=== PATIENT | female | born 1960 | race Caucasian/White ===

== ENCOUNTER 2017-08-05 11:54 | Emergency (ER) | payer BC, MEDICARE ==
[~2017-08-05] VITALS: Ht 160 cm; Wt 59.0 kg
[~2017-08-05 11:54] MED LIST: AMOXICILLIN875 MG PO; ATIVAN1 MG PO; ATIVAN2 MG PO; B12 INJ; BENADRYL25 M1 PO; BENTYL10 MG PO; CLONIDINE HCL0.1 MG PO; COMPAZINE PO; DICYCLOMINE HCL20 MG PO; DIVALPROEX SOD500 M1 PO; GYNODIOL0.5 MG; LEVOCETIRI2.5 MG/5 M PO; LEVOTHYROXINE75 MCG PO; LEVOTHYROXINE88 MCG PO; LEVSIN PO; LEVSIN0.125 MG PO; MAXITROL EYE DRO5 ML OU; MEDROL8 MG PO; METHYLPREDNISOLO8 MG PO; MOBIC7.5 M1 PO; PHENERGAN25 M3 PO; PREVACID15 M1 PO; PRILOSEC; PROCHLORPERAZIN10 MG PO; ROBAXIN-750750 MG PO; SIMVASTATIN40 MG PO; SYNTHROID75 MCG PO; TRAMADOL-ACETAMI1 EA PO; TYLENOL WITH C1 EACH PO; ULTRACET TABLE1 EACH PO; VITAMIN D5000 UNIT PO; WARFARIN SODIUM1 MG PO; XARELTO15 MG PO; Z METHYLPREDNISOLO; Z METHYLPREDNISOLO PO; Z.0.BACLOFEN10 MG; Z.0.ESTRADIOL1 MG PO; Z.0.MOBIC15 MG; Z.0.SYNTHROID100 MCG; Z.0.SYNTHROID88 MCG PO; Z.0.ZYRTEC5 MG PO; Z.1.VITAMIN D2000 UN PO; ZOFRAN PO
--- OUTSIDE RECORDS SUMMARY | 2017-08-05 11:58 | XMS REPORT | Clinical Summary ---
Author Author [facility] Address Unknown Phone Unavailable Care Team Providers Care Rotary Swaging Machine Operator Name Role Phone Harshad Avery MD PCP Allergies Active Allergy Reactions Severity Noted Date Comments Amitriptyline 01/04/2016 Numb all over and diff breathing Amlodipine GI Intolerance 01/04/2016 Vomiting, h/a Aspirin (Tartrazine Only) 01/04/2016 Ulcers Azithromycin 01/04/2016 headache Baclofen 01/04/2016 Heart problems Cephalexin Nausea And Vomiting 01/04/2016 Heart races Meperidine GI Intolerance 01/04/2016 vomiting Dexlansoprazole 01/04/2016 Heart problems Gabapentin 01/04/2016 headache Gentamicin Nausea And Vomiting 01/04/2016 Guaifenesin 01/04/2016 Actually was listussin , cannot remember reaction Hydroxychloroquine Hives 01/04/2016 Lisinopril Nausea And Vomiting 01/04/2016 Metoprolol Tartrate Nausea And Vomiting 01/04/2016 Loose bowels, rapid heart rate Metronidazole 01/04/2016 Heart stops Morphine GI Intolerance 01/04/2016 "major vomiting" per pt Nitrous Oxide Nausea And Vomiting 01/04/2016 Chlorzoxazone 01/04/2016 Loss of bowel control Peanut 01/04/2016 Dizziness Pregabalin 01/04/2016 Severe headaches Metoclopramide Hcl GI Intolerance 01/04/2016 Uncontrolled bowels Sulfa (Sulfonamide Nausea And Vomiting 01/04/2016 Antibiotics) Triamterene-Hydrochloroth 01/04/2016 Drops to floor iazid Venlafaxine Nausea And Vomiting 01/04/2016 Rapid heart rate, bowels loose Amoxicillin Rash Low 01/04/2016 Lamotrigine Rash Low 01/04/2016 Penicillins Rash Low 01/04/2016 Delta Rash Low 01/04/2016 Александр Lettuce also gives headache and rapid heart rate, put in here as no match found when attempted to put in as a separate one Vancomycin Analogues Rash Low 01/04/2016 kim Current Medications Prescription Sig. Disp. Refills Start End Date Status Date clonIDINE (CATAPRES) 0.1 Take 0.1 mg by mouth 2 Active MG tablet (two) times a day. dicyclomine (BENTYL) 20 Take 20 mg by mouth 4 Active mg tablet (four) times a day. hyoscyamine (LEVSIN) Take 0.125 mg by mouth Active 0.125 mg SL tablet every 4 (four) hours as needed for cramping. LORAZepam (ATIVAN) 1 MG Take 1 mg by mouth every Active tablet 8 (eight) hours. methylPREDNISolone Take 8 mg by mouth Active (MEDROL) 4 MG tablet nightly. levothyroxine (SYNTHROID, Take 125 mcg by mouth Active LEVOTHROID) 125 MCG every morning. tablet tramadol-acetaminophen Take 1 tablet by mouth Active (ULTRACET) 37.5-325 mg every 6 (six) hours. per tablet rivaroxaban (XARELTO) Take 15 mg by mouth Active tablet daily. docusate sodium (COLACE) Take 100 mg by mouth 2 Active 100 MG capsule (two) times a day as needed. ondansetron (ZOFRAN) 4 MG Take 4 mg by mouth every Active tablet 8 (eight) hours as needed for nausea or vomiting. PUMPKIN SEED EXTRACT/SOY Take 2 tablets by mouth 3 Active GERM (AZO BLADDER CONTROL (three) times a day. ORAL) artificial Apply 1 drop to eye as Active tears,hypromellose, needed. (SYSTANE) 0.3 % gel Active Problems Problem Noted Date Myasthenia gravis in crisis 04/17/2016 High triglycerides 04/17/2016 History of deep vein thrombosis (DVT) of lower extremity 04/17/2016 Hx pulmonary embolism 04/17/2016 Myasthenia gravis 03/06/2016 Social History Tobacco Use Types Packs/Day Years Used Date Current Every Day Smoker Cigarettes 4 25 Alcohol Use Drinks/Week oz/Week Comments No Sex Assigned at Date Recorded Not on file Last Filed Vital Signs Not on file Plan of Treatment Health Maintenance Due Date Last Done Comments PAP SMEAR 10/07/1983 COLONOSCOPY 2012 MAMMOGRAM 2012 INFLUENZA VACCINE 01/27/2017 Results Not on fileafter 08/04/2016 Insurance Payer Benefit Subscriber ID Type Phone Address Plan / Group MEDICARE MEDICARE [id number] Medicare [place], [place] PART A BCBS BCBS OUT [id number] PPO OF STATE
[2017-08-05 13:35] LABS: BASOPHILS # (AUTO) 0.1 (0.0-0.1); BASOPHILS % 0.7 % (0.0-1.0); EOSINOPHILS % 0.2 % (0.0-6.0); HEMATOCRIT 49.6 % (34.2-44.1); HEMOGLOBIN 16.5 g/dL (12.0-16.0); LYMPHOCYTES # (AUTO) 2.3 (1.0-3.2); LYMPHOCYTES % 13.9 % (18.0-39.1); MEAN CORPUSCULAR HEMOGLOBIN 31.1 pg (28-32); MEAN CORPUSCULAR HGB CONC 33.3 g/dL (31-35); MEAN CORPUSCULAR VOLUME 93.4 fL (81-99); MONOCYTES # (AUTO) 0.8 (0.2-0.8); MONOCYTES % 4.6 % (4.4-11.3); NEUTROPHILS % 77.2 % (38.7-80.0); PLATELET COUNT 273 x10e3/uL (140-360); RED BLOOD COUNT 5.31 x10e6/uL (3.6-5.1); RED CELL DISTRIBUTION WIDTH 18.1 % (11.7-14.4)
[2017-08-05 13:40] LABS: INR 1.1; PROTHROMBIN TIME 14.8 seconds (11.9-14.5)
[2017-08-05 13:41] LABS: PARTIAL THROMBOPLASTIN TIME 33.4 seconds (23.8-35.5)
[2017-08-05 13:48] LABS: ALANINE AMINOTRANSFERASE 38 IU/L (0-55); ALBUMIN 3.2 g/dL (3.5-5.0); ALBUMIN/GLOBULIN RATIO 0.8 (0.8-2.0); ALKALINE PHOSPHATASE 103 IU/L (40-150); ANION GAP 20.3 mmol/L (8-16); BLOOD UREA NITROGEN 10 mg/dL (7-26); BUN/CREATININE RATIO 12 (6-25); CARBON DIOXIDE 17 mmol/L (22-29); CHLORIDE 107 mmol/L (98-107); CREATINE KINASE 21 IU/L (29-168); CREATININE, SERUM 0.86 mg/dL (0.57-1.11); EST GLOMERULAR FILTRATION RATE > 60 ML/MIN (60-); GLUCOSE 113 mg/dL (74-118); POTASSIUM 3.3 mmol/L (3.5-5.1); SODIUM 141 mmol/L (136-145)
--- NOTE | 2017-08-05 14:28 | Diagnostic Imaging Report ---
PROCEDURE: Frontal and lateral views of the chest. COMPARISON: 02/13/12 INDICATIONS: CHEST PAIN, HEADACHE FINDINGS: Lines/tubes: Single lead left chest wall cardiac device in place with distal tip overlying right atrium. Lungs: Low lung volumes. There is no evidence of pneumonia or pulmonary edema. Pleura: There is no pleural effusion or pneumothorax. Heart and mediastinum: The heart and the mediastinum are normal. Bones: Generalized demineralization. Evidence of upper lumbar spine vertebroplasty. IMPRESSION: 1. No acute cardiopulmonary disease. Dictated by: Salinas Hare M.D. on 08/05/2017 at 14:37 Electronically approved by: Salinas Hare M.D. on 08/05/2017 at 14:37
[2017-08-05] MEDS ORDERED: SYNTHROID75 MCG PO (17:57)
[2017-08-05 19:10] LABS: BAND NEUTROPHILS % (MANUAL) 1 %; LYMPHOCYTES % (MANUAL) 11 % (19-48); METAMYELOCYTES % (MANUAL) 1 % (0-0); MONOCYTES % (MANUAL) 4 % (3.4-9.0); NEUTROPHILS % (MANUAL) 83 % (40-74)
[2017-08-05 19:13] LABS: ANISOCYTOSIS SLIGHT; PLATELET ESTIMATE ADEQUATE; PLATELET MORPHOLOGY COMMENT NORMAL; POIKILOCYTOSIS SLIGHT; RBC MORPHOLOGY COMMENT NORMAL
--- NOTE | 2017-08-05 19:14 | Diagnostic Imaging Report ---
Ventilation/perfusion lung scan Clinical Information: 56 F with chest pain and 3 weeks of SOB. Comparison: Chest radiograph 08/05/2017 Discussion: Xenon-133 gas 20 mCi was administered via inhalation. Dynamic images of the lungs in the posterior projection were obtained through single breath, equilibrium, and washout phases. Distribution of tracer activity is mildly irregular throughout the lungs.. There are no segmental ventilatory defects. Washout of tracer is diffusely delayed with no evidence of air trapping. Perfusion images of the lungs were obtained in multiple projections following intravenous administration of approximately 5.4 mCi of Tc-99m MAA. Distribution of tracer appears physiologic throughout the lungs. The contours of the lungs are well demarcated. There are no segmental perfusion defects of any size. The cardiomediastinal silhouette is unremarkable. Impression: 1. Scan findings represent a VERY LOW probability for acute pulmonary embolic disease based on the PIOPED II criteria. 2. Scan findings are compatible with mild obstructive lung disease. Signed by: Dr. Nini Pearson M.D. on 08/05/2017 7:10 PM
[2017-08-05 19:48] VITALS: BP 138/83
== END 2017-08-05 20:43 | disposition home or self-care (01) ==
LOC: ER 11:54
DX: R07.89 Other chest pain (principal); J44.9 Chronic obstructive pulmonary disease, unspecified; G35 Multiple sclerosis; M32.9 Systemic lupus erythematosus, unspecified; I73.00 Raynaud's syndrome without gangrene; Z85.850 Personal history of malignant neoplasm of thyroid; F17.210 Nicotine dependence, cigarettes, uncomplicated
CPT/HCPCS: 36415; 71046; 78582; 80053; 82550; 82553; 84484; 85025; 85610; 85730; 93005; 99284; A9540; A9558

== ENCOUNTER 2017-09-20 10:49 | Emergency (ER) | payer BC, MEDICARE ==
[~2017-09-20] VITALS: Ht 160 cm; Wt 59.0 kg
--- OUTSIDE RECORDS SUMMARY | 2017-09-20 10:52 | XMS REPORT ---
[facility] Address Unknown Phone Unavailable Care Team Providers Care Small Engine Technician Name Role Phone MAGDI CAICEDO Unavailable Unavailable Problems This patient has no known problems. Allergies, Adverse Reactions, Alerts This patient has no known allergies or adverse reactions. Medications This patient has no known medications. Results Test Description Test Time Test Comments Text Results Atomic Results Result Comments CHEST 2 VIEWS [place] [address] Patient Name: REBEKAH BLACK MR #: [id number] : 1960 Age/Sex: 56/F Req #: [id number] Adm Physician: Ordered by: UVALDO KHAN DISPATCHER MAINTENANCE SERVICE Report #: [id number] Location: ER Room/Bed: Procedure: [id number] DX/CHEST 2 VIEWS Exam Date: 08/05/17 Exam Time : 1340 REPORT STATUS: Signed PROCEDURE: Frontal and lateral views of the chest. COMPARISON: 02/13/12 INDICATIONS: CHEST PAIN, HEADACHE FINDINGS: Lines/tubes: Single lead left chest wall cardiac device in place with distal tip overlying right atrium. Lungs: Low lung volumes. There is no evidence of pneumonia or pulmonary edema. Pleura: There is no pleural effusion or pneumothorax. Heart and mediastinum: The heart and the mediastinum are normal. Bones: Generalized demineralization. Evidence of upper lumbar spine vertebroplasty. IMPRESSION: 1. No acute cardiopulmonary disease. Dictated by: Salinas Jeffers M.D. on 08/05/2017 at 14:37 Electronically approved by: Salinas Jeffers M.D. on 08/05/2017 at 14:37 Dictated By: SALINAS JEFFERS MD 36 Transcribed By: YOSELYN on 08/05/171436 COPY TO: UVALDO KHAN DISPATCHER MAINTENANCE SERVICE VQ LUNG SCAN VENT PERFUSION [place] [address] Patient Name: REBEKAH BLACK MR #: [id number] : 1960 Age/Sex: 56/F Req #: [id number] [facility] Physician: Ordered by: UVALDO KHAN NP Report #: [id number] Location: ER Room/Bed: Procedure: [id number] NM/VQ LUNG SCAN VENT PERFUSION Exam Date: Exam Time: REPORT STATUS: Signed Ventilation/ perfusion lung scan Clinical Information: 56 F with chest pain and 3 weeks of SOB. Comparison: Chest radiograph 08/05/2017 Discussion: Xenon-133 gas 20 mCi was administered via inhalation. Dynamic images of the lungs in the posterior projection were obtained through single breath, equilibrium, and washout phases. Distribution of tracer activity is mildly irregular throughout the lungs.. There are no segmental ventilatory defects. Washout of tracer is diffusely delayed with no evidence of air trapping. Perfusion images of the lungs were obtained in multiple projections following intravenous administration of approximately 5.4 mCi of Tc-99m MAA. Distribution of tracer appears physiologic throughout the lungs. The contours of the lungs are well demarcated. There are no segmental perfusion defects of any size. The cardiomediastinal silhouette is unremarkable. Impression: 1. Scan findings represent a VERY LOW probability for acute pulmonary embolic disease based on the PIOPED II criteria. 2. Scan findings are compatible with mild obstructive lung disease. Signed by: Dr. Bradley Pearson M.D. on 08/05/2017 7:10 PM Dictated By: BRADLEY PEARSON MD 09 Transcribed By: MARGUERITE on 08/05/171909 COPY TO: UVALDO KHAN NP
--- OUTSIDE RECORDS SUMMARY | 2017-09-20 10:52 | XMS REPORT | Clinical Summary ---
Author Author [facility] Address Unknown Phone Unavailable Care Team Providers Care Gauge And Weigh Machine Adjuster Name Role Phone Harshad Avery MD PCP Allergies Active Allergy Reactions Severity Noted Date Comments Amitriptyline 01/04/2016 Numb all over and diff breathing Amlodipine GI Intolerance 01/04/2016 Vomiting, h/a Amoxicillin Rash Low 01/04/2016 Aspirin (Tartrazine Only) 01/04/2016 Ulcers Azithromycin 01/04/2016 headache Baclofen 01/04/2016 Heart problems Cephalexin Nausea And Vomiting 01/04/2016 Heart races Meperidine GI Intolerance 01/04/2016 vomiting Dexlansoprazole 01/04/2016 Heart problems Gabapentin 01/04/2016 headache Gentamicin Nausea And Vomiting 01/04/2016 Guaifenesin 01/04/2016 Actually was listussin , cannot remember reaction Hydroxychloroquine Hives 01/04/2016 Lamotrigine Rash Low 01/04/2016 Lisinopril Nausea And Vomiting 01/04/2016 Metoprolol Tartrate Nausea And Vomiting 01/04/2016 Loose bowels, rapid heart rate Metronidazole 01/04/2016 Heart stops Morphine GI Intolerance 01/04/2016 "major vomiting" per pt Nitrous Oxide Nausea And Vomiting 01/04/2016 Chlorzoxazone 01/04/2016 Loss of bowel control Peanut 01/04/2016 Dizziness Penicillins Rash Low 01/04/2016 Pregabalin 01/04/2016 Severe headaches Metoclopramide Hcl GI Intolerance 01/04/2016 Uncontrolled bowels Galva Rash Low 01/04/2016 Александр Lettuce also gives headache and rapid heart rate, put in here as no match found when attempted to put in as a separate one Sulfa (Sulfonamide Nausea And Vomiting 01/04/2016 Antibiotics) Triamterene-Hydrochloroth 01/04/2016 Drops to floor iazid Vancomycin Analogues Rash Low 01/04/2016 redmans Venlafaxine Nausea And Vomiting 01/04/2016 Rapid heart rate, bowels loose Current Medications Prescription Sig. Disp. Refills Start [...] INFLUENZA VACCINE 01/27/2017 Results Not on fileafter 09/19/2016 Insurance Payer Benefit Subscriber ID Type Phone Address Plan / Group MEDICARE MEDICARE xxxxxxxxxx Medicare [place], [place] PART A BCBS BCBS OUT xxxxxxxxxxxx PPO OF STATE
--- OUTSIDE RECORDS SUMMARY | 2017-09-20 10:53 | XMS REPORT | Continuity of Care Document ---
Author Author [facility] Organization [facility] Address [address] [place] [address] Phone Unavailable Care Team Providers Care Mash Grinder Name Role Phone SARABJIT LAMAS PCP Insurance Providers Guarantor Rebekah Louis Address [address] [place] [address] Email [email or web address] [facility] Policy Number [id number] Subscriber's Name Hiro Louis Relationship 01 Group Number [id number] Group Name [employer] [id number] Effective Date 17 Payer Medicare A Only Policy Number [id number] Subscriber's Name Rebekah Louis Relationship 18 Self / Same As Patient Effective Date 11 Advance Directives Directive Response Recorded Date/Time Does the patient have an advance directive? No 05/31/15 4:41pm If yes, is advance directive on file with [facility]? No 04/03/14 9:00pm If not on file with [facility] will patient provide a copy? No 05/19/17 10:06am Do you have a Directive to Physician? No 08/05/17 12:42pm Do you have a Medical Power of Professor In Family Studies? No 08/05/17 12:42pm Do you have an out of hospital Do Not Resuscitate Order? No 08/05/17 12:42pm Do you have any special needs we should be aware of? No 08/05/17 12:42pm Do you have a support person here with you today? Yes 08/05/17 12:42pm Did patient receive Notice of Privacy Practices? Yes 08/05/17 12:42pm Did patient receive patient rights and responsibilities? Yes 08/05/17 12:42pm Problems Medical Problem Onset Date Status Abdominal pain as manifestation of blood transfusion reaction 04/03/2014 Acute Colitis, acute 04/03/2014 Acute Pancreatitis 04/03/2014 Acute Medications Current Home Medications Medication Dose Units Route Directions Days Qty Instructions Start Date Clonidine Hcl 0.1 Mg Tablet 1 Tab Oral Three Times A Day 60 Tab Compazine 10 Mg Oral As Needed Hyoscyamine Sulfate (Levsin) 0.125 Mg Tablet 0.125 Mg Oral X5oblun Levothyroxine Sodium (Synthroid) 75 Mcg Tab 75 Mcg Oral Daily 30 Tab Lorazepam (Ativan) 1 Mg Tablet 1 Mg Oral Three Times A Day Methylprednisolone 8 Mg Tablet 8 Mg Oral Daily Prilosec 40 Mg Twice A Day Rivaroxaban (Xarelto) 15 Mg Tablet 15 Mg Oral Daily Tramadol Hcl/Acetaminophen (Ultracet Tablet) 1 Each Tablet 1 Tab Oral Four Times Daily Past Home Medications Medication Directions Ordered Status Acetaminophen With Codeine (Tylenol With Codeine #3 Tablet) 1 Each Tablet, 0.5 Tab Oral Daily Discontinued Amoxicillin 875 Mg Tablet, 875 Mg Oral Twice A Day Discontinued B12 , Injection Monthly Discontinued Baclofen 10 Mg Tablet, Discontinued Cetirizine Hcl (Zyrtec) 5 Mg Tablet, 5 Mg Oral Daily Discontinued Cholecalciferol (Vitamin D) 2,000 Unit Capsule, 2000 Unit Oral Daily Discontinued Cholecalciferol (Vitamin D3) (Vitamin D) 5,000 Unit Tablet, 5000 Unit Oral Daily Discontinued Dicyclomine Hcl 20 Mg Tablet, 20 Mg Oral Four Times Daily as needed for Pain Discontinued Dicyclomine Hcl (Bentyl) 10 Mg Capsule, 10 Mg Oral Q3hrs Discontinued Diphenhydramine Hcl (Benadryl) 25 Mg Capsule, 25 Mg Oral Discontinued Estradiol 1 Mg Tablet, 1 Mg Oral Daily Discontinued Estradiol (Gynodiol) 0.5 Mg Tablet, Discontinued Lansoprazole (Prevacid) 15 Mg Tab.rap.dr, 15 Mg Oral Twice A Day Discontinued Levothyroxine Sodium 75 Mcg Tablet, 125 Mcg Oral Daily Discontinued Levothyroxine Sodium (Synthroid) 75 Mcg Tab, 75 Mcg Oral Discontinued Levothyroxine Sodium 88 Mcg Tablet, 88 Mcg Oral Daily Discontinued Levothyroxine Sodium (Synthroid) 88 Mcg Tablet, 112 Mcg Oral Daily Discontinued Levothyroxine Sodium (Synthroid) 100 Mcg Tablet, Discontinued Levsin , Oral As Needed Discontinued Lorazepam (Ativan) 1 Mg Tablet, 1 Mg Oral Every 8 Hours Discontinued Lorazepam (Ativan) 2 Mg Tablet, 2 Mg Oral At Bedtime Discontinued Meloxicam (Mobic) 7.5 Mg Tablet, 7.5 Mg Oral Daily as needed Discontinued Meloxicam (Mobic) 15 Mg Tablet, Discontinued Methocarbamol (Robaxin-750) 750 Mg Tablet, 750 Mg Oral Three Times A Day Discontinued Methylprednisolone (Medrol) 8 Mg Tablet, 12 Mg Oral Rt Daily Discontinued Methylprednisolone 8 Mg Tablet, 8 Mg Oral Daily Discontinued Methylprednisolone 4 Mg Tablet, Discontinued Vasu/Polymyx B Sulf/Dexameth (Maxitrol Eye Drops) 5 Ml Drops.susp, 1 Drp Each Eye Three Times A Day Discontinued Prochlorperazine Maleate 10 Mg Tablet, Unknown Dose Oral Daily Discontinued Promethazine Hcl (Phenergan) 25 Mg Tablet, 25 Mg Oral Every 6 Hours as needed Discontinued Tramadol/Acetaminophen (Tramadol-Acetaminophn 37.5-325) 1 Ea Tab, 1 Tab Oral Twice A Day Discontinued Warfarin Sodium 1 Mg Tablet, 3.5 Mg Oral Rt Daily Discontinued Zofran , Oral As Needed Discontinued Social History Social History Problem Response Recorded Date/Time Onset Date Status Hx Psychiatric Problems No 05/31/2015 4:41pm Not Applicable Not Applicable Hx Eating Disorder No 05/31/2015 4:41pm Not Applicable Not Applicable Hx Substance Use Disorder No 05/31/2015 4:41pm Not Applicable Not Applicable Hx Depression No 05/31/2015 4:41pm Not Applicable Not Applicable Hx Alcohol Use No 05/31/2015 4:41pm Not Applicable Not Applicable Hx Substance Use Treatment No 05/31/2015 4:41pm Not Applicable Not Applicable Hx Physical Abuse No 05/31/2015 4:41pm Not Applicable Not Applicable Smoking Status Start Date Stop Date Never Smoker Hospital Discharge Instructions No hospital discharge instruction information available. Plan of Care Discharge Date 08/05/17 8:43pm Disposition HOME, SELF-CARE Condition at Discharge Stable Instructions/Education Provided Chest Pain - Chest Wall COPD Prescriptions See Medication Section Referrals SARABJIT LAMAS Address: [address] [place] [address] Additional Instructions/Education REST; DRINK PLENTY OF WATER; FOLLOW UP WITH YOUR PCP Functional Status No functional status information available. Allergies, Adverse Reactions, Alerts Allergen Type Severity Reaction Status Last Updated Diphenoxylate HCl Allergy Unknown Active 11/28/16 amitriptyline HCl Allergy Severe Active 02/13/12 atropine sulfate Allergy Unknown Active 11/28/16 phenylephrine HCl Allergy Unknown Active 11/28/16 metoprolol tartrate Adverse Reaction Unknown VOMITING FOR HOURS Active 08/15 hydroxychloroquine sulfate Allergy Unknown Active 11/28/16 Metronidazole HCl Allergy Unknown Active 11/28/16 dexbrompheniramine maleate Allergy Unknown Active 11/28/16 sertraline HCl Allergy Unknown Active 11/28/16 venlafaxine HCl Allergy Unknown Active 11/28/16 Iodinated Contrast- Oral and IV Dye Allergy Mild Active 06/12/09 Sulfa (Sulfonamide Antibiotics) Allergy Mild Active 01/05/11 Peanuts Allergy Mild Active 10/04/11 Lisinopril Allergy Unknown Active 11/28/16 Nitrous oxide Allergy Unknown Active 11/28/16 Morphine Allergy Unknown NAUSEA/VOMITING Active 12/01/16 Hydrocodone Allergy Mild Active 06/12/09 Aspirin Allergy Unknown Active 11/28/16 Chlorzoxazone Allergy Mild Active 01/05/11 Baclofen Allergy Unknown Active 11/28/16 Epinephrine Allergy Severe Active 02/13/12 Phenylephrine Allergy Mild Active 01/05/11 Hydrochlorothiazide Allergy Mild Active 01/05/11 Triamterene Allergy Mild Active 01/05/11 Cephalexin Allergy Mild Active 01/05/11 Metronidazole Allergy Unknown Active 08/05/17 Famotidine Allergy Mild Active 06/01/15 Azithromycin Allergy Mild Active 01/05/11 Amoxicillin Allergy Unknown Active 11/28/16 Lamotrigine Allergy Unknown Active 11/28/16 Tramadol Allergy Severe TACHYCARDIA Active 06/02/15 Enoxaparin Allergy Mild VASCULITIS Active 12/11/13 Gabapentin Allergy Unknown Active 05/20/17 Chlorpheniramine Allergy Mild Active 01/05/11 Dexbrompheniramine Allergy Mild Active 01/05/11 Procaine Allergy Unknown Active 11/28/16 Bupropion Allergy Mild SEVERE STOMACH PAIN, DIARRHEA Active 05/14/15 Meperidine Allergy Unknown NAUSEA/VOMITNG Active 12/01/16 Hydromorphone Allergy Mild N/V Active 05/14/15 Buprenorphine Allergy Severe TACHYCARDIA Active 05/14/15 Metoclopramide Allergy Mild N/V Active 05/14/15 Minocycline Allergy Unknown Active 11/28/16 Vancomycin Allergy Unknown Active 11/28/16 Gentamicins Allergy Unknown Active 11/28/16 Losartan Allergy Unknown Active 05/20/17 Pregabalin Allergy Unknown Active 11/28/16 Dexlansoprazole Allergy Unknown Active 11/28/16 Immunizations No immunization information available. Vital Signs Acute Vital Signs Vital Response Date/Time Blood Pressure 138/83 mm Hg 08/05/2017 7:48pm Height 5 ft 3 in 08/05/2017 12:05pm Weight 130 lb 08/05/2017 12:05pm Body Mass Index 23.0 kg/m^2 08/05/2017 12:05pm Results Laboratory Results Test Name Result Units Flags Reference Collection Date/Time Result Date/ Time Comments White Blood Count 16.79 x10e3/uL H 4.8-10.8 08/05/2017 1:20pm 2017 1:43pm Red Blood Count 5.31 x10e6/uL H 3.6-5.1 08/05/2017 1:20pm 08/05/2017 1: 43pm Hemoglobin 16.5 g/dL H 12.0-16.0 08/05/2017 1:20pm 08/05/2017 1:43pm Hematocrit 49.6 % H 34.2-44.1 08/05/2017 1:20pm 08/05/2017 1:43pm Mean Corpuscular Volume 93.4 fL 81-99 08/05/2017 1:20pm 08/05/2017 1: 43pm Mean Corpuscular Hemoglobin 31.1 pg 28-32 08/05/2017 1:20pm 08/05/2017 1:43pm Mean Corpuscular Hemoglobin Concent 33.3 g/dL 31-35 08/05/2017 1:20pm 08/05/2017 1:43pm Red Cell Distribution Width 18.1 % H 11.7-14.4 08/05/2017 1:20pm 2017 1:43pm Platelet Count 273 x10e3/uL 140-360 08/05/2017 1:20pm 08/05/2017 1: 43pm Neutrophils (%) (Auto) 77.2 % 38.7-80.0 08/05/2017 1:20pm 08/05/2017 1: 43pm Lymphocytes (%) (Auto) 13.9 % L 18.0-39.1 08/05/2017 1:20pm 08/05/2017 1 :43pm Monocytes (%) (Auto) 4.6 % 4.4-11.3 08/05/2017 1:20pm 08/05/2017 1: 43pm Eosinophils (%) (Auto) 0.2 % 0.0-6.0 08/05/2017 1:20pm 08/05/2017 1: 43pm Basophils (%) (Auto) 0.7 % 0.0-1.0 08/05/2017 1:20pm 08/05/2017 1:43pm IM GRANULOCYTES % 3.4 % H 0.0-1.0 08/05/2017 1:20pm 08/05/2017 1:43pm Neutrophils # (Auto) 13.0 H 2.1-6.9 08/05/2017 1:20pm 08/05/2017 1: 43pm Lymphocytes # (Auto) 2.3 1.0-3.2 08/05/2017 1:20pm 08/05/2017 1:43pm Monocytes # (Auto) 0.8 0.2-0.8 08/05/2017 1:20pm 08/05/2017 1:43pm Eosinophils # (Auto) 0.0 0.0-0.4 08/05/2017 1:20pm 08/05/2017 1:43pm Basophils # (Auto) 0.1 0.0-0.1 08/05/2017 1:20pm 08/05/2017 1:43pm Absolute Immature Granulocyte (auto 0.57 x10e3/uL H 0-0.1 08/05/2017 1: 20pm 08/05/2017 1:43pm Differential Total Cells Counted 100 08/05/2017 1:20pm 08/05/2017 7 :14pm Neutrophils % (Manual) 83 % H 40-74 08/05/2017 1:20pm 08/05/2017 7:14pm Band Neutrophils % 1 % 08/05/2017 1:20pm 08/05/2017 7:14pm Lymphocytes % (Manual) 11 % L 19-48 08/05/2017 1:20pm 08/05/2017 7:14pm Monocytes % (Manual) 4 % 3.4-9.0 08/05/2017 1:20pm 08/05/2017 7:14pm Metamyelocytes % 1 % H 0-0 08/05/2017 1:20pm 08/05/2017 7:14pm Platelet Estimate ADEQUATE 08/05/2017 1:20pm 08/05/2017 7:14pm Platelet Morphology Comment NORMAL 08/05/2017 1:20pm 08/05/2017 7: 14pm Poikilocytosis SLIGHT 08/05/2017 1:20pm 08/05/2017 7:14pm Anisocytosis SLIGHT 08/05/2017 1:20pm 08/05/2017 7:14pm Red Cell Morphology Comment NORMAL 08/05/2017 1:20pm 08/05/2017 7: 14pm Prothrombin Time 14.8 seconds H 11.9-14.5 08/05/2017 1:20pm 08/05/2017 1 :41pm Prothromb Time International Ratio 1.10 08/05/2017 1:20pm 2017 1:41pm Oral Anticoagulant Therapy INR Values: 1. Low Intensity Therapy 1.5 - 2.0 2. Moderate Intensity Therapy 2.0 - 3.0 3. High Intensity Therapy(1) 2.5 - 3.5 4. High Intensity Therapy(2) 3.0 - 4.0 5. Panic Value INR > 5.0 Activated Partial Thromboplast Time 33.4 seconds 23.8-35.5 08/05/2017 1: 20pm 08/05/2017 1:41pm Sodium Level 141 mmol/L 136-145 08/05/2017 1:20pm 08/05/2017 1:56pm Potassium Level 3.3 mmol/L L 3.5-5.1 08/05/2017 1:20pm 08/05/2017 1: 56pm Chloride Level 107 mmol/L 98-107 08/05/2017 1:20pm 08/05/2017 1:56pm Carbon Dioxide Level 17 mmol/L L 22-29 08/05/2017 1:20pm 08/05/2017 1: 56pm Anion Gap 20.3 mmol/L H 8-16 08/05/2017 1:20pm 08/05/2017 1:56pm Blood Urea Nitrogen 10 mg/dL 7-26 08/05/2017 1:20pm 08/05/2017 1:56pm Creatinine 0.86 mg/dL 0.57-1.11 08/05/2017 1:20pm 08/05/2017 1:56pm BUN/Creatinine Ratio 12 6-25 08/05/2017 1:20pm 08/05/2017 1:56pm Estimat Glomerular Filtration Rate > 60 ML/MIN 60- 08/05/2017 1:20pm 1:56pm Ranges were taken from the National Kidney Disease Education Program and the National Kidney Foundation literature. Reference ranges: 60 or greater: Normal 16-59 (for 3 consecutive months): Chronic kidney disease 15 or less: Kidney failure Glucose Level 113 mg/dL 74-118 08/05/2017 1:20pm 08/05/2017 1:56pm Calcium Level 9.0 mg/dL 8.4-10.2 08/05/2017 1:20pm 08/05/2017 1:56pm Total Bilirubin 0.5 mg/dL 0.2-1.2 08/05/2017 1:20pm 08/05/2017 1:56pm Aspartate Amino Transf (AST/SGOT) 16 IU/L 5-34 08/05/2017 1:20pm 2017 1:56pm Alanine Aminotransferase (ALT/SGPT) 38 IU/L 0-55 08/05/2017 1:20pm 12/2017 1:56pm Total Protein 7.1 g/dL 6.5-8.1 08/05/2017 1:20pm 08/05/2017 1:56pm Albumin 3.2 g/dL L 3.5-5.0 08/05/2017 1:20pm 08/05/2017 1:56pm Globulin 3.9 g/dL H 2.3-3.5 08/05/2017 1:20pm 08/05/2017 1:56pm Albumin/Globulin Ratio 0.8 0.8-2.0 08/05/2017 1:20pm 08/05/2017 1: 56pm Alkaline Phosphatase 103 IU/L 40-150 08/05/2017 1:20pm 08/05/2017 1: 56pm Creatine Kinase 21 IU/L L 29-168 08/05/2017 1:20pm 08/05/2017 1:56pm Creatine Kinase MB 1.20 ng/mL 0.00-5.00 08/05/2017 1:20pm 08/05/2017 1: 56pm Troponin I 0.009 ng/mL 0-0.300 08/05/2017 1:20pm 08/05/2017 1:56pm Procedures Procedure Status Date Provider(s) COLONOSCOPY W/LESION REMOVAL Completed 05/23/17 JELLY MATHIS MD COLONOSCOPY W/LESION REMOVAL Completed 05/23/17 JELLY MATHIS MD X-ray of chest, two views Active 08/05/17 UVALDO KHAN TIME CHECKER Encounters Encounter Location Arrival/Admit Date Discharge/Depart Date Attending Provider Departed Emergency Room [facility] 08/05/17 11:54am 08/05 8:43pm MAGDI CAICEDO MD Registered Surgical Day Care [facility] 05/23/17 8:39am JELLY MATHIS MD Registered Surgical Day Care [facility] 12/01/16 7:42am JELLY MATHIS MD
[2017-09-20 12:18] LABS: BASOPHILS # (AUTO) 0.1 (0.0-0.1); BASOPHILS % 0.4 % (0.0-1.0); HEMOGLOBIN 15.5 g/dL (12.0-16.0); LYMPHOCYTES # (AUTO) 0.9 (1.0-3.2); LYMPHOCYTES % 6.7 % (18.0-39.1); MEAN CORPUSCULAR HEMOGLOBIN 31.6 pg (28-32); MEAN CORPUSCULAR HGB CONC 34.4 g/dL (31-35); MEAN CORPUSCULAR VOLUME 91.8 fL (81-99); MONOCYTES # (AUTO) 0.4 (0.2-0.8); MONOCYTES % 3.1 % (4.4-11.3); NEUTROPHILS # (AUTO) 12.2 (2.1-6.9); NEUTROPHILS % 86.3 % (38.7-80.0); PLATELET COUNT 206 x10e3/uL (140-360); RED CELL DISTRIBUTION WIDTH 16.2 % (11.7-14.4)
[2017-09-20 12:26] LABS: INR 2.64; PROTHROMBIN TIME 26.5 seconds (11.9-14.5)
[2017-09-20 12:27] LABS: PARTIAL THROMBOPLASTIN TIME 41.1 seconds (23.8-35.5)
[2017-09-20 12:34] LABS: ALANINE AMINOTRANSFERASE 39 IU/L (0-55); ALBUMIN/GLOBULIN RATIO 0.9 (0.8-2.0); ALKALINE PHOSPHATASE 91 IU/L (40-150); AMYLASE 76 U/L (25-125); ANION GAP 15.7 mmol/L (8-16); BLOOD UREA NITROGEN 12 mg/dL (7-26); BUN/CREATININE RATIO 14 (6-25); CALCIUM 8.8 mg/dL (8.4-10.2); CARBON DIOXIDE 20 mmol/L (22-29); CHLORIDE 105 mmol/L (98-107); CREATINE KINASE 29 IU/L (29-168); CREATININE, SERUM 0.83 mg/dL (0.57-1.11); EST GLOMERULAR FILTRATION RATE > 60 ML/MIN (60-); GLUCOSE 156 mg/dL (74-118); LIPASE 58 U/L (8-78); POTASSIUM 3.7 mmol/L (3.5-5.1); SODIUM 137 mmol/L (136-145)
--- NOTE | 2017-09-20 12:41 | Diagnostic Imaging Report ---
EXAM: CT Abdomen and Pelvis WITHOUT contrast INDICATION: Left lower quadrant pain COMPARISON: None. TECHNIQUE: Abdomen and Pelvis was scanned utilizing a multidetector helical scanner without the use of IV contrast. Coronal and sagittal reformations were obtained. IV CONTRAST: None COMPLICATIONS: None RADIATION DOSE: Total DLP: 373 mGy*cm Estimated effective dose: (DLP x 0.015 x size factor) mSv CTDIvol has been reviewed. It is below the limits set by the Radiation Protocol Committee (RPC). FINDINGS: Abdomen: Lung Bases: Atelectasis. Solid Organs: Cholecystectomy clips. Nonenhanced images of solid organs unremarkable. Upper GI Tract: Gastric decompression limits adequate evaluation. No small bowel obstructive changes. Vascularity: Mild aortic vascular calcifications with no aneurysm. Lymph Nodes: No suspicious adenopathy. Other: None. Pelvis: Bladder: Decompressed, limiting evaluation. Other: Uterus absent. Colon: Postsurgical changes rectum. There is a 19 mm lesion with central fat density adjacent to the descending colon. Bones: Vertebroplasty changes L1 and L5. Superior endplate height loss L2, L3, L4, likely partially related to Schmorl's nodes. IMPRESSION: 1. 19 mm lesion with central fat density adjacent to descending colon statistically secondary to epiploic appendagitis or less likely omental infarction, both benign/self-limiting processes. 2. Other findings as above. Signed by: Dr. Felix Taylor MD on 09/20/2017 12:38 PM
--- NOTE | 2017-09-20 12:44 | Diagnostic Imaging Report ---
EXAM: XR CHEST 2 VIEWS DATE: 09/20/2017 11:07 AM INDICATION: Rib pain COMPARISON: None FINDINGS: Lines and Tubes: Single lead left chest wall pacemaker with lead overlying right atrium. Heart and Mediastinum: No acute findings. Lungs and Pleura: Biapical scarring. Atelectasis/scarring left lung base. Mild elevation right hemidiaphragm. Bones and Soft Tissues: Surgical clips overlie lower neck. IMPRESSION: 1. No acute cardiopulmonary findings. Signed by: Dr. Felix Taylor MD on 09/20/2017 12:41 PM
[2017-09-20 13:05] LABS: BILIRUBIN,URINE 1+ (NEGATIVE); COLOR,URINE YELLOW (YELLOW); KETONES,URINE 1+ (NEGATIVE); LEUKOCYTE ESTERASE ,URINE NEGATIVE (NEGATIVE); NITRITE,URINE NEGATIVE (NEGATIVE); URINE UROBILINOGEN 1 mg/dL (0.2 - 1)
[2017-09-20 13:06] LABS: CLARITY,URINE SL CLOUDY (CLEAR); PROTEIN,URINE DIPSTICK TRACE (NEGATIVE)
[2017-09-20 13:23] LABS: BACTERIA,URINE FEW /HPF; EPITHELIAL CELLS,URINE MANY /LPF; RBC,URINE 0-5 /HPF (0-5); WBC,URINE (MAN) 0-5 /HPF (0-5)
[2017-09-20] MEDS ORDERED: CIPROFLOXACIN 400 MG/D5W 200ML 200 ML IV STA (14:04)
[2017-09-20 14:22] LABS: BAND NEUTROPHILS % (MANUAL) 1 %; LYMPHOCYTES % (MANUAL) 8 % (19-48); MONOCYTES % (MANUAL) 1 % (3.4-9.0); NEUTROPHILS % (MANUAL) 90 % (40-74); RBC MORPHOLOGY COMMENT NORMAL
[2017-09-20 14:23] LABS: PLATELET ESTIMATE ADEQUATE; PLATELET MORPHOLOGY COMMENT NORMAL
[2017-09-20] MEDS ORDERED: CLINDAMYCIN PHOS 900MG/ D5W 50 50 ML IV ONE (15:30)
[2017-09-20] MEDS ORDERED: CIPROFLOXACIN 400 MG/D5W 200ML 200 ML IV ONE (16:00)
[2017-09-20] MEDS ORDERED: SODIUM CHLORIDE 0.9% 1000ML 1,000 ML IV SCH (16:44)
[2017-09-20] MEDS ORDERED: MORPHINE SULFATE 2 MG/ML SYR IV PRN (16:45)
[2017-09-20] MEDS ORDERED: ONDANSETRON HCL INJ 2 MG/ML VIAL IV PRN (16:45)
[2017-09-20] MEDS ORDERED: DEXTROSE 50% SYRINGE 50 ML IV PRN (16:45)
--- OUTSIDE RECORDS SUMMARY | 2017-09-20 16:59 | XMS REPORT | Clinical Summary ---
Author Author [facility] Address Unknown Phone Unavailable Care Team Providers Care Garment Folder Name Role Phone Harshad Avery MD PCP [...] Metoclopramide Hcl GI Intolerance 01/04/2016 Uncontrolled bowels [place] Rash Low 01/04/2016 Александр Lettuce also gives [...] Plan / Group MEDICARE MEDICARE xxxxxxxxxx Medicare [place], [place] PART A BCBS BCBS OUT xxxxxxxxxxxx PPO OF STATE
[2017-09-20] MEDS ORDERED: CIPROFLOXACIN 400 MG/D5W 200ML 200 ML IV SCH (17:00)
[2017-09-20] MEDS ORDERED: SODIUM CHLORIDE 0.9% 1000ML 1,000 ML ONE (17:07)
[2017-09-20 18:17] VITALS: BP 151/96
[2017-09-20] MEDS ORDERED: CLONIDINE HCL 0.1 MG TAB PO SCH (21:00)
[2017-09-20] MEDS ORDERED: INSULIN REGULAR, HUMAN 100 UNIT/1 ML 3ML VIAL SQ SCH (21:00)
[2017-09-21] MEDS ORDERED: CLINDAMYCIN PHOS 900MG/ D5W 50 50 ML IV SCH
--- NOTE | 2017-09-22 05:20 | History and Physical ---
ATTENDING PHYSICIAN: Dr. Rory Bennett CHIEF COMPLAINT: Ms. Louis is an unfortunate 56-year-old woman with multiple medical problems, who presents to the emergency room with a complaint of left lower quadrant discomfort. HISTORY OF PRESENT ILLNESS: Patient reports this has been an intermittent problem for the last 4 days. She reports that any time she eats or drinks anything that she has discomfort there in the left lower quadrant. She reports she has had chills, but does not know if she has had fever and has not checked her temperature. PAST MEDICAL HISTORY: Significant for multiple problems including systemic lupus erythematosus, rheumatoid arthritis. She had ablation of supraventricular tachycardia and required permanent pacemaker implant. It is felt she previously had seizure. She had previous colonoscopies by Dr. Oswald Coronado, 1 in May 2015 showed mild left side colitis, colon polyps, internal hemorrhoids. She has had DVT and pulmonary emboli in June of 2012 after she had surgeries by her report and is still taking Xarelto. She has had pancreatitis, endometriosis. She has had surgical procedures of hysterectomy. She had total thyroidectomy after thyroid cancer. She has had cholecystectomy and right inguinal hernia repair. CURRENT HOME MEDICATIONS: Include: 1. Clonidine 0.1 mg t.i.d. 2. Levsin. 3. Synthroid 75 mcg daily. 4. Ativan 1 mg t.i.d. 5. Methylprednisolone 8 mg daily. 6. Rivaroxaban (Xarelto) 15 mg daily. 7. Tramadol p.r.n. PERSONAL AND SOCIAL HISTORY: She does not smoke or drink. PHYSICAL EXAMINATION: At this time shows: GENERAL: Pleasant, alert white woman, who seems uncomfortable. HEENT: Examination of head, eyes, ears, nose, and throat relatively unremarkable. NECK: No jugular venous distention. THORAX: Heart sounds S1 and S2 are equal. No murmurs. There is a left subclavian pacemaker intact. LUNGS: Clear. ABDOMEN: Protuberant, small healed surgical scars. No distinct tenderness. EXTREMITIES: No cyanosis, clubbing, or edema. PERTINENT LABORATORY STUDIES: Showed hemoglobin 15.5, hematocrit 45.0, white count 14.0. Sodium 137, potassium 3.7, chloride 105, bicarb 20, glucose 156, BUN 12, and creatinine 0.8. Her troponin is normal. ASSESSMENT: 1. Possible diverticulosis. 2. Systemic lupus erythematosus. 3. Rheumatoid arthritis. PLAN: She has been given broad-spectrum antibiotics. Will ask for consultation with Dr. Oswald Coronado. Further management based on clinical course. Job#: [id number] cc:SARABJIT LAMAS MD
== END 2017-09-20 18:00 | disposition left against medical advice (07) ==
LOC: ER 10:49 → ERHOLD 16:57 → UNDOADMIN 16:57
DX: R10.32 Left lower quadrant pain (principal); R07.81 Pleurodynia; K63.89 Other specified diseases of intestine; E11.65 Type 2 diabetes mellitus with hyperglycemia; D72.829 Elevated white blood cell count, unspecified
CPT/HCPCS: 36415; 71046; 74176; 80053; 81001; 82150; 82550; 82553; 83690; 83880; 84484; 85025; 85610; 85730; 93005; 99284; J0744; J7030

== ENCOUNTER → 2018-03-15 | Outpatient (CLI) | payer BC ==
[~2018-03-15] MED LIST changes: +IOPAMIDOL 370 MG/ML 200 ML INFUS..BTL INJ ONE; +SODIUM CHLORIDE 0.9% 50ML 50 ML ONE
[2018-03-15 11:02] LABS: BLOOD UREA NITROGEN 13 mg/dL (7-26); BUN/CREATININE RATIO 17 (6-25); CREATININE, SERUM 0.75 mg/dL (0.57-1.11); EST GLOMERULAR FILTRATION RATE > 60 ML/MIN (60-)
--- NOTE | 2018-03-15 12:00 | Diagnostic Imaging Report ---
EXAMINATION: CT of the abdomen and pelvis with contrast. TECHNIQUE: Helical CT images of the abdomen and pelvis were performed from the lung bases to the lesser trochanters after the intravenous administration of 150 cc of Omnipaque 300 and the oral administration of none. Coronal and sagittal reformatted images were obtained. Dose modulation, iterative reconstruction, and/or weight based adjustment of the mA/kV was utilized to reduce the radiation dose to as low as reasonably achievable. COMPARISON: Multiple prior CT scan CLINICAL HISTORY:none DISCUSSION: ABDOMEN/PELVIS: LOWER THORAX:Unremarkable. HEPATOBILIARY: 0.8 cm hypodensity in the peripheral aspect of the right hepatic lobe, stable. No intra-or extrahepatic biliary ductal dilation. Cholecystectomy SPLEEN: No splenomegaly. PANCREAS: No focal masses or ductal dilatation. ADRENALS: No adrenal nodules. KIDNEYS/URETERS: 1 cm hypodensity in the posterior aspect of the right kidney, likely cysts. No solid mass lesions otherwise. No calculi. No obstruction. PELVIC ORGANS/BLADDER: The bladder is normal. Uterus absent. PERITONEUM/RETROPERITONEUM: No free air or fluid. Left upper quadrant multilobular density with the largest region measuring 3.2 cm, previously 3.7 cm. LYMPH NODES: No intra-abdominal, retroperitoneal, pelvic or inguinal lymphadenopathy. VESSELS: Mild atherosclerotic disease. GI TRACT: Postsurgical change to the rectosigmoid junction. Appendix absent. BONES AND SOFT TISSUE: No bony destructive lesions. No soft tissue abnormalities. IMPRESSION: No acute CT finding. Multilobular soft tissue density/mass in the left upper quadrant slightly decreased from September 20, 2017. The etiology is indeterminate. Consider follow-up CT of the abdomen and pelvis in 6 months to assess for stability. Signed by: Dr. Franklin Macdonald M.D. on 03/15/2018 11:56 AM
--- NOTE | 2018-03-15 14:37 | Diagnostic Imaging Report ---
EXAMINATION: CT of the thoracic and lumbar spine with contrast. HISTORY: Back pain. COMPARISON: Chest radiograph 09/20/[address] Chest 04/04/14. TECHNIQUE: Multidetector helical axial images were obtained without contrast through the thoracic and lumbar spine with contrast. The images were reconstructed using bone and soft tissue algorithms. FINDINGS: Thoracic spine: Curvature: Unremarkable alignment. Vertebrae and Discs: Diffuse osteopenia. Mild loss of vertebral body height (approximately 25 percent) at the T9 and T11 levels, similar to CT on 09/20/17. Partially seen findings of vertebral augmentation at the L1 level. Scattered mild degenerative disc changes. Spinal canal: Unremarkable. Paraspinal soft tissues: Unremarkable. Lumbar spine: Alignment is unremarkable. No evidence of acute fracture. Vertebral augmentation changes of L1 and L5. Again noted is mild superior endplate height loss at L2-L4. Other findings: Atherosclerotic calcifications of the thoracic aorta and great vessels. Partially seen pacemaker lead. Scattered atelectatic changes bilaterally. A ground glass opacity is present in the right upper lobe on series 5, image 30. Please refer to the report from the concurrently performed abdominal CT for additional findings. IMPRESSION: No evidence of acute fracture in the thoracic or lumbar spine. Diffuse osteopenia. Unchanged mild loss of vertebral body height at T9 and T11. Mild loss of vertebral body height at L2-L4, unchanged from CT on 09/20/17. A ground glass opacity in the right upper lobe, may represent atelectasis, although infectious or inflammatory etiologies are possible. A follow-up chest CT may be considered in 6-8 weeks to assess for resolution. Signed by: Dr. Roshan Locke MD on 03/15/2018 2:33 PM
== END ==
LOC: CT 09:21
PROVIDERS: ATTEND Internal Medicine Gastroenterology
DX: R10.10 Upper abdominal pain, unspecified (principal); M54.6 Pain in thoracic spine; M54.5 Low back pain; R91.8 Other nonspecific abnormal finding of lung field; K76.9 Liver disease, unspecified
CPT/HCPCS: 36415; 72129; 72132; 74177; 82565; 84520; Q9967

== ENCOUNTER → 2018-03-31 | Outpatient (CLI) | payer BC ==
[~2018-03-31] MED LIST changes: +FENTANYL CITRATE/PF 100MCG/2 ML INJ ONE; +GELATIN SPONGE 12-7MM ONE; -IOPAMIDOL 370 MG/ML 200 ML INFUS..BTL INJ ONE; +LIDOCAINE HCL 1% LOCAL INJ 20 ML VIAL ONE; +MIDAZOLAM HCL 2 MG/2 ML VIAL ONE; -SODIUM CHLORIDE 0.9% 50ML 50 ML ONE
--- NOTE | 2018-03-31 11:20 | Diagnostic Imaging Report ---
CT guided fine needle aspiration and core biopsy of left upper abdominal mass Comparison: CT Abdomen/Pelvis Consent: The nature of the procedure, including its risks, benefits and alternatives was explained to the patient who understood and gave consent. Operators: Roshan Locke MD Anesthesia: Intravenous conscious sedation was administered by radiology nursing. Continuous hemodynamic and respiratory monitoring was performed, including the use of pulse oximetry. Medications: 10 cc of 1% subcutaneous lidocaine (Per the patient, she has tolerated lidocaine previously. Although there is a reported history of Novocaine allergy, the patient states that this was not a true allergy.) Fentanyl and Versed per nursing administration records TECHNIQUE: The patient was placed in the prone position. Initial CT demonstrated the left upper abdominal mass. A satisfactory path to the mass was identified. The skin of the left upper quadrant abdomen was marked, prepped, draped and anesthetized with 1% lidocaine. With CT guidance, a 16 gauge introducer needle was inserted into the left upper quadrant mass. Fine needle aspirates with a 22 gauge Chiba needle were performed. Subsequently, with CT guidance, core biopsies were obtained with an 18 gauge core biopsy device. Pathology determined the samples were satisfactory for diagnosis. Gelfoam embolization of the tract was performed and the introducer needle was subsequently removed. Sterile bandage was placed. IMPRESSION: CT guided fine needle aspiration and core biopsy of left upper abdominal mass as above. Signed by: Dr. Roshan Locke MD on 03/31/2018 11:16 AM
== END ==
LOC: CT 07:24
PROVIDERS: ATTEND Internal Medicine Gastroenterology
DX: R19.02 Left upper quadrant abdominal swelling, mass and lump (principal)
CPT/HCPCS: 10022; 49180; 77012; 88172; 88173; 88305; 88312; J2001; J2250; 88304; 99152; 99153

== ENCOUNTER → 2018-05-25 | Day surgery (SDC) | payer BC ==
[~2018-05-25] MED LIST changes: +BENTYL10 MG/1 ML PO; -FENTANYL CITRATE/PF 100MCG/2 ML INJ ONE; -GELATIN SPONGE 12-7MM ONE; +LABETALOL HCL 5 MG/ML 20ML VIAL ONE; -LIDOCAINE HCL 1% LOCAL INJ 20 ML VIAL ONE; -MIDAZOLAM HCL 2 MG/2 ML VIAL ONE; +OR PHACO EYE KIT ONE
--- OUTSIDE RECORDS SUMMARY | 2018-05-25 11:56 | XMS REPORT | Clinical Summary ---
Author Author [employer] [facility] [employer] Address Unknown Phone Unavailable Care Team Providers Care Private Duty Nurse Name Role Phone Jorge Avery MD PCP Allergies Comments Active Allergy Reactions Severity Noted Date Numb all over and diff breathing Amitriptyline 01/04/2016 Vomiting, h/a Amlodipine GI 01/04/2016 Intolerance Amoxicillin Rash Low 01/04/2016 Ulcers Aspirin (Tartrazine Only) 01/04/2016 headache Azithromycin 01/04/2016 Heart problems Baclofen 01/04/2016 Heart races Cephalexin Nausea And 01/04/2016 Vomiting vomiting Meperidine GI 01/04/2016 Intolerance Heart problems Dexlansoprazole 01/04/2016 headache Gabapentin 01/04/2016 Gentamicin Nausea And 01/04/2016 Vomiting Actually was listussin , cannot remember reaction Guaifenesin 01/04/2016 Hydroxychloroquine Hives 01/04/2016 Lamotrigine Rash Low 01/04/2016 Lisinopril Nausea And 01/04/2016 Vomiting Loose bowels, rapid heart rate Metoprolol Tartrate Nausea And 01/04/2016 Vomiting Heart stops Metronidazole 01/04/2016 "major vomiting" per pt Morphine GI 01/04/2016 Intolerance Nitrous Oxide Nausea And 01/04/2016 Vomiting Loss of bowel control Chlorzoxazone 01/04/2016 Dizziness Peanut 01/04/2016 Penicillins Rash Low 01/04/2016 Severe headaches Pregabalin 01/04/2016 Uncontrolled bowels Metoclopramide Hcl GI 01/04/2016 Intolerance Александр Lettuce also gives headache and rapid heart rate, put in here as no match found when attempted to put in as a separate one [place] Rash Low 01/04/2016 Sulfa (Sulfonamide Nausea And 01/04/2016 Antibiotics) Vomiting Drops to floor Triamterene-Hydrochloroth 01/04/2016 iazid redmans Vancomycin Analogues Rash Low 01/04/2016 Rapid heart rate, bowels loose Venlafaxine Nausea And 01/04/2016 Vomiting Medications End Date Status Medication Sig Dispensed Refills Start Date Active clonIDINE (CATAPRES) 0.1 Take 0.1 mg 0 MG tablet by mouth 2 (two) times a day. Active dicyclomine (BENTYL) 20 Take 20 mg by 0 mg tablet mouth 4 (four) times a day. Active hyoscyamine (LEVSIN) Take 0.125 mg 0 0.125 mg SL tablet by mouth every 4 (four) hours as needed for cramping. Active LORAZepam (ATIVAN) 1 MG Take 1 mg by 0 tablet mouth every 8 (eight) hours. Active methylPREDNISolone Take 8 mg by 0 (MEDROL) 4 MG tablet mouth nightly. Active levothyroxine (SYNTHROID, Take 125 mcg 0 LEVOTHROID) 125 MCG by mouth tablet every morning. Active tramadol-acetaminophen Take 1 tablet 0 (ULTRACET) 37.5-325 mg by mouth per tablet every 6 (six) hours. Active rivaroxaban (XARELTO) Take 15 mg by 0 tablet mouth daily. Active docusate sodium (COLACE) Take 100 mg 0 100 MG capsule by mouth 2 (two) times a day as needed. Active ondansetron (ZOFRAN) 4 MG Take 4 mg by 0 tablet mouth every 8 (eight) hours as needed for nausea or vomiting. Active PUMPKIN SEED EXTRACT/SOY Take 2 0 GERM (AZO BLADDER CONTROL tablets by ORAL) mouth 3 (three) times a day. Active artificial Apply 1 drop 0 tears,hypromellose, to eye as (SYSTANE) 0.3 % gel needed. Active Problems Problem Noted Date Myasthenia gravis in crisis 04/17/2016 High triglycerides 04/17/2016 History of deep vein thrombosis (DVT) of lower extremity 04/17/2016 Hx pulmonary embolism 04/17/2016 Myasthenia gravis 03/06/2016 Social History Date Tobacco Use Types Packs/Day Years Used Current Every Day Smoker Cigarettes 4 25 Alcohol Use Drinks/Week oz/Week Comments No Sex Assigned at Date Recorded Not on file Industry Job Start Date Occupation Not on file Not on file Not on file Travel End Travel History Travel Start No recent travel history available. Last Filed Vital Signs Not on file Plan of Treatment Health Maintenance Due Date Last Done Comments MMR VACCINES (1 of 1 - 10/07/1963 Standard series) VARICELLA VACCINES (1 of 10/07/1975 2 - 2-dose adolescent series) CERVICAL CANCER SCREENING 10/07/1983 BREAST CANCER SCREENING 2012 COLON CANCER SCREENING 2012 SHINGRIX VACCINE (1 of 2) 2012 INFLUENZA VACCINE 01/27/2018 HEPATITIS B VACCINES Aged Out No longer eligible based on patient's age to complete this topic IPV VACCINES Aged Out No longer eligible based on patient's age to complete this topic MENINGOCOCCAL VACCINE Aged Out No longer eligible based on patient's age to complete this topic Results Not on fileafter 05/24/2017 Insurance Payer Benefit Subscriber ID Type Phone Address Plan / Group MEDICARE MEDICARE xxxxxxxxxx Medicare [place], [place] PART A BCBS BCBS OUT xxxxxxxxxxxx PPO OF STATE Advance Directives Patient has advance care planning documents, and code status on file. For more i nformation, please contact: Deonte Schultz [address] [address] Date Inactivated Comments Code Status Date Activated 03/07/2016 6:32 PM Full Code 03/06/2016 10:58 AM Code Status decision reached by: Patient
--- OUTSIDE RECORDS SUMMARY | 2018-05-25 11:57 | XMS REPORT | Continuity of Care Document ---
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 [facility] [place] Benign tumor of breast<sup>1</sup> Active 12/01/2012 Problem 06/14/2017 Data migrated from [employer] on 11/25/14. [facility] [place] Benign tumor of breast<sup>1</sup> Active 12/01/2012 Problem 06/21/2017 Data migrated from [employer] on 11/25/14. [facility] 6 MONTHS FOLLOW UP BILATERAL BREAST M Active 12/01/2012 [facility] UNK Active 09/28/2012 [facility] ICD 882.1 / CPT 08921 Active 09/28/2012 [facility] BREAST MASS LEFT SIDE 2 AREAS Active 06/02/2012 [facility] BREAST MASS Active 06/02/2012 [facility] ICD 550.90 / CPT 12934 Active 03/26/2012 [facility] BLOOD CLOT Active 02/26/2012 [facility] CHEST PAIN Active 02/17/2012 [facility] BILATERAL KNEE PAIN COUGH DYSPNEA Active 06/29/2000 [facility] Chest pain Active Problem 04/09/2013 JAMILAH Interiano,[facility], [facility] [place] IBS - Irritable bowel syndrome Active Problem 04/09/2013 JAMILAH Interiano,[facility], [facility] [place] Myasthenia gravis Active Problem 04/09/2013 JAMILAH Interiano,[facility], [facility] [place] Raynaud's disease Active Problem 04/09/2013 JAMILAH Interiano,[facility], [facility] [place] Tachycardia Active Problem 04/09/2013 JAMILAH Interiano,[facility], [facility] [place] Pain in left foot 12/28/2017 [facility] [place] Blood clotting disorder<sup>2</sup> Active Problem 12/28/2017 History of DVT both lower extremities JAMILAH Greene, [facility] [place] Chest pain Active Problem 12/28/2017 JAMILAH Greene, [facility] [place] Fibromyalgia Active Problem 12/28/2017 JAMILAH Greene, [facility] [place] Hypothyroid Active Problem 12/28/2017 JAMILAH Greene, [facility] [place] IBS - Irritable bowel syndrome Active Problem 12/28/2017 JAMILAH Greene, [facility] [place] Irregular heart beat Active Problem 12/28/2017 JAMILAH Greene, [facility] [place] Myasthenia gravis Active Problem 12/28/2017 JAMILAH Greene, [facility] [place] Numbness Active Problem 12/28/2017 JAMILAH Greene, [facility] [place] Raynaud's disease Active Problem 12/28/2017 JAMILAH Greene, [facility] [place] Rheumatic arteritis Active Problem 12/28/2017 JAMILAH Greene, [facility] [place] Tachycardia Active Problem 12/28/2017 JAMILAH Greene, [facility] [place] Thyroid cancer<sup>3</sup> Active Problem 12/28/2017 History of Thyroid ca JAMILAH Greene, [facility] [place] Weakness - general Active Problem 12/28/2017 JAMILAH Greene, [facility] [place] Blood clotting disorder<sup>2</sup> Active Problem 06/14/2017 History of DVT both lower extremities JAMILAH Greene, [facility] [place] Chest pain Active Problem 06/14/2017 JAMILAH Greene, [facility] [place] Fibromyalgia Active Problem 06/14/2017 JAMILAH Greene, [facility] [place] Hypothyroid Active Problem 06/14/2017 JAMILAH Greene, [facility] [place] IBS - Irritable bowel syndrome Active Problem 06/14/2017 JAMILAH Greene, [facility] [place] Irregular heart beat Active Problem 06/14/2017 JAMILAH Greene, [facility] [place] Myasthenia gravis Active Problem 06/14/2017 JAMILAH Greene, [facility] [place] Numbness Active Problem 06/14/2017 JAMILAH Greene, [facility] [place] Raynaud's disease Active Problem 06/14/2017 JAMILAH Greene, [facility] [place] Rheumatic arteritis Active Problem 06/14/2017 JAMILAH Greene, [facility] [place] Tachycardia Active Problem 06/14/2017 JAMILAH Greene, [facility] [place] Thyroid cancer<sup>3</sup> Active Problem 06/14/2017 History of Thyroid ca JAMILAH Greene, [facility] [place] Weakness - general Active Problem 06/14/2017 AJMILAH Greene, [facility] [place] Blood clotting disorder<sup>2</sup> Active Problem 06/21/2017 History of DVT both lower extremities JAMILAH Greene, [place] Chest pain Active Problem 06/21/2017 JAMILAH Greene [place] Fibromyalgia Active Problem 06/21/2017 JAMILAH Greene [place] Hypothyroid Active Problem 06/21/2017 JAMILAH Greene, [place] IBS - Irritable bowel syndrome Active Problem 06/21/2017 JAMILAH Greene, [place] Irregular heart beat Active Problem 06/21/2017 JAMILAH Greene, [place] Myasthenia gravis Active Problem 06/21/2017 JAMILAH Greene, [place] Numbness Active Problem 06/21/2017 JAMILAH Greene, [place] Raynaud's disease Active Problem 06/21/2017 JAMILAH Greene [place] Rheumatic arteritis Active Problem 06/21/2017 JAMILAH Greene [place] Tachycardia Active Problem 06/21/2017 JAMILAH Greene, [place] Thyroid cancer<sup>3</sup> Active Problem 06/21/2017 History of Thyroid ca JAMILAH Greene,[facility] Weakness - general Active Problem 06/21/2017 JAMILAH Greene,[facility] Blood clotting disorder<sup>1</sup> Active Problem 04/09/2013 1History of DVT both lower extremities JAMILAH Interiano,[facility] Fibromyalgia Active Problem 04/09/2013 [facility] [place],[facility] Hypothyroid Active Problem 04/09/2013 [facility] [place],[facility] Irregular heart beat Active Problem 04/09/2013 [facility] [place],[facility] Numbness Active Problem 04/09/2013 [facility] [place],[facility] Rheumatic arteritis Active Problem 04/09/2013 [facility] [place],[facility] Thyroid cancer<sup>2</sup> Active Problem 04/09/2013 2History of Thyroid ca JAMILAH Interiano,[facility] UTCD Active Problem 07/26/2014 [facility] [place],[facility], [facility] [place], [facility] [place] Weakness - general Active Problem 04/09/2013 [facility] [place],[facility] Blood clotting disorder<sup>1</sup> Active Problem 11/06/2014 1History of DVT both lower extremities HENOKD [place], [facility] [place], [facility] [place] Thyroid cancer<sup>2</sup> Active Problem 11/06/2014 2History of Thyroid ca [facility] [place], [facility] [place], [facility] [place] CHEST PAIN NOS Active [facility] Medications Medication Details Route Status Patient Instructions Ordering Provider Order Date Source Valium 5 mg, Route: PO, ONCE, Dosing Weight 60, kg, Priority: STAT, Start date: 10/18/16 12:09:00 CDT, Stop date: 10/18/16 12:09:00 CDT Inactive 10/18/2016 [facility] Versed 1 mg, Route: IV, PRN, Dosing Weight 59.091, kg, PRN Other -See Comment, Start date: 09/30/12 13:41:00, Duration: 30 day, Stop date: 10/30/12 13:40:00 IV No Longer Active [place] 09/30/2012 [facility] promethazine 12.5 mg, Route: IVPB, Q4H, Dosing Weight 59.091, kg, PRN Nausea & Vomiting, Start date: 09/30/12 13:40:00, Duration: 30 day, Stop date: 10/30/12 13:39:00 IVPB No Longer Active [place] 09/30/2012 [facility] ondansetron 4 mg, Route: IVP, ONCE, Dosing Weight 59.091, kg, PRN Nausea & Vomiting, Start date: 09/30/12 11:13:00 IVP No Longer Active [place] 09/30/2012 [facility] naloxone 0.04 mg, Route: IVP, Q2MIN, Dosing Weight 59.091, kg, PRN Narcotic Reversal, Start date: 09/30/12 11:13:00, Duration: 8 doses or times, Stop date: Limited # of times IVP No Longer Active Guevara 09/30/2012 [facility] Ofirmev 1,000 mg, Route: IV, Drug form: INJ, ONCE, Dosing Weight 60.909, kg, PRN Pain, for > or=50 kg, Start date: 09/30/12 11:13:00 IV No Longer Active Guevara 09/30/2012 [facility] [place] 10/325 oral tablet 1 tab, Route: PO, Drug Form: TAB, Dosing Weight 60.909, kg, Q6H, PRN Pain, Start date: 09/30/12 11:13:00, Duration: 30 day, Stop date: 10/30/12 11:12:00 PO No Longer Active G[place]var[place] 09/30/2012 [facility] flumazenil 0.2 mg, Route: IVP, PRN, Dosing Weight 59.091, kg, PRN Benzodiazepine Reversal, Initial dose, Start date: 09/30/12 11:13:00, Duration: 30 day, Stop date: 10/30/12 11:12:00 IVP No Longer Active [place] 09/30/2012 [facility] hydromorphone 0.5 mg, Route: IVP, Q5Min, Dosing Weight 59.091, kg, PRN Pain Score 4-6, Start date: 09/30/12 11:13:00, Duration: 5 doses or times, Stop date: Limited # of times IVP No Longer Active G[place]var[place] 09/30/2012 [facility] fentanyl 25 microgram, Route: IVP, Q5Min, Dosing Weight 59.091, kg, PRN Pain Score 4-6, Start date: 09/30/12 11:13:00, Duration: 4 doses or times, Stop date: Limited # of times IVP No Longer Active Guevara 09/30/2012 [facility] clindamycin 600 mg, Route: IVPB, ONCE, Dosing Weight 59.091, kg, Start date: 09/30/12 10:11:00, Stop date: 09/30/12 10:11:00 IVPB No Longer Active G[place]vara 09/30/2012 [facility] Sodium Chloride 0.9% IV 1000 mL 1,000 mL, Rate: 40 ml/hr, Infuse over: 25 hr, Route: IV, Dosing Weight 59.091 kg, Total Volume: 1,000, Start date: 09/30/12 10:11:00, Duration: 30 day, Stop date: 10/30/12 10:10:00 IV No Longer Active Guevara 09/30/2012 [facility] Coumadin 5 mg oral tablet 5 mg, 1 tab, PO, Daily, 30 tab, Substitution Allowed, TAB PO Active 09/29/2012 [facility] Probiotic Formula oral capsule 1 cap, PO, Daily, Substitution Allowed, Maintenance PO Active 09/29/2012 [facility] amoxicillin-clavulanate 875 mg-125 mg oral tablet Substitution Allowed, Maintenance Active 09/29/2012 [facility] Levaquin 500 mg oral tablet 500 mg, 1 tab, PO, Q24H, 10 tab, Substitution Allowed PO Active 09/29/2012 [facility] Ativan 1 mg oral tablet 1 mg, 1 tab, PO, Bedtime, PRN, 20 tab, Anxiety, Substitution Allowed PO Active 09/29/2012 [facility] Synthroid 88 mcg (0.088 mg) oral tablet 88 microgram, 1 tab, PO, Daily, 30 tab, Substitution Allowed, TAB PO Active 09/29/2012 [facility] Bentyl 10 mg oral capsule 10 mg, 1 cap, PO, Daily, 40 cap, Substitution Allowed, CAP PO Active 09/29/2012 [facility] Inapsine 0.625 mg, 0.25 mL, Route: IVP, Drug form: INJ, ONCE, Dosing Weight 60.909, kg, Start date: 04/30/12 10:21:00, Stop date: 04/30/12 10:21:00 IVP No Longer Active [place] 04/30/2012 [facility] midazolam 2 mg, Route: IVP, ONCE, Dosing Weight 60.909, kg, Priority: STAT, Start date: 04/30/12 9:17:00, Stop date: 04/30/12 9:17:00 IVP No Longer Active Barry 04/30/2012 [facility] naloxone 0.04 mg, 0.04 mL, Route: IVP, Drug form: INJ, Q2MIN, Dosing Weight 60.909, kg, PRN Narcotic Reversal, Start date: 04/30/12 8:55:00, Duration: 8 doses or times, Stop date: Limited # of times IVP No Longer Active [place] 04/30/2012 [facility] fentanyl 25 microgram, 0.5 mL, Route: IVP, Drug form: INJ, Q5Min, Dosing Weight 60.909, kg, PRN Pain Score 4-6, Start date: 04/30/12 8:55:00, Duration: 4 doses or times, Stop date: Limited # of times IVP No Longer Active [place] 04/30/2012 [facility] hydromorphone 0.5 mg, 0.25 mL, Route: IVP, Drug form: INJ, Q5Min, Dosing Weight 60.909, kg, PRN Pain Score 4-6, Start date: 04/30/12 8:55:00, Duration: 5 doses or times, Stop date: Limited # of times IVP No Longer Active [place] 04/30/2012 [facility] flumazenil 0.2 mg, 2 mL, Route: IVP, Drug form: INJ, PRN, Dosing Weight 60.909, kg, PRN Benzodiazepine Reversal, Initial dose, Start date: 04/30/12 8:55:00, Duration: 30 day, Stop date: 05/30/12 7:54:00 IVP No Longer Active [place] 04/30/2012 [facility] acetaminophen-hydrocodone 325 mg-5 mg oral tablet 2 tab, Route: PO, Drug Form: TAB, Dosing Weight 60.909, kg, Q4H, PRN Pain Score 4-6, Start date: 04/30/12 8:55:00, Duration: 30 day, Stop date: 05/30/12 8:54:00 PO No Longer Active [place] 04/30/2012 [facility] promethazine + Sodium Chloride 0.9% IV 50 mL 6.25 mg, 0.25 mL, Route: IVPB, Drug form: INJ, ONCE, Dosing Weight 60.909, kg, PRN Nausea & Vomiting, Start date: 04/30/12 8:55:00 IVPB No Longer Active [place] 04/30/2012 [facility] ondansetron 4 mg, 2 mL, Route: IVP, Drug form: INJ, ONCE, Dosing Weight 60.909, kg, PRN Nausea & Vomiting, Start date: 04/30/12 8:55:00 IVP No Longer Active [place] 04/30/2012 [facility] hydrALAZINE 5 mg, 0.25 mL, Route: IVP, Drug form: INJ, Q5Min, Dosing Weight 60.909, kg, PRN Elevated BP, Start date: 04/30/12 8:55:00, Duration: 4 doses or times, Stop date: Limited # of times IVP No Longer Active [place] 04/30/2012 [facility] labetalol 5 mg, 1 mL, Route: IVP, Drug form: INJ, Q5Min, Dosing Weight 60.909, kg, PRN Elevated BP, Start date: 04/30/12 8:55:00, Duration: 5 doses or times, Stop date: Limited # of times IVP No Longer Active [place] 04/30/2012 [facility] esmolol IV Push 10 mg, 1 mL, Route: IVP, Drug form: INJ, Q5Min, Dosing Weight 60.909, kg, PRN Elevated BP, Start date: 04/30/12 8:55:00, Duration: 5 doses or times, Stop date: Limited # of times IVP No Longer Active [place] 04/30/2012 [facility] Lactated Ringers Injection IV 1,000 mL 1,000 mL, Rate: 25 ml/hr, Infuse over: 40 hr, Route: IV, kg, Total Volume: 1,000, Start date: 04/30/12 6:40:00, Duration: 1 day, Stop date: 05/01/12 6:39:00 IV No Longer Active [place] 04/30/2012 [facility] Levaquin 500 mg, 100 mL, Route: IVPB, Drug form: INJ, ONCE, Dosing Weight 60.909, kg, Start date: 04/30/12 6:39:00, Stop date: 04/30/12 6:39:00 IVPB No Longer Active [place] 04/30/2012 [facility] Lactated Ringers Injection IV 1,000 mL 1,000 mL, Rate: 25 ml/hr, Infuse over: 40 hr, Route: IV, kg, Total Volume: 1,000, Start date: 04/30/12 6:38:00, Duration: 1 day, Stop date: 05/01/12 6:37:00 IV No Longer Active [place] 04/30/2012 [facility] MethylPREDNISolone Dose Pack 4 mg oral tablet As directed on label, PO, Daily, 1 Pack, Substitution Allowed PO Active 04/22/2012 [facility] Vitamin B12 1000 mcg/mL injectable solution 1,000 microgram, 1 ml, IM, qMonth, 10 ml, Substitution Allowed, SOLN IM Active 04/22/2012 [facility] Synthroid 100 mcg (0.1 mg) oral tablet 100 microgram, 1 tab, PO, Daily, 30 tab, Substitution Allowed, TAB PO Active 04/22/2012 [facility] Ultram 50 mg oral tablet 50 mg, 1 tab, PO, Q4H, PRN, 20 tab, pain, Substitution Allowed PO Active [place] 02/26/2012 [facility] Ultram 50 mg oral tablet 100 mg, Route: PO, Drug form: TAB, ONCE, Dosing Weight 59.091, kg, Priority: STAT, Start date: 02/26/12 11:55:00, Stop date: 02/26/12 11:55:00 PO No Longer Active [place] 02/26/2012 [facility] metoprolol extended release 25 mg, 1 tab, Route: PO, Drug form: ERTAB, Daily, Start date: 02/19/12 9:00:00, Duration: 30 day, Stop date: 03/19/12 9:00:00 PO No Longer Active Suzy 02/19/2012 [facility] Plavix 75 mg, 1 tab, Route: PO, Drug form: TAB, Daily, kg, Start date: 02/19/12 9:00:00, Duration: 30 day, Stop date: 03/19/12 9:00:00 PO No Longer Active Suzy 02/19/2012 [facility] lisinopril 5 mg, 1 tab, Route: PO, Drug form: TAB, Daily, kg, Start date: 02/19/12 9:00:00, Duration: 30 day, Stop date: 03/19/12 9:00:00 PO No Longer Active Suzy 02/19/2012 [facility] patient's own med:Estradiol 1mg tablet patient's own med:Estradiol 1mg tablet, 1 tab, Drug form: MISC, Route: PO, Bedtime, 02/18/12 21:00:00, Duration: 30 day, Stop date: 03/18/12 21:00:00 PO No Longer Active [facility] 02/19/2012 [facility] patient's own med:Vitamin D 2000 unit tablet patient's own med:Vitamin D 2000 unit tablet, 1 tab, Drug form: MISC, Route: PO, Bedtime, 02/18/12 21:00:00, Duration: 30 day, Stop date: 03/18/12 21:00:00 PO No Longer Active [facility] 02/19/2012 [facility] Estrace 1 mg, 1 tab, Route: PO, Drug form: TAB, Bedtime, kg, Start date: 02/18/12 21:00:00, Duration: 30 day, Stop date: 03/18/12 21:00:00, Patient's Own Meds PO No Longer Active [facility] 02/19/2012 [facility] Vitamin D3 2000 intl units oral tablet 2,000 IntlUnit, 2 tab, Route: PO, Drug form: TAB, Bedtime, kg, Start date: 02/18/12 21:00:00, Duration: 30 day, Stop date: 03/18/12 21:00:00, Patient's Own Meds PO No Longer Active [facility] 02/19/2012 [facility] acetaminophen 500 mg, 1 tab, Route: PO, Drug form: TAB, Q6H, PRN Pain, Start date: 02/18/12 20:18:00, Duration: 30 day, Stop date: 03/19/12 20:17:00 PO No Longer Active Suzy 02/19/2012 [facility] Pravachol 40 mg, 2 tab, Route: PO, Drug form: TAB, QPM, kg, Start date: 02/18/12 17:00:00, Duration: 30 day, Stop date: 03/18/12 17:00:00 PO No Longer Active Suzy 02/18/2012 [facility] Protonix 40 mg, 1 tab, Route: PO, Drug form: ECTAB, Before Dinner, kg, Start date: 02/18/12 16:30:00, Duration: 30 day, Stop date: 03/18/12 16:30:00 PO No Longer Active Suzy 02/18/2012 [facility] aspirin 81 mg, 1 tab, Route: PO, Drug form: CHEWTAB, Daily, kg, Start date: 02/18/12 13:39:00, Duration: 30 day, Stop date: 03/19/12 9:00:00 PO No Longer Active Suzy 02/18/2012 [facility] Prilosec 40 mg, Substitution Allowed Active 02/18/2012 [facility] D5W 1,000 mL 1,000 mL, Rate: 75 ml/hr, Infuse over: 13.3 hr, Route: IV, Dosing Weight 60 kg, Total Volume: 1,000, Start date: 02/18/12 12:30:00, Stop date: 03/19/12 12:29:00 IV No Longer Active Sharron 02/18/2012 [facility] Plavix 300 mg, 1 tab, Route: PO, Drug form: TAB, ONCE, kg, Start date: 02/18/12 12:29:00, Duration: 1 doses or times, Stop date: 02/18/12 12:29:00 PO No Longer Active Suzy 02/18/2012 [facility] Patient's own med:Methylprednisolone 4mg tablet Patient's own med:Methylprednisolone 4mg tablet, 2 tab, Drug form: MISC, Route: PO, QNoon, 02/18/12 12:00:00, Duration: 30 day, Stop date: 03/18/12 12:00:00 PO No Longer Active [place] 02/18/2012 [facility] Medrol 8 mg, 2 tab, Route: PO, Drug form: TAB, QNoon, kg, Start date: 02/18/12 12:00:00, Duration: 30 day, Stop date: 03/18/12 12:00:00, Patient's Own Meds PO No Longer Active [place] 02/18/2012 [facility] patient's own med: Synthroid 75 microgram tablet patient's own med: Synthroid 75 microgram tablet, 1 tab, Drug form: MISC, Route: PO, Q630AM, 02/18/12 6:30:00, Duration: 30 day, Stop date: 03/18/12 6:30:00 PO No Longer Active [facility] 02/18/2012 [facility] Synthroid 75 microgram, 1 tab, Route: PO, Drug form: TAB, Q630AM, kg, Start date: 02/18/12 6:30:00, Duration: 30 day, Stop date: 03/18/12 6:30:00, Patient's Own Meds PO No Longer Active [facility] 02/18/2012 [facility] Protonix 40 mg, Route: IV, Drug form: INJ, ONCE, kg, Priority: NOW, Start date: 02/18/12 0:55:00, Stop date: 02/18/12 0:55:00 IV No Longer Active Suzy 02/18/2012 [facility] Toradol 15 mg/mL injectable solution 15 mg, 1 mL, Route: INJ, Drug form: INJ, Q6H, kg, PRN Pain, Start date: 02/18/12 0:54:00, Duration: 4 day, Stop date: 02/22/12 0:53:00 INJ No Longer Active Suzy 02/18/2012 [facility] Zofran 4 mg, 2 mL, Route: IV, Drug form: INJ, Q4H, kg, PRN as needed for nausea/vomiting, Start date: 02/18/12 0:52:00, Duration: 30 day, Stop date: 03/19/12 0:51:00 IV No Longer Active Suzy 02/18/2012 [facility] Lovenox 40 mg, 0.4 mL, Route: SUB-Q, Drug form: INJ, ONCE, kg, Priority: STAT, Start date: 02/18/12 0:52:00, Stop date: 02/18/12 0:52:00 SUB-Q No Longer Active Suzy 02/18/2012 [facility] Phenergan 12.5 mg, 0.5 tab, Route: PO, Drug form: TAB, Q4H, PRN Nausea, Start date: 02/17/12 23:21:00, Duration: 30 day, Stop date: 03/18/12 23:20:00 PO No Longer Active [facility] 02/18/2012 [facility] Phenergan 25 mg, 1 tab, Route: PO, Drug form: TAB, Q4H, kg, PRN as needed for nausea/vomiting, Start date: 02/17/12 23:07:00, Duration: 30 day, Stop date: 03/18/12 23:06:00 PO No Longer Active [facility] 02/18/2012 [facility] Bentyl 20 mg, 1 tab, Route: PO, Drug form: TAB, QID, kg, PRN Other -See Comment, Start date: 02/17/12 23:07:00, Duration: 30 day, Stop date: 03/18/12 23:06:00, stomach muscle spasms with IBS PO No Longer Active [facility] 02/18/2012 [facility] Mobic 7.5 mg, 1 tab, Route: PO, Drug form: TAB, Daily, kg, PRN Pain, Start date: 02/17/12 23:07:00, Duration: 30 day, Stop date: 03/18/12 23:06:00 PO No Longer Active [facility] 02/18/2012 [facility] Ativan 0.5 mg, 1 tab, Route: PO, Drug form: TAB, Bedtime, kg, PRN Sleep, Start date: 02/17/12 22:31:00, Duration: 30 day, Stop date: 03/18/12 22:30:00 PO No Longer Active [facility] 02/18/2012 [facility] Saline Flush 0.9% 5 ml, Route: IVP, Drug Form: INJ, kg, Q12H, Start date: 02/17/12 21:00:00, Duration: 30 day, Stop date: 03/18/12 9:00:00 IVP No Longer Active [facility] 02/18/2012 [facility] aspirin 81 mg tablet, enteric coated 81 mg, 1 tab, Route: PO, Drug form: ECTAB, Q24H, kg, Start date: 02/17/12 21:00:00, Duration: 30 day, Stop date: 03/17/12 21:00:00 PO No Longer Active [facility] 02/18/2012 [facility] atropine 0.5 mg, 5 mL, Route: IVP, Drug form: INJ, PRN, PRN Bradycardia, Start date: 02/17/12 20:29:00, Duration: 30 day, Stop date: 03/18/12 20:28:00 IVP No Longer Active [facility] 02/18/2012 [facility] nitroglycerin 0.4 mg sublingual tablet 0.4 mg, 1 tab, Route: SL, Drug form: TAB, Q5Min, PRN Chest Pain, Start date: 02/17/12 20:29:00, Duration: 30 day, Stop date: 03/18/12 20:28:00 SL No Longer Active Suzy 02/18/2012 [facility] Saline Flush 0.9% 5 ml, Route: IVP, Drug Form: INJ, kg, PRN, PRN Line Flush, Start date: 02/17/12 20:24:00, Duration: 30 day, Stop date: 03/18/12 20:23:00 IVP No Longer Active [facility] 02/18/2012 [facility] ondansetron 4 mg, 1 tab, Route: PO, Drug form: TAB, Q8H, kg, PRN Nausea & Vomiting, Start date: 02/17/12 20:24:00, Duration: 30 day, Stop date: 03/18/12 20:23:00 PO No Longer Active [facility] 02/18/2012 [facility] nitroglycerin SL Tab 0.4 mg, 1 tab, Route: SL, Drug form: TAB, Q5Min, kg, PRN Chest Pain, Start date: 02/17/12 20:24:00, Duration: 3 doses or times, Stop date: Limited # of times SL No Longer Active [facility] 02/18/2012 [facility] morphine Sulfate 2 mg, 0.2 mL, Route: IVP, Drug form: INJ, Q4H, kg, PRN Pain Score 4-6, Start date: 02/17/12 20:24:00, Duration: 30 day, Stop date: 03/18/12 20:23:00 IVP No Longer Active Suzy 02/18/2012 [facility] Phenergan 25 mg oral tablet 0.5-1 tab, PO, Q4H, PRN, 15 tab, Nausea, Substitution Allowed PO Active 02/18/2012 [facility] Bentyl 20 mg oral tablet 20 mg, 1 tab, PO, QID, PRN, 40 tab, stomach pain, Substitution Allowed, TAB PO Active 02/18/2012 [facility] Mobic 7.5 mg oral tablet 7.5 mg, 1 tab, PO, Daily, PRN, 30 tab, pain, Substitution Allowed, TAB PO Active 02/18/2012 [facility] cyanocobalamin 1,000 microgram, IM, Q30D, Substitution Allowed IM Active 02/18/2012 [facility] Vitamin D3 2000 intl units oral capsule 2,000 IntlUnit, 1 cap, PO, Bedtime, Substitution Allowed PO Active 02/18/2012 [facility] Estrace 1 mg oral tablet 1 mg, 1 tab, PO, Bedtime, 30 tab, Substitution Allowed, TAB PO Active 02/18/2012 [facility] Medrol 8 mg oral tablet 8 mg, 1 tab, PO, QNoon, 10 tab, Substitution Allowed, TAB PO Active 02/18/2012 [facility] Synthroid 75 mcg (0.075 mg) oral tablet 75 microgram, 1 tab, PO, Daily, 30 tab, Substitution Allowed, TAB PO Active 02/18/2012 [facility] metoprolol tartrate 25 mg, 1 tab, Route: PO, Drug form: TAB, ONCE, kg, Priority: STAT, Start date: 02/17/12 18:53:00, Stop date: 02/17/12 18:53:00 PO No Longer Active Souman 02/17/2012 [facility] Saline Flush 0.9% 5 ml, Route: IVP, Drug Form: INJ, kg, PRN, PRN Line Flush, Start date: 02/17/12 16:23:00, Duration: 24 hr, Stop date: 02/18/12 16:22:00 IVP No Longer Active Sharron 02/17/2012 [facility] Allergies, Adverse Reactions, Alerts Substance Category Reaction Severity Reaction type Status Date Reported Comments Source amoxicillin<sup>1</sup> Assertion Drug allergy Active 12/01/2012 Data migrated from [employer] on 10/26/14. Originally documented as AMOXICILLIN. JAMILAH Greene azithromycin<sup>2</sup> Assertion Drug allergy Active 12/01/2012 Data migrated from [employer] on 10/26/14. Originally documented as ZITHROMAX. JAMILAH Greene baclofen<sup>3</sup> Assertion Drug allergy Active 12/01/2012 Data migrated from [employer] on 10/26/14. Originally documented as BACLOFEN. OP[facility] cephalexin<sup>4</sup> Assertion Drug allergy Active 12/01/2012 [facility]. Originally documented as KEFLEX. OPILamont Greene chlorzoxazone<sup>5</sup> Assertion Drug allergy Active 12/01/2012 Data migrated from [employer] on 10/26/14. Originally documented as PARAFON FORTE. [facility] Saline hydrochlorothiazide-triamterene<sup>6</sup> Assertion Drug allergy Active 12/01/2012 Data migrated from [employer] on 10/26/14. Originally documented as DYAZIDE. [facility] hydroxychloroquine<sup>7</sup> Assertion Drug allergy Active 12/01/2012 Data migrated from [employer] on 10/26/14. Originally documented as PLAQUENIL. [facility] lamoTRIgine<sup>8</sup> Assertion Drug allergy Active 12/01/2012 Data migrated from [employer] on 10/26/14. Originally documented as LAMICTAL. [facility]az[facility] metroNIDAZOLE<sup>9</sup> Assertion Drug allergy Active 12/01/2012 [facility]/14. Originally documented as FLAGYL. [facility] pregabalin<sup>10</sup> Assertion Drug allergy Active 12/01/2012 Data migrated from [employer] on 10/26/14. Originally documented as LYRICA. [facility] sulfa drugs<sup>11</sup> Assertion Drug allergy Active 12/01/2012 Data migrated from [employer] on 01/25/15. Originally [facility]. [facility]sup[facility]</sup> Assertion Drug allergy Active 12/01/2012 Data migrated from [employer] on 01/25/15. Originally documented as SULFA. [facility] amoxicillin<sup>2</sup> Assertion Drug allergy Active 12/01/2012 Data migrated from [employer] on 10/26/14. Originally documented as AMOXICILLIN. [facility] azithromycin<sup>3</sup> Assertion Drug allergy Active 12/01/2012 Data migrated from [employer] on 10/26/14. Originally documented as ZITHROMAX. [facility] baclofen<sup>5</sup> Assertion Drug allergy Active 12/01/2012 Data migrated from [employer] on 10/26/14. Originally documented as BACLOFEN. [facility] [place] chlorzoxazone<sup>8</sup> Assertion Drug allergy Active 12/01/2012 Data migrated from [employer] on 10/26/14. Originally documented as PARAFON FORTE. [facility] [place] pregabalin<sup>9</sup> Assertion Drug allergy Active 12/01/2012 Data migrated from [employer] on 10/26/14. Originally documented as LYRICA. [facility] [place] metroNIDAZOLE<sup>10</sup> Assertion Drug allergy Active 12/01/2012 Data migrated from [employer] on 10/26/14. Originally documented as FLAGYL. [facility] [place] lamoTRIgine<sup>11</sup> Assertion Drug allergy Active 12/01/2012 Data migrated from [employer] on 10/26/14. Originally documented as LAMICTAL. [facility] [place] vancomycin Assertion Drug allergy Active [facility] amoxicillin drug allergy Allergy Active [facility] aspirin Assertion Stomach ulcer, NOS Propensity to adverse reactions to drug Active [facility] baclofen Assertion Drug allergy Active [facility] [place] ciprofloxacin Assertion Drug allergy Active [facility] colistin/HC/neomycin/thonzonium otic Assertion Drug allergy Active [facility] Dexilant Assertion Headache, NOS, Palpitations Propensity to adverse reactions to drug Active [facility] Dyazide Assertion Drug allergy Active [facility] Elavil Assertion Drug allergy Active [facility] etherified starches Assertion Drug allergy Active [facility] Flagyl Assertion Drug allergy Active [facility] gentamicin Assertion Drug allergy Active [facility] halothane Assertion Drug allergy Active [facility] Histussin D Assertion Histussin- HC Drug allergy Active [facility] Keflex Assertion Drug allergy Active [facility] LaMICtal Assertion Drug allergy Active [facility] Lasix Assertion Drug allergy Active [facility] Lopressor Assertion Nausea and vomiting Propensity to adverse reactions to drug Active [facility] Lyrica Assertion Drug allergy Active [facility] methoxyflurane Assertion Drug allergy Active [facility] morphine Assertion Nausea and vomiting Propensity to adverse reactions to drug Active [facility] neomycin Assertion Drug allergy Active [facility] Parafon Fort[place] DSC Assertion Drug allergy Active [facility] Plaquenil Sulfate Assertion Drug allergy Active [facility] procainamide Assertion Drug allergy Active [facility] Pronestyl Assertion Drug allergy Active [facility] quiNIDine Assertion Propensity to adverse reactions to substance Active [facility] quiNINE Assertion Tonic water (substance), Tonic water (substance), Tonic water (substance) Propensity to adverse reactions to substance Active [facility] streptomycin Assertion Drug allergy Active [facility] sulfonamides Assertion Severe Drug allergy Active [facility] Zithromax Assertion Drug allergy Active [facility] Immunizations Immunization Date Given Site Status Last Updated Comments Source Results Order Name Results Value Reference Range Date Interpretation Comments Source Foot 3 views bilateral DX Foot 3 views bilateral DX EXAM: XR BILATERAL FOOT 3 VIEWS DATE: 09/21/2017 1:44 PM CDT INDICATION: - M79.671 Pain in right foot ADDITIONAL INFORMATION: Per tech note, 53-year-old female with right and left anterior foot pain without history of trauma. Of note, patient has history of thyroid cancer. COMPARISON: None. TECHNIQUE: AP, lateral and oblique radiographs of the bilateral feet FINDINGS: No acute fracture or malalignment is identified. There is mild degenerative joint space narrowing at the bilateral interphalangeal joints, along with small subchondral cysts. No erosions or lytic lesions are identified. There is Achilles tendon insertion enthesopathy on the left. No soft tissue abnormality is identified. IMPRESSION: 1. No acute fractures or dislocations. 2. Mild degenerative changes at the interphalangeal joints, including joint space narrowing and a few small subchondral cysts. 3. Achilles tendon insertion enthesopathy of the left calcaneus. 09/21/2017 - - This report was dictated by a Stitcher Tape Controlled Machine/Fellow. I have personally reviewed the images as well as the Resident's interpretation and agree with the findings. Read by: David Castillo MD Resident: David Castillo MD Dictated Date/time: 09/21/17 16:00 Electronically Signed by: Walter Bañuelos MD 09/21/17 16:34 FINAL REPORT [facility] Stereo Breast BX Uni /Clip Primary SD MA Stereo Breast BX Uni /Clip Primary SD JEWEL STEREOTACTIC GUIDED BIOPSY LEFT BREAST WITH MARKING DEVICE INSERTED AND POST DIGITAL MAMMOGRAPHIC IMAGING AND RADIOGRAPHIC SPECIMEN IMAGIN06/18/2017 CLINICAL: Indeterminate left breast calcifications. PATIENT CONSENT: Oral and written informed consent was obtained. Risks, benefits, and alternatives were discussed with the patient. Risks include but are not limited to pain, infection, bleeding, incomplete procedure, repeat procedure, pneumothorax, damage to surrounding tissues, and allergic reaction. The patient understands the plan and wishes to proceed. A time out was performed immediately prior to the procedure to confirm the patient's identity (name/date of ) and correct procedure site. Correlation is made to exams dated: 06/11/2017 mammogram, 05/25/2017 mammogram, 09/26/2015 mammogram, 08/14/2014 mammogram, 01/23/2014 mammogram - [facility], and 06/15/2013 mammogram - [facility]. A stereotactic guided biopsy was performed for the concerning area of clustered calcifications located in the left breast at 1 o'clock middle depth. This was described on the previous mammography report. The skin was prepped in the usual manner. 10 ccs of 1% lidocaine was administered during the procedure. A skin alcides was made in the breast. The abnormality was approached from the craniocaud al aspect using an upright digital mammography unit. A 9 gauge biopsy needle was placed adjacent to the abnormality under computer guidance and confirmatory stereotactic mammography images were obtained to document needle placement. Once the needle was documented to be in the correct location, multiple cores were obtained using the vacuum assisted Suros Eviva device. A [employer] jonny shaped biopsy clip was inserted into the biopsy cavity. A skin adhesive and a sterile dressing were applied to the access site. Post procedure digital mammographic imaging interpreted on a dedicated mammography workstation demonstrates the clip at the targeted area and partial removal of the calcifications. The specimens were sent to the laboratory for pathological analysis. IMPRESSION: STEREOTACTIC GUIDED BIOPSY BENIGN Stereotactic guided biopsy of the area of clustered calcifications in the left breast at 1 o'clock middle depth was successful with no apparent post procedure complications. The imaged cores includes the calcifications. Pathology indicates benign results - "Adipose tissue showing fat necrosis and associated microcalcifications". Pathology results are concordant with imaging findings. Return to annual mammogram screening schedule is recommended.(05/25/2018) This exam was interpreted at [id number] for [facility] [place]. Jany yost/:06/23/2017 10:38:15 Dewaterer Operator(s): Monica Flaherty, [facility] letter sent: Post Bx Results 06/18/2017 - - Read by: Jany Patel MD Dictated Date/time: 06/23/17 10:38 Electronically Signed by: Jany Patel MD 06/23/17 10:38 FINAL REPORT [facility] Breast Mammo Diag UNI incl CAD NC Breast Mammo Diag UNI incl CAD MA CLINICAL: R92.8/Other Abnormal And Inconclusive Findings On Diagnostic Imaging Of Breast. Current study was evaluated with a Computer Aided Detection (CAD) system. COMPARISON:Comparison is made to exams dated: 05/25/2017 mammogram, 09/26/2015 mammogram, 08/14/2014 mammogram, 01/23/2014 mammogram - [facility], 06/15/2013 mammogram - [facility], and 12/08/2012 mammogram - [facility]. TECHNIQUE: Mammographic views were obtained using digital acquisition. Current study was also evaluated with a Computer Aided Detection (CAD) system. FINDINGS: The tissue of left breast is heterogeneously dense, which could obscure detection of small masses. There are new grouped pleomorphic calcifications in the left breast at 1 o'clock middle depth 13 cm from the nipple. No other significant masses or calcifications are seen in the breast. IMPRESSION: SUSPICIOUS OF MALIGNANCY RECOMMENDATION:The new grouped pleomorphic calcifications in the left breast are at an intermediate suspicion for malignancy. A stereotactic biopsy is recommended. This exam was interpreted at [id number] for MATTHEW Inter[facility]. Jonathon Barlow M.D. cm/penrad:06/11/2017 13:22:59 Dewaterer Operator(s): RT Vega(R)(M), [facility] letter sent: BI-RADS 4/5 Mammogram BI-RADS: 4b Suspicious abnormality - intermediate suspicion of malignancy 06/11/2017 - - Read by: Gustavo Puga MD Dictated Date/time: 06/11/17 13:22 Electronically Signed by: Gustavo Puga MD 06/11/17 13:22 FINAL REPORT [facility] [place] Breast Mammo Scrn BARRETT incl CAD NC Breast Mammo Scrn BARRETT incl CAD MA BILATERAL DIGITAL SCREENING MAMMOGRAM WITH CAD: 05/25/2017 CLINICAL: Encounter For Screening Mammogram For Malignant Neoplasm Of Breast/Z12.31. Current study was evaluated with a Computer Aided Detection (CAD) system. COMPARISON:Comparison is made to exams dated: 09/26/2015 mammogram, 08/14/2014 mammogram, 01/23/2014 mammogram - [facility], 06/15/2013 mammogram - [facility], 12/08/2012 mammogram, and 06/03/2012 mammogram - [facility]. TECHNIQUE: Mammographic views were obtained using digital acquisition. Current study was also evaluated with a Computer Aided Detection (CAD) system. The tissue of both breasts is heterogeneously dense, which could obscure detection of small masses. FINDINGS: There are new grouped calcifications in the left breast at 1 o'clock middle depth 13 cm from the nipple. No other significant masses, calcifications, or other findings are seen in either breast. IMPRESSION: INCOMPLETE: NEEDS ADDITIONAL IMAGING EVALUATION RECOMMENDATION:The new grouped calcifications in the left breast are indeterminate. Magnification views are recommended. This exam was interpreted at [id number] for DADA Johnson 15. Jonathon Barlow M.D. cm/penrad:05/26/2017 10:51:56 Dewaterer Operator(s): RT Shanika(R)(M), [facility] letter sent: BI-RADS 0 Mammogram BI-RADS: 0 Indeterminate 05/25/2017 - - Read by: Gustavo Puga MD Dictated Date/time: 05/26/17 10:51 Electronically Signed by: Gustavo Puga MD 05/26/17 10:51 [facility]AL [facility]PORT [facility] Bone Density DXA [employer] MA Bone Density DXA [employer] MA BONE DENSITY EVALUATION: 05/25/2017 CLINICAL DATA: Post menopausal. Age-Related Osteoporosis Without Current Pathological Fracture/M81.0 RISK FACTORS: race, early or surgical menopause, and previous spine, rib, or hip fractures. FINDINGS: Bone density evaluation was performed 05/25/2017 on the right femur neck using a Hologic unit. The BMD average for the exam is 0.382 g/cm2. The T-score is -4.20 and the Z-score is -3.20. This matches the World Health Organization's criteria for osteoporosis and places the patient at a high risk for fracture. An additional bone density evaluation was performed 05/25/2017 on the left femur neck using a Hologic unit. The BMD average for the exam is 0.378 g/cm2. The T- score is -4.20 and the Z-score is -3.20. This matches the World Health Organization's criteria for osteoporosis and places the patient at a high risk for fracture. An additional bone density evaluation was performed 05/25/2017 on the right hip using a Hologic unit. The BMD average for the exam is 0.425 g/cm2. The T-score is -4.20 and the Z-score is -3.60. This matches the World Health Organization's criteria for osteoporosis and places the patient at a high risk for fracture. An additional bone density evaluation was performed 05/25/2017 on the left hip using a Hologic unit. The BMD average for the exam is 0.425 g/cm2. The T-score is -4.20 and the Z-score is -3.60. This matches the World Health Organization's criteria for osteoporosis and places the patient at a high risk for fracture. An additional bone density evaluation was performed 05/25/2017 on the AP L2-L4 region of spine using a Hologic unit. The BMD average for the exam is 0.647 g/cm2. The T-score is -3.90 and the Z-score is -2.90. This matches the World Health Organization's criteria for osteoporosis and places the patient at a high risk for fracture. IMPRESSION: OSTEOPOROSIS Patient is at high risk for fracture. This exam was interpreted at [id number] for DADA Johnson 15. Jonathon Barlow M.D., cm/kaylin:05/26/2017 09:09:15 Dewaterer Operator(s): Ronna ABDULLAHI(Daylin)(Aren), [facility] 05/25/2017 - - Read by: Gustavo Puga MD Dictated Date/time: 05/26/17 09:09 Electronically Signed by: Gustavo Puga MD 05/26/17 09:09 FINAL REPORT [facility] Bone / joint SPECT NM Bone / joint SPECT NM EXAM: NM Bone Joint Imaging Whole Body DATE: 03/23/2017 10:20 AM CDT INDICATION: Thyroid cancer, restaging. - S12-[id number] cancer COMPARISON: PET/CT performed on 08/21/2016 TECHNIQUE: Approximately 2 hours delayed whole body images were obtained after intravenous administration of 25.5 mCi of Tc-99m MDP. Additional static images of the chest were obtained. Bone/joint SPECT CT was also performed. FINDINGS: Moderate tracer uptake in multiple levels along the thoracic spine indicating multilevel disc disease. Additionally there is mild to moderate tracer uptake in the costochondral junction on the left and right 11th rib, likely from prior intervention or trauma. Mild tracer uptake and bilateral hip joint indicative of degenerative joint disease. The rest of tracer distribution throughout the body is physiologic. IMPRESSION: 1. No evidence of bony metastases. 2. Mild to moderate tracer uptake in numerous joints described above indicative of degenerative changes. 03/23/2017 - - This report was dictated by a Stitcher Tape Controlled Machine/Fellow. I have personally reviewed the images as well as the Resident's interpretation and agree with the findings. Read by: Paty Read MD Resident: Paty Read MD Dictated Date/time: 03/24/17 10:36 Electronically Signed by: Brandy Ngo MD 03/24/17 11:31 FINAL REPORT JAMILAH Greene Bone scan NM Bone scan NM EXAM: NM Bone Joint Imaging Whole Body DATE: 03/23/2017 10:20 AM CDT INDICATION: Thyroid cancer, restaging. - J57-[id number] cancer COMPARISON: PET/CT performed on 08/21/2016 TECHNIQUE: Approximately 2 hours delayed whole body images were obtained after intravenous administration of 25.5 mCi of Tc-99m MDP. Additional static images of the chest were obtained. Bone/joint SPECT CT was also performed. FINDINGS: Moderate tracer uptake in multiple levels along the thoracic spine indicating multilevel disc disease. Additionally there is mild to moderate tracer uptake in the costochondral junction on the left and right 11th rib, likely from prior intervention or trauma. Mild tracer uptake and bilateral hip joint indicative of degenerative joint disease. The rest of tracer distribution throughout the body is physiologic. IMPRESSION: 1. No evidence of bony metastases. 2. Mild to moderate tracer uptake in numerous joints described above indicative of degenerative changes. 03/23/2017 - - This report was dictated by a Stitcher Tape Controlled Machine/Fellow. I have personally reviewed the images as well as the Resident's interpretation and agree with the findings. Read by: Paty Read MD Resident: Paty Read MD Dictated Date/time: 03/24/17 10:36 Electronically Signed by: Brandy Ngo MD 03/24/17 11:31 FINAL REPORT JAMILAH Greene URINE AND STOOL UA Blood Negative (10/18/16 1:29 PM) Negative 10/18/2016 [facility] URINE AND STOOL UA Urobilinogen 2.0 mg/dL 0.1 - 1.0 10/18/2016 [facility] URINE AND STOOL UA Nitrite Negative (10/18/16 1:29 PM) Negative 10/18/2016 [facility] URINE AND STOOL UA Sq Epi Many /LPF Few /LPF 10/18/2016 [facility] URINE AND STOOL UA Leuk Est Negative (10/18/16 1:29 PM) Negative 10/18/2016 [facility] URINE AND STOOL UA pH 5.0 5.0 - 8.0 10/18/2016 [facility] URINE AND STOOL UA Protein 30 mg/dL Negative mg/dL 10/18/2016 [facility] URINE AND STOOL UA Glucose Negative mg/dL Negative mg/dL 10/18/2016 [facility] URINE AND STOOL UA Ketones Trace mg/dL Negative mg/dL 10/18/2016 [facility] URINE AND STOOL UA Bili Moderate *ABN* (10/18/16 1:29 PM) Negative 10/18/2016 [facility] URINE AND STOOL UA Color Lachelle 10/18/2016 [facility] URINE AND STOOL UA WBC 2 /HPF 0 - 5 10/18/2016 [facility] URINE AND STOOL UA Mucus Many /LPF None Seen /LPF 10/18/2016 [facility] URINE AND STOOL UA CaOx Darby Occasional /HPF None Seen /HPF 10/18/2016 [facility] URINE AND STOOL UA Hyal Cast 3 /LPF 0 - 2 10/18/2016 [facility] URINE AND STOOL UA Spec Grav 1.036 <=1.030 10/18/2016 [facility] URINE AND STOOL UA Turbidity Marked *ABN* (10/18/16 1:29 PM) Clear 10/18/2016 [facility] Spine lumbar wo contrast CT Spine lumbar wo contrast CT EXAM: Spine lumbar wo contrast CT DATE: 10/18/2016 4:03 PM CDT INDICATION: Here with c/o back pain. Reprots she has multiple compression fx and now she is having tingling in her legs. Also reprots abdominal distention. - CT DLP: 884.26 mgy/cm COMPARISON: Lumbar spine radiograph of 05/27/2016. Multiple contiguous axial images of the lumbar spine were performed without IV contrast. FINDINGS: Limited evaluation of the spinal canal. Diffuse osteopenia. Interval postoperative vertebroplasty changes are present within the L1 and L5 vertebral bodies. Multilevel age-indeterminate compression fractures are present involving the L2, L3 and L4 vertebral bodies and along the superior endplate of S1. Minimal retropulsion is present at the posterior superior cortex of the L3 vertebral body. IMPRESSION: 1. Limited study as above. Multilevel age-indeterminate compression fractures are present involving the L2, L3 and L4 vertebral bodies and along the superior endplate of S1. Minimal retropulsion is present at the posterior superior cortex of the L3 vertebral body. Differential includes multilevel osteoporotic compression fractures versus pathologic compression fractures which is not entirely excluded especially with known malignancy. If there is further concern, CT myelogram or MRI of the lumbar spine may be performed for complete assessment. 2. Interval postoperative vertebroplasty changes are present within the L1 and L5 vertebral bodies. SL: BRUNA 10/18/2016 - - Read by: Evelio Berumen MD Dictated Date/time: 10/18/16 17:41 Electronically Signed by: Evelio Berumen MD 10/18/16 17:46 FINAL REPORT [facility] Spine cervical wo contrast CT Spine cervical wo contrast CT EXAM: CT CERVICAL SPINE WITHOUT CONTRAST DATE: 10/18/2016 12:12 PM CDT INDICATION: pain hx of multiple fx 2/2 osteo. back pain - CT DLP: 288.86 mgy/cm, pf, mc ADDITIONAL INFORMATION and CT DLP: mGy-cm. COMPARISON: TECHNIQUE: Volumetric CT acquisition of the cervical spine without contrast. Axial, sagittal and coronal reconstructions. IV contrast: None. FINDINGS: Diffuse osteopenia. No definite acute fracture or malalignment is identified. Prevertebral soft tissues are within normal limits. Multiple surgical clips are present within the thyroid bed likely post thyroidectomy. Mild partial opacification of the mastoid air cells. IMPRESSION: 1. Diffuse osteopenia. No acute fracture or pathologic subluxation detected. 2. Postoperative thyroidectomy. SL: BRUNA 10/18/2016 - - Read by: Evelio Berumen MD Dictated Date/time: 10/18/16 15:39 Electronically Signed by: Evelio Berumen MD 10/18/16 15:43 FINAL REPORT [facility] Spine thoracic wo contrast CT Spine thoracic wo contrast CT EXAM: Spine thoracic wo contrast CT DATE: 10/18/2016 12:09 PM CDT INDICATION: Here with c/o back pain. Reprots she has multiple compression fx and now she is having tingling in her legs. Also reprots abdominal distention - CT DLP 642.53: mgy/cm pf, mc COMPARISON: CT thoracic spine of 08/21/2016. PET/CT of 08/21/2016. Multiple contiguous axial images of the thoracic spine were performed without IV contrast. Limited evaluation of the spinal canal due to lack of intrathecal contrast. FINDINGS: Diffuse osteopenia. Recent multilevel mild superior endplate compression fractures of the T7, T8, T9 T10 and T11 vertebral bodies are present without significant retropulsion detected. The mild T7 and T8 vertebral body compression fractures are new since prior examination. Postoperative vertebroplasty change is present of the L1 vertebral body is incompletely visualized. Mild bibasilar atelectasis or parenchymal scarring and bronchiectasis. IMPRESSION: 1. Limited study as above. Recent multilevel mild superior endplate compression fractures of the T7, T8, T9 T10 and T11 vertebral bodies are present without significant retropulsion detected. The mild T7 and T8 vertebral body compression fractures are new since prior CT thoracic spine examination of 08/21/2016. Pathologic compression fractures cannot be excluded given reported history of malignancy. If there is further concern, CT myelogram or MRI of the thoracic spine may be performed for complete assessment. SL: [id number] 10/18/2016 - - Read by: Evelio Berumen MD Dictated Date/time: 10/18/16 15:44 Electronically Signed by: Evelio Berumen MD 10/18/16 15:53 FINAL REPORT [facility] Hip 2/3 views uni DX Hip 2/3 views uni DX EXAM: Left hip HISTORY: Left hip pain COMPARISON: None TECHNIQUE: 2 views left hip FINDINGS/IMPRESSION: Normal alignment of the left hip without fracture seen. Minimal osteoarthritis of the hip. Generalized osteopenia. SL: [id number] 10/18/2016 - - Read by: Chau Mahmood MD Dictated Date/time: 10/18/16 13:06 Electronically Signed by: Chau Mahmood MD 10/18/16 13:07 FINAL REPORT [facility] Pelvis AP DX Pelvis AP DX EXAM: Pelvis HISTORY: Back and hip pain COMPARISON: 08/21/2016 TECHNIQUE: Frontal view pelvis FINDINGS: No fracture or other acute traumatic injury is seen. Minimal osteoarthritis of the hips. Generalized osteopenia. Stable sclerotic focus L5. SL: [id number] 10/18/2016 - - Read by: Chau Mahmood MD Dictated Date/time: 10/18/16 13:04 Electronically Signed by: Chau Mahmood MD 10/18/16 13:05 FINAL REPORT [facility] PET CT Tumor imaging-whole body PET CT Tumor imaging-whole body PET CT Tumor imaging-whole body TECHNIQUE: 14.3 mCis of FDG were administered intravenously and a series of overlapping images were obtained from the skull base to the proximal thighs utilizing a PET/CT hybrid device. The CT was utilized for attenuation correction and anatomic correlation and not as an independent diagnostic study. 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 No abnormal activity is visualized. CHEST: Left subclavian ICD terminates in the region of right atrium. No abnormal activity is visualized. ABDOMEN AND PELVIS: Status post cholecystectomy. Physiologic activity is visualized in the solid organs, genitourinary tract and gastrointestinal tract. SKELETON: Post vertebroplasty changes are noted at L1 and L5 levels. There is minimal to mild decrease in vertebral body height at multiple levels in the lower thoracic spine. Minimal loss of vertebral body height is present at L3, L4 and L5 levels. There is minimal increase in metabolic activity at T10 level slightly more so than other thoracic vertebral bodies. Maximum SUV is 3.6 on image 134. Other thoracic vertebral bodies demonstrate SUV in the range of 2.6-3.2. There is mild increase in metabolic activity at L3 level. Maximum SUV is 4.8 on image 179. LOWER EXTREMITIES: No abnormal activity is visualized. IMPRESSION: Mild nonspecific increase in metabolic activity at L3 level and to a lesser extent T10 level. No other focus of any significant increase in metabolic activity is noted on the current scan. Correlation with biopsy results is recommended. SL:[id number] 08/21/2016 - - Read by: Sarmad Goddard MD Dictated Date/time: 08/22/16 11:17 Electronically Signed by: Sarmad Goddard MD 08/22/16 11:39 FINAL REPORT [facility] Spine thoracic wo contrast CT Spine thoracic wo contrast CT Patient Name: REBEKAH BLACK : 1960; Age: 55 years y/o Female MR: [id number] Study: Spine thoracic wo contrast CT 08/21/2016 1:21 PM BIOINFORMATICS DEVELOPER Ordering Physician: Jason Roach MD Clinical Indication: Compression fracture; cancer of spine; CT DLP - 456 mGycm Comparison: None Technique: Multi-detector CT imaging of the thoracic spine is performed. Coronal and sagittal reconstructions were obtained. CT Radiation Dose DLP 456 mGy-cm FINDINGS: ALIGNMENT AND GENERAL ASSESSMENT: There is normal alignment of the thoracic spine. The bones are demineralized. Multilevel subacute to chronic appearing mild anterior wedge compression fractures of T9-T11 are seen with mild depression of the superior endplate and 10% loss of anterior height at T9. There is 2 mm osseous retropulsion at the level of T11. Additional subacute to chronic mild anterior wedge compression fracture of T12 is also seen with mild concavity and sclerosis along the inferior endplate and 1 mg osseous retropulsion. Changes of prior vertebral body augmentation at L1 are seen. Multilevel subacute to chronic mild anterior wedge compression deformities in the visualized upper lumbar spine from L1 through L3 are also seen. DISK SPACES AND SOFT TISSUES: MRI has higher sensitivity and specificity for disc and soft tissue disease. There are no disk protrusions or extrusions noted. The spinal canal is normal. The thoracic spine foramina appear unremarkable. There is no central or foraminal stenosis noted. VISUALIZED THORAX: The lungs are clear and the visualized heart and mediastinum are unremarkable. If there is further concern, CT myelogram or MRI of the thoracic spine may be performed for complete assessment. IMPRESSION: 1. Diffuse bony demineralization. 2. Multilevel subacute to chronic-appearing, mild anterior wedge compression fractures of the lower thoracic spine spanning the levels of T9-T12. Mild osseous retropulsion is seen without spinal canal stenosis. SL: [id number] 08/21/2016 - - Read by: Severo Aguilera MD Dictated Date/time: 08/21/16 19:13 Electronically Signed by: Severo Aguilera MD 08/21/16 19:17 FINAL REPORT [facility] Chest 2 views DX Chest 2 views DX EXAM: XR CHEST 2 VIEWS DATE: 05/27/2016 2:16 PM BIOINFORMATICS DEVELOPER INDICATION: R06.00 Dyspnea, unspecified COMPARISON: CT chest 01/07/2016 TECHNIQUE: PA and lateral chest radiographs FINDINGS: Lines and tubes: Left chest wall pacemaker with cardiac lead that projects over the right atrium. Lungs and pleura: The lungs are inflated without large consolidations. Prominent left epicardial fat pad. Eventration of left hemidiaphragm. No pleural effusions or pneumothorax. Heart and mediastinum: The cardiac silhouette is prominent in size. Bones: No acute bony abnormality is identified. Please see concurrent rib radiograph report for more details. Soft tissues: Redemonstrated clip projecting over the proximal gastric body better seen on prior CT. Right upper quadrant cholecystectomy clips. IMPRESSION: No focal consolidations. 05/27/2016 - - Read by: Gwyn Stearns MD Dictated Date/time: 05/27/16 15:24 Electronically Signed by: Gwyn Stearns MD 05/27/16 15:31 FINAL REPORT [facility] Spine lumbar series DX Spine lumbar series DX EXAM: XR LUMBAR SPINE 5 VIEWS DATE: 05/27/2016 at 1417 hours INDICATION: M54.5 Low back pain COMPARISON: None available. TECHNIQUE: AP, lateral, coned lateral, LPO and RPO radiographs of the lumbar spine FINDINGS: 5 nonrib bearing, lumbar-type vertebral bodies are present. Vertebral body heights and disk heights are preserved. There is no spondylolysis or spondylolisthesis. Minimal facet sclerosis is present at the L5-S1 level. Scattered vascular calcifications are present at the aorta. Surgical clips are seen overlying the gallbladder fossa. IMPRESSION: Minimal L5-S1 facet sclerosis. Vertebral body heights and disc heights preserved. 05/27/2016 - - This report was dictated by a Stitcher Tape Controlled Machine/Fellow. I have personally reviewed the images as well as the Resident's interpretation and agree with the findings. Read by: Feliz Ponce MD Resident: Feliz Ponce MD Dictated Date/time: 05/27/16 15:18 Electronically Signed by: Lisbeth Reyna MD 05/27/16 17:54 FINAL REPORT [facility] Ribs unilateral DX Ribs unilateral DX EXAM: XR RIGHT RIB 4 VIEWS DATE: 05/27/2016 2:16 PM BIOINFORMATICS DEVELOPER INDICATION: R07.89 Other chest pain COMPARISON: None available TECHNIQUE: Frontal and oblique right ribs -4 views FINDINGS: Cardiac pacer device noted with single lead in the right atrium. Minimal scarring in the lung bases noted. No right rib fractures identified. No bone lesions identified. Calcific tendinosis of the right rotator cuff noted. IMPRESSION: No right rib lesions or fractures identified. Calcific tendinosis of the right rotator cuff 05/27/2016 - - Read by: Doug Cason MD Dictated Date/time: 05/27/16 16:01 Electronically Signed by: Doug Cason MD 05/27/16 16:05 FINAL REPORT [facility] Bone Density [employer] MA Bone Density [employer] MA - Bone Density [employer] MA BONE DENSITY EVALUATION: 01/07/2016 CLINICAL DATA: Post menopausal and clinical risk for osteoporosis. RISK FACTORS: race, history of previous fracture and cigarette smoking. FINDINGS: Bone density evaluation was performed 01/07/2016 on the AP L3-L4 region of spine using a Hologic unit. The BMD average for the exam is 0.719 g/cm2. The T-score is -3.50 and the Z-score is -2.50. This matches the World Health Organization's criteria for osteoporosis and places the patient at a high risk for fracture. An additional bone density evaluation was performed 01/07/2016 on the right femur neck using a Hologic unit. The BMD average for the exam is 0.492 g/cm2. The T-score is -3.20 and the Z-score is -2.30. This matches the World Health Organization's criteria for osteoporosis and places the patient at a high risk for fracture. An additional bone density evaluation was performed 01/07/2016 on the right hip using a Hologic unit. The BMD average for the exam is 0.548 g/cm2. The T-score is -3.20 and the Z-score is -2.60. This matches the World Health Organization's criteria for osteoporosis and places the patient at a high risk for fracture. An additional bone density evaluation was performed 01/07/2016 on the left femur neck using a Hologic unit. The BMD average for the exam is 0.472 g/cm2. The T- score is -3.40 and the Z-score is -2.50. This matches the World Health Organization's criteria for osteoporosis and places the patient at a high risk for fracture. An additional bone density evaluation was performed 01/07/2016 on the left hip using a Hologic unit. The BMD average for the exam is 0.530 g/cm2. The T-score is -3.40 and the Z-score is -2.80. This matches the World Health Organization's criteria for osteoporosis and places the patient at a high risk for fracture. IMPRESSION: OSTEOPOROSIS Patient is at high risk for fracture. This exam was dictated and interpreted by [id number] for [facility]. Sara Viera M.D. ms/penrad:01/09/2016 12:55:52 Dewaterer Operator: Mireya JOHNSON)(Aren), [facility] 01/07/2016 - - Read by: Sara Viera MD Dictated Date/time: 01/09/16 12:55 Electronically Signed by: Sara Viera MD 01/09/16 12:55 FINAL REPORT [facility] Chest wo contrast CT Chest wo contrast CT EXAM: Chest wo contrast CT HISTORY: R06.02 Shortness of breath COMPARISON: None Technique: CT scan of the chest was performed from the thoracic inlet to the lung bases without intravenous contrast administration. Images are presented in the axial, sagittal, and coronal planes. The total DLP for this examination is 208 mGycm. FINDINGS: There is mild calcific atherosclerotic disease. There is no mediastinal, hilar or axillary adenopathy within the confines of noncontrast technique. Right IJ central line terminates in the SVC. There is a left transvenous pacemaker. There appear to be biopsy clips in the left breast. There is no pericardial or pleural effusion. No endotracheal or endobronchial lesions are present. Evaluation of the lung parenchyma demonstrates no discrete pulmonary nodule or pulmonary mass. The lungs are grossly clear bilaterally with minimal atelectatic changes. Bone windows demonstrate no worrisome lytic or blastic osseous lesions. The visualized upper abdomen appears unremarkable for noncontrast technique. IMPRESSION: No evidence of pericardial effusion or other acute abnormality. 01/07/2016 - - Read by: Kalyan Mejia MD Dictated Date/time: 01/07/16 11:08 Electronically Signed by: Kalyan Mejia MD 01/07/16 11:14 FINAL REPORT [facility] Chest 2 views DX Chest 2 views DX Exam: Chest X-ray, 2 views CLINICAL HISTORY: Left-sided chest pain, cough and dyspnea . Comparison: April 04, 2013 Findings: PA and lateral views of the chest are obtained. . The heart size is normal. The hilar and mediastinal structures are normal. The lungs are clear without consolidation or effusion. No acute bony abnormality. Pulmonary vascularity is normal. Impression: No active disease. . 04/23/2015 - - Read by: Zuri Collins MD Dictated Date/time: 04/23/15 12:57 Electronically Signed by: Zuri Collins MD 04/23/15 13:33 FINAL REPORT [facility] Knee 1-2 Views Bilateral DX Knee 1-2 Views Bilateral DX BILATERAL KNEE X-RAY DATE: Apr 23, 2015 11:01:04 AM INDICATION: pain in knees COMPARISON: None TECHNIQUE: AP, and lateral radiographs of the bilateral knees were obtained. FINDINGS: The bones are well mineralized. There is moderate medial and lateral compartment joint space narrowing with subchondral sclerosis. No significant osteophyte formation. No acute fracture or dislocation is identified. The soft tissues are unremarkable IMPRESSION: Moderate bilateral degenerative changes of the bilateral knees, worse in the medial compartments. 04/23/2015 - - Read by: Wero Gregory MD Dictated Date/time: 04/23/15 14:11 Electronically Signed by: Wero Gregory MD 04/23/15 14:14 FINAL REPORT [facility] Tibia fibula series Tibia fibula series LEFT LOWER LEG SERIES CLINICAL HISTORY: Left lower leg pain with an uncomplicated open wound. COMPARISON IMAGING: None. FINDINGS: Two views were submitted for evaluation. No fracture, dislocation, or suspicious radiopaque foreign body is seen. Soft tissues are unremarkable. Specifically, radiographic evidence of an open wound, osteomyelitis, or abscess formation is not identified. MRI would be indicated if there is clinical concern for bone marrow infection. IMPRESSION: No significant abnormality. 02/24/2014 - - Read by: Asim Ruelas MD Dictated Date/time: 02/24/14 15:36 Electronically Signed by: Asim Ruelas MD 02/24/14 15:38 FINAL REPORT [facility] Abdomen/Pelvis w IV contrast CT Abdomen/Pelvis w IV contrast CT Exam: CT Scan of the abdomen and pelvis with contrast Reason for Exam: Colon polyps. Family history of colon cancer. Abdominal bloating Comparison Exam: Liver Ultrasound 02/20/[address] scan abdomen and pelvis 12/11/2010 Technique: Multiple axial images were obtained of the abdomen and pelvis. 3.75 mm slices were acquired after injection of 100 cc Omnipaque 300 IV. Reformatted sagittal and coronal images were obtained for additional diagnostic information. Total exam VHL=461 mGy-cm. Note that patient refused oral contrast. Discussion: Mild amount of atelectasis seen within the left lung base. Stable appearing cyst seen within the right lobe of the liver. Mild fatty infiltration seen within the liver. No focal enhancing masses seen within the liver. Portal venous system is patent. The patient is status post cholecystectomy. No biliary duct dilation. Pancreas, spleen, and adrenal glands are within normal limits. Subcentimeter cyst seen within the right kidney. Left kidney is unremarkable. No hydronephrosis or hydroureter. The patient is status post appendectomy and hysterectomy. No dilated loops of bowel. Bladder is unremarkable. No appreciable lymphadenopathy. No acute bony abnormalities appreciated. No suspicious osteoblastic or osteolytic lesions. No evidence seen for abdominal aortic aneurysm or dissection. Impression: 1. No dilated loops of bowel to suggest obstruction. No evidence seen to suggest metastatic disease to the abdomen or pelvis. 02/20/2014 - - Read by: Luis Enrique Luong MD Dictated Date/time: 02/20/14 15:37 Electronically Signed by: Luis Enrique Luong MD 02/20/14 15:47 FINAL REPORT [facility] [place] Liver w Liver vessels Doppler US Liver w Liver vessels Doppler US ADDENDUM: Note that the exam type should be the following: Liver ultrasound with Doppler evaluation. Exam: Liver ultrasound Reason for Exam: Fatty liver Comparison Exam: Abdominal Ultrasound 01/05/2014 and abdominal x-ray 02/13/2014 Discussion: Multiple axial and sagittal images were obtained of the liver. The liver is unremarkable in size, measuring 13.0 cm. in length. It is of slightly increased echogenicity suggestive of mild diffuse fatty infiltration. The liver contour is smooth. Cyst is again seen within the liver measuring up to 9 mm. The main portal vein is hepatopetal in flow measuring approximately 1.3 cm in diameter. The visualized portions of the hepatic veins and hepatic arteries are unremarkable. No intrahepatic or extrahepatic biliary duct dilation, with the common bile duct measuring 0.4 cm. The patient is status post cholecystectomy. Visualized portions of the pancreatic head and proximal body are within normal limits. Impression: 1. Findings suggestive of mild diffuse fatty infiltration seen throughout the liver 02/20/2014 - - Read by: Luis Enrique Luong MD Dictated Date/time: 02/20/14 15:48 Electronically Signed by: Luis Enrique Luong MD 02/20/14 15:49 FINAL REPORT - - Read by: Luis Enrique Luong MD Dictated Date/time: 02/20/14 11:44 Electronically Signed by: Luis Enrique Luong MD 02/20/14 11:48 FINAL REPORT [facility] [place] Abdomen AP view Abdomen AP view HISTORY: Abdominal distention TECHNIQUE: KUB COMPARISON: None FINDINGS: No obvious free intraperitoneal air. Nonobstructive bowel gas pattern. Moderate stool burden in the large bowel. Surgical clips seen in the right upper quadrant. No abnormal calcifications. No acute osseous abnormalities. IMPRESSION: No acute abnormality. 02/13/2014 - - Read by: Felisa Nichols MD Dictated Date/time: 02/13/14 15:57 Electronically Signed by: Felisa Nichols MD 02/13/14 15:59 FINAL REPORT [facility] [place] Breast US Breast US - DIGITAL MAMMO DX [facility] [place] - BREAST US BILATERAL DIGITAL DIAGNOSTIC MAMMOGRAM WITH CAD AND TARGETED BILATERAL ULTRASOUND: 01/23/2014 CLINICAL: Mammographic Abnormality. Current study was evaluated with a Computer Aided Detection (CAD) system. Comparison is made to exams dated: 06/15/2013 ultrasound, 06/15/2013 mammogram - [facility], 12/08/2012 ultrasound, 12/08/2012 mammogram - [facility], 06/09/2012 ultrasound biopsy and 06/09/2012 ultrasound biopsy - [facility]. The tissue of both breasts is heterogeneously dense, which could obscure detection of small masses. One biopsy clip is seen within the right breast and two biopsy clips are seen within the left breast. RIGHT BREAST: Stable 1 o'clock nodule which was previously biopsied Stable 4 o'clock nodule measuring 5mm Previously described 8 o'clock nodule is not seen on today's exam LEFT BREAST: Previously described 12 o'clock nodule 8 cm. from nipple is not seen on today's exam Stable 12 o'clock nodule 6 cm. from nipple measuring 7 mm. Stable 4 o'clock nodule measuring 7 mm. 3 o'clock nodule has increased to 1.2 cm. This was previously biopsied as a fibroadenoma. This also corresponds with clip on mammo. At time of biospy (06/09/2012), this was measured at 1.2 cm. Previously described 10 o'clock lesion is not seen on today's exam IMPRESSION: PROBABLY BENIGN, TARGETED ULTRASOUND PROBABLY BENIGN Overall stable appearing nodules in bothe breasts. 3 o'clock nodule within the left breast has increased to 1.2 cm. This was previously biopsied as a fibroadenoma. This also corresponds with clip on mammo. At time of biospy (06/09/2012), this was measured at 1.2 cm. A follow-upbilateral mammogram and and bilateral ultrasound in 6 months are recommended to demonstrate stability. Dr. Luis Enrique Luong M.D. sl/:01/23/2014 13:50:03 Dewaterer Operator: Jaqueline ABDULLAHI([place])(Aren), [facility] This exam was dictated and interpreted by [id number] for Nisa. letter sent: Followup Mammogram BI-RADS: 3 Probably benign Ultrasound BI-RADS: 3 Probably benign 01/23/2014 - - Read by: Luis Enrique Luong MD Dictated Date/time: 01/23/14 13:50 Electronically Signed by: Luis Enrique Luong MD 01/23/14 13:50 FINAL REPORT [facility] Digital Mammo DX [place] Digital Mammo DX [place] - DIGITAL MAMMO DX [place] - BREAST US BILATERAL DIGITAL DIAGNOSTIC MAMMOGRAM WITH CAD AND TARGETED BILATERAL ULTRASOUND: 01/23/2014 CLINICAL: Mammographic Abnormality. Current study was evaluated with a Computer Aided Detection (CAD) system. Comparison is made to exams dated: 06/15/2013 ultrasound, 06/15/2013 mammogram - [facility], 12/08/2012 ultrasound, 12/08/2012 mammogram - [facility], 06/09/2012 ultrasound biopsy and 06/09/2012 ultrasound biopsy - [facility]. The tissue of both breasts is heterogeneously dense, which could obscure detection of small masses. One biopsy clip is seen within the right breast and two biopsy clips are seen within the left breast. RIGHT BREAST: Stable 1 o'clock nodule which was previously biopsied Stable 4 o'clock nodule measuring 5mm Previously described 8 o'clock nodule is not seen on today's exam LEFT BREAST: Previously described 12 o'clock nodule 8 cm. from nipple is not seen on today's exam Stable 12 o'clock nodule 6 cm. from nipple measuring 7 mm. Stable 4 o'clock nodule measuring 7 mm. 3 o'clock nodule has increased to 1.2 cm. This was previously biopsied as a fibroadenoma. This also corresponds with clip on mammo. At time of biospy (06/09/2012), this was measured at 1.2 cm. Previously described 10 o'clock lesion is not seen on today's exam IMPRESSION: PROBABLY BENIGN, TARGETED ULTRASOUND PROBABLY BENIGN Overall stable appearing nodules in bothe breasts. 3 o'clock nodule within the left breast has increased to 1.2 cm. This was previously biopsied as a fibroadenoma. This also corresponds with clip on mammo. At time of biospy (06/09/2012), this was measured at 1.2 cm. A follow-upbilateral mammogram and and bilateral ultrasound in 6 months are recommended to demonstrate stability. Dr. Luis Enrique Luong M.D. sl/:01/23/2014 13:50:03 Dewaterer Operator: Jaqueline ABDULLAHI(R)(M), [facility] This exam was dictated and interpreted by [id number] for MATTHEW [facility]. letter sent: Followup Mammogram BI-RADS: 3 Probably benign Ultrasound BI-RADS: 3 Probably benign 01/23/2014 - - Read by: Luis Enrique Luong MD Dictated Date/time: 01/23/14 13:50 Electronically Signed by: Luis Enrique Luong MD 01/23/14 13:50 FINAL REPORT [facility] Abdomen complete w Pelvis US Abdomen complete w Pelvis US No comparison exam is available. The visualized portions of the pancreas appear unremarkable. The abdominal aorta and IVC are patent. Borderline echogenic hepatic echotexture is seen. The portal vein is patent. The common bile duct measures 0.4 cm in caliber, within normal limits. Left hepatic lobe anterior subcapsular 0.9 cm simple cyst is identified. The patient is post cholecystectomy. The right kidney appears unremarkable measuring 9.8 cm in length. The left kidney also appears unremarkable measuring 10.2 cm in length. The spleen appears unremarkable measuring 8.5 cm in length. Transabdominal images were obtained of the pelvis showing no mass or free fluid. IMPRESSION: 1. Mild fatty hepatic infiltration suspected. Left hepatic lobe simple cyst as above. 2. Normal common bile duct caliber. 3. Otherwise unremarkable exam as above. 01/05/2014 - - Read by: Bharat Wharton MD Dictated Date/time: 01/05/14 15:55 Electronically Signed by: Bharat Wharton MD 01/05/14 15:58 FINAL REPORT MATTHEW [place] Hand AP lateral oblique Hand AP lateral oblique Exam: Right hand x-ray, 3 views Reason for Exam: Pain status post trauma Comparison Exam: None Discussion: No fractures or dislocations are seen of the right hand. The joint spaces are preserved. No intraosseous lesions. No radiopaque foreign bodies. Impression: 1. No acute bony abnormalities seen within the right hand . 10/12/2013 - - Read by: Luis Enrique Luong Dictated Date/time: 10/12/13 11:22 Electronically Signed by: Luis Enrique Luong MD 10/12/13 11:23 FINAL REPORT MATTHEW [place] Brain w/wo contrast CT Brain w/wo contrast CT CT BRAIN WITHOUT AND WITH CONTRAST Comparison: 04/06/2012 CT, 12/03/2012 MRI exam. Findings: Sagittal and coronal reformatted images are submitted for interpretation. The DLP is 1652 mGy - cm. No hemorrhage, ventriculomegaly, or midline shift is seen. No abnormal enhancement is identified. The visualized paranasal sinuses are well aerated. IMPRESSION: 1. No acute intracranial hemorrhage, mass, or acute ischemia identified. 08/25/2013 - - Read by: Bharat Wharton Dictated Date/time: 08/25/13 14:00 Electronically Signed by: Bharat Wharton MD 08/25/13 14:15 FINAL REPORT JAMILAH [place] Breast US Breast US - BREAST US ULTRASOUND OF BOTH BREASTS: 06/15/2013 CLINICAL: Abnormal Mammo. Color flow and real-time ultrasound of both breasts were performed. Static images are submitted. Comparison is made to mammograms dating to 04/24/2011 and breast sonograms dating to 05/27/2012. This report should not preclude further evaluation of any clinically significant palpable abnormality. RIGHT BREAST: 5.8 mm taller than wide mass at 1 o'clock located 9 cm from the nipple, biopsy proven fibroadenoma, previously 9.2 mm. New wider than tall complex cysts versus solid nodules: 3.9 mm at 4 o'clock and 3.9 mm at 8 o'clock. A follow-up mammogram and ultrasound is recommended in 6 months. No additional sonographic abnormality. LEFT BREAST: New 8.9 mm wider than tall heterogeneous primarily echogenic lesion at 12 o'clock located 8 cm from the nipple may correspond to the mammographic abnormality. Primary differential considerations include a hematoma, lipoma or fat necrosis. If desired ultrasound guided biopsy may be performed. Otherwise a follow-up mammogram and ultrasound is recommended in 6 months. Wider than tall masses resembling benign fibroadenomas: 6.6 mm at 12 o'clock, previously 6 mm; new 4.9 mm at 1 o'clock; 8.1 mm at 3 o'clock, previously 10 mm; 7.4 mm at 4 o'clock, previously 8 mm; and new 6.1 mm at 10 o'clock. A follow-up ultrasound is recommended in 6 months. No additional sonographic abnormality. IMPRESSION: PROBABLY BENIGN - FOLLOW-UP RECOMMENDED A follow-up bilateral mammogram and bilateral breast ultrasound in 6 months is recommended to demonstrate stability. SL: 15 Karen posada/:06/15/2013 19:30:39 Dewaterer Operator: Jeimy Beaulieu, [facility] This exam was dictated and interpreted by [id number] for DADA Johnson 15. letter sent: Followup Ultrasound BI-RADS: 3 Probably benign 06/15/2013 - - Read by: Karen Leahy Dictated Date/time: 06/15/13 19:30 Electronically Signed by: Karen Leahy MD 06/15/13 19:30 FINAL REPORT MATTHEW [place] Digital Mammo DX [place] Digital Mammo DX [place] - DIGITAL MAMMO DX [place]TT MA BILATERAL DIGITAL DIAGNOSTIC MAMMOGRAM WITH CAD: 06/15/2013 CLINICAL: 793.89 Other (Abnormal) Findings On Radiological Examination Of Breast. Current study was evaluated with a Computer Aided Detection (CAD) system. Comparison is made to exams dated: 12/08/2012 mammogram, 06/03/2012 mammogram - [facility], 05/27/2012 mammogram, 05/12/2012 mammogram - [facility] and 04/24/2011 mammogram - [facility]. The tissue of both breasts is heterogeneously dense, which could obscure detection of small masses. Ultrasound is recommended. Benign appearing calcifications and a benign appearing mass are present in the right breast and benign appearing calcifications are present in the left breast. Examination indicates a biopsy marker in the right breast and two markers in the left breast. There is a new 6 mm nodular density at 12-1 o'clock in the left breast middle to posterior depth at the location of a palpable abnormality identified by the patient. No significant calcifications or other findings are seen in either breast. IMPRESSION: INCOMPLETE: NEEDS ADDITIONAL IMAGING EVALUATION Ultrasound is recommended for both breasts. This was performed at this visit. GENERAL OBSERVATIONS ABOUT MAMMOGRAPHY: 1. Not all breast cancers are detected by mammography and a negative report should not delay biopsy if a dominant or clinically suspicious mass is present. 2. Clinical examination and ultrasound is often more effective for small or dense breasts and retroareolar lesions. Dictation code: 15. Karen stephens/:06/15/2013 19:06:52 Dewaterer Operator: Talia Whelan [facility] This exam was dictated and interpreted by [id number] for DADA Johnson 15. Mammogram BI-RADS: 0 Indeterminate 06/15/2013 - - Read by: Karen Leahy Dictated Date/time: 06/15/13 19:06 Electronically Signed by: Karen Leahy MD 06/15/13 19:06 FINAL REPORT MATTHEW [place] Chest 2 views Chest 2 views CHEST RADIOGRAPHY CLINICAL HISTORY: 466.0, acute bronchitis, hemoptysis COMPARISON IMAGIN02/17/2012 FINDINGS: Two views of the chest were acquired and submitted for evaluation. There is a left sided single lead pacer with tip in the caval atrial junction. No pneumothorax. There is a 7mm nodular density in the left midlung with adjacent atelectasis. The contour of the cardiac silhouette is within normal limits. Bones are unremarkable. IMPRESSION: 1. 7 mm nodular density in the left midlung. Consider CT of the chest for further evaluation. 2. Single lead left-sided pacemaker with tip at the cavoatrial junction. 3. Findings discussed with Dr. Lucas at 1321 hrs. 04/04/2013 - - Read by: Tere Mccollum Dictated Date/time: 04/04/13 12:01 Electronically Signed by: Tere Mccollum , DO 04/04/13 13:23 FINAL REPORT JAMILAH [place] Breast US Breast US - BREAST US/L ULTRASOUND OF THE LEFT BREAST : 12/08/2012 CLINICAL: Abnormal Mammo breast mass follow up. Comparison is made to exams dated: 12/08/2012 mammogram - [facility], 06/09/2012 ultrasound biopsy, 06/09/2012 ultrasound biopsy - [facility], 06/03/2012 ultrasound biopsy, 06/03/2012 mammogram - [facility] and 05/27/2012 ultrasound - [facility]. Color flow and real-time ultrasound were performed on the left breast. Prakash scale images of the real-time examination were reviewed. 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 There also is a stable 6 mm benign appearing biopsied cystic area likely fibrocystic change left breast at 12 o'clock. There is an stable 8 mm wider than tall oval mass with a circumscribed margin in the left breast at 4 o'clock posterior depth 2 cm from the nipple. This oval mass is hypoechoic. This correlates with ultrasound findings. No abnormalities were seen sonographically in the left axilla. There has been no significant interval change. IMPRESSION: PROBABLY BENIGN - FOLLOW-UP RECOMMENDED The stable 8 mm wider than tall oval mass in the left breast most likely is a fibroadenoma and is probably benign. A follow-up in 6 months is recommended. A follow-up left ultrasound in 6 months is recommended to demonstrate stability. The results were reviewed with the patient. SL: 13. Jayn yost/:12/08/2012 14:18:49 Dewaterer Operator: Lexi Banda [facility] letter sent: Followup Ultrasound BI-RADS: 3 Probably benign 12/08/2012 - - Read by: Jany Patel Dictated Date/time: 12/08/12 14:18 Electronically Signed by: Jany Patel MD 12/08/12 14:18 FINAL REPORT [facility] Digital Mammo DX [place] Digital Mammo DX [place] - DIGITAL MAMMO DX [place] MA BILATERAL DIGITAL DIAGNOSTIC MAMMOGRAM WITH CAD: 12/08/2012 CLINICAL: Mammographic Abnormality benign biopsy follow up. Current study was evaluated with a Computer Aided Detection (CAD) system. Comparison is made to exams dated: 06/03/2012 mammogram - [facility], 05/27/2012 mammogram, 05/12/2012 mammogram - [facility], 04/24/2011 mammogram - [facility], 06/09/2012 ultrasound biopsy and 06/09/2012 ultrasound biopsy - [facility]. The tissue of both breasts is heterogeneously dense. This may lower the sensitivity of mammography. There are benign calcifications and a mass in both breasts. There also are benign densities in the left breast. Additionally there is a biopsy clip in the right breast, corresponding with benign biopsy proven fibroadenoma. This is smaller than on prior exams. Ultrasound is not necessary. There also are biopsy clips in the left breast. No significant masses, calcifications, or other findings are seen in either breast. There has been no significant interval change. IMPRESSION: INCOMPLETE: NEEDS ADDITIONAL IMAGING EVALUATION No definite mammographic evidence of malignancy or significant interval change. Patient states her left breast chronic lump is present. This will be evaluated with sonography today. Ultrasound evaluation is pending. SUMMARY: Ultrasound will be performed at this time; please see dedicated separate report. Prior left breast biopsy sites will be reevaluated. SL: 13. Jany yost/:12/08/2012 14:13:20 Dewaterer Operator: Danielle Jeffrey [facility] Mammogram BI-RADS: 0 Indeterminate 12/08/2012 - - Read by: Jany Patel Dictated Date/time: 12/08/12 14:13 Electronically Signed by: Jany Patel MD 12/08/12 14:13 FINAL REPORT [facility] Brain w/wo contrast MRI Brain w/wo contrast MRI MRI of the brain with and without contrast COMPARISON: Brain MRI May 09, 2011 Technique: Multiplanar, multisequence pre- and postcontrast images of the brain were obtained. 13 cc of Omniscan was administered. Findings: There is no evidence of acute infarct, intracranial hemorrhage, mass- effect, midline shift, hydrocephalus or extra-axial collection. There is no diffusion restriction. There is no abnormal parenchymal or meningeal enhancement. The orbits are normal. The paranasal sinuses and mastoid air cells are well-aerated. Impression: NO EVIDENCE OF HEMORRHAGE, MASS LESION OR ACUTE INFARCTION. 12/03/2012 - - Read by: Ramin Portillo Dictated Date/time: 12/03/12 11:40 Electronically Signed by: Ramin Portillo MD 12/03/12 12:53 FINAL REPORT JAMILAH [place] Microbiology Culture: Anaerobic 09/30/2012 [facility] Microbiology Culture: Wound/Abscess w/Gram Stain 09/30/2012 [facility] HEMATOLOGY PTT 36.2 s 22.9 - 35.8 09/29/2012 [place] 2Interpretive Data: Heparin Therapeutic Range: 57 - 92 Seconds [facility] PT 19.0 s 12.0 - 14.7 09/29/2012 [facility] HEMATOLOGY INR 1.58 0.85 - 1.17 09/29/2012 [place] 1Interpretive Data: RECOMMENDED RANGES FOR PROTIME INR: 2.0-3.0 for most medical and surgical thromboembolic states. 2.5-3.5 for artificial heart valves and recurrent embolism. INR SHOULD BE USED ONLY FOR PATIENTS ON STABLE ANTICOAGULANT THERAPY. [facility] CHEMISTRY eGFR 75 mL/min/1.73m2 04/22/2012 NA 1Result Comment: The eGFR is calculated using the CKD-EPI formula. In most young, healthy individuals the eGFR will be >90 mL/min/1.73m2. The eGFR declines with age. An eGFR of 60-89 may be normal in some populations, particularly the elderly, for whom the CKD-EPI formula has not been extensively validated. Use of the eGFR is not recommended in the following populations: Individuals with unstable creatinine concentrations, including patients and those with serious co-morbid conditions. Patients with extremes in muscle mass or diet. The data above are obtained from the National Kidney Disease Education Program (NKDEP) which additionally recommends that when the eGFR is used in patients with extremes of body mass index for purposes of drug dosing, the eGFR should be multiplied by the estimated BMI. [facility] CHEMISTRY BUN 9 mg/dL 7 - 22 04/22/2012 Normal [facility] CHEMISTRY Glucose Lvl 89 mg/dL 70 - 99 04/22/2012 Normal 2Interpretive Data: Adult reference range values reflect the clinical guidelines of the [place] [employer]. [facility] CHEMISTRY Sodium Lvl 143 meq/L 135 - 145 04/22/2012 Normal [facility] CHEMISTRY Creatinine Lvl 0.9 mg/dL 0.5 - 1.4 04/22/2012 Normal [facility] CHEMISTRY Potassium Lvl 3.6 meq/L 3.5 - 5.1 04/22/2012 Normal [facility] CHEMISTRY Calcium Lvl 8.9 mg/dL 8.5 - 10.5 04/22/2012 Normal [facility] CHEMISTRY CO2 27 meq/L 24 - 32 04/22/2012 Normal [facility] CHEMISTRY Chloride Lvl 107 meq/L 95 - 109 04/22/2012 Normal [facility] CHEMISTRY AGAP 12.6 meq/L 10.0 - 20.0 04/22/2012 Normal [facility] HEMATOLOGY Eosinophils 0.6 % 0.0 - 4.0 04/22/2012 Normal [facility] HEMATOLOGY Segs-Bands # 7.9 K/CMM 1.5 - 8.1 04/22/2012 Normal [facility] HEMATOLOGY Basophils 0.5 % 0.0 - 1.0 04/22/2012 Normal [facility] HEMATOLOGY Monocytes # 0.7 K/CMM 0.0 - 0.8 04/22/2012 Normal [facility] HEMATOLOGY Monocytes 6.2 % 2.0 - 12.0 04/22/2012 Normal [facility] HEMATOLOGY Eosinophils # 0.1 K/CMM 0.0 - 0.5 04/22/2012 Normal [facility] HEMATOLOGY Lymphocytes # 2.6 K/CMM 1.0 - 5.5 04/22/2012 Normal [facility] HEMATOLOGY Basophils # 0.1 K/CMM 0.0 - 0.2 04/22/2012 Normal [facility] HEMATOLOGY Lymphocytes 23.0 % 20.0 - 40.0 04/22/2012 Normal [facility] HEMATOLOGY Segs 69.7 % 45.0 - 75.0 04/22/2012 Normal [facility] HEMATOLOGY MCH 32.7 pg 27.0 - 31.0 04/22/2012 [facility] HEMATOLOGY WBC 11.3 K/CMM 3.7 - 10.4 04/22/2012 [facility] HEMATOLOGY Hgb 14.0 g/dL 12.0 - 16.0 04/22/2012 Normal [facility] HEMATOLOGY RBC 4.28 M/CMM 4.20 - 5.40 04/22/2012 Normal [facility] HEMATOLOGY RDW 14.6 % 11.5 - 14.5 04/22/2012 HI [facility] HEMATOLOGY MCHC 34.1 g/dL 32.0 - 36.0 04/22/2012 Normal [facility] HEMATOLOGY MCV 95.9 fL 81.0 - 99.0 04/22/2012 Normal [facility] HEMATOLOGY Hct 41.1 % 36.0 - 48.0 04/22/2012 Normal [facility] HEMATOLOGY MPV 8.4 fL 7.4 - 10.4 04/22/2012 Normal [facility] HEMATOLOGY Platelet 236 K/CMM 133 - 450 04/22/2012 Normal [facility] CHEMISTRY Chloride Lvl 105 meq/L 95 - 109 02/26/2012 Normal [facility] CHEMISTRY CO2 30 meq/L 24 - 32 02/26/2012 Normal [facility] CHEMISTRY Potassium Lvl 3.3 meq/L 3.5 - 5.1 02/26/2012 LOW [facility] CHEMISTRY Sodium Lvl 140 meq/L 135 - 145 02/26/2012 Normal [facility] CHEMISTRY Creatinine Lvl 0.8 mg/dL 0.5 - 1.4 02/26/2012 Normal [facility] CHEMISTRY Calcium Lvl 8.7 mg/dL 8.5 - 10.5 02/26/2012 Normal [facility] CHEMISTRY Glucose Lvl 87 mg/dL 70 - 99 02/26/2012 Normal 1Interpretive Data: Adult reference range values reflect the clinical guidelines of the [place] [employer]. [facility] CHEMISTRY BUN 16 mg/dL 7 - 22 02/26/2012 Normal [facility] CHEMISTRY AGAP 8.3 meq/L 10.0 - 20.0 02/26/2012 LOW [facility] HEMATOLOGY INR 0.86 0.85 - 1.17 02/26/2012 Normal 2Interpretive Data: RECOMMENDED RANGES FOR PROTIME INR: 2.0-3.0 for most medical and surgical thromboembolic states. 2.5-3.5 for artificial heart valves and recurrent embolism. INR SHOULD BE USED ONLY FOR PATIENTS ON STABLE ANTICOAGULANT THERAPY. [facility] HEMATOLOGY PT 11.9 s 12.0 - 14.7 02/26/2012 LOW [facility] HEMATOLOGY PTT 25.4 s 22.9 - 35.8 02/26/2012 Normal 3Interpretive Data: Heparin Therapeutic Range: 57 - 92 Seconds [facility] HEMATOLOGY MPV 7.9 fL 7.4 - 10.4 02/26/2012 Normal [facility] HEMATOLOGY RDW 14.6 % 11.5 - 14.5 02/26/2012 [facility] HEMATOLOGY Platelet 219 K/CMM 133 - 450 02/26/2012 Normal [facility] HEMATOLOGY MCHC 33.8 g/dL 32.0 - 36.0 02/26/2012 Normal [facility] HEMATOLOGY RBC 4.36 M/CMM 4.20 - 5.40 02/26/2012 Normal [facility] HEMATOLOGY WBC 12.0 K/CMM 3.7 - 10.4 02/26/2012 [facility] MCH 32.0 pg 27.0 - 31.0 02/26/2012 [facility] HEMATOLOGY MCV 94.8 fL 81.0 - 99.0 02/26/2012 Normal [facility] HEMATOLOGY Hct 41.3 % 36.0 - 48.0 02/26/2012 Normal [facility] Hgb 14.0 g/dL 12.0 - 16.0 02/26/2012 Normal [facility] HEMATOLOGY Basophils # 0.0 K/CMM 0.0 - 0.2 02/26/2012 Normal [facility] HEMATOLOGY Eosinophils # 0.1 K/CMM 0.0 - 0.5 02/26/2012 Normal [facility] HEMATOLOGY Monocytes 6.2 % 2.0 - 12.0 02/26/2012 Normal [facility] HEMATOLOGY Monocytes # 0.7 K/CMM 0.0 - 0.8 02/26/2012 Normal [facility] HEMATOLOGY Segs-Bands # 8.8 K/CMM 1.5 - 8.1 02/26/2012 [facility] HEMATOLOGY Eosinophils 0.5 % 0.0 - 4.0 02/26/2012 Normal [facility] HEMATOLOGY Basophils 0.2 % 0.0 - 1.0 02/26/2012 Normal [facility] HEMATOLOGY Lymphocytes # 2.4 K/CMM 1.0 - 5.5 02/26/2012 Normal [facility] HEMATOLOGY Segs 73.3 % 45.0 - 75.0 02/26/2012 Normal [facility] HEMATOLOGY Lymphocytes 19.8 % 20.0 - 40.0 02/26/2012 LOW [facility] URINALYSIS UA Urobilinogen <=1.0 mg/dL
*NA*
(02/19/2012 18:00:00) <sup> </sup> 0.1 - 1.0 02/19/2012 NA [facility] URINALYSIS UA Protein Negative mg/dL (02/19/2012 18:00:00) Negative 02/19/2012 Normal [facility] URINALYSIS UA Bili Negative *NA* (02/19/2012 18:00:00) Negative 02/19/2012 [facility] URINALYSIS UA Ketones Negative mg/dL *NA* (02/19/2012 18:00:00) Negative 02/19/2012 [facility] URINALYSIS UA pH 5.0 5.0 - 8.0 02/19/2012 Normal [facility] URINALYSIS UA Glucose Negative mg/dL *NA* (02/19/2012 18:00:00) Negative 02/19/2012 [facility] URINALYSIS UA Spec Grav 1.019 <=1.030 02/19/2012 Normal [facility] URINALYSIS UA Turbidity Clear (02/19/2012 18:00:00) Clear 02/19/2012 Normal [facility] URINALYSIS UA Color Yellow *NA* (02/19/2012 18:00:00) Yellow 02/19/2012 [facility] URINALYSIS UA RBC 1 /HPF 0 - 2 02/19/2012 Normal [facility] URINALYSIS UA Hyal Cast 3 /LPF 0 - 2 02/19/2012 [facility] URINALYSIS UA Mucus Few /LPF *NA* (02/19/2012 18:00:00) None Seen 02/19/2012 [facility] URINALYSIS UA Bacteria Occasional /HPF *NA* (02/19/2012 18:00:00) None Seen 02/19/2012 [facility] URINALYSIS UA Sq Epi Few /LPF *NA* (02/19/2012 18:00:00) Few 02/19/2012 [facility] URINALYSIS UA Leuk Est Negative (02/19/2012 18:00:00) Negative 02/19/2012 [facility] URINALYSIS UA WBC 1 /HPF 0 - 5 02/19/2012 Normal [facility] URINALYSIS UA Nitrite Negative (02/19/2012 18:00:00) Negative 02/19/2012 Normal [facility] URINALYSIS UA Blood Negative (02/19/2012 18:00:00) Negative 02/19/2012 Normal [facility] HEMATOLOGY Sed Rate 4 mm/h 0 - 20 02/19/2012 Normal [facility] IMMUNOLOGY FAUSTINO Negative (02/19/2012 14:41:00) Negative 02/19/2012 Normal [facility] IMMUNOLOGY CRP, High Sensitivity 1.0 mg/L 02/19/2012 NA 5Interpretive Data: Low Risk: <1.0 mg/L Average Risk: 1.0 - 3.0 mg/L High Risk: >3.0 mg/L Inflammation: >10.0 mg/L [facility] CHEMISTRY CO2 28 meq/L 24 - 32 02/19/2012 Normal [facility] CHEMISTRY Calcium Lvl 8.4 mg/dL 8.5 - 10.5 02/19/2012 LOW [facility] CHEMISTRY Potassium Lvl 4.1 meq/L 3.5 - 5.1 02/19/2012 Normal [facility] CHEMISTRY Chloride Lvl 103 meq/L 95 - 109 02/19/2012 Normal [facility] CHEMISTRY Sodium Lvl 139 meq/L 135 - 145 02/19/2012 Normal [facility] CHEMISTRY BUN 15 mg/dL 7 - 22 02/19/2012 Normal [facility] CHEMISTRY Glucose Lvl 97 mg/dL 70 - 99 02/19/2012 Normal 1Interpretive Data: Adult reference range values reflect the clinical guidelines of the [place] [employer]. [facility] CHEMISTRY Creatinine Lvl 0.9 mg/dL 0.5 - 1.4 02/19/2012 Normal [facility] CHEMISTRY AGAP 12.1 meq/L 10.0 - 20.0 02/19/2012 Normal [facility] HEMATOLOGY Basophils # 0.0 K/CMM 0.0 - 0.2 02/19/2012 Normal [facility] HEMATOLOGY Eosinophils # 0.0 K/CMM 0.0 - 0.5 02/19/2012 Normal [facility] HEMATOLOGY Monocytes # 0.8 K/CMM 0.0 - 0.8 02/19/2012 Normal [facility] HEMATOLOGY Segs-Bands # 13.0 K/CMM 1.5 - 8.1 02/19/2012 HI [facility] HEMATOLOGY Lymphocytes # 1.8 K/CMM 1.0 - 5.5 02/19/2012 Normal [facility] HEMATOLOGY Basophils 0.2 % 0.0 - 1.0 02/19/2012 Normal [facility] HEMATOLOGY Eosinophils 0.1 % 0.0 - 4.0 02/19/2012 Normal [facility] HEMATOLOGY Lymphocytes 11.8 % 20.0 - 40.0 02/19/2012 LOW [facility] HEMATOLOGY Monocytes 5.1 % 2.0 - 12.0 02/19/2012 Normal [facility] HEMATOLOGY Segs 82.8 % 45.0 - 75.0 02/19/2012 [facility] HEMATOLOGY Hgb 15.2 g/dL 12.0 - 16.0 02/19/2012 Normal [facility] HEMATOLOGY MPV 7.5 fL 7.4 - 10.4 02/19/2012 Normal [facility] HEMATOLOGY Platelet 210 K/CMM 133 - 450 02/19/2012 Normal [facility] HEMATOLOGY MCHC 33.6 g/dL 32.0 - 36.0 02/19/2012 Normal [facility] HEMATOLOGY RDW 14.0 % 11.5 - 14.5 02/19/2012 Normal [facility] HEMATOLOGY Hct 45.3 % 36.0 - 48.0 02/19/2012 Normal [facility] HEMATOLOGY MCV 94.1 fL 81.0 - 99.0 02/19/2012 Normal [facility] HEMATOLOGY MCH 31.6 pg 27.0 - 31.0 02/19/2012 [facility] HEMATOLOGY WBC 15.7 K/CMM 3.7 - 10.4 02/19/2012 [facility] HEMATOLOGY RBC 4.81 M/CMM 4.20 - 5.40 02/19/2012 Normal [facility] CHEMISTRY TSH 4.050 uIU/mL 0.360 - 3.740 02/18/2012 [facility] HEMATOLOGY Target Cell Slight *ABN* (02/18/2012 14:21:00) None Seen 02/18/2012 [facility] HEMATOLOGY Anisocyte 1+ *ABN* (02/18/2012 14:21:00) None Seen 02/18/2012 ABN [facility] HEMATOLOGY Basophils # 0.1 K/CMM 0.0 - 0.2 02/18/2012 Normal [facility] HEMATOLOGY Eosinophils # 0.1 K/CMM 0.0 - 0.5 02/18/2012 Normal [facility] HEMATOLOGY Monocytes # 0.7 K/CMM 0.0 - 0.8 02/18/2012 Normal [facility] HEMATOLOGY Lymphocytes 13.4 % 20.0 - 40.0 02/18/2012 LOW [facility] HEMATOLOGY Monocytes 4.1 % 2.0 - 12.0 02/18/2012 Normal [facility] HEMATOLOGY Segs-Bands # 13.4 K/CMM 1.5 - 8.1 02/18/2012 [facility] HEMATOLOGY Lymphocytes # 2.2 K/CMM 1.0 - 5.5 02/18/2012 Normal [facility] HEMATOLOGY Eosinophils 0.4 % 0.0 - 4.0 02/18/2012 Normal [facility] HEMATOLOGY Basophils 0.3 % 0.0 - 1.0 02/18/2012 Normal [facility] HEMATOLOGY Plt Morph Normal (02/18/2012 14:21:00) 02/18/2012 Normal [facility] HEMATOLOGY Segs 81.8 % 45.0 - 75.0 02/18/2012 [facility] HEMATOLOGY MPV 7.5 fL 7.4 - 10.4 02/18/2012 Normal [facility] HEMATOLOGY Hct 45.4 % 36.0 - 48.0 02/18/2012 Normal [facility] HEMATOLOGY WBC 16.4 K/CMM 3.7 - 10.4 02/18/2012 [facility] HEMATOLOGY RBC 4.81 M/CMM 4.20 - 5.40 02/18/2012 Normal [facility] HEMATOLOGY Hgb 15.4 g/dL 12.0 - 16.0 02/18/2012 Normal [facility] HEMATOLOGY MCV 94.4 fL 81.0 - 99.0 02/18/2012 Normal [facility] HEMATOLOGY MCHC 33.9 g/dL 32.0 - 36.0 02/18/2012 Normal [facility] HEMATOLOGY MCH 32.0 pg 27.0 - 31.0 02/18/2012 [facility] HEMATOLOGY RDW 14.3 % 11.5 - 14.5 02/18/2012 Normal [facility] HEMATOLOGY Platelet 234 K/CMM 133 - 450 02/18/2012 Normal [facility] CHEMISTRY Troponin-I 0.65 ng/mL 0.00 - 0.40 02/18/2012 CRIT 3Result Comment: Critical Result(s) called to Michelle at 02/18/2012 06:37:06 CDT by billy. Read back OK. [facility] CHEMISTRY Total CK 57 unit/L 12 - 191 02/18/2012 Normal [facility] CHEMISTRY Troponin-I 0.88 ng/mL 0.00 - 0.40 02/18/2012 CRIT 4Result Comment: Critical Result(s) called to Kristel at 02/18/2012 00:06:11 CDT by billy. Read back OK. [facility] CHEMISTRY Total CK 60 unit/L 12 - 191 02/18/2012 Normal [facility] CHEMISTRY CK MB Index null 0.0 - 2.5 02/17/2012 Normal [facility] CHEMISTRY Potassium Lvl 4.2 meq/L 3.5 - 5.1 02/17/2012 Normal [facility] CHEMISTRY Sodium Lvl 140 meq/L 135 - 145 02/17/2012 Normal [facility] CHEMISTRY Chloride Lvl 104 meq/L 95 - 109 02/17/2012 Normal [facility] CHEMISTRY A/G Ratio 0.8 0.7 - 1.6 02/17/2012 Normal [facility] CHEMISTRY B/C Ratio 16 6 - 25 02/17/2012 Normal [facility] CHEMISTRY Globulin 3.9 g/dL 2.0 - 4.0 02/17/2012 Normal [facility] CHEMISTRY Albumin Lvl 3.3 g/dL 3.5 - 5.0 02/17/2012 LOW [facility] CHEMISTRY AST 19 unit/L 0 - 37 02/17/2012 Normal [facility] CHEMISTRY AGAP 9.2 meq/L 10.0 - 20.0 02/17/2012 LOW [facility] CHEMISTRY Bili Total 0.3 mg/dL 0.2 - 1.3 02/17/2012 Normal [facility] CHEMISTRY Creatinine Lvl 0.9 mg/dL 0.5 - 1.4 02/17/2012 Normal [facility] CHEMISTRY Glucose Lvl 98 mg/dL 70 - 99 02/17/2012 Normal 2Interpretive Data: Adult reference range values reflect the clinical guidelines of the [place] [employer]. [facility] CHEMISTRY BUN 14 mg/dL 7 - 22 02/17/2012 Normal [facility] CHEMISTRY CO2 31 meq/L 24 - 32 02/17/2012 Normal [facility] CHEMISTRY Calcium Lvl 8.5 mg/dL 8.5 - 10.5 02/17/2012 Normal [facility] CHEMISTRY Total Protein 7.2 g/dL 6.4 - 8.4 02/17/2012 Normal [facility] CHEMISTRY ALT 46 unit/L 0 - 65 02/17/2012 Normal [facility] CHEMISTRY Alk Phos 58 unit/L 39 - 136 02/17/2012 Normal [facility] CHEMISTRY CK MB null 0.5 - 3.6 02/17/2012 Normal [facility] CHEMISTRY Total CK 59 unit/L 12 - 191 02/17/2012 Normal [facility] CHEMISTRY Troponin-I 0.06 ng/mL 0.00 - 0.40 02/17/2012 Normal [facility] HEMATOLOGY Plt Morph Normal (02/17/2012 16:19:00) 02/17/2012 Normal [facility] HEMATOLOGY Anisocyte 1+ *ABN* (02/17/2012 16:19:00) None Seen 02/17/2012 ABN [facility] HEMATOLOGY Hyperseg Slight *ABN* (02/17/2012 16:19:00) None Seen 02/17/2012 ABN [facility] HEMATOLOGY Segs 88.6 % 45.0 - 75.0 02/17/2012 HI [facility] HEMATOLOGY Lymphocytes 7.6 % 20.0 - 40.0 02/17/2012 LOW [facility] HEMATOLOGY Basophils 0.2 % 0.0 - 1.0 02/17/2012 Normal [facility] HEMATOLOGY Segs-Bands # 14.2 K/CMM 1.5 - 8.1 02/17/2012 [facility] HEMATOLOGY Eosinophils 0.1 % 0.0 - 4.0 02/17/2012 Normal [facility] HEMATOLOGY Monocytes 3.5 % 2.0 - 12.0 02/17/2012 Normal [facility] HEMATOLOGY Basophils # 0.0 K/CMM 0.0 - 0.2 02/17/2012 Normal [facility] HEMATOLOGY Monocytes # 0.6 K/CMM 0.0 - 0.8 02/17/2012 Normal [facility] HEMATOLOGY Eosinophils # 0.0 K/CMM 0.0 - 0.5 02/17/2012 Normal [facility] HEMATOLOGY Lymphocytes # 1.2 K/CMM 1.0 - 5.5 02/17/2012 Normal [facility] HEMATOLOGY RBC 4.75 M/CMM 4.20 - 5.40 02/17/2012 Normal [facility] HEMATOLOGY MPV 7.9 fL 7.4 - 10.4 02/17/2012 Normal [facility] HEMATOLOGY MCH 31.6 pg 27.0 - 31.0 02/17/2012 [facility] HEMATOLOGY Platelet 229 K/CMM 133 - 450 02/17/2012 Normal [facility] HEMATOLOGY MCHC 33.4 g/dL 32.0 - 36.0 02/17/2012 Normal [facility] HEMATOLOGY RDW 14.1 % 11.5 - 14.5 02/17/2012 Normal [facility] HEMATOLOGY Hct 44.9 % 36.0 - 48.0 02/17/2012 Normal [facility] HEMATOLOGY MCV 94.6 fL 81.0 - 99.0 02/17/2012 Normal [facility] HEMATOLOGY Hgb 15.0 g/dL 12.0 - 16.0 02/17/2012 Normal [facility] HEMATOLOGY WBC 16.3 K/CMM 3.7 - 10.4 02/17/2012 HI [facility] Vital Signs Vital Sign Value Date Comments Source Respitory Rate 19 10/18/2016 [facility] Heart Rate 81 10/18/2016 [facility] Systolic (mm Hg) 145 10/18/2016 [facility] Diastolic (mm Hg) 79 10/18/2016 [facility] Temperature Oral (F) 98.2 F 10/18/2016 [facility] Height 167.64 cm 10/18/2016 [facility] Weight 60 10/18/2016 [facility] BMI Calculated 21.35 10/18/2016 [facility] Respitory Rate 18 10/18/2016 [facility] Temperature Oral (F) 98.4 F 10/18/2016 [facility] Heart Rate 82 10/18/2016 [facility] Systolic (mm Hg) 151 10/18/2016 [facility] Diastolic (mm Hg) 92 10/18/2016 [facility] Diastolic (mm Hg) 71 09/30/2012 [facility] Systolic (mm Hg) 118 09/30/2012 [facility] Diastolic (mm Hg) 68 09/30/2012 [facility] Systolic (mm Hg) 115 09/30/2012 [facility] Diastolic (mm Hg) 72 09/30/2012 [facility] Systolic (mm Hg) 128 09/30/2012 [facility] Respitory Rate 20 09/30/2012 [facility] Respitory Rate 14 09/30/2012 [facility] Respitory Rate 14 09/30/2012 [facility] Temperature Oral (F) 98.1 F 09/30/2012 [facility] Heart Rate 92 09/29/2012 [facility] Temperature Oral (F) 97.7 F 09/29/2012 [facility] Height 172.72 cm 09/29/2012 [facility] Weight 59.091 09/29/2012 [facility] Respitory Rate 18 04/30/2012 [facility] Diastolic (mm Hg) 77 04/30/2012 [facility] Systolic (mm Hg) 148 04/30/2012 [facility] Systolic (mm Hg) 160 04/30/2012 [facility] Diastolic (mm Hg) 85 04/30/2012 [facility] Respitory Rate 16 04/30/2012 [facility] Systolic (mm Hg) 133 04/30/2012 [facility] Respitory Rate 16 04/30/2012 [facility] Diastolic (mm Hg) 80 04/30/2012 [facility] Heart Rate 92 04/30/2012 [facility] Weight 60.909 04/22/2012 [facility] Height 167.64 cm 04/22/2012 [facility] Heart Rate 88 04/22/2012 [facility] Temperature Oral (F) 97.9 F 04/22/2012 [facility] Weight 59.091 02/26/2012 [facility] Height 167.64 cm 02/26/2012 [facility] Heart Rate 76 02/20/2012 [facility] Temperature Oral (F) 98.0 F 02/20/2012 [facility] Diastolic (mm Hg) 60 02/20/2012 [facility] Systolic (mm Hg) 93 02/20/2012 [facility] Respitory Rate 18 02/20/2012 [facility] Diastolic (mm Hg) 71 02/20/2012 [facility] Systolic (mm Hg) 101 02/20/2012 [facility] Respitory Rate 18 02/20/2012 [facility] Heart Rate 80 02/20/2012 [facility] Temperature Oral (F) 97.8 F 02/20/2012 [facility] Temperature Oral (F) 98.2 F 02/20/2012 [facility] Heart Rate 83 02/20/2012 [facility] Respitory Rate 18 02/20/2012 [facility] Systolic (mm Hg) 93 02/20/2012 [facility] Diastolic (mm Hg) 61 02/20/2012 [facility] Height 167.64 cm 02/17/2012 [facility] Weight 60.000 02/17/2012 [facility] Encounters Location Location Details Encounter Type Encounter Number Reason For Visit Attending Provider ADM Date DC Date Status Source [facility] Inpatient [id number] CHEST PAIN NICHOLAS SHARRON 02/18/2012 02/20/2012 Active [facility] Emergency [id number] ESTELLE PAINTING 02/26/2012 02/26/2012 Active [facility] DS [id number] KRISH YBARRA 04/30/2012 04/30/2012 Active [facility] Outpatient [id number] BREAST MASS KRISH YBARRA 06/03/2012 Active [facility] DS [id number] KAREN GUEVARA 09/30/2012 09/30/2012 Active [facility] Outpatient [id number] 6 MONTHS FOLLOW UP BILATERAL BREAST MASS SARABJIT AVERY 12/08/2012 Active [facility] - [place] Out[facility] Di[facility] Services [id number] Sarabjit Avery 08/25/2013 08/26/2013 OPID [place] [facility] Outpatient Imaging - [place] Outpt Di[facility] Services [id number] Sarabjit Avery 10/12/2013 10/13/2013 OPID [place] [facility] Outpatient Imaging - [place] Outpt Diag Services [id number] Nini Gillis 01/05/2014 01/06/2014 OPID [place] [facility] Outpatient Imaging - [place] Outpt Diag Services [id number] Sarabjit Avery 01/23/2014 01/24/2014 OPID [place] [facility] Outpatient Imaging - [place] Outpt Diag Services [id number] Sarabjit Avery 02/13/2014 02/14/2014 OPID [place] [facility] Outpatient Imaging - [place] Outpt Diag Services [id number] Duane Warner 02/20/2014 02/21/2014 OPID [place] [facility] Outpatient Imaging - [place] Outpt Diag Services [id number] Chikis Dominguez 02/24/2014 02/25/2014 OPID [place] [facility] Outpatient Imaging - [place] Outpt Diag Services [id number] Gwyn Morris 07/24/2014 07/25/2014 OPID [place] [facility] Outpatient Imaging - [place] Outpt Diag Services [id number] Carolina Mart 11/03/2014 11/04/2014 OP[facility] [place] [facility] Outpatient [id number] Lakeisha Sharma 04/23/2015 04/24/2015 [facility] Outpatient Imaging - [place] Outpt Diag Services [id number] Sarabjit Avery 09/26/2015 09/27/2015 OPID [place] [facility] Outpatient [facility] - [place] Outpt Diag Services [id number] Brandon Delgado 01/07/2016 01/08/2016 OPID [place] [facility] Outpatient Imaging - [place] Outpt Diag Services [id number] Sarabjit Avery 05/27/2016 05/28/2016 OPID [facility] Outpatient [id number] Jason Roach 08/21/2016 08/22/2016 [facility] Emergency [id number] Karen Ghotra 10/18/2016 10/19/2016 [facility] Out[facility] [id number] Can Serranoada 03/23/2017 03/24/2017 [facility] [place] [facility] Outpatient Imaging - [place] Outpt Diag Services [id number] Sarabjit Avery 05/25/2017 05/26/2017 OP[facility] [place] [facility] Outpatient [facility] - [place] Outpt Diag Services [id number] Sarabjit Avery 06/11/2017 06/12/2017 OPID [facility] Outpatient [id number] AVINASH BARAKAT 06/18/2017 06/19/2017 [facility] - [place] Outpt Diag Services [id number] Sarabjit Avery 09/21/2017 09/22/2017 OPID [facility] Outpatient [id number] BREAST MASS LEFT SIDE 2 AREAS KRISH [place] [facility] Procedures Procedure Code Date Perfomer Comments Source Ablation of atrioventricular node [id number] [facility] Appendectomy [id number] [facility] Catheterization of both left and right heart [id number] [facility] Hysterectomy [id number] [facility] Inguinal herniorrhaphy [id number] [facility] Laparoscopy [id number] [facility] Salpingo-oophorectomy [id number] [facility] Total thyroidectomy [id number] [facility] [place] Ablation of atrioventricular node [id number] [facility] [place] Appendectomy [id number] [facility] [place] Catheterization of both left and right heart [id number] [facility] [place] Hysterectomy [id number] [facility] [place] Inguinal herniorrhaphy [id number] [facility] [place] Laparoscopy [id number] [facility] [place] Salpingo-oophorectomy [id number] [facility] [place] Total thyroidectomy [id number] [facility] [place] Ablation of atrioventricular node [id number] [facility] [place] Appendectomy [id number] [facility] [place] Catheterization of both left and right heart [id number] [facility] [place] Hysterectomy [id number] [facility] [place] Inguinal herniorrhaphy [id number] [facility] [place] Laparoscopy [id number] [facility] [place] Salpingo-oophorectomy [id number] [facility] [place] Total thyroidectomy [id number] [facility] [place] Ablation of atrioventricular node [id number] [facility] Appendectomy [id number] [facility] Catheterization of both left and right heart 52011975 [facility] Hysterectomy 689559871 [facility] Inguinal herniorrhaphy [id number] [facility] Laparoscopy 82650592 [facility] Salpingo-oophorectomy 347514605 [facility] Total thyroidectomy [id number] [facility] Ablation of atrioventricular node [id number] [facility] Appendectomy 074860315 [facility] Catheterization of both left and right heart 94295756 [facility] Hysterectomy 230377338 [facility] Inguinal herniorrhaphy 11435831 [facility] Laparoscopy 343447943 [facility] Salpingo-oophorectomy 811751325 [facility] Total thyroidectomy 33604343 [facility] Ablation of atrioventricular node [id number] [facility] Appendectomy [id number] [facility] Catheterization of both left and right heart 21493277 [facility] Hysterectomy [id number] [facility] Inguinal herniorrhaphy [id number] [facility] Laparoscopy [id number] [facility] Salpingo-oophorectomy [id number] [facility] Total thyroidectomy [id number] [facility]
--- OUTSIDE RECORDS SUMMARY | 2018-05-25 11:57 | XMS REPORT | CCD ---
Author Author Auto Generated Organization [facility] Address Unknown Phone Unavailable Care Team Providers Care Sewer Pipe Press Operator Name Role Phone Peg Doherty CP Allergies, Adverse Reactions, Alerts Substance Reaction Status amoxicillin Active aspirin Stomach ulcer, NOS Active baclofen Active ciprofloxacin Active colistin/HC/neomycin/thonzonium Active otic Dexilant Headache, NOS Active Palpitations Dyazide Active Elavil Active etherified starches Active Flagyl Active gentamicin Active halothane Active Histussin D Histussin-HC Active Keflex Active LaMICtal Active Lasix Active Lopressor Nausea and vomiting Active Lyrica Active methoxyflurane Active morphine Nausea and vomiting Active neomycin Active Parafon Forte DSC Active Plaquenil Sulfate Active procainamide Active Pronestyl Active quiNIDine Active quiNINE Tonic water Active Tonic water Tonic water streptomycin Active sulfonamides Active vancomycin Active Zithromax Active Problem List Condition Effective Dates Status Chest pain Active IBS - Irritable bowel syndrome Active Myasthenia gravis Active Raynaud's disease Active Tachycardia Active Medications Medication Instructions Start Date End Date Status Ultram 50 mg oral 100 mg, Route: PO, Drug form: TAB, 02/26/2012 02/26/2012 Completed tablet ONCE, Dosing Weight 59.091, kg, Priority: STAT, Start date: 02/26/12 11:55:00, Stop date: 02/26/12 11:55:00 Ultram 50 mg oral 50 mg, 1 tab, PO, Q4H, PRN, 20 tab, 02/26/2012 Ordered tablet pain, Substitution Allowed Vital Signs Most recent to oldest [Reference Range]: 1 Height 167.64 cm (02/26/2012 11:24:00) Weight 59.091 kg (02/26/2012 11:24:00) Results CHEMISTRY Most recent to oldest [Reference Range]: 1 Sodium Lvl [135-145 mEq/L] 140 mEq/L (02/26/2012 12:20:00) Potassium Lvl [3.5-5.1 mEq/L] 3.3 mEq/L *LOW* (02/26/2012 12:20:00) Chloride Lvl [95-109 mEq/L] 105 mEq/L (02/26/2012 12:20:00) CO2 [24-32 mEq/L] 30 mEq/L (02/26/2012 12:20:00) AGAP [10.0-20.0 mEq/L] 8.3 mEq/L *LOW* (02/26/2012 12:20:00) Creatinine Lvl [0.5-1.4 mg/dL] 0.8 mg/dL (02/26/2012 12:20:00) BUN [7-22 mg/dL] 16 mg/dL (02/26/2012 12:20:00) Glucose Lvl [70-99 mg/dL] 87 mg/dL 1 (02/26/2012 12:20:00) Calcium Lvl [8.5-10.5 mg/dL] 8.7 mg/dL (02/26/2012 12:20:00) 1Interpretive Data: Adult reference range values reflect the clinical guidelines of the [place] [employer]. HEMATOLOGY Most recent to oldest [Reference Range]: 1 WBC [3.7-10.4 K/CMM] 12.0 K/CMM *HI* (02/26/2012 12:20:00) RBC [4.20-5.40 M/CMM] 4.36 M/CMM (02/26/2012 12:20:00) Hgb [12.0-16.0 g/dL] 14.0 g/dL (02/26/2012 12:20:00) Hct [36.0-48.0 %] 41.3 % (02/26/2012 12:20:00) MCV [81.0-99.0 fL] 94.8 fL (02/26/2012 12:20:00) MCH [27.0-31.0 pg] 32.0 pg *HI* (02/26/2012 12:20:00) MCHC [32.0-36.0 g/dL] 33.8 g/dL (02/26/2012 12:20:00) RDW [11.5-14.5 %] 14.6 % *HI* (02/26/2012 12:20:00) Platelet [133-450 K/CMM] 219 K/CMM (02/26/2012 12:20:00) MPV [7.4-10.4 fL] 7.9 fL (02/26/2012 12:20:00) Segs [45.0-75.0 %] 73.3 % (02/26/2012 12:20:00) Lymphocytes [20.0-40.0 %] 19.8 % *LOW* (02/26/2012 12:20:00) Monocytes [2.0-12.0 %] 6.2 % (02/26/2012 12:20:00) Eosinophils [0.0-4.0 %] 0.5 % (02/26/2012 12:20:00) Basophils [0.0-1.0 %] 0.2 % (02/26/2012 12:20:00) Segs-Bands # [1.5-8.1 K/CMM] 8.8 K/CMM *HI* (02/26/2012 12:20:00) Lymphocytes # [1.0-5.5 K/CMM] 2.4 K/CMM (02/26/2012 12:20:00) Monocytes # [0.0-0.8 K/CMM] 0.7 K/CMM (02/26/2012 12:20:00) Eosinophils # [0.0-0.5 K/CMM] 0.1 K/CMM (02/26/2012 12:20:00) Basophils # [0.0-0.2 K/CMM] 0.0 K/CMM (02/26/2012 12:20:00) PT [12.0-14.7 seconds] 11.9 seconds *LOW* (02/26/2012 12:20:00) INR [0.85-1.17] 0.86 2 (02/26/2012 12:20:00) PTT [22.9-35.8 seconds] 25.4 seconds 3 (02/26/2012 12:20:00) 2Interpretive Data: RECOMMENDED RANGES FOR PROTIME INR: 2.0-3.0 for most medical and surgical thromboembolic states. 2.5-3.5 for artificial heart valves and recurrent embolism. INR SHOULD BE USED ONLY FOR PATIENTS ON STABLE ANTICOAGULANT THERAPY. 3Interpretive Data: Heparin Therapeutic Range: 57 - 92 Seconds
--- OUTSIDE RECORDS SUMMARY | 2018-05-25 11:57 | XMS REPORT | CCD ---
Author Author Auto Generated Organization [facility] Outpatient Imaging - [place] Address Unknown Phone Unavailable Care Team Providers Care Hematology Nurse Educator Name Role Phone Nadia Milligan CP Allergies, Adverse Reactions, Alerts Substance Reaction [...]
--- OUTSIDE RECORDS SUMMARY | 2018-05-25 11:57 | XMS REPORT | CCD ---
Author Author Auto Generated Organization [facility] Outpatient Imaging - [place] Address Unknown Phone Unavailable Care Team Providers Care Financial Manager Name Role Phone Jorge Avery CP Allergies, Adverse Reactions, Alerts Substance Reaction Status vancomycin Active
--- OUTSIDE RECORDS SUMMARY | 2018-05-25 11:58 | XMS REPORT | CCD ---
Author Author Auto Generated Organization [facility] Outpatient Imaging - [place] Address Unknown Phone Unavailable Care Team Providers Care Athletic Training Internship Name Role Phone Jorge Avery CP Allergies, [...]
--- OUTSIDE RECORDS SUMMARY | 2018-05-25 11:58 | XMS REPORT | CCD ---
Author Author Auto Generated Organization [facility] Address Unknown Phone Unavailable Care Team Providers Care Power Generation Plant Operator Name Role Phone Anoop Rey Wyatt RP Allergies, Adverse Reactions, Alerts Substance Reaction Status [...]
--- OUTSIDE RECORDS SUMMARY | 2018-05-25 11:58 | XMS REPORT | CCD ---
Author Author Auto Generated Organization [facility] Outpatient Imaging - [place] Address Unknown Phone Unavailable Care Team Providers Care Flour Blender Helper Name Role Phone VenuRonansierra Ghosh CP Allergies, Adverse Reactions, Alerts Substance Reaction [...]
--- OUTSIDE RECORDS SUMMARY | 2018-05-25 11:58 | XMS REPORT | CCD ---
Author Author Auto Generated Organization [facility] Outpatient Imaging - [place] Address Unknown Phone Unavailable Care Team Providers Care Boat Painter Name Role Phone Jorge Avery CP Allergies, [...]
--- OUTSIDE RECORDS SUMMARY | 2018-05-25 11:58 | XMS REPORT | CCD ---
Author Author Auto Generated Organization [facility] Outpatient Imaging - [place] Address Unknown Phone Unavailable Care Team Providers Care Magazine Filler Name Role Phone Jorge Avery CP Allergies, [...]
--- OUTSIDE RECORDS SUMMARY | 2018-05-25 11:58 | XMS REPORT | CCD ---
Author Author Auto Generated Organization [facility] Outpatient Imaging - [place] Address Unknown Phone Unavailable Care Team Providers Care Pot Room Tapper Name Role Phone Jorge Avery CP Allergies, [...]
--- OUTSIDE RECORDS SUMMARY | 2018-05-25 11:58 | XMS REPORT | CCD ---
Author Author Auto Generated Organization [facility] Address Unknown Phone Unavailable Care Team Providers Care Director Export Name Role Phone Anoop Rey RP Allergies, Adverse Reactions, Alerts Substance Reaction [...] Medication Instructions Start Date End Date Status Inapsine 0.625 mg, 0.25 mL, Route: IVP, Drug 04/30/2012 04/30/2012 Completed form: INJ, ONCE, Dosing Weight 60.909, kg, Start date: 04/30/12 10:21:00, Stop date: 04/30/12 10:21:00 midazolam 2 mg, Route: IVP, ONCE, Dosing 04/30/2012 04/30/2012 Completed Weight 60.909, kg, Priority: STAT, Start date: 04/30/12 9:17:00, Stop date: 04/30/12 9:17:00 naloxone 0.04 mg, 0.04 mL, Route: IVP, Drug 04/30/2012 04/30/2012 Discontinued form: INJ, Q2MIN, Dosing Weight 60.909, kg, PRN Narcotic Reversal, Start date: 04/30/12 8:55:00, Duration: 8 doses or times, Stop date: Limited # of times fentanyl 25 microgram, 0.5 mL, Route: IVP, 04/30/2012 04/30/2012 Discontinued Drug form: INJ, Q5Min, Dosing Weight 60.909, kg, PRN Pain Score 4-6, Start date: 04/30/12 8:55:00, Duration: 4 doses or times, Stop date: Limited # of times hydromorphone 0.5 mg, 0.25 mL, Route: IVP, Drug 04/30/2012 04/30/2012 Discontinued form: INJ, Q5Min, Dosing Weight 60.909, kg, PRN Pain Score 4-6, Start date: 04/30/12 8:55:00, Duration: 5 doses or times, Stop date: Limited # of times flumazenil 0.2 mg, 2 mL, Route: IVP, Drug 04/30/2012 04/30/2012 Discontinued form: INJ, PRN, Dosing Weight 60.909, kg, PRN Benzodiazepine Reversal, Initial dose, Start date: 04/30/12 8:55:00, Duration: 30 day, Stop date: 05/30/12 7:54:00 acetaminophen-hydroc 2 tab, Route: PO, Drug Form: TAB, 04/30/2012 04/30/2012 Discontinued odone 325 mg-5 mg Dosing Weight 60.909, kg, Q4H, PRN oral tablet Pain Score 4-6, Start date: 04/30/12 8:55:00, Duration: 30 day, Stop date: 05/30/12 8:54:00 promethazine + 6.25 mg, 0.25 mL, Route: IVPB, Drug 04/30/2012 04/30/2012 Discontinued Sodium Chloride 0.9% form: INJ, ONCE, Dosing Weight IV 50 mL 60.909, kg, PRN Nausea & Vomiting, Start date: 04/30/12 8:55:00 ondansetron 4 mg, 2 mL, Route: IVP, Drug form: 04/30/2012 04/30/2012 Discontinued INJ, ONCE, Dosing Weight 60.909, kg, PRN Nausea & Vomiting, Start date: 04/30/12 8:55:00 hydrALAZINE 5 mg, 0.25 mL, Route: IVP, Drug 04/30/2012 04/30/2012 Discontinued form: INJ, Q5Min, Dosing Weight 60.909, kg, PRN Elevated BP, Start date: 04/30/12 8:55:00, Duration: 4 doses or times, Stop date: Limited # of times labetalol 5 mg, 1 mL, Route: IVP, Drug form: 04/30/2012 04/30/2012 Discontinued INJ, Q5Min, Dosing Weight 60.909, kg, PRN Elevated BP, Start date: 04/30/12 8:55:00, Duration: 5 doses or times, Stop date: Limited # of times esmolol IV Push 10 mg, 1 mL, Route: IVP, Drug form: 04/30/2012 04/30/2012 Discontinued INJ, Q5Min, Dosing Weight 60.909, kg, PRN Elevated BP, Start date: 04/30/12 8:55:00, Duration: 5 doses or times, Stop date: Limited # of times Lactated Ringers 1,000 mL, Rate: 25 ml/hr, Infuse 04/30/2012 04/30/2012 Discontinued Injection IV 1,000 over: 40 hr, Route: IV, kg, Total mL Volume: 1,000, Start date: 04/30/12 6:40:00, Duration: 1 day, Stop date: 05/01/12 6:39:00 MethylPREDNISolone As directed on label, PO, Daily, 1 04/22/2012 04/28/2012 Ordered Dose Pack 4 mg oral Pack, Substitution Allowed tablet Lactated Ringers 1,000 mL, Rate: 25 ml/hr, Infuse 04/30/2012 04/30/2012 Discontinued Injection IV 1,000 over: 40 hr, Route: IV, kg, Total mL Volume: 1,000, Start date: 04/30/12 6:38:00, Duration: 1 day, Stop date: 05/01/12 6:37:00 Vitamin B12 1000 1,000 microgram, 1 ml, IM, qMonth, 04/22/2012 Ordered mcg/mL injectable 10 ml, Substitution Allowed, SOLN solution Synthroid 100 mcg 100 microgram, 1 tab, PO, Daily, 30 04/22/2012 Ordered (0.1 mg) oral tablet tab, Substitution Allowed, TAB Levaquin 500 mg, 100 mL, Route: IVPB, Drug 04/30/2012 04/30/2012 Completed form: INJ, ONCE, Dosing Weight 60.909, kg, Start date: 04/30/12 6:39:00, Stop date: 04/30/12 6:39:00 Vital Signs Most recent to oldest [Reference Range]: 1 2 3 Height 167.64 cm (04/22/2012 09:29:00) Temperature Oral [96.4-99.1 DegF] 97.9 DegF (04/22/2012 09:18:00) Systolic Blood Pressure [90-140 mmHg] 148 mmHg *HI* (04/30/2012 11:15:00) 160 mmHg *HI* (04/30/2012 10:30:00) 133 mmHg (04/30/2012 10:00:00) Diastolic Blood Pressure [60-90 mmHg] 77 mmHg (04/30/2012 11:15:00) 85 mmHg (04/30/2012 10:30:00) 80 mmHg (04/30/2012 10:00:00) Respiratory Rate [14-20 BRMIN] 18 BRMIN (04/30/2012 11:15:00) 16 BRMIN (04/30/2012 10:30:00) 16 BRMIN (04/30/2012 10:00:00) Peripheral Pulse Rate [60-100 bpm] 92 bpm (04/30/2012 06:00:00) 88 bpm (04/22/2012 09:18:00) Weight 60.909 kg (04/22/2012 09:29:00) Results CHEMISTRY Most recent to oldest [Reference Range]: 1 Sodium Lvl [135-145 mEq/L] 143 mEq/L (04/22/2012 10:20:00) Potassium Lvl [3.5-5.1 mEq/L] 3.6 mEq/L (04/22/2012 10:20:00) Chloride Lvl [95-109 mEq/L] 107 mEq/L (04/22/2012 10:20:00) CO2 [24-32 mEq/L] 27 mEq/L (04/22/2012 10:20:00) AGAP [10.0-20.0 mEq/L] 12.6 mEq/L (04/22/2012 10:20:00) Creatinine Lvl [0.5-1.4 mg/dL] 0.9 mg/dL (04/22/2012 10:20:00) eGFR 75 mL/min/1.73m2 1 *NA* (04/22/2012:20:00) BUN [7-22 mg/dL] 9 mg/dL (04/22/2012:20:00) Glucose Lvl [70-99 mg/dL] 89 mg/dL 2 (04/22/2012:20:00) Calcium Lvl [8.5-10.5 mg/dL] 8.9 mg/dL (04/22/2012 10:20:00) 1Result Comment: The eGFR is calculated using [...] from the National Kidney Disease Education Program ( NKDEP) which additionally recommends that when the eGFR is used in patients with extremes of body mass index for purposes of drug dosing, the eGFR should be mul tiplied by the estimated BMI. 2Interpretive Data: Adult reference range values reflect the clinical guidelines of the [place] [employer]. HEMATOLOGY Most recent to oldest [Reference Range]: 1 WBC [3.7-10.4 K/CMM] 11.3 K/CMM *HI* (04/22/2012:20:00) RBC [4.20-5.40 M/CMM] 4.28 M/CMM (04/22/2012 10:20:00) Hgb [12.0-16.0 g/dL] 14.0 g/dL (04/22/2012:20:00) Hct [36.0-48.0 %] 41.1 % (04/22/2012 10:20:00) MCV [81.0-99.0 fL] 95.9 fL (04/22/2012 10:20:00) MCH [27.0-31.0 pg] 32.7 pg *HI* (04/22/2012 10:20:00) MCHC [32.0-36.0 g/dL] 34.1 g/dL (04/22/2012 10:20:00) RDW [11.5-14.5 %] 14.6 % *HI* (04/22/2012 10:20:00) Platelet [133-450 K/CMM] 236 K/CMM (04/22/2012 10:20:00) MPV [7.4-10.4 fL] 8.4 fL (04/22/2012 10:20:00) Segs [45.0-75.0 %] 69.7 % (04/22/2012 10:20:00) Lymphocytes [20.0-40.0 %] 23.0 % (04/22/2012 10:20:00) Monocytes [2.0-12.0 %] 6.2 % (04/22/2012 10:20:00) Eosinophils [0.0-4.0 %] 0.6 % (04/22/2012 10:20:00) Basophils [0.0-1.0 %] 0.5 % (04/22/2012 10:20:00) Segs-Bands # [1.5-8.1 K/CMM] 7.9 K/CMM (04/22/2012 10:20:00) Lymphocytes # [1.0-5.5 K/CMM] 2.6 K/CMM (04/22/2012 10:20:00) Monocytes # [0.0-0.8 K/CMM] 0.7 K/CMM (04/22/2012 10:20:00) Eosinophils # [0.0-0.5 K/CMM] 0.1 K/CMM (04/22/2012 10:20:00) Basophils # [0.0-0.2 K/CMM] 0.1 K/CMM (04/22/2012 10:20:00)
--- OUTSIDE RECORDS SUMMARY | 2018-05-25 11:58 | XMS REPORT | CCD ---
Author Author Auto Generated Organization [facility] [place] Address Unknown Phone Unavailable Care Team Providers Care Checker In Name Role Phone Jorge Avery CP Allergies, [...]
--- OUTSIDE RECORDS SUMMARY | 2018-05-25 11:58 | XMS REPORT | CCD ---
Author Author Auto Generated Organization [facility] Address Unknown Phone Unavailable Care Team Providers Care Mixing Place Supervisor Name Role Phone Riley Hawkins CP Allergies, Adverse Reactions, Alerts Substance Reaction [...] Medication Instructions Start Date End Date Status patient's own patient's own med:Estradiol 1mg 02/18/2012 02/20/2012 Discontinued med:Estradiol 1mg tablet, 1 tab, Drug form: MISC, tablet Route: PO, Bedtime, 02/18/12 21:00:00, Duration: 30 day, Stop date: 03/18/12 21:00:00 Phenergan 12.5 mg, 0.5 tab, Route: PO, Drug 02/17/2012 02/20/2012 Discontinued form: TAB, Q4H, PRN Nausea, Start date: 02/17/12 23:21:00, Duration: 30 day, Stop date: 03/18/12 23:20:00 Phenergan 25 mg oral 0.5-1 tab, PO, Q4H, PRN, 15 tab, 02/17/2012 Ordered tablet Nausea, Substitution Allowed metoprolol extended 25 mg, 1 tab, Route: PO, Drug form: 02/19/2012 02/20/2012 Discontinued release ERTAB, Daily, Start date: 02/19/12 9:00:00, Duration: 30 day, Stop date: 03/19/12 9:00:00 Bentyl 20 mg oral 20 mg, 1 tab, PO, QID, PRN, 40 tab, 02/17/2012 Ordered tablet stomach pain, Substitution Allowed, TAB patient's own med: patient's own med: Synthroid 75 02/18/2012 02/20/2012 Discontinued Synthroid 75 microgram tablet, 1 tab, Drug form: microgram tablet MISC, Route: PO, Q630AM, 02/18/12 6:30:00, Duration: 30 day, Stop date: 03/18/12 6:30:00 Protonix 40 mg, Route: IV, Drug form: INJ, 02/18/2012 02/18/2012 Completed ONCE, kg, Priority: NOW, Start date: 02/18/12 0:55:00, Stop date: 02/18/12 0:55:00 Toradol 15 mg/mL 15 mg, 1 mL, Route: INJ, Drug form: 02/18/2012 02/20/2012 Discontinued injectable solution INJ, Q6H, kg, PRN Pain, Start date: 02/18/12 0:54:00, Duration: 4 day, Stop date: 02/22/12 0:53:00 Prilosec 40 mg, Substitution Allowed 02/18/2012 Ordered Zofran 4 mg, 2 mL, Route: IV, Drug form: 02/18/2012 02/20/2012 Discontinued INJ, Q4H, kg, PRN as needed for nausea/vomiting, Start date: 02/18/12 0:52:00, Duration: 30 day, Stop date: 03/19/12 0:51:00 Mobic 7.5 mg oral 7.5 mg, 1 tab, PO, Daily, PRN, 30 02/17/2012 Ordered tablet tab, pain, Substitution Allowed, TAB Ativan 0.5 mg, 1 tab, Route: PO, Drug 02/17/2012 02/20/2012 Discontinued form: TAB, Bedtime, kg, PRN Sleep, Start date: 02/17/12 22:31:00, Duration: 30 day, Stop date: 03/18/12 22:30:00 Lovenox 40 mg, 0.4 mL, Route: SUB-Q, Drug 02/18/2012 02/18/2012 Completed form: INJ, ONCE, kg, Priority: STAT, Start date: 02/18/12 0:52:00, Stop date: 02/18/12 0:52:00 cyanocobalamin 1,000 microgram, IM, Q30D, 02/17/2012 Ordered Substitution Allowed Plavix 75 mg, 1 tab, Route: PO, Drug form: 02/19/2012 02/20/2012 Discontinued TAB, Daily, kg, Start date: 02/19/12 9:00:00, Duration: 30 day, Stop date: 03/19/12 9:00:00 Patient's own Patient's own 02/18/2012 02/20/2012 Discontinued med:Methylprednisolo med:Methylprednisolone 4mg tablet, ne 4mg tablet 2 tab, Drug form: MISC, Route: PO, QNoon, 02/18/12 12:00:00, Duration: 30 day, Stop date: 03/18/12 12:00:00 Vitamin D3 2000 intl 2,000 IntlUnit, 1 cap, PO, Bedtime, 02/17/2012 Ordered units oral capsule Substitution Allowed Estrace 1 mg oral 1 mg, 1 tab, PO, Bedtime, 30 tab, 02/17/2012 Ordered tablet Substitution Allowed, TAB patient's own patient's own med:Vitamin D 2000 02/18/2012 02/20/2012 Discontinued med:Vitamin D 2000 unit tablet, 1 tab, Drug form: unit tablet MISC, Route: PO, Bedtime, 02/18/12 21:00:00, Duration: 30 day, Stop date: 03/18/12 21:00:00 metoprolol tartrate 25 mg, 1 tab, Route: PO, Drug form: 02/17/2012 02/17/2012 Completed TAB, ONCE, kg, Priority: STAT, Start date: 02/17/12 18:53:00, Stop date: 02/17/12 18:53:00 acetaminophen 500 mg, 1 tab, Route: PO, Drug 02/18/2012 02/20/2012 Discontinued form: TAB, Q6H, PRN Pain, Start date: 02/18/12 20:18:00, Duration: 30 day, Stop date: 03/19/12 20:17:00 Medrol 8 mg oral 8 mg, 1 tab, PO, QNoon, 10 tab, 02/17/2012 Ordered tablet Substitution Allowed, TAB D5W 1,000 mL 1,000 mL, Rate: 75 ml/hr, Infuse 02/18/2012 02/20/2012 Discontinued over: 13.3 hr, Route: IV, Dosing Weight 60 kg, Total Volume: 1,000, Start date: 02/18/12 12:30:00, Stop date: 03/19/12 12:29:00 Phenergan 25 mg, 1 tab, Route: PO, Drug form: 02/17/2012 02/20/2012 Discontinued TAB, Q4H, kg, PRN as needed for nausea/vomiting, Start date: 02/17/12 23:07:00, Duration: 30 day, Stop date: 03/18/12 23:06:00 Bentyl 20 mg, 1 tab, Route: PO, Drug form: 02/17/2012 02/20/2012 Discontinued TAB, QID, kg, PRN Other -See Comment, Start date: 02/17/12 23:07:00, Duration: 30 day, Stop date: 03/18/12 23:06:00, stomach muscle spasms with IBS Mobic 7.5 mg, 1 tab, Route: PO, Drug 02/17/2012 02/20/2012 Discontinued form: TAB, Daily, kg, PRN Pain, Start date: 02/17/12 23:07:00, Duration: 30 day, Stop date: 03/18/12 23:06:00 Protonix 40 mg, 1 tab, Route: PO, Drug form: 02/18/2012 02/20/2012 Discontinued ECTAB, Before Dinner, kg, Start date: 02/18/12 16:30:00, Duration: 30 day, Stop date: 03/18/12 16:30:00 Plavix 300 mg, 1 tab, Route: PO, Drug 02/18/2012 02/18/2012 Completed form: TAB, ONCE, kg, Start date: 02/18/12 12:29:00, Duration: 1 doses or times, Stop date: 02/18/12 12:29:00 aspirin 81 mg, 1 tab, Route: PO, Drug form: 02/18/2012 02/20/2012 Discontinued CHEWTAB, Daily, kg, Start date: 02/18/12 13:39:00, Duration: 30 day, Stop date: 03/19/12 9:00:00 lisinopril 5 mg, 1 tab, Route: PO, Drug form: 02/19/2012 02/20/2012 Discontinued TAB, Daily, kg, Start date: 02/19/12 9:00:00, Duration: 30 day, Stop date: 03/19/12 9:00:00 Synthroid 75 mcg 75 microgram, 1 tab, PO, Daily, 30 02/17/2012 Ordered (0.075 mg) oral tab, Substitution Allowed, TAB tablet Medrol 8 mg, 2 tab, Route: PO, Drug form: 02/18/2012 02/18/2012 Discontinued TAB, QNoon, kg, Start date: 02/18/12 12:00:00, Duration: 30 day, Stop date: 03/18/12 12:00:00, Patient's Own Meds Synthroid 75 microgram, 1 tab, Route: PO, 02/18/2012 02/18/2012 Discontinued Drug form: TAB, Q630AM, kg, Start date: 02/18/12 6:30:00, Duration: 30 day, Stop date: 03/18/12 6:30:00, Patient's Own Meds Estrace 1 mg, 1 tab, Route: PO, Drug form: 02/18/2012 02/18/2012 Discontinued TAB, Bedtime, kg, Start date: 02/18/12 21:00:00, Duration: 30 day, Stop date: 03/18/12 21:00:00, Patient's Own Meds Saline Flush 0.9% 5 ml, Route: IVP, Drug Form: INJ, 02/17/2012 02/20/2012 Discontinued kg, Q12H, Start date: 02/17/12 21:00:00, Duration: 30 day, Stop date: 03/18/12 9:00:00 Saline Flush 0.9% 5 ml, Route: IVP, Drug Form: INJ, 02/17/2012 02/20/2012 Discontinued kg, PRN, PRN Line Flush, Start date: 02/17/12 20:24:00, Duration: 30 day, Stop date: 03/18/12 20:23:00 ondansetron 4 mg, 1 tab, Route: PO, Drug form: 02/17/2012 02/20/2012 Discontinued TAB, Q8H, kg, PRN Nausea & Vomiting, Start date: 02/17/12 20:24:00, Duration: 30 day, Stop date: 03/18/12 20:23:00 aspirin 81 mg 81 mg, 1 tab, Route: PO, Drug form: 02/17/2012 02/17/2012 Discontinued tablet, enteric ECTAB, Q24H, kg, Start date: coated 02/17/12 21:00:00, Duration: 30 day, Stop date: 03/17/12 21:00:00 nitroglycerin SL Tab 0.4 mg, 1 tab, Route: SL, Drug 02/17/2012 02/20/2012 Discontinued form: TAB, Q5Min, kg, PRN Chest Pain, Start date: 02/17/12 20:24:00, Duration: 3 doses or times, Stop date: Limited # of times morphine Sulfate 2 mg, 0.2 mL, Route: IVP, Drug 02/17/2012 02/18/2012 Discontinued form: INJ, Q4H, kg, PRN Pain Score 4-6, Start date: 02/17/12 20:24:00, Duration: 30 day, Stop date: 03/18/12 20:23:00 Pravachol 40 mg, 2 tab, Route: PO, Drug form: 02/18/2012 02/20/2012 Discontinued TAB, QPM, kg, Start date: 02/18/12 17:00:00, Duration: 30 day, Stop date: 03/18/12 17:00:00 atropine 0.5 mg, 5 mL, Route: IVP, Drug 02/17/2012 02/20/2012 Discontinued form: INJ, PRN, PRN Bradycardia, Start date: 02/17/12 20:29:00, Duration: 30 day, Stop date: 03/18/12 20:28:00 nitroglycerin 0.4 mg 0.4 mg, 1 tab, Route: SL, Drug 02/17/2012 02/18/2012 Discontinued sublingual tablet form: TAB, Q5Min, PRN Chest Pain, Start date: 02/17/12 20:29:00, Duration: 30 day, Stop date: 03/18/12 20:28:00 Vitamin D3 2000 intl 2,000 IntlUnit, 2 tab, Route: PO, 02/18/2012 02/18/2012 Discontinued units oral tablet Drug form: TAB, Bedtime, kg, Start date: 02/18/12 21:00:00, Duration: 30 day, Stop date: 03/18/12 21:00:00, Patient's Own Meds Saline Flush 0.9% 5 ml, Route: IVP, Drug Form: INJ, 02/17/2012 02/18/2012 Discontinued kg, PRN, PRN Line Flush, Start date: 02/17/12 16:23:00, Duration: 24 hr, Stop date: 02/18/12 16:22:00 Vital Signs Most recent to oldest [Reference Range]: 1 2 3 Height 167.64 cm (02/17/2012 15:30:00) Current Weight 59.636 kg (02/19/2012 05:59:00) 61.909 kg (02/18/2012 05:55:00) Temperature Oral [96.4-99.1 DegF] 98.0 DegF (02/20/2012 08:00:00) 97.8 DegF (02/20/2012 04:00:00) 98.2 DegF (02/20/2012 00:00:00) Systolic Blood Pressure [90-140 mmHg] 93 mmHg (02/20/2012 08:00:00) 101 mmHg (02/20/2012 04:00:00) 93 mmHg (02/20/2012 00:00:00) Diastolic Blood Pressure [60-90 mmHg] 60 mmHg (02/20/2012 08:00:00) 71 mmHg (02/20/2012 04:00:00) 61 mmHg (02/20/2012 00:00:00) Respiratory Rate [14-20 BRMIN] 18 BRMIN (02/20/2012 08:00:00) 18 BRMIN (02/20/2012 04:00:00) 18 BRMIN (02/20/2012 00:00:00) Peripheral Pulse Rate [60-100 bpm] 76 bpm (02/20/2012 08:00:00) 80 bpm (02/20/2012 04:00:00) 83 bpm (02/20/2012 00:00:00) Weight 60.000 kg (02/17/2012 15:30:00) Results URINALYSIS Most recent to oldest [Reference Range]: 1 2 3 UA Turbidity [Clear] Clear (02/19/2012 18:00:00) UA Color [Yellow] Yellow *NA* (02/19/2012 18:00:00) UA pH [5.0-8.0] 5.0 (02/19/2012 18:00:00) UA Spec Grav [<=1.030] 1.019 (02/19/2012 18:00:00) UA Glucose [Negative mg/dL] Negative mg/dL *NA* (02/19/2012 18:00:00) UA Blood [Negative] Negative (02/19/2012 18:00:00) UA Ketones [Negative mg/dL] Negative mg/dL *NA* (02/19/2012 18:00:00) UA Protein [Negative mg/dL] Negative mg/dL (02/19/2012 18:00:00) UA Urobilinogen [0.1-1.0 mg/dL] <=1.0 mg/dL *NA* (02/19/2012 18:00:00) UA Bili [Negative] Negative *NA* (02/19/2012 18:00:00) UA Leuk Est [Negative] Negative (02/19/2012 18:00:00) UA Nitrite [Negative] Negative (02/19/2012 18:00:00) UA WBC [0-5 /HPF] 1 /HPF (02/19/2012 18:00:00) UA RBC [0-2 /HPF] 1 /HPF (02/19/2012 18:00:00) UA Bacteria [None Seen /HPF] Occasional /HPF *NA* (02/19/2012 18:00:00) UA Sq Epi [Few /LPF] Few /LPF *NA* (02/19/2012 18:00:00) UA Hyal Cast [0-2 /LPF] 3 /LPF *HI* (02/19/2012 18:00:00) UA Mucus [None Seen /LPF] Few /LPF *NA* (02/19/2012 18:00:00) CHEMISTRY Most recent to oldest [Reference Range]: 1 2 3 Sodium Lvl [135-145 mEq/L] 139 mEq/L (02/19/2012 04:04:00) 140 mEq/L (02/17/2012 16:19:00) Potassium Lvl [3.5-5.1 mEq/L] 4.1 mEq/L (02/19/2012 04:04:00) 4.2 mEq/L (02/17/2012 16:19:00) Chloride Lvl [95-109 mEq/L] 103 mEq/L (02/19/2012 04:04:00) 104 mEq/L (02/17/2012 16:19:00) CO2 [24-32 mEq/L] 28 mEq/L (02/19/2012 04:04:00) 31 mEq/L (02/17/2012 16:19:00) AGAP [10.0-20.0 mEq/L] 12.1 mEq/L (02/19/2012 04:04:00) 9.2 mEq/L *LOW* (02/17/2012 16:19:00) Creatinine Lvl [0.5-1.4 mg/dL] 0.9 mg/dL (02/19/2012 04:04:00) 0.9 mg/dL (02/17/2012 16:19:00) BUN [7-22 mg/dL] 15 mg/dL (02/19/2012 04:04:00) 14 mg/dL (02/17/2012 16:19:00) B/C Ratio [6-25] 16 (02/17/2012 16:19:00) Glucose Lvl [70-99 mg/dL] 97 mg/dL 1 (02/19/2012 04:04:00) 98 mg/dL 2 (02/17/2012 16:19:00) Total Protein [6.4-8.4 g/dL] 7.2 g/dL (02/17/2012 16:19:00) Albumin Lvl [3.5-5.0 g/dL] 3.3 g/dL *LOW* (02/17/2012 16:19:00) Globulin [2.0-4.0 g/dL] 3.9 g/dL (02/17/2012 16:19:00) A/G Ratio [0.7-1.6] 0.8 (02/17/2012 16:19:00) Calcium Lvl [8.5-10.5 mg/dL] 8.4 mg/dL *LOW* (02/19/2012 04:04:00) 8.5 mg/dL (02/17/2012 16:19:00) ALT [0-65 unit/L] 46 unit/L (02/17/2012 16:19:00) AST [0-37 unit/L] 19 unit/L (02/17/2012 16:19:00) Alk Phos [39-136 unit/L] 58 unit/L (02/17/2012 16:19:00) Bili Total [0.2-1.3 mg/dL] 0.3 mg/dL (02/17/2012 16:19:00) Total CK [12-191 unit/L] 57 unit/L (02/18/2012 04:53:00) 60 unit/L (02/17/2012 22:42:00) 59 unit/L (02/17/2012 16:19:00) CK MB [0.5-3.6 ng/mL] <0.5 ng/mL (02/17/2012 16:19:00) CK MB Index [0.0-2.5] <0.8 (02/17/2012 16:19:00) Troponin-I [0.00-0.40 ng/mL] 0.65 ng/mL 3 *CRIT* (02/18/2012 04:53:00) 0.88 ng/mL 4 *CRIT* (02/17/2012 22:42:00) 0.06 ng/mL (02/17/2012 16:19:00) TSH [0.360-3.740 uIU/mL] 4.050 uIU/mL *HI* (02/18/2012 14:21:00) 1Interpretive Data: Adult reference range values reflect the clinical guidelines of the [place] [employer]. 2Interpretive Data: Adult reference range values reflect the clinical guidelines of the [place] [employer]. 3Result Comment: Critical Result(s) called to Michelle at 02/18/2012 06:37:06 CDT by sdd. Read back OK. 4Result Comment: Critical Result(s) called to Kristel at 02/18/2012 00:06:11 CDT by sdd. Read back OK. HEMATOLOGY Most recent to oldest [Reference Range]: 1 2 3 WBC [3.7-10.4 K/CMM] 15.7 K/CMM *HI* (02/19/2012 04:04:00) 16.4 K/CMM *HI* (02/18/2012 14:21:00) 16.3 K/CMM *HI* (02/17/2012 16:19:00) RBC [4.20-5.40 M/CMM] 4.81 M/CMM (02/19/2012 04:04:00) 4.81 M/CMM (02/18/2012 14:21:00) 4.75 M/CMM (02/17/2012 16:19:00) Hgb [12.0-16.0 g/dL] 15.2 g/dL (02/19/2012 04:04:00) 15.4 g/dL (02/18/2012 14:21:00) 15.0 g/dL (02/17/2012 16:19:00) Hct [36.0-48.0 %] 45.3 % (02/19/2012 04:04:00) 45.4 % (02/18/2012 14:21:00) 44.9 % (02/17/2012 16:19:00) MCV [81.0-99.0 fL] 94.1 fL (02/19/2012 04:04:00) 94.4 fL (02/18/2012 14:21:00) 94.6 fL (02/17/2012 16:19:00) MCH [27.0-31.0 pg] 31.6 pg *HI* (02/19/2012 04:04:00) 32.0 pg *HI* (02/18/2012 14:21:00) 31.6 pg *HI* (02/17/2012 16:19:00) MCHC [32.0-36.0 g/dL] 33.6 g/dL (02/19/2012 04:04:00) 33.9 g/dL (02/18/2012 14:21:00) 33.4 g/dL (02/17/2012 16:19:00) RDW [11.5-14.5 %] 14.0 % (02/19/2012 04:04:00) 14.3 % (02/18/2012 14:21:00) 14.1 % (02/17/2012 16:19:00) Platelet [133-450 K/CMM] 210 K/CMM (02/19/2012 04:04:00) 234 K/CMM (02/18/2012 14:21:00) 229 K/CMM (02/17/2012 16:19:00) MPV [7.4-10.4 fL] 7.5 fL (02/19/2012 04:04:00) 7.5 fL (02/18/2012 14:21:00) 7.9 fL (02/17/2012 16:19:00) Segs [45.0-75.0 %] 82.8 % *HI* (02/19/2012 04:04:00) 81.8 % *HI* (02/18/2012 14:21:00) 88.6 % *HI* (02/17/2012 16:19:00) Lymphocytes [20.0-40.0 %] 11.8 % *LOW* (02/19/2012 04:04:00) 13.4 % *LOW* (02/18/2012 14:21:00) 7.6 % *LOW* (02/17/2012 16:19:00) Monocytes [2.0-12.0 %] 5.1 % (02/19/2012 04:04:00) 4.1 % (02/18/2012 14:21:00) 3.5 % (02/17/2012 16:19:00) Eosinophils [0.0-4.0 %] 0.1 % (02/19/2012 04:04:00) 0.4 % (02/18/2012 14:21:00) 0.1 % (02/17/2012 16:19:00) Basophils [0.0-1.0 %] 0.2 % (02/19/2012 04:04:00) 0.3 % (02/18/2012 14:21:00) 0.2 % (02/17/2012 16:19:00) Segs-Bands # [1.5-8.1 K/CMM] 13.0 K/CMM *HI* (02/19/2012 04:04:00) 13.4 K/CMM *HI* (02/18/2012 14:21:00) 14.2 K/CMM *HI* (02/17/2012 16:19:00) Lymphocytes # [1.0-5.5 K/CMM] 1.8 K/CMM (02/19/2012 04:04:00) 2.2 K/CMM (02/18/2012 14:21:00) 1.2 K/CMM (02/17/2012 16:19:00) Monocytes # [0.0-0.8 K/CMM] 0.8 K/CMM (02/19/2012 04:04:00) 0.7 K/CMM (02/18/2012 14:21:00) 0.6 K/CMM (02/17/2012 16:19:00) Eosinophils # [0.0-0.5 K/CMM] 0.0 K/CMM (02/19/2012 04:04:00) 0.1 K/CMM (02/18/2012 14:21:00) 0.0 K/CMM (02/17/2012 16:19:00) Basophils # [0.0-0.2 K/CMM] 0.0 K/CMM (02/19/2012 04:04:00) 0.1 K/CMM (02/18/2012 14:21:00) 0.0 K/CMM (02/17/2012 16:19:00) Anisocyte [None Seen] 1+ *ABN* (02/18/2012 14:21:00) 1+ *ABN* (02/17/2012 16:19:00) Target Cell [None Seen] Slight *ABN* (02/18/2012 14:21:00) Hyperseg [None Seen] Slight *ABN* (02/17/2012 16:19:00) Plt Morph Normal (02/18/2012 14:21:00) Normal (02/17/2012 16:19:00) Sed Rate [0-20 mm/hr] 4 mm/hr (02/19/2012 14:41:00) IMMUNOLOGY Most recent to oldest [Reference Range]: 1 2 3 FAUSTINO [Negative] Negative (02/19/2012 14:41:00) CRP, High Sensitivity 1.0 mg/L 5 *NA* (02/19/2012 14:41:00) 5Interpretive Data: Low Risk: <1.0 mg/L Average Risk: 1.0 - 3.0 mg/L High Risk: >3.0 mg/L Inflammation: >10.0 mg/L
--- OUTSIDE RECORDS SUMMARY | 2018-05-25 11:58 | XMS REPORT | CCD ---
Author Author Auto Generated Organization [facility] Address Unknown Phone Unavailable Care Team Providers [facility] [employer] Welder Name Role Phone Candido Anoop Schneider CP Allergies, Adverse Reactions, Alerts Substance Reaction [...]
--- OUTSIDE RECORDS SUMMARY | 2018-05-25 11:59 | XMS REPORT | Summary of Care ---
Author Organization Unknown Address Unknown Phone Unavailable Encounter DON Mancilla(JUAN ANTONIO) [id number] Date(s): 10/12/13 - 10/12/13 [facility] Outpatient Imaging - [place] [address] [place], [place] [address]- [place] Discharge Disposition: Home Physician Attending: Jorge Avery Reason for Visit 719.44 - JOINT PAIN-HAND Problem List Condition Effective Dates Status Health Status Informant Blood clotting Active disorder(Confirmed)1 Chest Active pain(Confirmed) Fibromyalgia(Confirm Active ed) Hypothyroid(Confirme Active d) IBS - Irritable Active bowel syndrome(Confirmed) Irregular heart Active beat(Confirmed) Myasthenia Active gravis(Confirmed) Numbness(Confirmed) Active Raynaud's Active disease(Confirmed) Rheumatic Active arteritis(Confirmed) Tachycardia(Confirme Active d) Thyroid Active cancer(Confirmed)2 UTCD(Confirmed) Active Weakness - Active general(Confirmed) 1History of DVT both lower extremities 2History of Thyroid ca Allergies, Adverse Reactions, Alerts Substance Reaction Severity Status aspirin Stomach ulcer, NOS Active baclofen Active ciprofloxacin Active colistin/HC/neomycin/thon Active zonium otic Dexilant Headache, NOS Active Palpitations Dyazide [...] Tonic water Tonic water streptomycin Active sulfonamides Severe Active vancomycin Active Zithromax Active Medications No data available for this section Medications Administered During Your Visit No data available for this section Immunizations No data available for this section Social History Social History Type Response
--- OUTSIDE RECORDS SUMMARY | 2018-05-25 11:59 | XMS REPORT | Summary of Care ---
Author Organization Unknown Address Unknown Phone Unavailable Encounter DON Mancilla(JUAN ANTONIO) [id number] Date(s): 01/23/14 - 01/23/14 [facility] Outpatient Imaging - [place] [address] [place], [place] [address]- [place] Discharge Disposition: Home Physician Attending: Jorge Avery MD Reason for Visit 793.80 - ABL MAMMOGRAM N Problem List Condition Effective Dates Status Health [...]
--- OUTSIDE RECORDS SUMMARY | 2018-05-25 11:59 | XMS REPORT | CCD ---
Author Author Auto Generated Organization [facility] Outpatient Imaging - [place] Address Unknown Phone Unavailable Care Team Providers Care Operations Supervisor Chemical Cleaning Name Role Phone SHIRA YO CP Unavailable Allergies, Adverse Reactions, Alerts Substance Reaction Status aspirin Stomach ulcer, NOS Active baclofen [...] Active Problem List Condition Effective Dates Status Blood clotting disorder1 Active Chest pain Active Fibromyalgia Active Hypothyroid Active IBS - Irritable bowel syndrome Active Irregular heart beat Active Myasthenia gravis Active Numbness Active Raynaud's disease Active Rheumatic arteritis Active Tachycardia Active Thyroid cancer2 Active UTCD Active Weakness - general Active 1History of DVT both lower extremities 2History of Thyroid ca
--- OUTSIDE RECORDS SUMMARY | 2018-05-25 11:59 | XMS REPORT | Summary of Care ---
Author Organization Unknown Address Unknown Phone Unavailable Encounter DON Mancilla(JUAN ANTONIO) [id number] Date(s): 01/05/14 - 01/05/14 [facility] Outpatient Imaging - [place] [id number] [place] [address] Discharge Disposition: Home Physician Attending: Nini Gillis MD Reason for Visit 787.3 - FLATUL/ERUCTAT/ 782.3 - EDEMA 789.02 - ABDMNAL PAIN LF Problem List Condition Effective Dates Status Health [...]
--- OUTSIDE RECORDS SUMMARY | 2018-05-25 11:59 | XMS REPORT | CCD ---
Author Author Auto Generated Organization [facility] Outpatient Imaging - [place] Address Unknown Phone Unavailable Care Team Providers Care Teacher Theater Arts Name Role Phone SHIRA YO CP Unavailable [...]
--- OUTSIDE RECORDS SUMMARY | 2018-05-25 11:59 | XMS REPORT | Summary of Care ---
Author Organization Unknown Address Unknown Phone Unavailable Encounter Dates Location Diagnoses Discharge Providers Disposition 08/25/2013 [facility] Outpatient Imaging - Home Jorge Avery Nisa 08/25/2013 [address] [place], [place] [address] Reason for Visit 784.0 - HEADACHE Problem List Condition Effective Dates Status Health [...] of Thyroid ca Allergies, Adverse Reactions, Alerts Status Substance Reaction Severity Active aspirin Stomach ulcer, NOS Active baclofen Active ciprofloxacin Active colistin/HC/neomycin/thonzonium otic Active Dexilant Headache, NOS Palpitations Active Dyazide Active Elavil Active etherified starches Active Flagyl Active gentamicin Active halothane Active Histussin D Histussin-HC Active Keflex Active LaMICtal Active Lasix Active Lopressor Nausea and vomiting Active Lyrica Active methoxyflurane Active morphine Nausea and vomiting Active neomycin Active Parafon Forte DSC Active Plaquenil Sulfate Active procainamide Active Pronestyl Active quiNIDine Active quiNINE Tonic water Tonic water Tonic water Active streptomycin Active sulfonamides Severe Active vancomycin Active Zithromax Medications No data available for this section Medications Administered During Your Visit No data available for this section Immunizations No data available for this section Social History Social History Type Response
--- OUTSIDE RECORDS SUMMARY | 2018-05-25 11:59 | XMS REPORT | Summary of Care ---
Author Organization Unknown Address Unknown Phone Unavailable Encounter DON Mancilla(JUAN ANTONIO) [id number] Date(s): 02/20/14 - 02/20/14 [facility] Outpatient Imaging - [place] [address] [place] [address]- [facility] Discharge Disposition: Home Physician Attending: Duane Warner MD Reason for Visit 571.8 - CHRONIC LIVER D 564.00 - CONSTIPATION NO V12.72 - PRSNL HST COLON V16.0 Problem List Condition Effective Dates Status Health [...]
--- OUTSIDE RECORDS SUMMARY | 2018-05-25 11:59 | XMS REPORT | CCD ---
Author Author Auto Generated Organization [facility] Outpatient Imaging - [place] Address Unknown Phone Unavailable Care Team Providers Care Waste Disposal Leakage Tester Name Role Phone Jorge Avery CP Allergies, [...]
--- OUTSIDE RECORDS SUMMARY | 2018-05-25 11:59 | XMS REPORT | CCD ---
Author Author Auto Generated Organization [facility] Outpatient Imaging [place] Address Unknown Phone Unavailable Care Team Providers Care Referral Management Liaison Name Role Phone Bennie Jorge Cosme CP Allergies, Adverse Reactions, Alerts Substance Reaction [...]
--- OUTSIDE RECORDS SUMMARY | 2018-05-25 11:59 | XMS REPORT | CCD ---
Author Author Auto Generated Organization [facility] Outpatient Imaging - [place] Address Unknown Phone Unavailable Care Team Providers Care Travelers' Aid Worker Name Role Phone SHIRA YO CP Unavailable [...]
--- OUTSIDE RECORDS SUMMARY | 2018-05-25 11:59 | XMS REPORT | CCD ---
Author Author Auto Generated Organization [facility] Address Unknown Phone Unavailable Care Team Providers Care Tissue Packer Name Role Phone Bennie Jorge Cosme RP Allergies, Adverse Reactions, Alerts Substance Reaction [...]
--- OUTSIDE RECORDS SUMMARY | 2018-05-25 11:59 | XMS REPORT | Summary of Care ---
Author Organization Unknown Address Unknown Phone Unavailable Encounter DON Mancilla(JUAN ANTONIO) [id number] Date(s): 02/24/14 - 02/24/14 [facility] Outpatient Imaging - [address] [address]- [place] Discharge Disposition: Home Physician Attending: Lamont Dominguez MD Reason for Visit 891.0 - OPEN WND KNEE/L Problem List Condition Effective Dates Status Health [...]
--- OUTSIDE RECORDS SUMMARY | 2018-05-25 11:59 | XMS REPORT | CCD ---
Author Author Auto Generated Organization [facility] Outpatient Imaging - [place] Address Unknown Phone Unavailable Care Team Providers Care Bioprocess Engineer Name Role Phone SHIRA YO CP Unavailable [...]
--- OUTSIDE RECORDS SUMMARY | 2018-05-25 11:59 | XMS REPORT | Summary of Care ---
Author Organization Unknown Address Unknown Phone Unavailable Encounter DON Mancilla(JUAN ANTONIO) [id number] Date(s): 02/13/14 - 02/13/14 [facility] Outpatient Imaging - [place] [address] [place], [place] [address]- [place] Discharge Disposition: Home Physician Attending: Jorge Avery MD Reason for Visit 789.0 - ABDOMINAL PAIN Problem List Condition Effective Dates Status Health [...]
--- OUTSIDE RECORDS SUMMARY | 2018-05-25 12:00 | XMS REPORT | Summary of Care ---
Author Organization Unknown Address Unknown Phone Unavailable Encounter DON Mancilla(JUAN ANTONIO) [id number] Date(s): 07/24/14 - 07/24/14 [facility] Outpatient Imaging - [address] [address]- [place] Discharge Disposition: Home Physician Attending: Gwyn Morris MD Reason for Visit 435.3 - VERTBROBASLR AR Problem List Condition Effective Dates Status Health [...]
--- OUTSIDE RECORDS SUMMARY | 2018-05-25 12:00 | XMS REPORT | Summary of Care ---
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 on 11/25/14. 2History of DVT both lower extremities 3History of Thyroid ca Allergies, Adverse Reactions, Alerts Substance Reaction Severity Status amoxicillin1 Active aspirin Stomach ulcer, NOS Active azithromycin2 Active baclofen3 Active cephalexin4 Active chlorzoxazone5 Active ciprofloxacin Active colistin/HC/neomycin/thon Active zonium otic Dexilant Headache, NOS Active Palpitations Dyazide Active Elavil Active etherified starches Active Flagyl Active gentamicin Active halothane Active Histussin D Histussin-HC Active hydrochlorothiazide-triam Active terene6 hydroxychloroquine7 Active Keflex Active LaMICtal Active lamoTRIgine8 Active Lasix Active Lopressor Nausea and vomiting Active Lyrica Active methoxyflurane Active metroNIDAZOLE9 Active morphine Nausea and vomiting Active neomycin Active Parafon Forte DSC Active Plaquenil Sulfate Active Active procainamide Active Pronestyl Active quiNIDine Active quiNINE Tonic water Active Tonic water Tonic water streptomycin Active sulfa drugs11 Active sulfonamides Severe Active vancomycin Active Zithromax Active 1Data migrated from [facility] on 10/26/14. Originally documented as AMOXICILLIN. 2Data migrated from [facility] on 10/26/14. Originally documented as ZITHROMAX. 3Data migrated from [facility] on 10/26/14. Originally documented as BACLOFEN. 4Data migrated from [facility] on 10/26/14. Originally documented as KEFLEX. 5Data migrated from [facility] on 10/26/14. Originally documented as PARAFON FORTE. 6Data migrated from [employer] [facility] on 10/26/14. Originally documented as DYAZIDE. 7Data migrated from [facility] on 10/26/14. Originally documented as PLAQUENIL. 8Data migrated from [facility] on 10/26/14. Originally documented as LAMICTAL. 9Data migrated from [facility] on 10/26/14. Originally documented as FLAGYL. 10Data migrated from [facility] on 10/26/14. Originally documented as LYRICA. 11Data migrated from [facility] on 01/25/15. Originally documented as SULFA. Medications No data available for this section Results No data available for this section Immunizations No data available for this section Procedures Procedure Date Related Diagnosis Body Site Ablation of atrioventricular node Appendectomy Catheterization of both left and right heart Hysterectomy Inguinal herniorrhaphy Laparoscopy Salpingo-oophorectomy Total thyroidectomy Social History Social History Type Response Assessment and Plan No data available for this section
--- OUTSIDE RECORDS SUMMARY | 2018-05-25 12:00 | XMS REPORT | Summary of Care ---
Author Author [facility] Outpatient Imaging [facility] Outpatient Imaging [facility] Address Unknown Phone Unavailable Encounter DON Mancilla(JUAN ANTONIO) [id number] Date(s): 05/27/16 - 05/27/16 [facility] Imaging [facility] [address], [address] [place] [phone] Discharge Disposition: Home or Self Care Attending Physician: Jorge Avery MD Vital Signs [...] Weakness - Active general(Confirmed) 1Data migrated from [facility] on 11/25/14. 2History of DVT both [...] Parafon Forte DSC Active Plaquenil Sulfate Active [id number] Active procainamide Active Pronestyl Active quiNIDine Active [...]
--- OUTSIDE RECORDS SUMMARY | 2018-05-25 12:00 | XMS REPORT | Summary of Care ---
Author Author [facility] Outpatient Imaging - [place] Organization [facility] Out[facility] [place] Address Unknown Phone Unavailable Encounter DON Mancilla(JUAN ANTONIO) [id number] Date(s): 01/07/16 - 01/07/16 [facility] Outpatient Imaging - [place] [address] [place] [phone] Discharge Disposition: Home Attending Physician: Brandon Delgado MD Vital Signs No data available for [...] Weakness - Active general(Confirmed) 1Data migrated from [facility] on 11/25/14. 2History of DVT both [...] Parafon Forte DSC Active Plaquenil Sulfate Active [id number] Active procainamide Active Pronestyl Active quiNIDine Active [...]
--- OUTSIDE RECORDS SUMMARY | 2018-05-25 12:00 | XMS REPORT | Summary of Care ---
Author Organization Unknown Address Unknown Phone Unavailable Encounter DON Mancilla(JUAN ANTONIO) [id number] Date(s): 11/03/14 - 11/03/14 [facility] Outpatient Imaging - [place] [address] [place] [address]- [facility] [phone] Discharge Disposition: Home Physician Attending: Carolina Mart MD Vital Signs No data available for this section Problem List Condition Effective Dates Status Health Status Informant Blood clotting Active disorder(Confirmed)1 Chest Active pain(Confirmed) Fibromyalgia(Confirm Active ed) Hypothyroid(Confirme Active d) IBS - Irritable Active bowel syndrome(Confirmed) Irregular heart Active beat(Confirmed) Myasthenia Active gravis(Confirmed) Numbness(Confirmed) Active Raynaud's Active disease(Confirmed) Rheumatic Active arteritis(Confirmed) Tachycardia(Confirme Active d) Thyroid Active cancer(Confirmed)2 Weakness - Active general(Confirmed) 1History of DVT [...] Parafon Forte DSC Active Plaquenil Sulfate Active [id number] Active procainamide Active Pronestyl Active quiNIDine Active [...] [facility] on 10/26/14. Originally documented as LYRICA. Medications No data available for this section [...]
--- OUTSIDE RECORDS SUMMARY | 2018-05-25 12:00 | XMS REPORT | Summary of Care ---
Author Author [facility] Outpatient Imaging [place] Organization [facility] [place] Address Unknown Phone Unavailable Encounter DON Mancilla(JUAN ANTONIO) [id number] Date(s): 03/23/17 - 03/23/17 [facility] Outpatient Imaging [place] [address] [place] [phone] Discharge Disposition: Home or Self Care Attending Physician: Can Urias MD Vital Signs No data available for [...] Weakness - Active general(Confirmed) 1Data migrated from [facility] on 11/25/14. 2History of DVT both [...] Parafon Forte DSC Active Plaquenil Sulfate Active [id number] Active procainamide Active Pronestyl Active quiNIDine Active [...] thyroidectomy Social History Social History Type Response Smoking Status Current some day smoker; Exposure to Tobacco Smoke None; Cigarette Smoking Last 365 Days No; Reg Smoking Cessation Counseling No Assessment and Plan No data available for this section
--- OUTSIDE RECORDS SUMMARY | 2018-05-25 12:00 | XMS REPORT | Summary of Care ---
Author Author [facility] Organization [facility] Address Unknown Phone Unavailable Encounter DON Mancilla(JUAN ANTONIO) [id number] Date(s): 04/23/15 - 04/23/15 [facility] [address] [place] [address]- Discharge Disposition: Home Attending Physician: Lakeisha Sharma MD Admitting Physician: Lakeisha Sharma MD Vital Signs No data available for [...] - Active general(Confirmed) 1Data migrated from [facility] on 11/25/14. 2History of DVT both [...] Parafon Forte DSC Active Plaquenil Sulfate Active [id number] Active procainamide Active Pronestyl Active quiNIDine Active [...]
--- OUTSIDE RECORDS SUMMARY | 2018-05-25 12:00 | XMS REPORT | Summary of Care ---
Author Author [facility] Organization [facility] Address Unknown Phone Unavailable Encounter DON Mancilla(JUAN ANTONIO) [id number] Date(s): 10/18/16 - 10/18/16 [facility] [address] [place] [address]- [phone] Discharge Diagnosis: Thoracic compression fracture Discharge Disposition: Left Against Medical Advise Attending Physician: Peter Ghotra MD Vital Signs Most recent to 1 2 oldest [Reference Range]: Height 167.64 cm (10/18/16 11:41 AM) Temperature Oral 98.2 DegF 98.4 DegF [96.4-99.1 DegF] (10/18/16 4:00 PM) (10/18/16 11:41 AM) Blood Pressure 145/79 mmHg 151/92 mmHg [90-140/60-90 mmHg] *HI* *HI* (10/18/16 4:00 PM) (10/18/16 11:41 AM) Respiratory Rate 19 BRMIN 18 BRMIN [14-20 BRMIN] (10/18/16 4:00 PM) (10/18/16 11:41 AM) Peripheral Pulse 81 bpm 82 bpm Rate [60-100 bpm] (10/18/16 4:00 PM) (10/18/16 11:41 AM) Weight 60 kg (10/18/16 11:41 AM) Body Mass Index 21.35 m2 (10/18/16 11:41 AM) Problem List Condition Effective Dates Status Health Status Informant 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 2History of DVT both lower [...] Parafon Forte DSC Active Plaquenil Sulfate Active [id number] Active procainamide Active Pronestyl Active quiNIDine Active [...] on 01/25/15. Originally documented as SULFA. Medications Valium 5 mg, Route: PO, ONCE, Dosing Weight 60, kg, Priority: STAT, Start date: 7 12:09:00 CDT, Stop date: 10/18/16 12:09:00 CDT Start Date: 10/18/16 Stop Date: 10/18/16 Status: Completed Results URINE AND STOOL Most recent to 1 oldest [Reference Range]: UA Turbidity [Clear] Marked *ABN* (10/18/16 1:29 PM) UA Color Lachelle *NA* (10/18/16 1:29 PM) UA pH [5.0-8.0] 5.0 (10/18/16 1:29 PM) UA Spec Grav 1.036 [<=1.030] *HI* (10/18/16 1:29 PM) UA Glucose [Negative Negative mg/dL mg/dL] *NA* (10/18/16 1:29 PM) UA Blood [Negative] Negative (10/18/16 1:29 PM) UA Ketones [Negative Trace mg/dL mg/dL] *ABN* (10/18/16 1:29 PM) UA Protein [Negative 30 mg/dL mg/dL] *ABN* (10/18/16 1:29 PM) UA Urobilinogen 2.0 mg/dL [0.1-1.0 mg/dL] *HI* (10/18/16 1:29 PM) UA Bili [Negative] Moderate *ABN* (10/18/16 1:29 PM) UA Leuk Est Negative [Negative] (10/18/16 1:29 PM) UA Nitrite Negative [Negative] (10/18/16 1:29 PM) UA WBC [0-5 /HPF] 2 /HPF (10/18/16 1:29 PM) UA Sq Epi [Few /LPF] Many /LPF *ABN* (10/18/16 1:29 PM) UA Hyal Cast [0-2 3 /LPF /LPF] *HI* (10/18/16 1:29 PM) UA CaOx [place] [None Occasional /HPF Seen /HPF] *NA* (10/18/16 1:29 PM) UA Mucus [None Seen Many /LPF /LPF] *ABN* (10/18/16 1:29 PM) Immunizations No data available for this section [...]
--- OUTSIDE RECORDS SUMMARY | 2018-05-25 12:00 | XMS REPORT | Summary of Care ---
Author Author [facility] Organization [facility] Address Unknown Phone Unavailable Encounter DON Mancilla(JUAN ANTONIO) [id number] Date(s): 08/21/16 - 08/21/16 [facility] [address] [place] [address]- Discharge Disposition: Home or Self Care Attending Physician: Jason Roach MD Referring Physician: Jason Roach MD Vital Signs No data available for [...] Weakness - Active general(Confirmed) 1Data migrated from [facility] on 11/25/14. 2History of DVT both lower [...] Parafon Forte DSC Active Plaquenil Sulfate Active [id number] Active procainamide Active Pronestyl Active quiNIDine Active [...]
--- OUTSIDE RECORDS SUMMARY | 2018-05-25 12:01 | XMS REPORT | Summary of Care ---
Author Author [facility] Organization [facility] Address Unknown Phone Unavailable Encounter DON Mancilla(JUAN ANTONIO) [id number] Date(s): 06/18/17 - 06/18/17 [facility] [address] [place] [address]- Discharge Disposition: Home or Self Care Attending Physician: AVINASH BARAKAT Referring Physician: AVINASH BARAKAT Vital Signs No data available for this [...] Weakness - Active general(Confirmed) 1Data migrated from [facility] on 11/25/14. 2History of DVT both lower extremities 3History of Thyroid ca Allergies, Adverse Reactions, Alerts Substance Reaction Severity Status sulfonamides Severe Active sulfa drugs1 Active ciprofloxacin Active gentamicin Active procainamide Active amoxicillin2 Active azithromycin3 Active cephalexin4 Active vancomycin Active streptomycin Active morphine Nausea and vomiting Active baclofen5 Active hydrochlorothiazide-triam Active terene6 aspirin Stomach ulcer, NOS Active halothane Active methoxyflurane Active neomycin Active hydroxychloroquine7 Active chlorzoxazone8 Active colistin/HC/neomycin/thon Active zonium otic Keflex Active Zithromax Active Plaquenil Sulfate Active Lasix Active Flagyl Active Lopressor Nausea and vomiting Active Pronestyl Active Parafon Forte DSC Active Dyazide Active Histussin D Histussin-HC Active Elavil Active Lyrica Active pregabalin9 Active etherified starches Active Dexilant Palpitations Active Headache, NOS quiNIDine Active [id number] Active [id number] Active quiNINE Tonic water Active Tonic water Tonic water LaMICtal Active 1Data migrated from [facility] on 01/25/15. Originally documented as SULFA. 2Data migrated from [facility] on 10/26/14. Originally documented as AMOXICILLIN. 3Data migrated from [facility] on 10/26/14. Originally documented as ZITHROMAX. 4Data migrated from [facility] on 10/26/14. Originally documented as KEFLEX. 5Data migrated from [employer] [facility] on 10/26/14. Originally documented as BACLOFEN. 6Data migrated from [facility] on 10/26/14. Originally documented as DYAZIDE. 7Data migrated from [facility] on 10/26/14. Originally documented as PLAQUENIL. 8Data migrated from [facility] on 10/26/14. Originally documented as PARAFON FORTE. 9Data migrated from [facility] on 10/26/14. Originally documented as LYRICA. 10Data migrated from [facility] on 10/26/14. Originally documented as FLAGYL. 11Data migrated from [facility] on 10/26/14. Originally documented as LAMICTAL. Medications No data available for this section [...]
--- OUTSIDE RECORDS SUMMARY | 2018-05-25 12:01 | XMS REPORT | Summary of Care ---
Author Author [facility] Outpatient Imaging - [place] Organization [facility] Outpatient Imaging [facility] Address Unknown Phone Unavailable Encounter DON Mancilla(JUAN ANTONIO) [id number] Date(s): 06/11/17 - 06/11/17 [facility] Outpatient Imaging [facility] [address] [place] [phone] Discharge Disposition: Home or Self Care Attending [...] Dexilant Palpitations Active Headache, NOS quiNIDine Active [id number] Active [id number] Active quiNINE Tonic water Active Tonic water [...]
--- OUTSIDE RECORDS SUMMARY | 2018-05-25 12:01 | XMS REPORT | Summary of Care ---
Author Author [facility] Outpatient Imaging [facility] Outpatient Imaging [facility] Address Unknown Phone Unavailable Encounter DON Mancilla(FIN) [id number] Date(s): 09/21/17 - 09/21/17 [facility] Outpatient Imaging [facility] [address], [address] [place], [place] [address] [phone] Encounter Diagnosis Pain in right foot (Final) - 09/26/17 Pain in left foot (Final) - Discharge Disposition: Home or Self Care Attending [...] Weakness - Active general(Confirmed) 1Data migrated from [facility] on 11/25/14. 2History of DVT both lower [...] Dexilant Palpitations Active Headache, NOS quiNIDine Active [id number] Active [id number] Active quiNINE Tonic water Active Tonic water [...] Procedures Procedure Date Related Diagnosis Body Site Status Ablation of atrioventricular node Completed Appendectomy Completed Catheterization of both left and right heart Completed Hysterectomy Completed Inguinal herniorrhaphy Completed Laparoscopy Completed Salpingo-oophorectomy Completed Total thyroidectomy Completed Social History Social History Type Response Smoking Status Current some day smoker; Exposure to Tobacco Smoke None; Cigarette Smoking Last 365 Days No; Reg Smoking Cessation Counseling No entered on: 10/18/16 Assessment and Plan No data available for this section
--- OUTSIDE RECORDS SUMMARY | 2018-05-25 12:01 | XMS REPORT | Summary of Care ---
Author Author [facility] Outpatient Imaging - [place] Organization [facility] Outpatient Imaging [facility] Address Unknown Phone Unavailable Encounter DON Mancilla(JUAN ANTONIO) [id number] Date(s): 05/25/17 - 05/25/17 [facility] Outpatient Imaging [facility] [address] [place] [phone] Discharge Disposition: Home or Self Care Attending [...] Weakness - Active general(Confirmed) 1Data migrated from [facility] on 11/25/14. 2History of DVT both [...] Dexilant Palpitations Active Headache, NOS quiNIDine Active [id number] Active [id number] Active quiNINE Tonic water Active Tonic water [...]
[2018-05-25 15:04] VITALS: BP 139/80
== END | disposition home or self-care (01) ==
LOC: OR 11:53
PROVIDERS: ATTEND Ophthalmology
DX: H25.12 Age-related nuclear cataract, left eye (principal); G70.00 Myasthenia gravis without (acute) exacerbation; I25.10 Atherosclerotic heart disease of native coronary artery without angina pectoris; I10 Essential (primary) hypertension; E78.5 Hyperlipidemia, unspecified; K21.9 Gastro-esophageal reflux disease without esophagitis; K58.9 Irritable bowel syndrome, unspecified; K44.9 Diaphragmatic hernia without obstruction or gangrene; M32.9 Systemic lupus erythematosus, unspecified; M06.9 Rheumatoid arthritis, unspecified; I49.9 Cardiac arrhythmia, unspecified; Z88.6 Allergy status to analgesic agent; Z88.1 Allergy status to other antibiotic agents; Z88.2 Allergy status to sulfonamides; Z88.8 Allergy status to other drugs, medicaments and biological substances; Z85.850 Personal history of malignant neoplasm of thyroid; Z86.718 Personal history of other venous thrombosis and embolism
CPT/HCPCS: 66984; J3490; V2632

== ENCOUNTER → 2018-06-15 | Day surgery (SDC) | payer BC ==
[2018-06-10 10:50] LABS: BASOPHILS # (AUTO) 0.1 (0.0-0.1); BASOPHILS % 0.4 % (0.0-1.0); EOSINOPHILS % 0.1 % (0.0-6.0); HEMATOCRIT 42.8 % (34.2-44.1); LYMPHOCYTES # (AUTO) 1.8 (1.0-3.2); MEAN CORPUSCULAR HGB CONC 32.7 g/dL (31-35); MEAN CORPUSCULAR VOLUME 94.9 fL (81-99); MONOCYTES # (AUTO) 0.7 (0.2-0.8); MONOCYTES % 4.6 % (4.4-11.3); NEUTROPHILS # (AUTO) 12.3 (2.1-6.9); NEUTROPHILS % 81.6 % (38.7-80.0); PLATELET COUNT 415 x10e3/uL (140-360); RED BLOOD COUNT 4.51 x10e6/uL (3.6-5.1); RED CELL DISTRIBUTION WIDTH 15.4 % (11.7-14.4)
[~2018-06-15] MED LIST changes: +MIDAZOLAM HCL 2 MG/2 ML VIAL ONE; +MIDAZOLAM HCL 5 MG/ML VIAL ONE; +PREOP PHACO EYE KIT ONE
--- OUTSIDE RECORDS SUMMARY | 2018-06-15 10:11 | XMS REPORT | Clinical Summary ---
Author Author [facility] Address Unknown Phone Unavailable Care Team Providers Care Door To Door Salesman Name Role Phone Jorge Avery MD PCP [...] to put in as a separate one [place] Rash Low 01/04/2016 Sulfa (Sulfonamide Nausea And [...] Health Maintenance Due Date Last Done Comments CERVICAL CANCER SCREENING 10/07/1983 BREAST CANCER SCREENING 2012 COLON CANCER SCREENING 2012 SHINGLES VACCINES (1 of 2012 2) INFLUENZA VACCINE 01/27/2018 Results Not on fileafter 06/14/2017 Insurance Payer Benefit Subscriber ID Type Phone Address Plan / Group MEDICARE MEDICARE xxxxxxxxxx Medicare [place] A BCBS BCBS OUT xxxxxxxxxxxx PPO OF STATE Advance Directives Patient has advance care planning documents, and code status on file. For more i nformation, please contact: Deonte Schultz [address] [place] [address] Date Inactivated Comments Code Status Date Activated 03/07/2016 6:32 PM Full Code 03/06/2016 10:58 AM Code Status decision reached by: Patient
--- OUTSIDE RECORDS SUMMARY | 2018-06-15 10:12 | XMS REPORT | Continuity of Care Document ---
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 on 11/25/14. [facility], JAMILAH Interiano, JAMILAH [place] 6 MONTHS FOLLOW UP BILATERAL BREAST M Active 12/01/2012 [facility] UNK Active 09/28/2012 [facility] ICD 882.1 / CPT 87511 Active 09/28/2012 [facility] BREAST MASS LEFT SIDE 2 AREAS Active 06/02/2012 [facility] BREAST MASS Active 06/02/2012 [facility] ICD 550.90 / CPT 50238 Active 03/26/2012 [facility] BLOOD CLOT Active 02/26/2012 [facility] CHEST PAIN Active 02/17/2012 [facility] BILATERAL KNEE PAIN COUGH DYSPNEA Active 06/29/2000 [facility] Chest pain Active Problem 04/09/2013 JAMILAH Interiano, JAMILAH [place],[facility] IBS - Irritable bowel syndrome Active Problem 04/09/2013 JAMILAH Interiano, JAMILAH Greene,[facility] Myasthenia gravis Active Problem 04/09/2013 JAMILAH Interiano, JAMILAH Greene,[facility] Raynaud's disease Active Problem 04/09/2013 [facility] [place], [facility] [place] Tachycardia Active Problem 04/09/2013 [facility] [place], [facility] [place],[facility] Blood clotting disorder<sup>1</sup> Active Problem 04/09/2013 1History of DVT both lower extremities [facility], [facility] [place] Fibromyalgia Active Problem 04/09/2013 [facility], [facility] [place] Hypothyroid Active Problem 04/09/2013 [facility], [facility] [place] Irregular heart beat Active Problem 04/09/2013 [facility], [facility] [place] Numbness Active Problem 04/09/2013 [facility], [facility] [place] Rheumatic arteritis Active Problem 04/09/2013 [facility], [facility] [place] Thyroid cancer<sup>2</sup> Active Problem 04/09/2013 2History of Thyroid ca [facility], [facility] [place] UTCD Active Problem 07/26/2014 [facility], [facility] [place] Weakness - general Active Problem 04/09/2013 [facility], [facility] [place] Blood clotting disorder<sup>1</sup> Active Problem 11/06/2014 1History of DVT both lower extremities [facility] [place], [facility] [place], [facility] [place] Thyroid cancer<sup>2</sup> Active Problem 11/06/2014 2History of Thyroid ca [facility] [place], [facility] [place], [facility] [place] UTCD Active Problem 06/17/2013 [facility], [facility] [place] UTCD Active Problem 02/22/2014 [facility], [facility] [place] Chest pain Active Problem 06/21/2017 [facility] [place], [facility] [place], [facility] [place],[facility] Fibromyalgia Active Problem 06/21/2017 [facility] [place], [facility] [place], [facility] [place],[facility] Hypothyroid Active Problem 06/21/2017 [facility] [place], [facility] [place], [facility] [place],[facility] IBS - Irritable bowel syndrome Active Problem 06/21/2017 [facility] [place], [facility] [place], [facility] [place],[facility] Irregular heart beat Active Problem 06/21/2017 [facility] [place], [facility] [place], [facility] [place],[facility] Myasthenia gravis Active Problem 06/21/2017 [facility] [place], [facility] [place], [facility] [place],[facility] Numbness Active Problem 06/21/2017 [facility] [place], [facility] [place], [facility] [place],[facility] Raynaud's disease Active Problem 06/21/2017 [facility] [place], [facility] [place], [facility] [place],[facility] Rheumatic arteritis Active Problem 06/21/2017 [facility] [place], [facility] [place], [facility] [place],[facility] Tachycardia Active Problem 06/21/2017 [facility] [place], [facility] [place], [facility] [place],[facility] Weakness - general Active Problem 06/21/2017 [facility] [place], [facility] [place], [facility] [place],[facility] Blood clotting disorder<sup>2</sup> Active Problem 12/28/2017 History of DVT both lower extremities [facility], [facility] [place], [facility] [place] Chest pain Active Problem 12/28/2017 [facility] [place], [facility] [place], [facility] [place], [facility] [place] Fibromyalgia Active Problem 12/28/2017 [facility] [place], [facility] [place], [facility] [place], [facility] [place] Hypothyroid Active Problem 12/28/2017 [facility] [place], [facility] [place], [facility] [place], [facility] [place] IBS - Irritable bowel syndrome Active Problem 12/28/2017 [facility] [place], [facility] [place], [facility] [place], [facility] [place] Irregular heart beat Active Problem 12/28/2017 [facility] [place], [facility] [place], [facility] [place], [facility] [place] Myasthenia gravis Active Problem 12/28/2017 [facility] [place], [facility] [place], [facility] [place], [facility] [place] Numbness Active Problem 12/28/2017 [facility] [place], [facility] [place], [facility] [place], [facility] [place] Raynaud's disease Active Problem 12/28/2017 [facility] [place], [facility] [place], [facility] [place], [facility] [place] Rheumatic arteritis Active Problem 12/28/2017 [facility] [place], [facility] [place], [facility] [place], [facility] [place] Tachycardia Active Problem 12/28/2017 [facility] [place], [facility] [place], [facility] [place], [facility] [place] Thyroid cancer<sup>3</sup> Active Problem 12/28/2017 History of Thyroid ca [facility], [facility] [place], [facility] [place] Weakness - general Active Problem 12/28/2017 [facility] [place], [facility] [place], [facility] [place], [facility] [place] Pain in left foot 12/28/2017 [facility] [place] CHEST PAIN NOS Active [facility] Medications Medication Details Route Status Patient Instructions Ordering Provider Order Date Source Valium 5 mg, Route: PO, ONCE, Dosing Weight 60, kg, Priority: STAT, Start date: 10/18/16 12:09:00 CDT, Stop date: 10/18/16 12:09:00 CDT Inactive 10/18/2016 [facility] Versed 1 mg, Route: IV, PRN, Dosing Weight 59.091, kg, PRN Other -See Comment, Start date: 09/30/12 13:41:00, Duration: 30 day, Stop date: 10/30/12 13:40:00 IV No Longer Active Guveara 09/30/2012 [facility] promethazine 12.5 mg, Route: IVPB, Q4H, Dosing Weight 59.091, kg, PRN Nausea & Vomiting, Start date: 09/30/12 13:40:00, Duration: 30 day, Stop date: 10/30/12 13:39:00 IVPB No Longer Active Guevara 09/30/2012 [facility] ondansetron 4 mg, Route: IVP, ONCE, Dosing Weight 59.091, kg, PRN Nausea & Vomiting, Start date: 09/30/12 11:13:00 IVP No Longer Active Barry 09/30/2012 [facility] naloxone 0.04 mg, Route: IVP, Q2MIN, Dosing Weight 59.091, kg, PRN Narcotic Reversal, Start date: 09/30/12 11:13:00, Duration: 8 doses or times, Stop date: Limited # of times IVP No Longer Active Guevara 09/30/2012 [facility] Ofirmev 1,000 mg, Route: IV, Drug form: INJ, ONCE, Dosing Weight 60.909, kg, PRN Pain, for > or=50 kg, Start date: 09/30/12 11:13:00 IV No Longer Active Guevara 09/30/2012 [facility] [place] 10/325 oral tablet 1 tab, Route: PO, Drug Form: TAB, Dosing Weight 60.909, kg, Q6H, PRN Pain, Start date: 09/30/12 11:13:00, Duration: 30 day, Stop date: 10/30/12 11:12:00 PO No Longer Active Guevara 09/30/2012 [facility] flumazenil 0.2 mg, Route: IVP, PRN, Dosing Weight 59.091, kg, PRN Benzodiazepine Reversal, Initial dose, Start date: 09/30/12 11:13:00, Duration: 30 day, Stop date: 10/30/12 11:12:00 IVP No Longer Active Guevara 09/30/2012 [facility] hydromorphone 0.5 mg, Route: IVP, Q5Min, Dosing Weight 59.091, kg, PRN Pain Score 4-6, Start date: 09/30/12 11:13:00, Duration: 5 doses or times, Stop date: Limited # of times IVP No Longer Active Guevara 09/30/2012 [facility] fentanyl 25 microgram, Route: IVP, Q5Min, Dosing Weight 59.091, kg, PRN Pain Score 4-6, Start date: 09/30/12 11:13:00, Duration: 4 doses or times, Stop date: Limited # of times IVP No Longer Active Guevara 09/30/2012 [facility] clindamycin 600 mg, Route: IVPB, ONCE, Dosing Weight 59.091, kg, Start date: 09/30/12 10:11:00, Stop date: 09/30/12 10:11:00 IVPB No Longer Active Guevara 09/30/2012 [facility] Sodium Chloride 0.9% IV 1000 mL 1,000 mL, Rate: 40 ml/hr, Infuse over: 25 hr, Route: IV, Dosing Weight 59.091 kg, Total Volume: 1,000, Start date: 09/30/12 10:11:00, Duration: 30 day, Stop date: 10/30/12 10:10:00 IV No Longer Active Guevara 09/30/2012 [facility] Coumadin 5 mg oral tablet 5 mg, 1 tab, PO, Daily, 30 tab, Substitution Allowed, TAB PO Active 09/29/2012 [facility] Probiotic Formula oral capsule 1 cap, PO, Daily, Substitution Allowed, Maintenance PO Active 09/29/2012 [facility] amoxicillin-clavulanate 875 mg-125 mg oral tablet Substitution Allowed, Maintenance Active 09/29/2012 [facility] Levaquin 500 mg oral tablet 500 mg, 1 tab, PO, Q24H, 10 tab, Substitution Allowed PO Active 09/29/2012 [facility] Ativan 1 mg oral tablet 1 mg, 1 tab, PO, Bedtime, PRN, 20 tab, Anxiety, Substitution Allowed PO Active 09/29/2012 [facility] Synthroid 88 mcg (0.088 mg) oral tablet 88 microgram, 1 tab, PO, Daily, 30 tab, Substitution Allowed, TAB PO Active 09/29/2012 [facility] Bentyl 10 mg oral capsule 10 mg, 1 cap, PO, Daily, 40 cap, Substitution Allowed, CAP PO Active 09/29/2012 [facility] Inapsine 0.625 mg, 0.25 mL, Route: IVP, Drug form: INJ, ONCE, Dosing Weight 60.909, kg, Start date: 04/30/12 10:21:00, Stop date: 04/30/12 10:21:00 IVP No Longer Active [place] 04/30/2012 [facility] midazolam 2 mg, Route: IVP, ONCE, Dosing Weight 60.909, kg, Priority: STAT, Start date: 04/30/12 9:17:00, Stop date: 04/30/12 9:17:00 IVP No Longer Active Barry 04/30/2012 [facility] naloxone 0.04 mg, 0.04 mL, Route: IVP, Drug form: INJ, Q2MIN, Dosing Weight 60.909, kg, PRN Narcotic Reversal, Start date: 04/30/12 8:55:00, Duration: 8 doses or times, Stop date: Limited # of times IVP No Longer Active Margaret 04/30/2012 [facility] fentanyl 25 microgram, 0.5 mL, Route: IVP, Drug form: INJ, Q5Min, Dosing Weight 60.909, kg, PRN Pain Score 4-6, Start date: 04/30/12 8:55:00, Duration: 4 doses or times, Stop date: Limited # of times IVP No Longer Active [place] 04/30/2012 [facility] hydromorphone 0.5 mg, 0.25 mL, Route: IVP, Drug form: INJ, Q5Min, Dosing Weight 60.909, kg, PRN Pain Score 4-6, Start date: 04/30/12 8:55:00, Duration: 5 doses or times, Stop date: Limited # of times IVP No Longer Active [place] 04/30/2012 [facility] flumazenil 0.2 mg, 2 mL, Route: IVP, Drug form: INJ, PRN, Dosing Weight 60.909, kg, PRN Benzodiazepine Reversal, Initial dose, Start date: 04/30/12 8:55:00, Duration: 30 day, Stop date: 05/30/12 7:54:00 IVP No Longer Active [place] 04/30/2012 [facility] acetaminophen-hydrocodone 325 mg-5 mg oral tablet 2 tab, Route: PO, Drug Form: TAB, Dosing Weight 60.909, kg, Q4H, PRN Pain Score 4-6, Start date: 04/30/12 8:55:00, Duration: 30 day, Stop date: 05/30/12 8:54:00 PO No Longer Active [place] 04/30/2012 [facility] promethazine + Sodium Chloride 0.9% IV 50 mL 6.25 mg, 0.25 mL, Route: IVPB, Drug form: INJ, ONCE, Dosing Weight 60.909, kg, PRN Nausea & Vomiting, Start date: 04/30/12 8:55:00 IVPB No Longer Active [place] 04/30/2012 [facility] ondansetron 4 mg, 2 mL, Route: IVP, Drug form: INJ, ONCE, Dosing Weight 60.909, kg, PRN Nausea & Vomiting, Start date: 04/30/12 8:55:00 IVP No Longer Active [place] 04/30/2012 [facility] hydrALAZINE 5 mg, 0.25 mL, Route: IVP, Drug form: INJ, Q5Min, Dosing Weight 60.909, kg, PRN Elevated BP, Start date: 04/30/12 8:55:00, Duration: 4 doses or times, Stop date: Limited # of times IVP No Longer Active [place] 04/30/2012 [facility] labetalol 5 mg, 1 mL, Route: IVP, Drug form: INJ, Q5Min, Dosing Weight 60.909, kg, PRN Elevated BP, Start date: 04/30/12 8:55:00, Duration: 5 doses or times, Stop date: Limited # of times IVP No Longer Active [place] 04/30/2012 [facility] esmolol IV Push 10 mg, 1 mL, Route: IVP, Drug form: INJ, Q5Min, Dosing Weight 60.909, kg, PRN Elevated BP, Start date: 04/30/12 8:55:00, Duration: 5 doses or times, Stop date: Limited # of times IVP No Longer Active [place] 04/30/2012 [facility] Lactated Ringers Injection IV 1,000 mL 1,000 mL, Rate: 25 ml/hr, Infuse over: 40 hr, Route: IV, kg, Total Volume: 1,000, Start date: 04/30/12 6:40:00, Duration: 1 day, Stop date: 05/01/12 6:39:00 IV No Longer Active [place] 04/30/2012 [facility] Levaquin 500 mg, 100 mL, Route: IVPB, Drug form: INJ, ONCE, Dosing Weight 60.909, kg, Start date: 04/30/12 6:39:00, Stop date: 04/30/12 6:39:00 IVPB No Longer Active [place] 04/30/2012 [facility] Lactated Ringers Injection IV 1,000 mL 1,000 mL, Rate: 25 ml/hr, Infuse over: 40 hr, Route: IV, kg, Total Volume: 1,000, Start date: 04/30/12 6:38:00, Duration: 1 day, Stop date: 05/01/12 6:37:00 IV No Longer Active Barry 04/30/2012 [facility] MethylPREDNISolone Dose Pack 4 mg oral tablet As directed on label, PO, Daily, 1 Pack, Substitution Allowed PO Active 04/22/2012 [facility] Vitamin B12 1000 mcg/mL injectable solution 1,000 microgram, 1 ml, IM, qMonth, 10 ml, Substitution Allowed, SOLN IM Active 04/22/2012 [facility] Synthroid 100 mcg (0.1 mg) oral tablet 100 microgram, 1 tab, PO, Daily, 30 tab, Substitution Allowed, TAB PO Active 04/22/2012 [facility] Ultram 50 mg oral tablet 50 mg, 1 tab, PO, Q4H, PRN, 20 tab, pain, Substitution Allowed PO Active [facility] 02/26/2012 [facility] Ultram 50 mg oral tablet 100 mg, Route: PO, Drug form: TAB, ONCE, Dosing Weight 59.091, kg, Priority: STAT, Start date: 02/26/12 11:55:00, Stop date: 02/26/12 11:55:00 PO No Longer Active Antonio 02/26/2012 [facility] metoprolol extended release 25 mg, 1 tab, Route: PO, Drug form: ERTAB, Daily, Start date: 02/19/12 9:00:00, Duration: 30 day, Stop date: 03/19/12 9:00:00 PO No Longer Active Suzy 02/19/2012 [facility] Plavix 75 mg, 1 tab, Route: PO, Drug form: TAB, Daily, kg, Start date: 02/19/12 9:00:00, Duration: 30 day, Stop date: 03/19/12 9:00:00 PO No Longer Active Suzy 02/19/2012 [facility] lisinopril 5 mg, 1 tab, Route: PO, Drug form: TAB, Daily, kg, Start date: 02/19/12 9:00:00, Duration: 30 day, Stop date: 03/19/12 9:00:00 PO No Longer Active Suzy 02/19/2012 [facility] patient's own med:Estradiol 1mg tablet patient's own med:Estradiol 1mg tablet, 1 tab, Drug form: MISC, Route: PO, Bedtime, 02/18/12 21:00:00, Duration: 30 day, Stop date: 03/18/12 21:00:00 PO No Longer Active [place] 02/19/2012 [facility] patient's own med:Vitamin D 2000 unit tablet patient's own med:Vitamin D 2000 unit tablet, 1 tab, Drug form: MISC, Route: PO, Bedtime, 02/18/12 21:00:00, Duration: 30 day, Stop date: 03/18/12 21:00:00 PO No Longer Active [facility] 02/19/2012 [facility] Estrace 1 mg, 1 tab, Route: PO, Drug form: TAB, Bedtime, kg, Start date: 02/18/12 21:00:00, Duration: 30 day, Stop date: 03/18/12 21:00:00, Patient's Own Meds PO No Longer Active [facility] 02/19/2012 [facility] Vitamin D3 2000 intl units oral tablet 2,000 IntlUnit, 2 tab, Route: PO, Drug form: TAB, Bedtime, kg, Start date: 02/18/12 21:00:00, Duration: 30 day, Stop date: 03/18/12 21:00:00, Patient's Own Meds PO No Longer Active [facility] 02/19/2012 [facility] acetaminophen 500 mg, 1 tab, Route: PO, Drug form: TAB, Q6H, PRN Pain, Start date: 02/18/12 20:18:00, Duration: 30 day, Stop date: 03/19/12 20:17:00 PO No Longer Active Suzy 02/19/2012 [facility] Pravachol 40 mg, 2 tab, Route: PO, Drug form: TAB, QPM, kg, Start date: 02/18/12 17:00:00, Duration: 30 day, Stop date: 03/18/12 17:00:00 PO No Longer Active Suzy 02/18/2012 [facility] Protonix 40 mg, 1 tab, Route: PO, Drug form: ECTAB, Before Dinner, kg, Start date: 02/18/12 16:30:00, Duration: 30 day, Stop date: 03/18/12 16:30:00 PO No Longer Active Suzy 02/18/2012 [facility] aspirin 81 mg, 1 tab, Route: PO, Drug form: [place], Daily, kg, Start date: 02/18/12 13:39:00, Duration: 30 day, Stop date: 03/19/12 9:00:00 PO No Longer Active Suzy 02/18/2012 [facility] Prilosec 40 mg, Substitution Allowed Active 02/18/2012 [facility] D5W 1,000 mL 1,000 mL, Rate: 75 ml/hr, Infuse over: 13.3 hr, Route: IV, Dosing Weight 60 kg, Total Volume: 1,000, Start date: 02/18/12 12:30:00, Stop date: 03/19/12 12:29:00 IV No Longer Active Sharron 02/18/2012 [facility] Plavix 300 mg, 1 tab, Route: PO, Drug form: TAB, ONCE, kg, Start date: 02/18/12 12:29:00, Duration: 1 doses or times, Stop date: 02/18/12 12:29:00 PO No Longer Active Suzy 02/18/2012 [facility] Patient's own med:Methylprednisolone 4mg tablet Patient's own med:Methylprednisolone 4mg tablet, 2 tab, Drug form: MISC, Route: PO, QNoon, 02/18/12 12:00:00, Duration: 30 day, Stop date: 03/18/12 12:00:00 PO No Longer Active [facility] 02/18/2012 [facility] Medrol 8 mg, 2 tab, Route: PO, Drug form: TAB, QNoon, kg, Start date: 02/18/12 12:00:00, Duration: 30 day, Stop date: 03/18/12 12:00:00, Patient's Own Meds PO No Longer Active [facility] 02/18/2012 [facility] patient's own med: Synthroid 75 microgram tablet patient's own med: Synthroid 75 microgram tablet, 1 tab, Drug form: MISC, Route: PO, Q630AM, 02/18/12 6:30:00, Duration: 30 day, Stop date: 03/18/12 6:30:00 PO No Longer Active [facility] 02/18/2012 [facility] Synthroid 75 microgram, 1 tab, Route: PO, Drug form: TAB, Q630AM, kg, Start date: 02/18/12 6:30:00, Duration: 30 day, Stop date: 03/18/12 6:30:00, Patient's Own Meds PO No Longer Active [facility] 02/18/2012 [facility] Protonix 40 mg, Route: IV, Drug form: INJ, ONCE, kg, Priority: NOW, Start date: 02/18/12 0:55:00, Stop date: 02/18/12 0:55:00 IV No Longer Active [facility] 02/18/2012 [facility] Toradol 15 mg/mL injectable solution 15 mg, 1 mL, Route: INJ, Drug form: INJ, Q6H, kg, PRN Pain, Start date: 02/18/12 0:54:00, Duration: 4 day, Stop date: 02/22/12 0:53:00 INJ No Longer Active [facility] 02/18/2012 [facility] Zofran 4 mg, 2 mL, Route: IV, Drug form: INJ, Q4H, kg, PRN as needed for nausea/vomiting, Start date: 02/18/12 0:52:00, Duration: 30 day, Stop date: 03/19/12 0:51:00 IV No Longer Active [facility] 02/18/2012 [facility] Lovenox 40 mg, 0.4 mL, Route: SUB-Q, Drug form: INJ, ONCE, kg, Priority: STAT, Start date: 02/18/12 0:52:00, Stop date: 02/18/12 0:52:00 SUB-Q No Longer Active [facility] 02/18/2012 [facility] Phenergan 12.5 mg, 0.5 tab, Route: PO, Drug form: TAB, Q4H, PRN Nausea, Start date: 02/17/12 23:21:00, Duration: 30 day, Stop date: 03/18/12 23:20:00 PO No Longer Active [facility] 02/18/2012 [facility] Phenergan 25 mg, 1 tab, Route: PO, Drug form: TAB, Q4H, kg, PRN as needed for nausea/vomiting, Start date: 02/17/12 23:07:00, Duration: 30 day, Stop date: 03/18/12 23:06:00 PO No Longer Active [facility] 02/18/2012 [facility] Bentyl 20 mg, 1 tab, Route: PO, Drug form: TAB, QID, kg, PRN Other -See Comment, Start date: 02/17/12 23:07:00, Duration: 30 day, Stop date: 03/18/12 23:06:00, stomach muscle spasms with IBS PO No Longer Active [facility] 02/18/2012 [facility] Mobic 7.5 mg, 1 tab, Route: PO, Drug form: TAB, Daily, kg, PRN Pain, Start date: 02/17/12 23:07:00, Duration: 30 day, Stop date: 03/18/12 23:06:00 PO No Longer Active [facility] 02/18/2012 [facility] Ativan 0.5 mg, 1 tab, Route: PO, Drug form: TAB, Bedtime, kg, PRN Sleep, Start date: 02/17/12 22:31:00, Duration: 30 day, Stop date: 03/18/12 22:30:00 PO No Longer Active [facility] 02/18/2012 [facility] Saline Flush 0.9% 5 ml, Route: IVP, Drug Form: INJ, kg, Q12H, Start date: 02/17/12 21:00:00, Duration: 30 day, Stop date: 03/18/12 9:00:00 IVP No Longer Active [facility] 02/18/2012 [facility] aspirin 81 mg tablet, enteric coated 81 mg, 1 tab, Route: PO, Drug form: ECTAB, Q24H, kg, Start date: 02/17/12 21:00:00, Duration: 30 day, Stop date: 03/17/12 21:00:00 PO No Longer Active [facility] 02/18/2012 [facility] atropine 0.5 mg, 5 mL, Route: IVP, Drug form: INJ, PRN, PRN Bradycardia, Start date: 02/17/12 20:29:00, Duration: 30 day, Stop date: 03/18/12 20:28:00 IVP No Longer Active [facility] 02/18/2012 [facility] nitroglycerin 0.4 mg sublingual tablet 0.4 mg, 1 tab, Route: SL, Drug form: TAB, Q5Min, PRN Chest Pain, Start date: 02/17/12 20:29:00, Duration: 30 day, Stop date: 03/18/12 20:28:00 SL No Longer Active Suzy 02/18/2012 [facility] Saline Flush 0.9% 5 ml, Route: IVP, Drug Form: INJ, kg, PRN, PRN Line Flush, Start date: 02/17/12 20:24:00, Duration: 30 day, Stop date: 03/18/12 20:23:00 IVP No Longer Active Sharron 02/18/2012 [facility] ondansetron 4 mg, 1 tab, Route: PO, Drug form: TAB, Q8H, kg, PRN Nausea & Vomiting, Start date: 02/17/12 20:24:00, Duration: 30 day, Stop date: 03/18/12 20:23:00 PO No Longer Active Sharron 02/18/2012 [facility] nitroglycerin SL Tab 0.4 mg, 1 tab, Route: SL, Drug form: TAB, Q5Min, kg, PRN Chest Pain, Start date: 02/17/12 20:24:00, Duration: 3 doses or times, Stop date: Limited # of times SL No Longer Active [facility] 02/18/2012 [facility] morphine Sulfate 2 mg, 0.2 mL, Route: IVP, Drug form: INJ, Q4H, kg, PRN Pain Score 4-6, Start date: 02/17/12 20:24:00, Duration: 30 day, Stop date: 03/18/12 20:23:00 IVP No Longer Active Suzy 02/18/2012 [facility] Phenergan 25 mg oral tablet 0.5-1 tab, PO, Q4H, PRN, 15 tab, Nausea, Substitution Allowed PO Active 02/18/2012 [facility] Bentyl 20 mg oral tablet 20 mg, 1 tab, PO, QID, PRN, 40 tab, stomach pain, Substitution Allowed, TAB PO Active 02/18/2012 [facility] Mobic 7.5 mg oral tablet 7.5 mg, 1 tab, PO, Daily, PRN, 30 tab, pain, Substitution Allowed, TAB PO Active 02/18/2012 [facility] cyanocobalamin 1,000 microgram, IM, Q30D, Substitution Allowed IM Active 02/18/2012 [facility] Vitamin D3 2000 intl units oral capsule 2,000 IntlUnit, 1 cap, PO, Bedtime, Substitution Allowed PO Active 02/18/2012 [facility] Estrace 1 mg oral tablet 1 mg, 1 tab, PO, Bedtime, 30 tab, Substitution Allowed, TAB PO Active 02/18/2012 [facility] Medrol 8 mg oral tablet 8 mg, 1 tab, PO, QNoon, 10 tab, Substitution Allowed, TAB PO Active 02/18/2012 [facility] Synthroid 75 mcg (0.075 mg) oral tablet 75 microgram, 1 tab, PO, Daily, 30 tab, Substitution Allowed, TAB PO Active 02/18/2012 [facility] metoprolol tartrate 25 mg, 1 tab, Route: PO, Drug form: TAB, ONCE, kg, Priority: STAT, Start date: 02/17/12 18:53:00, Stop date: 02/17/12 18:53:00 PO No Longer Active [place] 02/17/2012 [facility] Saline Flush 0.9% 5 ml, Route: IVP, Drug Form: INJ, kg, PRN, PRN Line Flush, Start date: 02/17/12 16:23:00, Duration: 24 hr, Stop date: 02/18/12 16:22:00 IVP No Longer Active Sharron 02/17/2012 [facility] Allergies, Adverse Reactions, Alerts Substance Category Reaction Severity Reaction type Status Date Reported Comments Source amoxicillin<sup>1</sup> Assertion Drug allergy Active 12/01/2012 1Data migrated from [employer] on 10/26/14. Originally documented as AMOXICILLIN. [facility] [place] azithromycin<sup>2</sup> Assertion Drug allergy Active 12/01/2012 2Data migrated from [employer] on 10/26/14. Originally documented as ZITHROMAX. [facility] [place] baclofen<sup>3</sup> Assertion Drug allergy Active 12/01/2012 3Data migrated from [employer] on 10/26/14. Originally documented as BACLOFEN. [facility] [place] cephalexin<sup>4</sup> Assertion Drug allergy Active 12/01/2012 4Data migrated from [employer] on 10/26/14. Originally documented as KEFLEX. [facility] [place] chlorzoxazone<sup>5</sup> Assertion Drug allergy Active 12/01/2012 5Data migrated from [employer] on 10/26/14. Originally documented as PARAFON FORTE. [facility] [place] hydrochlorothiazide-triamterene<sup>6</sup> Assertion Drug allergy Active 12/01/2012 6Data migrated from [employer] on 10/26/14. Originally documented as DYAZIDE. [facility] [place] hydroxychloroquine<sup>7</sup> Assertion Drug allergy Active 12/01/2012 7Data migrated from [employer] on 10/26/14. Originally documented as PLAQUENIL. [facility] [place] lamoTRIgine<sup>8</sup> Assertion Drug allergy Active 12/01/2012 8Data migrated from [employer] on 10/26/14. Originally documented as LAMICTAL. [facility] [place] metroNIDAZOLE<sup>9</sup> Assertion Drug allergy Active 12/01/2012 9Data migrated from [employer] on 10/26/14. Originally documented as FLAGYL. [facility] [place] pregabalin<sup>10</sup> Assertion Drug allergy Active 12/01/2012 10Data migrated from [employer] on 10/26/14. Originally documented as LYRICA. [facility] [place] sulfa drugs<sup>1</sup> Assertion Drug allergy Active 12/01/2012 Data migrated from [employer] on 01/25/15. Originally documented as SULFA. [place] amoxicillin<sup>2</sup> Assertion Drug allergy Active 12/01/2012 Data migrated from [employer] on 10/26/14. Originally documented as AMOXICILLIN. [place] azithromycin<sup>3</sup> Assertion Drug allergy Active 12/01/2012 Data migrated from [employer] on 10/26/14. Originally documented as ZITHROMAX. [place] baclofen<sup>5</sup> Assertion Drug allergy Active 12/01/2012 Data migrated from [employer] on 10/26/14. Originally documented as BACLOFEN. [place] chlorzoxazone<sup>8</sup> Assertion Drug allergy Active 12/01/2012 Data migrated from [employer] on 10/26/14. Originally documented as PARAFON FORTE. [place] pregabalin<sup>9</sup> Assertion Drug allergy Active 12/01/2012 Data migrated from [employer] on 10/26/14. Originally documented as LYRICA. [place] metroNIDAZOLE<sup>10</sup> Assertion Drug allergy Active 12/01/2012 Data migrated from [employer] on 10/26/14. Originally documented as FLAGYL. [facility] lamoTRIgine<sup>11</sup> Assertion Drug allergy Active 12/01/2012 Data migrated from [employer] on 10/26/14. Originally documented as LAMICTAL. [facility] sulfa drugs<sup>11</sup> Assertion Drug allergy Active 12/01/2012 Data migrated from [employer] on 01/25/15. Originally documented as SULFA. [facility] [place] amoxicillin drug allergy Allergy Active [facility] [place] aspirin Assertion Stomach ulcer, NOS Propensity to adverse reactions to drug Active [facility] [place] baclofen Assertion Drug allergy Active [facility] [place] ciprofloxacin Assertion Drug allergy Active [facility] [place] colistin/HC/neomycin/thonzonium otic Assertion Drug allergy Active [facility] [place] Dexilant Assertion Palpitations, Headache, NOS Propensity to adverse reactions to drug Active [facility] [place] Dyazide Assertion Drug allergy Active [facility] [place] Elavil Assertion Drug allergy Active [facility] [place] etherified starches Assertion Drug allergy Active [facility] [place] Flagyl Assertion Drug allergy Active [facility] [place] gentamicin Assertion Drug allergy Active [facility] [place] halothane Assertion Drug allergy Active [facility] [place] Histussin D Assertion Histussin- HC Drug allergy Active [facility] [place] Keflex Assertion Drug allergy Active [facility] [place] LaMICtal Assertion Drug allergy Active [facility] [place] Lasix Assertion Drug allergy Active [facility] [place] Lopressor Assertion Nausea and vomiting Propensity to adverse reactions to drug Active [facility] [place] Lyrica Assertion Drug allergy Active [facility] [place] methoxyflurane Assertion Drug allergy Active [facility] [place] morphine Assertion Nausea and vomiting Propensity to adverse reactions to drug Active [facility] [place] neomycin Assertion Drug allergy Active [facility] [place] Parafon Forte DSC Assertion Drug allergy Active [facility] [place] Plaquenil Sulfate Assertion Drug allergy Active [facility] [place] procainamide Assertion Drug allergy Active [facility] [place] Pronestyl Assertion Drug allergy Active [facility] [place] quiNIDine Assertion Propensity to adverse reactions to substance Active [facility] [place] quiNINE Assertion Tonic water (substance), Tonic water (substance), Tonic water (substance) Propensity to adverse reactions to substance Active [facility] [place] streptomycin Assertion Drug allergy Active [facility] [place] sulfonamides Assertion Severe Drug allergy Active [facility] [place] vancomycin Assertion Drug allergy Active [facility] [place] Zithromax Assertion Drug allergy Active [facility] [place] Immunizations Immunization Date Given Site Status Last [...] - This report was dictated by a Industrial Gas Fitter Helper/Fellow. I have personally reviewed the images as well as the Resident's interpretation and agree with the findings. Read by: David Castillo MD Resident: David Castillo MD Dictated Date/time: 09/21/17 16:00 Electronically Signed by: Walter Bañuelos MD 09/21/17 16:34 FINAL REPORT [facility] Stereo Breast BX Uni /Clip Primary SD MA Stereo Breast BX Uni /Clip Primary SD MA STEREOTACTIC GUIDED BIOPSY LEFT BREAST WITH MARKING [...] 09/26/2015 mammogram, 08/14/2014 mammogram, 01/23/2014 mammogram - [facility], and 06/15/2013 mammogram - [facility]. A stereotactic guided biopsy was performed [...] is recommended.(05/25/2018) This exam was interpreted at [id number] for [facility]. Jany sint/:06/23/2017 10:38:15 Fourdrinier Machine Operator(s): Monica Flaherty, [facility] letter sent: Post Bx Results 06/18/2017 - - Read by: Jany Patel MD Dictated Date/time: 06/23/17 10:38 Electronically Signed by: Jany Patel MD 06/23/17 10:38 FINAL REPORT [facility] Breast Mammo Diag UNI incl CAD MO Breast Mammo Diag UNI incl CAD MA CLINICAL: R92.8/Other Abnormal And Inconclusive Findings On Diagnostic Imaging Of Breast. Current study was evaluated with a Computer Aided Detection (CAD) system. COMPARISON:Comparison is made to exams dated: 05/25/2017 mammogram, 09/26/2015 mammogram, 08/14/2014 mammogram, 01/23/2014 mammogram - [facility], 06/15/2013 mammogram - [facility], and 12/08/2012 mammogram - [facility]. TECHNIQUE: Mammographic views were obtained using digital [...] is recommended. This exam was interpreted at [id number] for [facility]. Jonathon Barlow M.D. cm/penrad:06/11/2017 13:22:59 Fourdrinier Machine Operator(s): Ronna Rowan, RT(R)(M), [facility] letter sent: BI-RADS 4/5 Mammogram BI-RADS: 4b Suspicious abnormality - intermediate suspicion of malignancy 06/11/2017 - - Read by: Gustavo Puga MD Dictated Date/time: 06/11/17 13:22 Electronically Signed by: Gustavo Puga MD 06/11/17 13:22 FINAL REPORT [facility] Breast Mammo Scrn BARRETT incl CAD MO Breast Mammo Scrn BARRETT incl CAD MA BILATERAL DIGITAL SCREENING MAMMOGRAM WITH CAD: 05/25/2017 CLINICAL: Encounter For Screening Mammogram For Malignant Neoplasm Of Breast/Z12.31. Current study was evaluated with a Computer Aided Detection (CAD) system. COMPARISON:Comparison is made to exams dated: 09/26/2015 mammogram, 08/14/2014 mammogram, 01/23/2014 mammogram - [facility], 06/15/2013 mammogram - [facility], 12/08/2012 mammogram, and 06/03/2012 mammogram - [facility]. TECHNIQUE: Mammographic views were obtained using digital [...] are recommended. This exam was interpreted at [id number] for MATTHEW Mobley SL 15. Jonathon Barlow M.D. cm/penrad:05/26/2017 10:51:56 Fourdrinier Machine Operator(s): RT Shanika(R)(M), [facility] letter sent: BI-RADS 0 Mammogram BI-RADS: 0 Indeterminate 05/25/2017 - - Read by: Gustavo Puga MD Dictated Date/time: 05/26/17 10:51 Electronically Signed by: Gustavo Puga MD 05/26/17 10:51 [facility] [place] Bone Density DXA [employer] MA Bone [...] for fracture. This exam was interpreted at [id number] for DADA Johnson 15. Jonathon Barlow M.D. cm/penrad:05/26/2017 09:09:15 Fourdrinier Machine Operator(s): Ronna ABDULLAHI([place])(M), [facility] 05/25/2017 - - Read by: Gustavo Puga MD Dictated Date/time: 05/26/17 09:09 Electronically Signed by: Gustavo Puga MD 05/26/17 09:09 FINAL REPORT [facility] Bone / joint SPECT NM Bone / joint SPECT NM EXAM: NM Bone Joint Imaging Whole Body DATE: 03/23/2017 10:20 AM CDT INDICATION: Thyroid cancer, restaging. - X69-Ntofmku cancer COMPARISON: PET/CT performed on 08/21/2016 TECHNIQUE: [...] - This report was dictated by a Industrial Gas Fitter Helper/Fellow. I have personally reviewed the images as well as the Resident's interpretation and agree with the findings. Read by: Paty Read MD Resident: Paty Read MD Dictated Date/time: 03/24/17 10:36 Electronically Signed by: Brandy Ngo MD 03/24/17 11:31 FINAL REPORT [facility] [place] Bone scan NM Bone scan NM EXAM: NM Bone Joint Imaging Whole Body DATE: 03/23/2017 10:20 AM CDT INDICATION: Thyroid cancer, restaging. - B94-Xljbhuu cancer COMPARISON: PET/CT performed on 08/21/2016 TECHNIQUE: [...] - This report was dictated by a Industrial Gas Fitter Helper/Fellow. I have personally reviewed the images as well as the Resident's interpretation and agree with the findings. Read by: Paty Read MD Resident: Paty Read MD Dictated Date/time: 03/24/17 10:36 Electronically Signed by: Brandy Ngo MD 03/24/17 11:31 FINAL REPORT [facility] URINE AND STOOL UA Blood Negative (10/18/16 1:29 PM) Negative 10/18/2016 [facility] URINE AND STOOL UA Urobilinogen 2.0 mg/dL 0.1 - 1.0 10/18/2016 [facility] URINE AND STOOL UA Nitrite Negative (10/18/16 1:29 PM) Negative 10/18/2016 [facility] URINE AND STOOL UA Sq Epi Many /LPF Few /LPF 10/18/2016 [facility] URINE AND STOOL UA Leuk Est Negative (10/18/16 1:29 PM) Negative 10/18/2016 [facility] URINE AND STOOL UA pH 5.0 5.0 - 8.0 10/18/2016 [facility] URINE AND STOOL UA Protein 30 mg/dL Negative mg/dL 10/18/2016 [facility] URINE AND STOOL UA Glucose Negative mg/dL Negative mg/dL 10/18/2016 [facility] URINE AND STOOL UA Ketones Trace mg/dL Negative mg/dL 10/18/2016 [facility] URINE AND STOOL UA Bili Moderate *ABN* (10/18/16 1:29 PM) Negative 10/18/2016 [facility] URINE AND STOOL UA Color Lachelle 10/18/2016 [facility] URINE AND STOOL UA WBC 2 /HPF 0 - 5 10/18/2016 [facility] URINE AND STOOL UA Mucus Many /LPF None Seen /LPF 10/18/2016 [facility] URINE AND STOOL UA CaOx Darby Occasional /HPF None Seen /HPF 10/18/2016 [facility] URINE AND STOOL UA Hyal Cast 3 /LPF 0 - 2 10/18/2016 [facility] URINE AND STOOL UA Spec Grav 1.036 <=1.030 10/18/2016 [facility] URINE AND STOOL UA Turbidity Marked *ABN* (10/18/16 1:29 PM) Clear 10/18/2016 [facility] Spine lumbar wo contrast CT Spine lumbar [...] Evelio Berumen MD 10/18/16 17:46 FINAL REPORT [facility] Spine cervical wo contrast CT Spine cervical [...] Evelio Berumen MD 10/18/16 15:43 FINAL REPORT [facility] thoracic wo contrast CT Spine thoracic wo contrast CT EXAM: Spine thoracic wo contrast CT DATE: 10/18/2016 12:09 PM CDT INDICATION: Here with c/o back pain. Reprots she has multiple compression fx and now she is having tingling in her legs. Also reprots abdominal distention - CT DLP 642.53: mgy/cm pfalejandra COMPARISON: CT thoracic spine of 08/21/2016. PET/CT [...] may be performed for complete assessment. SL: [id number] 10/18/2016 - - Read by: Evelio Berumen MD Dictated Date/time: 10/18/16 15:44 Electronically Signed by: Evelio Berumen MD 10/18/16 15:53 FINAL REPORT [facility] Hip 2/3 views uni DX Hip 2/3 views uni DX EXAM: Left hip HISTORY: Left hip pain COMPARISON: None TECHNIQUE: 2 views left hip FINDINGS/IMPRESSION: Normal alignment of the left hip without fracture seen. Minimal osteoarthritis of the hip. Generalized osteopenia. SL: [id number] 10/18/2016 - - Read by: Chau Mahmood MD Dictated Date/time: 10/18/16 13:06 Electronically Signed by: Chau Mahmood MD 10/18/16 13:07 FINAL REPORT [facility] Pelvis AP DX Pelvis AP DX EXAM: Pelvis HISTORY: Back and hip pain COMPARISON: 08/21/2016 TECHNIQUE: Frontal view pelvis FINDINGS: No fracture or other acute traumatic injury is seen. Minimal osteoarthritis of the hips. Generalized osteopenia. Stable sclerotic focus L5. SL: [id number] 10/18/2016 - - Read by: Chau Mahmood MD Dictated Date/time: 10/18/16 13:04 Electronically Signed by: Chau Mahmood MD 10/18/16 13:05 FINAL REPORT [facility] PET CT Tumor imaging-whole body PET CT Tumor imaging-whole body PET CT Tumor imaging-whole body TECHNIQUE: 14.3 mCis of FDG were administered intravenously and a series of overlapping images were obtained from the skull base to the proximal thighs utilizing a PET/CT hybrid device. The CT was utilized for attenuation correction and anatomic correlation and not as an independent diagnostic study. WEB=954.65 mGy*cm , CTDIvol=6.10 mGy (WB) 1.95 mGy [...] scan. Correlation with biopsy results is recommended. SL:[id number] 08/21/2016 - - Read by: Sarmad Goddard MD Dictated Date/time: 08/22/16 11:17 Electronically Signed by: Sarmad Goddard MD 08/22/16 11:39 FINAL REPORT [facility] Spine thoracic wo contrast CT Spine thoracic wo contrast CT Patient Name: REBEKAH BLACK : 1960; Age: 55 years y/o Female MR: [id number] Study: Spine thoracic wo contrast CT 08/21/2016 1:21 PM BATTERY INSTALLER Ordering Physician: Jason Roach MD Clinical Indication: [...] Severo Aguilera MD 08/21/16 19:17 FINAL REPORT [facility] Chest 2 views DX Chest 2 views DX EXAM: XR CHEST 2 VIEWS DATE: 05/27/2016 2:16 PM BATTERY INSTALLER INDICATION: R06.00 Dyspnea, unspecified COMPARISON: CT chest [...] Gwyn Stearns MD 05/27/16 15:31 FINAL REPORT [facility] Spine lumbar series DX Spine lumbar series [...] - This report was dictated by a Industrial Gas Fitter Helper/Fellow. I have personally reviewed the images as well as the Resident's interpretation and agree with the findings. Read by: Feliz Ponce MD Resident: Feliz Ponce MD Dictated Date/time: 05/27/16 15:18 Electronically Signed by: Lisbeth Reyna MD 05/27/16 17:54 FINAL REPORT [facility] Ribs unilateral DX Ribs unilateral DX EXAM: XR RIGHT RIB 4 VIEWS DATE: 05/27/2016 2:16 PM BATTERY INSTALLER INDICATION: R07.89 Other chest pain COMPARISON: None [...] Doug Cason MD 05/27/16 16:05 FINAL REPORT [facility] Bone Density DXA [employer] MA Bone [...] This exam was dictated and interpreted by [id number] for [facility]. Sara Viera M.D. ms/penrad:01/09/2016 12:55:52 Fourdrinier Machine Operator: Mireya ABDULLAHI(Daylin)(Aren), [facility] 01/07/2016 - - Read by: Sara Viera [...] Zuri Collins MD 04/23/15 13:33 FINAL REPORT [facility] Knee 1-2 Views Bilateral DX Knee 1-2 [...] Wero Gregory MD 04/23/15 14:14 FINAL REPORT [facility] Tibia fibula series Tibia fibula series LEFT [...] Ruelas MD 02/24/14 15:38 FINAL REPORT [facility] Abdomen/Pelvis w IV contrast CT Abdomen/Pelvis w [...] obtained for additional diagnostic information. Total exam TKR=514 mGy-cm. Note that patient refused oral contrast. [...] Luong MD 02/20/14 15:47 FINAL REPORT JAM[facility] [place] Liver w Liver vessels Doppler US Liver [...] Enrique Luong MD 02/20/14 11:48 FINAL REPORT [facility]THEW ASKEW [place] Abdomen AP view Abdomen AP view HISTORY: Abdominal distention TECHNIQUE: KUB COMPARISON: None FINDINGS: No obvious free intraperitoneal air. Nonobstructive bowel gas pattern. Moderate stool burden in the large bowel. Surgical clips seen in the right upper quadrant. No abnormal calcifications. No acute osseous abnormalities. IMPRESSION: No acute abnormality. 02/13/2014 - - Read by: Felisa Ncihols MD Dictated Date/time: 02/13/14 15:57 Electronically Signed by: Felisa Nichols MD 02/13/14 15:59 FINAL REPORT [facility] [place] Breast US Breast US - DIGITAL MAMMO DX BARRETT MA - BREAST US BILATERAL DIGITAL DIAGNOSTIC MAMMOGRAM WITH CAD AND TARGETED BILATERAL ULTRASOUND: 01/23/2014 CLINICAL: Mammographic Abnormality. Current study was evaluated with a Computer Aided Detection (CAD) system. Comparison is made to exams dated: 06/15/2013 ultrasound, 06/15/2013 mammogram - [facility], 12/08/2012 ultrasound, 12/08/2012 mammogram - [facility], 06/09/2012 ultrasound biopsy and 06/09/2012 ultrasound biopsy - [facility]. The tissue of both [...] Dr. Luis Enrique Luong M.D. sl/:01/23/2014 13:50:03 Fourdrinier Machine Operator: Jaqueline ABDULLAHI(R)(Aren), [facility] [place] This exam was dictated and interpreted by [id number] for MATTHEW [facility]. letter sent: Followup Mammogram BI-RADS: 3 Probably benign Ultrasound BI-RADS: 3 Probably benign 01/23/2014 - - Read by: Luis Enrique Luong MD Dictated Date/time: 01/23/14 13:50 Electronically Signed by: Luis Enrique Luong MD 01/23/14 13:50 FINAL REPORT MATTHEW JAMIL[facility] Digital Mammo DX [place] Digital Mammo DX [place] - DIGITAL MAMMO DX [place] MA - BREAST US BILATERAL DIGITAL DIAGNOSTIC MAMMOGRAM WITH CAD AND TARGETED BILATERAL ULTRASOUND: 01/23/2014 CLINICAL: Mammographic Abnormality. Current study was evaluated with a Computer Aided Detection (CAD) system. Comparison is made to exams dated: 06/15/2013 ultrasound, 06/15/2013 mammogram - [facility], 12/08/2012 ultrasound, 12/08/2012 mammogram - [facility], 06/09/2012 ultrasound biopsy and 06/09/2012 ultrasound biopsy - [facility]. The tissue of both [...] Dr. Luis Enrique Luong M.D. sl/:01/23/2014 13:50:03 Fourdrinier Machine Operator: Jaqueline ABDULLAHI(R)(Aren), [facility] This exam was dictated and interpreted by [id number] for MATTHEW [facility]. letter sent: Followup Mammogram BI-RADS: 3 Probably benign Ultrasound BI-RADS: 3 Probably benign 01/23/2014 - - Read by: Luis Enrique Luong MD Dictated Date/time: 01/23/14 13:50 Electronically Signed by: Luis Enrique Luong MD 01/23/14 13:50 FINAL REPORT [facility] Abdomen complete w Pelvis US Abdomen [...] Wharton MD 01/05/14 15:58 FINAL REPORT [facility] [place] Hand AP lateral oblique Hand AP lateral [...] Luong MD 10/12/13 11:23 FINAL REPORT [facility] Brain w/wo contrast CT Brain w/wo contrast [...] Bharat Wharton MD 08/25/13 14:15 FINAL REPORT [facility] Breast US Breast US - BREAST [...] demonstrate stability. SL: 15 Karen posada/:06/15/2013 19:30:39 Fourdrinier Machine Operator: Jeimy Beaulieu [facility] This exam was dictated and interpreted by [id number] for DADA Johnson 15. letter sent: Followup [...] exams dated: 12/08/2012 mammogram, 06/03/2012 mammogram - [facility], 05/27/2012 mammogram, 05/12/2012 mammogram - [facility] and 04/24/2011 mammogram - [facility]. The tissue of both breasts is heterogeneously [...] and retroareolar lesions. Dictation code: 15. Karen Leahy M.D. [facility]/:06/15/2013 19:06:52 Fourdrinier Machine Operator: Brittany Jaffe [facility] [place] This exam was dictated and interpreted by [id number] for DADA Johnson. Mammogram BI-RADS: 0 Indeterminate 06/15/2013 - - [...] 1321 hrs. 04/04/2013 - - Read by: Teer Mccollum Dictated Date/time: 04/04/13 12:01 Electronically Signed by: Tere Mccollum , DO 04/04/13 13:23 FINAL REPORT [facility] Breast US Breast US - BREAST US/L ULTRASOUND OF THE LEFT BREAST : 12/08/2012 CLINICAL: Abnormal Mammo breast mass follow up. Comparison is made to exams dated: 12/08/2012 mammogram - [facility], 06/09/2012 ultrasound biopsy, 06/09/2012 ultrasound biopsy - [facility], 06/03/2012 ultrasound biopsy, 06/03/2012 mammogram - [facility] and 05/27/2012 ultrasound - [facility]. Color flow and real-time ultrasound were performed [...] were reviewed with the patient. SL: 13. Jany yost/:12/08/2012 14:18:49 Fourdrinier Machine Operator[facility]: Followup Ultrasound BI-RADS: 3 Probably benign 12/08/2012 - - Read by: Jany Patel Dictated Date/time: 12/08/12 14:18 Electronically Signed by: Jany Patel MD 12/08/12 14:18 FINAL REPORT [facility] Digital Mammo DX [place] Digital Mammo DX [place] - DIGITAL MAMMO DX [place] MA BILATERAL DIGITAL DIAGNOSTIC MAMMOGRAM WITH CAD: 12/08/2012 CLINICAL: Mammographic Abnormality benign biopsy follow up. Current study was evaluated with a Computer Aided Detection (CAD) system. Comparison is made to exams dated: 06/03/2012 mammogram - [facility], 05/27/2012 mammogram, 05/12/2012 mammogram - [facility], 04/24/2011 mammogram - [facility], 06/09/2012 ultrasound biopsy and 06/09/2012 ultrasound biopsy - [facility]. The tissue of both [...] breast biopsy sites will be reevaluated. SL: Ed[place]. Jany yost/:12/08/2012 14:13:20 Fourdrinier Machine Operator: Danielle Jeffrey [facility] Mammogram BI-RADS: 0 Indeterminate 12/08/2012 - - Read by: Jany Patel Dictated Date/time: 12/08/12 14:13 Electronically Signed by: Jany Patel MD 12/08/12 14:13 FINAL REPORT [facility] Brain w/wo contrast MRI Brain w/wo contrast [...] REPORT JAMIL[facility] Microbiology Culture: Anaerobic 09/30/2012 [facility] Microbiology Culture: Wound/Abscess w/Gram Stain 09/30/2012 [facility] HEMATOLOGY PTT 36.2 s 22.9 - 35.8 09/29/2012 [place] 2Interpretive Data: Heparin Therapeutic Range: 57 - 92 Seconds [facility] HEMATOLOGY PT 19.0 s 12.0 - 14.7 09/29/2012 [facility] HEMATOLOGY INR 1.58 0.85 - 1.17 09/29/2012 [place] 1Interpretive Data: RECOMMENDED RANGES FOR PROTIME INR: 2.0-3.0 for most medical and surgical thromboembolic states. 2.5-3.5 for artificial heart valves and recurrent embolism. INR SHOULD BE USED ONLY FOR PATIENTS ON STABLE ANTICOAGULANT THERAPY. [facility] CHEMISTRY eGFR 75 mL/min/1.73m2 04/22/2012 NA 1Result [...] should be multiplied by the estimated BMI. [facility] CHEMISTRY BUN 9 mg/dL 7 - 22 04/22/2012 Normal [facility] CHEMISTRY Glucose Lvl 89 mg/dL 70 - 99 04/22/2012 Normal 2Interpretive Data: Adult reference range values reflect the clinical guidelines of the [place] [employer]. [facility] CHEMISTRY Sodium Lvl 143 meq/L 135 - 145 04/22/2012 Normal [facility] CHEMISTRY Creatinine Lvl 0.9 mg/dL 0.5 - 1.4 04/22/2012 Normal [facility] CHEMISTRY Potassium Lvl 3.6 meq/L 3.5 - 5.1 04/22/2012 Normal [facility] CHEMISTRY Calcium Lvl 8.9 mg/dL 8.5 - 10.5 04/22/2012 Normal [facility] CHEMISTRY CO2 27 meq/L 24 - 32 04/22/2012 Normal [facility] CHEMISTRY Chloride Lvl 107 meq/L 95 - 109 04/22/2012 Normal [facility] CHEMISTRY AGAP 12.6 meq/L 10.0 - 20.0 04/22/2012 Normal [facility] HEMATOLOGY Eosinophils 0.6 % 0.0 - 4.0 04/22/2012 Normal [facility] HEMATOLOGY Segs-Bands # 7.9 K/CMM 1.5 - 8.1 04/22/2012 Normal [facility] HEMATOLOGY Basophils 0.5 % 0.0 - 1.0 04/22/2012 Normal [facility] HEMATOLOGY Monocytes # 0.7 K/CMM 0.0 - 0.8 04/22/2012 Normal [facility] HEMATOLOGY Monocytes 6.2 % 2.0 - 12.0 04/22/2012 Normal [facility] HEMATOLOGY Eosinophils # 0.1 K/CMM 0.0 - 0.5 04/22/2012 Normal [facility] HEMATOLOGY Lymphocytes # 2.6 K/CMM 1.0 - 5.5 04/22/2012 Normal [facility] HEMATOLOGY Basophils # 0.1 K/CMM 0.0 - 0.2 04/22/2012 Normal [facility] HEMATOLOGY Lymphocytes 23.0 % 20.0 - 40.0 04/22/2012 Normal [facility] HEMATOLOGY Segs 69.7 % 45.0 - 75.0 04/22/2012 Normal [facility] HEMATOLOGY MCH 32.7 pg 27.0 - 31.0 04/22/2012 [facility] HEMATOLOGY WBC 11.3 K/CMM 3.7 - 10.4 04/22/2012 HI [facility] HEMATOLOGY Hgb 14.0 g/dL 12.0 - 16.0 04/22/2012 Normal [facility] HEMATOLOGY RBC 4.28 M/CMM 4.20 - 5.40 04/22/2012 Normal [facility] HEMATOLOGY RDW 14.6 % 11.5 - 14.5 04/22/2012 HI [facility] HEMATOLOGY MCHC 34.1 g/dL 32.0 - 36.0 04/22/2012 Normal [facility] HEMATOLOGY MCV 95.9 fL 81.0 - 99.0 04/22/2012 Normal [facility] HEMATOLOGY Hct 41.1 % 36.0 - 48.0 04/22/2012 Normal [facility] HEMATOLOGY MPV 8.4 fL 7.4 - 10.4 04/22/2012 Normal [facility] HEMATOLOGY Platelet 236 K/CMM 133 - 450 04/22/2012 Normal [facility] CHEMISTRY Chloride Lvl 105 meq/L 95 - 109 02/26/2012 Normal [facility] CHEMISTRY CO2 30 meq/L 24 - 32 02/26/2012 Normal [facility] CHEMISTRY Potassium Lvl 3.3 meq/L 3.5 - 5.1 02/26/2012 LOW [facility] CHEMISTRY Sodium Lvl 140 meq/L 135 - 145 02/26/2012 Normal [facility] CHEMISTRY Creatinine Lvl 0.8 mg/dL 0.5 - 1.4 02/26/2012 Normal [facility] CHEMISTRY Calcium Lvl 8.7 mg/dL 8.5 - 10.5 02/26/2012 Normal [facility] CHEMISTRY Glucose Lvl 87 mg/dL 70 - 99 02/26/2012 Normal 1Interpretive Data: Adult reference range values reflect the clinical guidelines of the [place] [employer]. [facility] CHEMISTRY BUN 16 mg/dL 7 - 22 02/26/2012 Normal [facility] CHEMISTRY AGAP 8.3 meq/L 10.0 - 20.0 02/26/2012 LOW [facility] HEMATOLOGY INR 0.86 0.85 - 1.17 02/26/2012 Normal 2Interpretive Data: RECOMMENDED RANGES FOR PROTIME INR: 2.0-3.0 for most medical and surgical thromboembolic states. 2.5-3.5 for artificial heart valves and recurrent embolism. INR SHOULD BE USED ONLY FOR PATIENTS ON STABLE ANTICOAGULANT THERAPY. [facility] HEMATOLOGY PT 11.9 s 12.0 - 14.7 02/26/2012 LOW [facility] HEMATOLOGY PTT 25.4 s 22.9 - 35.8 02/26/2012 Normal 3Interpretive Data: Heparin Therapeutic Range: 57 - 92 Seconds [facility] HEMATOLOGY MPV 7.9 fL 7.4 - 10.4 02/26/2012 Normal [facility] HEMATOLOGY RDW 14.6 % 11.5 - 14.5 02/26/2012 [facility] HEMATOLOGY Platelet 219 K/CMM 133 - 450 02/26/2012 Normal [facility] HEMATOLOGY MCHC 33.8 g/dL 32.0 - 36.0 02/26/2012 Normal [facility] HEMATOLOGY RBC 4.36 M/CMM 4.20 - 5.40 02/26/2012 Normal [facility] HEMATOLOGY WBC 12.0 K/CMM 3.7 - 10.4 02/26/2012 [facility] HEMATOLOGY MCH 32.0 pg 27.0 - 31.0 02/26/2012 [facility] HEMATOLOGY MCV 94.8 fL 81.0 - 99.0 02/26/2012 Normal [facility] HEMATOLOGY Hct 41.3 % 36.0 - 48.0 02/26/2012 Normal [facility] HEMATOLOGY Hgb 14.0 g/dL 12.0 - 16.0 02/26/2012 Normal [facility] HEMATOLOGY Basophils # 0.0 K/CMM 0.0 - 0.2 02/26/2012 Normal [facility] HEMATOLOGY Eosinophils # 0.1 K/CMM 0.0 - 0.5 02/26/2012 Normal [facility] HEMATOLOGY Monocytes 6.2 % 2.0 - 12.0 02/26/2012 Normal [facility] HEMATOLOGY Monocytes # 0.7 K/CMM 0.0 - 0.8 02/26/2012 Normal [facility] HEMATOLOGY Segs-Bands # 8.8 K/CMM 1.5 - 8.1 02/26/2012 [facility] HEMATOLOGY Eosinophils 0.5 % 0.0 - 4.0 02/26/2012 Normal [facility] HEMATOLOGY Basophils 0.2 % 0.0 - 1.0 02/26/2012 Normal [facility] HEMATOLOGY Lymphocytes # 2.4 K/CMM 1.0 - 5.5 02/26/2012 Normal [facility] HEMATOLOGY Segs 73.3 % 45.0 - 75.0 02/26/2012 Normal [facility] HEMATOLOGY Lymphocytes 19.8 % 20.0 - 40.0 02/26/2012 LOW [facility] URINALYSIS UA Urobilinogen <=1.0 mg/dL
*NA*
(02/19/2012 18:00:00) <sup> </sup> 0.1 - 1.0 02/19/[address] [facility] URINALYSIS UA Protein Negative mg/dL (02/19/2012 18:00:00) Negative 02/19/2012 Normal [facility] URINALYSIS UA Bili Negative *NA* (02/19/2012 18:00:00) Negative 02/19/[address] [facility] URINALYSIS UA Ketones Negative mg/dL *NA* (02/19/2012 18:00:00) Negative 02/19/[address] [facility] URINALYSIS UA pH 5.0 5.0 - 8.0 02/19/2012 Normal [facility] URINALYSIS UA Glucose Negative mg/dL *NA* (02/19/2012 18:00:00) Negative 02/19/[address] [facility] URINALYSIS UA Spec Grav 1.019 <=1.030 02/19/2012 Normal [facility] URINALYSIS UA Turbidity Clear (02/19/2012 18:00:00) Clear 02/19/2012 Normal [facility] URINALYSIS UA Color Yellow *NA* (02/19/2012 18:00:00) Yellow 02/19/2012 [facility] URINALYSIS UA RBC 1 /HPF 0 - 2 02/19/2012 Normal [facility] URINALYSIS UA Hyal Cast 3 /LPF 0 - 2 02/19/2012 [facility] URINALYSIS UA Mucus Few /LPF *NA* (02/19/2012 18:00:00) None Seen 02/19/[address] [facility] URINALYSIS UA Bacteria Occasional /HPF *NA* (02/19/2012 18:00:00) None Seen 02/19/[address] [facility] URINALYSIS UA Sq Epi Few /LPF *NA* (02/19/2012 18:00:00) Few 02/19/[address] [facility] URINALYSIS UA Leuk Est Negative (02/19/2012 18:00:00) Negative 02/19/2012 [facility] URINALYSIS UA WBC 1 /HPF 0 - 5 02/19/2012 Normal [facility] URINALYSIS UA Nitrite Negative (02/19/2012 18:00:00) Negative 02/19/2012 Normal [facility] URINALYSIS UA Blood Negative (02/19/2012 18:00:00) Negative 02/19/2012 Normal [facility] HEMATOLOGY Sed Rate 4 mm/h 0 - 20 02/19/2012 Normal [facility] IMMUNOLOGY FAUSTINO Negative (02/19/2012 14:41:00) Negative 02/19/2012 Normal [facility] IMMUNOLOGY CRP, High Sensitivity 1.0 mg/L 02/19/2012 NA 5Interpretive Data: Low Risk: <1.0 mg/L Average Risk: 1.0 - 3.0 mg/L High Risk: >3.0 mg/L Inflammation: >10.0 mg/L [facility] CHEMISTRY CO2 28 meq/L 24 - 32 02/19/2012 Normal [facility] CHEMISTRY Calcium Lvl 8.4 mg/dL 8.5 - 10.5 02/19/2012 LOW [facility] CHEMISTRY Potassium Lvl 4.1 meq/L 3.5 - 5.1 02/19/2012 Normal [facility] CHEMISTRY Chloride Lvl 103 meq/L 95 - 109 02/19/2012 Normal [facility] CHEMISTRY Sodium Lvl 139 meq/L 135 - 145 02/19/2012 Normal [facility] CHEMISTRY BUN 15 mg/dL 7 - 22 02/19/2012 Normal [facility] CHEMISTRY Glucose Lvl 97 mg/dL 70 - 99 02/19/2012 Normal 1Interpretive Data: Adult reference range values reflect the clinical guidelines of the [place] [employer]. [facility] CHEMISTRY Creatinine Lvl 0.9 mg/dL 0.5 - 1.4 02/19/2012 Normal [facility] CHEMISTRY AGAP 12.1 meq/L 10.0 - 20.0 02/19/2012 Normal [facility] HEMATOLOGY Basophils # 0.0 K/CMM 0.0 - 0.2 02/19/2012 Normal [facility] HEMATOLOGY Eosinophils # 0.0 K/CMM 0.0 - 0.5 02/19/2012 Normal [facility] HEMATOLOGY Monocytes # 0.8 K/CMM 0.0 - 0.8 02/19/2012 Normal [facility] HEMATOLOGY Segs-Bands # 13.0 K/CMM 1.5 - 8.1 02/19/2012 HI [facility] HEMATOLOGY Lymphocytes # 1.8 K/CMM 1.0 - 5.5 02/19/2012 Normal [facility] HEMATOLOGY Basophils 0.2 % 0.0 - 1.0 02/19/2012 Normal [facility] HEMATOLOGY Eosinophils 0.1 % 0.0 - 4.0 02/19/2012 Normal [facility] HEMATOLOGY Lymphocytes 11.8 % 20.0 - 40.0 02/19/2012 LOW [facility] HEMATOLOGY Monocytes 5.1 % 2.0 - 12.0 02/19/2012 Normal [facility] HEMATOLOGY Segs 82.8 % 45.0 - 75.0 02/19/2012 [facility] HEMATOLOGY Hgb 15.2 g/dL 12.0 - 16.0 02/19/2012 Normal [facility] HEMATOLOGY MPV 7.5 fL 7.4 - 10.4 02/19/2012 Normal [facility] HEMATOLOGY Platelet 210 K/CMM 133 - 450 02/19/2012 Normal [facility] HEMATOLOGY MCHC 33.6 g/dL 32.0 - 36.0 02/19/2012 Normal [facility] HEMATOLOGY RDW 14.0 % 11.5 - 14.5 02/19/2012 Normal [facility] HEMATOLOGY Hct 45.3 % 36.0 - 48.0 02/19/2012 Normal [facility] HEMATOLOGY MCV 94.1 fL 81.0 - 99.0 02/19/2012 Normal [facility] HEMATOLOGY MCH 31.6 pg 27.0 - 31.0 02/19/2012 [facility] HEMATOLOGY WBC 15.7 K/CMM 3.7 - 10.4 02/19/2012 [facility] HEMATOLOGY RBC 4.81 M/CMM 4.20 - 5.40 02/19/2012 Normal [facility] CHEMISTRY TSH 4.050 uIU/mL 0.360 - 3.740 02/18/2012 [facility] HEMATOLOGY Target Cell Slight *ABN* (02/18/2012 14:21:00) None Seen 02/18/2012 [facility] HEMATOLOGY Anisocyte 1+ *ABN* (02/18/2012 14:21:00) None Seen 02/18/2012 [facility] HEMATOLOGY Basophils # 0.1 K/CMM 0.0 - 0.2 02/18/2012 Normal [facility] HEMATOLOGY Eosinophils # 0.1 K/CMM 0.0 - 0.5 02/18/2012 Normal [facility] HEMATOLOGY Monocytes # 0.7 K/CMM 0.0 - 0.8 02/18/2012 Normal [facility] HEMATOLOGY Lymphocytes 13.4 % 20.0 - 40.0 02/18/2012 LOW [facility] HEMATOLOGY Monocytes 4.1 % 2.0 - 12.0 02/18/2012 Normal [facility] HEMATOLOGY Segs-Bands # 13.4 K/CMM 1.5 - 8.1 02/18/2012 [facility] HEMATOLOGY Lymphocytes # 2.2 K/CMM 1.0 - 5.5 02/18/2012 Normal [facility] HEMATOLOGY Eosinophils 0.4 % 0.0 - 4.0 02/18/2012 Normal [facility] HEMATOLOGY Basophils 0.3 % 0.0 - 1.0 02/18/2012 Normal [facility] HEMATOLOGY Plt Morph Normal (02/18/2012 14:21:00) 02/18/2012 Normal [facility] HEMATOLOGY Segs 81.8 % 45.0 - 75.0 02/18/2012 [facility] HEMATOLOGY MPV 7.5 fL 7.4 - 10.4 02/18/2012 Normal [facility] HEMATOLOGY Hct 45.4 % 36.0 - 48.0 02/18/2012 Normal [facility] HEMATOLOGY WBC 16.4 K/CMM 3.7 - 10.4 02/18/2012 [facility] HEMATOLOGY RBC 4.81 M/CMM 4.20 - 5.40 02/18/2012 Normal [facility] HEMATOLOGY Hgb 15.4 g/dL 12.0 - 16.0 02/18/2012 Normal [facility] HEMATOLOGY MCV 94.4 fL 81.0 - 99.0 02/18/2012 Normal [facility] HEMATOLOGY MCHC 33.9 g/dL 32.0 - 36.0 02/18/2012 Normal [facility] HEMATOLOGY MCH 32.0 pg 27.0 - 31.0 02/18/2012 [facility] HEMATOLOGY RDW 14.3 % 11.5 - 14.5 02/18/2012 Normal [facility] HEMATOLOGY Platelet 234 K/CMM 133 - 450 02/18/2012 Normal [facility] CHEMISTRY Troponin-I 0.65 ng/mL 0.00 - 0.40 02/18/2012 CRIT 3Result Comment: Critical Result(s) called to Michelle at 02/18/2012 06:37:06 CDT by sdd. Read back OK. [facility] CHEMISTRY Total CK 57 unit/L 12 - 191 02/18/2012 Normal [facility] CHEMISTRY Troponin-I 0.88 ng/mL 0.00 - 0.40 02/18/2012 CRIT 4Result Comment: Critical Result(s) called to Kristel at 02/18/2012 00:06:11 CDT by sdd. Read back OK. [facility] CHEMISTRY Total CK 60 unit/L 12 - 191 02/18/2012 Normal [facility] CHEMISTRY CK MB Index null 0.0 - 2.5 02/17/2012 Normal [facility] CHEMISTRY Potassium Lvl 4.2 meq/L 3.5 - 5.1 02/17/2012 Normal [facility] CHEMISTRY Sodium Lvl 140 meq/L 135 - 145 02/17/2012 Normal [facility] CHEMISTRY Chloride Lvl 104 meq/L 95 - 109 02/17/2012 Normal [facility] CHEMISTRY A/G Ratio 0.8 0.7 - 1.6 02/17/2012 Normal [facility] CHEMISTRY B/C Ratio 16 6 - 25 02/17/2012 Normal [facility] CHEMISTRY Globulin 3.9 g/dL 2.0 - 4.0 02/17/2012 Normal [facility] CHEMISTRY Albumin Lvl 3.3 g/dL 3.5 - 5.0 02/17/2012 LOW [facility] CHEMISTRY AST 19 unit/L 0 - 37 02/17/2012 Normal [facility] CHEMISTRY AGAP 9.2 meq/L 10.0 - 20.0 02/17/2012 LOW [facility] CHEMISTRY Bili Total 0.3 mg/dL 0.2 - 1.3 02/17/2012 Normal [facility] CHEMISTRY Creatinine Lvl 0.9 mg/dL 0.5 - 1.4 02/17/2012 Normal [facility] CHEMISTRY Glucose Lvl 98 mg/dL 70 - 99 02/17/2012 Normal 2Interpretive Data: Adult reference range values reflect the clinical guidelines of the [place] [employer]. [facility] CHEMISTRY BUN 14 mg/dL 7 - 22 02/17/2012 Normal [facility] CHEMISTRY CO2 31 meq/L 24 - 32 02/17/2012 Normal [facility] CHEMISTRY Calcium Lvl 8.5 mg/dL 8.5 - 10.5 02/17/2012 Normal [facility] CHEMISTRY Total Protein 7.2 g/dL 6.4 - 8.4 02/17/2012 Normal [facility] CHEMISTRY ALT 46 unit/L 0 - 65 02/17/2012 Normal [facility] CHEMISTRY Alk Phos 58 unit/L 39 - 136 02/17/2012 Normal [facility] CHEMISTRY CK MB null 0.5 - 3.6 02/17/2012 Normal [facility] CHEMISTRY Total CK 59 unit/L 12 - 191 02/17/2012 Normal [facility] CHEMISTRY Troponin-I 0.06 ng/mL 0.00 - 0.40 02/17/2012 Normal [facility] HEMATOLOGY Plt Morph Normal (02/17/2012 16:19:00) 02/17/2012 Normal [facility] HEMATOLOGY Anisocyte 1+ *ABN* (02/17/2012 16:19:00) None Seen 02/17/2012 ABN [facility] HEMATOLOGY Hyperseg Slight *ABN* (02/17/2012 16:19:00) None Seen 02/17/2012 ABN [facility] HEMATOLOGY Segs 88.6 % 45.0 - 75.0 02/17/2012 HI [facility] HEMATOLOGY Lymphocytes 7.6 % 20.0 - 40.0 02/17/2012 LOW [facility] HEMATOLOGY Basophils 0.2 % 0.0 - 1.0 02/17/2012 Normal [facility] HEMATOLOGY Segs-Bands # 14.2 K/CMM 1.5 - 8.1 02/17/2012 [facility] HEMATOLOGY Eosinophils 0.1 % 0.0 - 4.0 02/17/2012 Normal [facility] HEMATOLOGY Monocytes 3.5 % 2.0 - 12.0 02/17/2012 Normal [facility] HEMATOLOGY Basophils # 0.0 K/CMM 0.0 - 0.2 02/17/2012 Normal [facility] HEMATOLOGY Monocytes # 0.6 K/CMM 0.0 - 0.8 02/17/2012 Normal [facility] HEMATOLOGY Eosinophils # 0.0 K/CMM 0.0 - 0.5 02/17/2012 Normal [facility] HEMATOLOGY Lymphocytes # 1.2 K/CMM 1.0 - 5.5 02/17/2012 Normal [facility] HEMATOLOGY RBC 4.75 M/CMM 4.20 - 5.40 02/17/2012 Normal [facility] HEMATOLOGY MPV 7.9 fL 7.4 - 10.4 02/17/2012 Normal [facility] HEMATOLOGY MCH 31.6 pg 27.0 - 31.0 02/17/2012 [facility] HEMATOLOGY Platelet 229 K/CMM 133 - 450 02/17/2012 Normal [facility] HEMATOLOGY MCHC 33.4 g/dL 32.0 - 36.0 02/17/2012 Normal [facility] HEMATOLOGY RDW 14.1 % 11.5 - 14.5 02/17/2012 Normal [facility] HEMATOLOGY Hct 44.9 % 36.0 - 48.0 02/17/2012 Normal [facility] HEMATOLOGY MCV 94.6 fL 81.0 - 99.0 02/17/2012 Normal [facility] HEMATOLOGY Hgb 15.0 g/dL 12.0 - 16.0 02/17/2012 Normal [facility] HEMATOLOGY WBC 16.3 K/CMM 3.7 - 10.4 02/17/2012 [facility] Vital Signs Vital Sign Value Date Comments Source Respitory Rate 19 10/18/2016 [facility] Heart Rate 81 10/18/2016 [facility] Systolic (mm Hg) 145 10/18/2016 [facility] Diastolic (mm Hg) 79 10/18/2016 [facility] Temperature Oral (F) 98.2 F 10/18/2016 [facility] Height 167.64 cm 10/18/2016 [facility] Weight 60 10/18/2016 [facility] BMI Calculated 21.35 10/18/2016 [facility] Respitory Rate 18 10/18/2016 [facility] Temperature Oral (F) 98.4 F 10/18/2016 [facility] Heart Rate 82 10/18/2016 [facility] Systolic (mm Hg) 151 10/18/2016 [facility] Diastolic (mm Hg) 92 10/18/2016 [facility] Diastolic (mm Hg) 71 09/30/2012 [facility] Systolic (mm Hg) 118 09/30/2012 [facility] Diastolic (mm Hg) 68 09/30/2012 [facility] Systolic (mm Hg) 115 09/30/2012 [facility] Diastolic (mm Hg) 72 09/30/2012 [facility] Systolic (mm Hg) 128 09/30/2012 [facility] Respitory Rate 20 09/30/2012 [facility] Respitory Rate 14 09/30/2012 [facility] Respitory Rate 14 09/30/2012 [facility] Temperature Oral (F) 98.1 F 09/30/2012 [facility] Heart Rate 92 09/29/2012 [facility] Temperature Oral (F) 97.7 F 09/29/2012 [facility] Height 172.72 cm 09/29/2012 [facility] Weight 59.091 09/29/2012 [facility] Respitory Rate 18 04/30/2012 [facility] Diastolic (mm Hg) 77 04/30/2012 [facility] Systolic (mm Hg) 148 04/30/2012 [facility] Systolic (mm Hg) 160 04/30/2012 [facility] Diastolic (mm Hg) 85 04/30/2012 [facility] Respitory Rate 16 04/30/2012 [facility] Systolic (mm Hg) 133 04/30/2012 [facility] Respitory Rate 16 04/30/2012 [facility] Diastolic (mm Hg) 80 04/30/2012 [facility] Heart Rate 92 04/30/2012 [facility] Weight 60.909 04/22/2012 [facility] Height 167.64 [...] 18 02/20/2012 [facility] Heart Rate 80 02/20/2012 [facility] Temperature Oral (F) 97.8 F 02/20/2012 [facility] Temperature Oral (F) 98.2 F 02/20/2012 [facility] Heart Rate 83 02/20/2012 [facility] Respitory Rate 18 02/20/2012 [facility] Systolic (mm Hg) 93 02/20/2012 [facility] Diastolic (mm Hg) 61 02/20/2012 [facility] Height 167.64 cm 02/17/2012 [facility] Weight 60.000 02/17/2012 [facility] Encounters Location Location Details Encounter Type Encounter Number Reason For Visit Attending Provider ADM Date DC Date Status Source [facility] Inpatient [id number] CHEST PAIN NICHOLAS SHARRON 02/18/2012 02/20/2012 [facility] Emergency [id number] ESTELLE PAINTING 02/26/2012 02/26/2012 [facility] DS [id number] KRISH YBARRA 04/30/2012 04/30/2012 [facility] Outpatient [id number] BREAST MASS KRISH YBARRA 06/03/2012 [facility] DS [id number] KAREN GUEVARA 09/30/2012 09/30/2012 [facility] Outpatient [id number] 6 MONTHS FOLLOW UP BILATERAL BREAST MASS SARABJIT AVERY 12/08/2012 [facility] [place] [facility] [id number] Sarabjit Avery 08/25/2013 08/26/2013 [facility] [place] [facility] Outpatient Imaging - [place] Out[facility] [id number] Sarabjit Avery 10/12/2013 10/13/2013 [facility] [place] [facility] Outpatient Imaging - [place] Outpt Diag Services [id number] Nini Gillis 01/05/2014 01/06/2014 [facility] [place] [facility] Outpatient Imaging - [place] Out[facility] [id number] Sarabjit Avery 01/23/2014 01/24/2014 [facility] [place] [facility] Outpatient Imaging - [place] Out[facility] [id number] Sarabjit Avery 02/13/2014 02/14/2014 [facility] [place] [facility] Outpatient Imaging - [place] Out[facility] [id number] Duane Warner 02/20/2014 02/21/2014 [facility] [place] [facility] Outpatient Imaging - [place] Out[facility] [id number] Chikis Dominguez 02/24/2014 02/25/2014 [facility] [place] [facility] Outpatient Imaging - [place] Out[facility] [id number] Gwyn Morris 07/24/2014 07/25/2014 [facility] [place] [facility] Outpatient [facility] - [place] Out[facility] [id number] Carolina Mart 11/03/2014 11/04/2014 [facility] [place] [facility] Outpatient [id number] Lakeisha Sharma 04/23/2015 04/24/2015 [facility] Outpatient [facility] - [place] Out[facility] [id number] Sarabjit Avery 09/26/2015 09/27/2015 [facility] [place] [facility] Outpatient Imaging - [place] Out[facility] [id number] Brandon Delgado 01/07/2016 01/08/2016 [facility] [place] [facility] Outpatient Imaging - [place] Outpt Diag Services [id number] Sarabjit Avery 05/27/2016 05/28/[address] [facility] Outpatient [id number] Jason Roach 08/21/2016 08/22/2016 [facility] Emergency [id number] Karen HernandezBrandin 10/18/2016 10/19/2016 [facility] Outpatient Imaging [place] Outpt Diag Services [id number] Canmeli Urias 03/23/2017 03[place]24/[place] [facility] Outpatient Imaging - [place] Outpt Diag Services [id number] Sarabjit Avery 05/25/2017 05/26/2017 [facility] [place] [facility] Outpatient [facility] - [place] Outpt [facility] Services [id number] Sarabjit Avery 06/11/2017 06/12/2017 [facility] [place] [facility] Outpatient [id number] AVINASH ROSHNI 06/18/2017 06/19/2017 [facility] - [place] Outpt [facility] Services [id number] Sarabjit Avery 09/21/2017 09/22/2017 [facility] Outpatient [id number] BREAST MASS LEFT SIDE 2 AREAS [facility]ISH [facility] Procedures Procedure Code Date Perfomer Comments Source Ablation of atrioventricular node [id number] [facility] Appendectomy [id number] [facility] Catheterization of both left and right heart [id number] [facility] Hysterectomy [id number] [facility] Inguinal herniorrhaphy [id number] [facility] Laparoscopy [id number] [facility] Salpingo-oophorectomy [id number] [facility] Total thyroidectomy [id number] [facility] Ablation of atrioventricular node [id number] [facility] [place] Appendectomy [id number] [facility] [place] Catheterization of both left and right heart [id number] [facility] [place] Hysterectomy [id number] [facility] [place] Inguinal herniorrhaphy [id number] [facility] [place] Laparoscopy [id number] [facility] [place] Salpingo-oophorectomy [id number] [facility] [place] Total thyroidectomy [id number] [facility] [place] Ablation of atrioventricular node [id number] [facility] Appendectomy [id number] [facility] Catheterization of both left and right heart 40966466 [facility] Hysterectomy [id number] [facility] Inguinal herniorrhaphy 17807723 [facility] Laparoscopy 00650319 [facility] Salpingo-oophorectomy [id number] [facility] Total thyroidectomy [id number] [facility] Ablation of atrioventricular node [id number] [facility] [place] Appendectomy [id number] [facility] [place] Catheterization of both left and right heart [id number] [facility] [place] Hysterectomy [id number] [facility] [place] Inguinal herniorrhaphy [id number] [facility] [place] Laparoscopy [id number] [facility] [place] Salpingo-oophorectomy [id number] [facility] [place] Total thyroidectomy [id number] [facility] [place] Ablation of atrioventricular node [id number] [facility] Appendectomy [id number] [facility] Catheterization of both left and right heart [id number] [facility] Hysterectomy [id number] [facility] Inguinal herniorrhaphy 14809113 [facility] Laparoscopy [id number] [facility] Salpingo-oophorectomy [id number] [facility] Total thyroidectomy [id number] [facility] Ablation of atrioventricular node [id number] [facility] [place] Appendectomy [id number] [facility] [place] Catheterization of both left and right heart [id number] [facility] [place] Hysterectomy [id number] [facility] [place] Inguinal herniorrhaphy [id number] [facility] [place] Laparoscopy [id number] [facility] [place] Salpingo-oophorectomy [id number] [facility] [place] Total thyroidectomy [id number] [facility] [place]
[2018-06-15 13:00] VITALS: BP 138/83
== END | disposition home or self-care (01) ==
LOC: OR 10:08
PROVIDERS: ATTEND Ophthalmology
DX: H25.11 Age-related nuclear cataract, right eye (principal); I10 Essential (primary) hypertension; E78.5 Hyperlipidemia, unspecified; K21.9 Gastro-esophageal reflux disease without esophagitis; M32.9 Systemic lupus erythematosus, unspecified; I73.00 Raynaud's syndrome without gangrene; M06.9 Rheumatoid arthritis, unspecified; K50.90 Crohn's disease, unspecified, without complications; I49.9 Cardiac arrhythmia, unspecified; F41.9 Anxiety disorder, unspecified; Z01.812 Encounter for preprocedural laboratory examination; F17.210 Nicotine dependence, cigarettes, uncomplicated; Z95.0 Presence of cardiac pacemaker; Z79.02 Long term (current) use of antithrombotics/antiplatelets; Z88.8 Allergy status to other drugs, medicaments and biological substances; Z91.041 Radiographic dye allergy status
CPT/HCPCS: 36415; 66984; 85025; J2250 ×2; J3490; V2632

== ENCOUNTER 2018-08-22 14:44 | Emergency (ER) | payer BC ==
[~2018-08-22] VITALS: Ht 160 cm; Wt 59.0 kg
[~2018-08-22 14:44] MED LIST changes: -LABETALOL HCL 5 MG/ML 20ML VIAL ONE; -MIDAZOLAM HCL 2 MG/2 ML VIAL ONE; -MIDAZOLAM HCL 5 MG/ML VIAL ONE; -OR PHACO EYE KIT ONE; -PREOP PHACO EYE KIT ONE
[2018-08-22] MEDS ORDERED: SODIUM CHLORIDE 0.9% 1000ML 1,000 ML IV STA (14:51)
--- OUTSIDE RECORDS SUMMARY | 2018-08-22 14:58 | XMS REPORT | Clinical Summary ---
Author Author [employer] Organization [facility] Address Unknown Phone Unavailable Care Team Providers Care Process Stripper Name Role Phone Jorge Avery MD PCP [...] to put in as a separate one [place] Rash Low 01/04/2016 Sulfa (Sulfonamide Nausea And [...] 2012 COLON CANCER SCREENING 2012 SHINGLES VACCINES (#1) 2012 INFLUENZA VACCINE 01/27/2018 Results Not on fileafter 08/21/2017 Insurance Payer Benefit Subscriber ID Type Phone Address Plan / Group MEDICARE MEDICARE xxxxxxxxxx Medicare [place], [place] PART A BCBS BCBS OUT xxxxxxxxxxxx PPO OF STATE Advance Directives Patient has advance care planning documents, and code status on file. For more i nformation, please contact: Deonte Schultz [address] [place] [address] Date Inactivated Comments Code Status Date Activated 03/07/2016 6:32 PM Full Code 03/06/2016 10:58 AM Code Status decision reached by: Patient
[2018-08-22] MEDS ORDERED: ONDANSETRON HCL INJ 2MG/ML 2ML 2 MG/ML VIAL IV NR (15:00)
[2018-08-22] MEDS ORDERED: KETOROLAC TROMETHAMINE 30 MG/ML VIAL IV NR (15:00)
--- OUTSIDE RECORDS SUMMARY | 2018-08-22 15:00 | XMS REPORT | Continuity of Care Document ---
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 Colitis, acute Active 04/03/2014 Problem 08/06/[address] [facility] Pancreatitis Active 04/03/2014 Problem 08/06/[address] [facility] 784.0 - HEADACHE Active 08/25/2013 JAMILAH [place] 415.19 - PULM EMBOL/INFA 451.1 - DEEP PH Active 03/03/2013 JAMILAH Eduardoa Benign tumor of breast<sup>1</sup> Active 12/01/2012 Problem 06/21/2017 Data migrated from [employer] on 11/25/14. [facility] Benign tumor of breast<sup>1</sup> Active 12/01/2012 Problem 06/14/2017 Data migrated from [employer] on 11/25/14. JAMILAH Greene JAMILAH [place] Benign tumor of breast<sup>1</sup> Active 12/01/2012 Problem 12/28/2017 Data migrated from [employer] on 11/25/14. [facility] [place]AH [place] 6 MONTHS FOLLOW UP BILATERAL BREAST M Active 12/01/2012 [facility] UNK Active 09/28/2012 [facility] ICD 882.1 / CPT 17538 Active 09/28/2012 [facility] BREAST MASS Active 06/02/2012 [facility] BREAST MASS LEFT SIDE 2 AREAS Active 06/02/2012 [facility] ICD 550.90 / CPT 12192 Active 03/26/2012 [facility] BLOOD CLOT Active 02/26/2012 [facility] CHEST PAIN Active 02/17/2012 [facility] BILATERAL KNEE PAIN COUGH DYSPNEA Active 06/29/2000 [facility] Chest pain Active Problem 04/09/2013 [facility] [place], [facility] [place] IBS - Irritable bowel syndrome Active Problem 04/09/2013 [facility], [facility] [place] Myasthenia gravis Active Problem 04/09/2013 [facility], [facility] [place] Raynaud's disease Active Problem 04/09/2013 [facility] [place], [facility] [place] Tachycardia Active Problem 04/09/2013 [facility] [place], [facility] [place] Chest pain Active Problem 12/10/2012 [facility] IBS - Irritable bowel syndrome Active Problem 12/10/2012 [facility] Myasthenia gravis Active Problem 12/10/2012 [facility] [place],[facility] Raynaud's disease Active Problem 12/10/2012 [facility], [place] Tachycardia Active Problem 12/10/2012 [facility] Blood clotting disorder<sup>1</sup> Active Problem 11/06/2014 1History of DVT both lower extremities [facility] [place], [facility] [place], [facility] [place] Thyroid cancer<sup>2</sup> Active Problem 11/06/2014 2History of Thyroid ca [facility] [place], [facility] [place], [facility] [place] UTCD Active Problem 07/26/2014 [facility] [place], [place], [facility] [place], [facility] [place] Blood clotting disorder<sup>1</sup> Active Problem 04/09/2013 1History of DVT both lower extremities [facility] [place], [place] Fibromyalgia Active Problem 04/09/2013 [facility] [place], [place] Hypothyroid Active Problem 04/09/2013 [facility] [place], [place] Irregular heart beat Active Problem 04/09/2013 [facility] [place], [place] Numbness Active Problem 04/09/2013 [facility] [place], [place] Rheumatic arteritis Active Problem 04/09/2013 [facility] [place], [place] Thyroid cancer<sup>2</sup> Active Problem 04/09/2013 2History of Thyroid ca [facility] [place], [place] Weakness - general Active Problem 04/09/2013 [facility] [place], [place] Blood clotting disorder<sup>2</sup> Active Problem 06/21/2017 History of DVT both lower extremities [facility], [place] Chest pain Active Problem 06/21/2017 [facility] [place], [facility] [place], [facility] [place], [facility], [place] Fibromyalgia Active Problem 06/21/2017 [facility] [place], [facility] [place], [facility] [place], [facility] Hypothyroid Active Problem 06/21/2017 [facility] [place], [facility] [place], [facility] [place], [facility] IBS - Irritable bowel syndrome Active Problem 06/21/2017 [facility] [place], [facility] [place], [facility] [place], [facility] Irregular heart beat Active Problem 06/21/2017 [facility] [place], [facility] [place], [facility] [place], [facility] Myasthenia gravis Active Problem 06/21/2017 [facility] [place], [facility] [place], [facility] [place], [facility] Numbness Active Problem 06/21/2017 [facility] [place], [facility] [place], [facility] [place], [facility] [place],[facility] Raynaud's disease Active Problem 06/21/2017 [facility] [place], [facility] [place], [facility] [place], [facility] [place],[facility] Rheumatic arteritis Active Problem 06/21/2017 [facility] [place], [facility] [place], [facility] [place], [facility] [place],[facility] Tachycardia Active Problem 06/21/2017 [facility] [place], [facility] [place], [facility] [place], [facility], [place] Thyroid cancer<sup>3</sup> Active Problem 06/21/2017 History of Thyroid ca HENOKD Jc,[facility] Weakness - general Active Problem 06/21/2017 [facility] [place], [facility] [place], [facility] [place], [facility] Blood clotting disorder<sup>2</sup> Active Problem 06/14/2017 History of DVT both lower extremities JMAILAH [place], [facility] [place] Thyroid cancer<sup>3</sup> Active Problem 06/14/2017 History of Thyroid ca JAMILAH [place], [facility] [place] Blood clotting disorder<sup>2</sup> Active Problem 12/28/2017 History of DVT both lower extremities JAMILAH Greene,[facility], [facility] [place] Chest pain Active Problem 12/28/2017 [facility] [place], [facility] [place], [facility] [place], [facility], [facility] [place] Fibromyalgia Active Problem 12/28/2017 [facility] [place], [facility] [place], [facility] [place], [facility], [facility] [place] Hypothyroid Active Problem 12/28/2017 [facility] [place], [facility] [place], [facility] [place], [facility], [facility] [place] IBS - Irritable bowel syndrome Active Problem 12/28/2017 [facility] [place], [facility] [place], [facility] [place], [facility], [facility] [place] Irregular heart beat Active Problem 12/28/2017 [facility] [place], [facility] [place], [facility] [place], [facility], [facility] [place] Myasthenia gravis Active Problem 12/28/2017 [facility] [place], [facility] [place], [facility] [place], [facility] [place],[facility], [facility] [place] Numbness Active Problem 12/28/2017 [place], [facility] [place], [facility] [place], [facility], [facility] [place] Raynaud's disease Active Problem 12/28/2017 [facility] [place], [facility] [place], [facility] [place], [facility], [facility] [place] Rheumatic arteritis Active Problem 12/28/2017 [facility] [place], [facility] [place], [facility] [place], [facility], [facility] [place] Tachycardia Active Problem 12/28/2017 [facility] [place], [facility] [place], [facility] [place], [facility], [facility] [place] Thyroid cancer<sup>3</sup> Active Problem 12/28/2017 History of Thyroid ca HENOKD Jc,[facility], [facility] [place] Weakness - general Active Problem 12/28/2017 [place], [facility] [place], [facility] [place], [facility], [facility] [place] Pain in left foot [facility]/28[facility] [place] CHEST PAIN NOS Active [facility] Medications Medication Details Route Status Patient Instructions Ordering Provider Order Date Source Lorazepam (Ativan) 1 Mg Tablet, 1 Mg Oral Every 8 Hours Active 05/23/[address] [facility] Levothyroxine Sodium 75 Mcg Tablet, 125 Mcg Oral Daily Active 05/20/[address] [facility] Methocarbamol (Robaxin-750) 750 Mg Tablet, 750 Mg Oral Three Times A Day Active 05/20/[address] [facility] Prochlorperazine Maleate 10 Mg Tablet, Unknown Dose Oral Daily Active 12/01/[address] [facility] Dicyclomine Hcl 20 Mg Tablet, 20 Mg Oral Four Times Daily as needed for Pain Active 11/28/[address] [facility] Levsin , Oral As Needed Active 11/28/[address] [facility] Methylprednisolone (Medrol) 8 Mg Tablet, 12 Mg Oral Rt Daily Active 11/28/[address] [facility] Zofran , Oral As Needed Active 11/28/[address] [facility] Valium 5 mg, Route: PO, ONCE, Dosing Weight 60, kg, Priority: STAT, Start date: 10/18/16 12:09:00 CDT, Stop date: 10/18/16 12:09:00 CDT Inactive 10/18/2016 [facility] Lansoprazole (Prevacid) 15 Mg Tab.rap.dr, 15 Mg Oral Twice A Day Active 06/07/[address] [facility] Levothyroxine Sodium (Synthroid) 75 Mcg Tab, 75 Mcg Oral Active 06/07/[address] [facility] Tramadol/Acetaminophen (Tramadol-Acetaminophn 37.5-325) 1 Ea Tab, 1 Tab Oral Twice A Day Active 06/07/[address] [facility] Levothyroxine Sodium 88 Mcg Tablet, 88 Mcg Oral Daily Active 05/31/[address] [facility] Levothyroxine Sodium (Synthroid) 88 Mcg Tablet, 112 Mcg Oral Daily Active 05/17/[address] [facility] Amoxicillin 875 Mg Tablet, 875 Mg Oral Twice A Day Active 03/14/[address] [facility] Diphenhydramine Hcl (Benadryl) 25 Mg Capsule, 25 Mg Oral Active 03/14/[address] [facility] Vasu/Polymyx B Sulf/Dexameth (Maxitrol Eye Drops) 5 Ml Drops.susp, 1 Drp Each Eye Three Times A Day Active 03/14/[address] [facility] B12 , Injection Monthly Active 12/11/[address] [facility] Cholecalciferol (Vitamin D3) (Vitamin D) 5,000 Unit Tablet, 5000 Unit Oral Daily Active 12/11/[address] [facility] Acetaminophen With Codeine (Tylenol With Codeine #3 Tablet) 1 Each Tablet, 0.5 Tab Oral Daily Active 11/18/[address] [facility] Dicyclomine Hcl (Bentyl) 10 Mg Capsule, 10 Mg Oral Q3hrs Active 11/18/[address] [facility] Cholecalciferol (Vitamin D) 2,000 Unit Capsule, 2000 Unit Oral Daily Active 06/21/[address] [facility] Lorazepam (Ativan) 2 Mg Tablet, 2 Mg Oral At Bedtime Active 06/21/[address] [facility] Methylprednisolone 8 Mg Tablet, 8 Mg Oral Daily Active 06/21/[address] [facility] Warfarin Sodium 1 Mg Tablet, 3.5 Mg Oral Rt Daily Active 06/21/[address] [facility] Cetirizine Hcl (Zyrtec) 5 Mg Tablet, 5 Mg Oral Daily Active 04/30/[address] [facility] Estradiol 1 Mg Tablet, 1 Mg Oral Daily Active 04/30/[address] [facility] Meloxicam (Mobic) 7.5 Mg Tablet, 7.5 Mg Oral Daily as needed Active 04/30/[address] [facility] Promethazine Hcl (Phenergan) 25 Mg Tablet, 25 Mg Oral Every 6 Hours as needed Active 04/30/[address] [facility] Versed 1 mg, Route: IV, PRN, Dosing Weight 59.091, kg, PRN Other -See Comment, Start date: 09/30/12 13:41:00, Duration: 30 day, Stop date: 10/30/12 13:40:00 IV No Longer Active G[place]var[place] 09/30/2012 [facility] promethazine 12.5 mg, Route: IVPB, Q4H, Dosing Weight 59.091, kg, PRN Nausea & Vomiting, Start date: 09/30/12 13:40:00, Duration: 30 day, Stop date: 10/30/12 13:39:00 IVPB No Longer Active G[place]var[place] 09/30/2012 [facility] ondansetron 4 mg, Route: IVP, ONCE, Dosing Weight 59.091, kg, PRN Nausea & Vomiting, Start date: 09/30/12 11:13:00 IVP No Longer Active [place] 09/30/2012 [facility] naloxone 0.04 mg, Route: IVP, Q2MIN, Dosing Weight 59.091, kg, PRN Narcotic Reversal, Start date: 09/30/12 11:13:00, Duration: 8 doses or times, Stop date: Limited # of times IVP No Longer Active Guevara 09/30/2012 [facility] Ofirmev 1,000 mg, Route: IV, Drug form: INJ, ONCE, Dosing Weight 60.909, kg, PRN Pain, for > or=50 kg, Start date: 09/30/12 11:13:00 IV No Longer Active Guevara 09/30/2012 [facility] Carroll 10/325 oral tablet 1 tab, Route: PO, Drug Form: TAB, Dosing Weight 60.909, kg, Q6H, PRN Pain, Start date: 09/30/12 11:13:00, Duration: 30 day, Stop date: 10/30/12 11:12:00 PO No Longer Active Guevara 09/30/2012 [facility] flumazenil 0.2 mg, Route: IVP, PRN, Dosing Weight 59.091, kg, PRN Benzodiazepine Reversal, Initial dose, Start date: 09/30/12 11:13:00, Duration: 30 day, Stop date: 10/30/12 11:12:00 IVP No Longer Active Guevara 09/30/2012 [facility] hydromorphone 0.5 mg, Route: IVP, Q5Min, Dosing Weight 59.091, kg, PRN Pain Score 4-6, Start date: 09/30/12 11:13:00, Duration: 5 doses or times, Stop date: Limited # of times IVP No Longer Active Guevara 09/30/2012 [facility] fentanyl 25 microgram, Route: IVP, Q5Min, Dosing Weight 59.091, kg, PRN Pain Score 4-6, Start date: 09/30/12 11:13:00, Duration: 4 doses or times, Stop date: Limited # of times IVP No Longer Active Guevara 09/30/2012 [facility] clindamycin 600 mg, Route: IVPB, ONCE, Dosing Weight 59.091, kg, Start date: 09/30/12 10:11:00, Stop date: 09/30/12 10:11:00 IVPB No Longer Active Guevara 09/30/2012 [facility] Sodium Chloride 0.9% IV 1000 mL 1,000 mL, Rate: 40 ml/hr, Infuse over: 25 hr, Route: IV, Dosing Weight 59.091 kg, Total Volume: 1,000, Start date: 09/30/12 10:11:00, Duration: 30 day, Stop date: 10/30/12 10:10:00 IV No Longer Active Guevara 09/30/2012 [facility] Coumadin 5 mg oral tablet 5 mg, 1 tab, PO, Daily, 30 tab, Substitution Allowed, TAB PO Active 09/29/2012 [facility] Probiotic Formula oral capsule 1 cap, PO, Daily, Substitution Allowed, Maintenance PO Active 09/29/2012 [facility] amoxicillin-clavulanate 875 mg-125 mg oral tablet Substitution Allowed, Maintenance Active 09/29/2012 [facility] Levaquin 500 mg oral tablet 500 mg, 1 tab, PO, Q24H, 10 tab, Substitution Allowed PO Active 09/29/2012 [facility] Ativan 1 mg oral tablet 1 mg, 1 tab, PO, Bedtime, PRN, 20 tab, Anxiety, Substitution Allowed PO Active 09/29/2012 [facility] Synthroid 88 mcg (0.088 mg) oral tablet 88 microgram, 1 tab, PO, Daily, 30 tab, Substitution Allowed, TAB PO Active 09/29/2012 [facility] Bentyl 10 mg oral capsule 10 mg, 1 cap, PO, Daily, 40 cap, Substitution Allowed, CAP PO Active 09/29/2012 [facility] Inapsine 0.625 mg, 0.25 mL, Route: IVP, Drug form: INJ, ONCE, Dosing Weight 60.909, kg, Start date: 04/30/12 10:21:00, Stop date: 04/30/12 10:21:00 IVP No Longer Active [place] 04/30/2012 [facility] midazolam 2 mg, Route: IVP, ONCE, Dosing Weight 60.909, kg, Priority: STAT, Start date: 04/30/12 9:17:00, Stop date: 04/30/12 9:17:00 IVP No Longer Active Barry 04/30/2012 [facility] naloxone 0.04 mg, 0.04 mL, Route: IVP, Drug form: INJ, Q2MIN, Dosing Weight 60.909, kg, PRN Narcotic Reversal, Start date: 04/30/12 8:55:00, Duration: 8 doses or times, Stop date: Limited # of times IVP No Longer Active Margaret 04/30/2012 [facility] fentanyl 25 microgram, 0.5 mL, Route: IVP, Drug form: INJ, Q5Min, Dosing Weight 60.909, kg, PRN Pain Score 4-6, Start date: 04/30/12 8:55:00, Duration: 4 doses or times, Stop date: Limited # of times IVP No Longer Active Margaret 04/30/2012 [facility] hydromorphone 0.5 mg, 0.25 mL, Route: IVP, Drug form: INJ, Q5Min, Dosing Weight 60.909, kg, PRN Pain Score 4-6, Start date: 04/30/12 8:55:00, Duration: 5 doses or times, Stop date: Limited # of times IVP No Longer Active Daniels 04/30/2012 [facility] flumazenil 0.2 mg, 2 mL, Route: IVP, Drug form: INJ, PRN, Dosing Weight 60.909, kg, PRN Benzodiazepine Reversal, Initial dose, Start date: 04/30/12 8:55:00, Duration: 30 day, Stop date: 05/30/12 7:54:00 IVP No Longer Active Daniels 04/30/2012 [facility] acetaminophen-hydrocodone 325 mg-5 mg oral tablet 2 tab, Route: PO, Drug Form: TAB, Dosing Weight 60.909, kg, Q4H, PRN Pain Score 4-6, Start date: 04/30/12 8:55:00, Duration: 30 day, Stop date: 05/30/12 8:54:00 PO No Longer Active Daniels 04/30/2012 [facility] promethazine + Sodium Chloride 0.9% IV 50 mL 6.25 mg, 0.25 mL, Route: IVPB, Drug form: INJ, ONCE, Dosing Weight 60.909, kg, PRN Nausea & Vomiting, Start date: 04/30/12 8:55:00 IVPB No Longer Active Daniels 04/30/2012 [facility] ondansetron 4 mg, 2 mL, Route: IVP, Drug form: INJ, ONCE, Dosing Weight 60.909, kg, PRN Nausea & Vomiting, Start date: 04/30/12 8:55:00 IVP No Longer Active Daniels 04/30/2012 [facility] hydrALAZINE 5 mg, 0.25 mL, Route: IVP, Drug form: INJ, Q5Min, Dosing Weight 60.909, kg, PRN Elevated BP, Start date: 04/30/12 8:55:00, Duration: 4 doses or times, Stop date: Limited # of times IVP No Longer Active Daniels 04/30/2012 [facility] labetalol 5 mg, 1 mL, Route: IVP, Drug form: INJ, Q5Min, Dosing Weight 60.909, kg, PRN Elevated BP, Start date: 04/30/12 8:55:00, Duration: 5 doses or times, Stop date: Limited # of times IVP No Longer Active Daniels 04/30/2012 [facility] esmolol IV Push 10 mg, 1 mL, Route: IVP, Drug form: INJ, Q5Min, Dosing Weight 60.909, kg, PRN Elevated BP, Start date: 04/30/12 8:55:00, Duration: 5 doses or times, Stop date: Limited # of times IVP No Longer Active Daniels 04/30/2012 [facility] Lactated Ringers Injection IV 1,000 mL 1,000 mL, Rate: 25 ml/hr, Infuse over: 40 hr, Route: IV, kg, Total Volume: 1,000, Start date: 04/30/12 6:40:00, Duration: 1 day, Stop date: 05/01/12 6:39:00 IV No Longer Active Daniels 04/30/2012 [facility] Levaquin 500 mg, 100 mL, Route: IVPB, Drug form: INJ, ONCE, Dosing Weight 60.909, kg, Start date: 04/30/12 6:39:00, Stop date: 04/30/12 6:39:00 IVPB No Longer Active Gelber 04/30/2012 [facility] Lactated Ringers Injection IV 1,000 mL 1,000 mL, Rate: 25 ml/hr, Infuse over: 40 hr, Route: IV, kg, Total Volume: 1,000, Start date: 04/30/12 6:38:00, Duration: 1 day, Stop date: 05/01/12 6:37:00 IV No Longer Active Barry 04/30/2012 [facility] MethylPREDNISolone Dose Pack 4 mg oral tablet As directed on label, PO, Daily, 1 Pack, Substitution Allowed PO Active 04/22/2012 [facility] Vitamin B12 1000 mcg/mL injectable solution 1,000 microgram, 1 ml, IM, qMonth, 10 ml, Substitution Allowed, SOLN IM Active 04/22/2012 [facility] Synthroid 100 mcg (0.1 mg) oral tablet 100 microgram, 1 tab, PO, Daily, 30 tab, Substitution Allowed, TAB PO Active 04/22/2012 [facility] Ultram 50 mg oral tablet 50 mg, 1 tab, PO, Q4H, PRN, 20 tab, pain, Substitution Allowed PO Active Antonio 02/26/2012 [facility] Ultram 50 mg oral tablet 100 mg, Route: PO, Drug form: TAB, ONCE, Dosing Weight 59.091, kg, Priority: STAT, Start date: 02/26/12 11:55:00, Stop date: 02/26/12 11:55:00 PO No Longer Active Antonio 02/26/2012 [facility] metoprolol extended release 25 mg, 1 tab, Route: PO, Drug form: ERTAB, Daily, Start date: 02/19/12 9:00:00, Duration: 30 day, Stop date: 03/19/12 9:00:00 PO No Longer Active Suzy 02/19/2012 [facility] Plavix 75 mg, 1 tab, Route: PO, Drug form: TAB, Daily, kg, Start date: 02/19/12 9:00:00, Duration: 30 day, Stop date: 03/19/12 9:00:00 PO No Longer Active Suzy 02/19/2012 [facility] lisinopril 5 mg, 1 tab, Route: PO, Drug form: TAB, Daily, kg, Start date: 02/19/12 9:00:00, Duration: 30 day, Stop date: 03/19/12 9:00:00 PO No Longer Active Suzy 02/19/2012 [facility] patient's own med:Estradiol 1mg tablet patient's own med:Estradiol 1mg tablet, 1 tab, Drug form: MISC, Route: PO, Bedtime, 02/18/12 21:00:00, Duration: 30 day, Stop date: 03/18/12 21:00:00 PO No Longer Active [facility] 02/19/2012 [facility] patient's own med:Vitamin D 2000 unit tablet patient's own med:Vitamin D 2000 unit tablet, 1 tab, Drug form: MISC, Route: PO, Bedtime, 02/18/12 21:00:00, Duration: 30 day, Stop date: 03/18/12 21:00:00 PO No Longer Active Carlos 02/19/2012 [facility] Estrace 1 mg, 1 tab, Route: PO, Drug form: TAB, Bedtime, kg, Start date: 02/18/12 21:00:00, Duration: 30 day, Stop date: 03/18/12 21:00:00, Patient's Own Meds PO No Longer Active [facility] 02/19/2012 [facility] Vitamin D3 2000 intl units oral tablet 2,000 IntlUnit, 2 tab, Route: PO, Drug form: TAB, Bedtime, kg, Start date: 02/18/12 21:00:00, Duration: 30 day, Stop date: 03/18/12 21:00:00, Patient's Own Meds PO No Longer Active [facility] 02/19/2012 [facility] acetaminophen 500 mg, 1 tab, Route: PO, Drug form: TAB, Q6H, PRN Pain, Start date: 02/18/12 20:18:00, Duration: 30 day, Stop date: 03/19/12 20:17:00 PO No Longer Active Suzy 02/19/2012 [facility] Pravachol 40 mg, 2 tab, Route: PO, Drug form: TAB, QPM, kg, Start date: 02/18/12 17:00:00, Duration: 30 day, Stop date: 03/18/12 17:00:00 PO No Longer Active Suzy 02/18/2012 [facility] Protonix 40 mg, 1 tab, Route: PO, Drug form: ECTAB, Before Dinner, kg, Start date: 02/18/12 16:30:00, Duration: 30 day, Stop date: 03/18/12 16:30:00 PO No Longer Active Suzy 02/18/2012 [facility] aspirin 81 mg, 1 tab, Route: PO, Drug form: CHEWTAB, Daily, kg, Start date: 02/18/12 13:39:00, Duration: 30 day, Stop date: 03/19/12 9:00:00 PO No Longer Active Suzy 02/18/2012 [facility] Prilosec 40 mg, Substitution Allowed Active 02/18/2012 [facility] D5W 1,000 mL 1,000 mL, Rate: 75 ml/hr, Infuse over: 13.3 hr, Route: IV, Dosing Weight 60 kg, Total Volume: 1,000, Start date: 02/18/12 12:30:00, Stop date: 03/19/12 12:29:00 IV No Longer Active Sharron 02/18/2012 [facility] Plavix 300 mg, 1 tab, Route: PO, Drug form: TAB, ONCE, kg, Start date: 02/18/12 12:29:00, Duration: 1 doses or times, Stop date: 02/18/12 12:29:00 PO No Longer Active Suzy 02/18/2012 [facility] Patient's own med:Methylprednisolone 4mg tablet Patient's own med:Methylprednisolone 4mg tablet, 2 tab, Drug form: MISC, Route: PO, QNoon, 02/18/12 12:00:00, Duration: 30 day, Stop date: 03/18/12 12:00:00 PO No Longer Active [facility] 02/18/2012 [facility] Medrol 8 mg, 2 tab, Route: PO, Drug form: TAB, QNoon, kg, Start date: 02/18/12 12:00:00, Duration: 30 day, Stop date: 03/18/12 12:00:00, Patient's Own Meds PO No Longer Active [facility] 02/18/2012 [facility] patient's own med: Synthroid 75 microgram tablet patient's own med: Synthroid 75 microgram tablet, 1 tab, Drug form: MISC, Route: PO, [id number], 02/18/12 6:30:00, Duration: 30 day, Stop date: 03/18/12 6:30:00 PO No Longer Active [facility] 02/18/2012 [facility] Synthroid 75 microgram, 1 tab, Route: PO, Drug form: TAB, Q630AM, kg, Start date: 02/18/12 6:30:00, Duration: 30 day, Stop date: 03/18/12 6:30:00, Patient's Own Meds PO No Longer Active [facility] 02/18/2012 [facility] Protonix 40 mg, Route: IV, Drug form: INJ, ONCE, kg, Priority: NOW, Start date: 02/18/12 0:55:00, Stop date: 02/18/12 0:55:00 IV No Longer Active Suzy 02/18/2012 [facility] Toradol 15 mg/mL injectable solution 15 mg, 1 mL, Route: INJ, Drug form: INJ, Q6H, kg, PRN Pain, Start date: 02/18/12 0:54:00, Duration: 4 day, Stop date: 02/22/12 0:53:00 INJ No Longer Active Suzy 02/18/2012 [facility] Zofran 4 mg, 2 mL, Route: IV, Drug form: INJ, Q4H, kg, PRN as needed for nausea/vomiting, Start date: 02/18/12 0:52:00, Duration: 30 day, Stop date: 03/19/12 0:51:00 IV No Longer Active Suzy 02/18/2012 [facility] Lovenox 40 mg, 0.4 mL, Route: SUB-Q, Drug form: INJ, ONCE, kg, Priority: STAT, Start date: 02/18/12 0:52:00, Stop date: 02/18/12 0:52:00 SUB-Q No Longer Active [facility] 02/18/2012 [facility] Phenergan 12.5 mg, 0.5 tab, Route: PO, Drug form: TAB, Q4H, PRN Nausea, Start date: 02/17/12 23:21:00, Duration: 30 day, Stop date: 03/18/12 23:20:00 PO No Longer Active [facility] 02/18/2012 [facility] Phenergan 25 mg, 1 tab, Route: PO, Drug form: TAB, Q4H, kg, PRN as needed for nausea/vomiting, Start date: 02/17/12 23:07:00, Duration: 30 day, Stop date: 03/18/12 23:06:00 PO No Longer Active [facility] 02/18/2012 [facility] Bentyl 20 mg, 1 tab, Route: PO, Drug form: TAB, QID, kg, PRN Other -See Comment, Start date: 02/17/12 23:07:00, Duration: 30 day, Stop date: 03/18/12 23:06:00, stomach muscle spasms with IBS PO No Longer Active [facility] 02/18/2012 [facility] Mobic 7.5 mg, 1 tab, Route: PO, Drug form: TAB, Daily, kg, PRN Pain, Start date: 02/17/12 23:07:00, Duration: 30 day, Stop date: 03/18/12 23:06:00 PO No Longer Active [facility] 02/18/2012 [facility] Ativan 0.5 mg, 1 tab, Route: PO, Drug form: TAB, Bedtime, kg, PRN Sleep, Start date: 02/17/12 22:31:00, Duration: 30 day, Stop date: 03/18/12 22:30:00 PO No Longer Active [facility] 02/18/2012 [facility] Saline Flush 0.9% 5 ml, Route: IVP, Drug Form: INJ, kg, Q12H, Start date: 02/17/12 21:00:00, Duration: 30 day, Stop date: 03/18/12 9:00:00 IVP No Longer Active [facility] 02/18/2012 [facility] aspirin 81 mg tablet, enteric coated 81 mg, 1 tab, Route: PO, Drug form: ECTAB, Q24H, kg, Start date: 02/17/12 21:00:00, Duration: 30 day, Stop date: 03/17/12 21:00:00 PO No Longer Active [facility] 02/18/2012 [facility] atropine 0.5 mg, 5 mL, Route: IVP, Drug form: INJ, PRN, PRN Bradycardia, Start date: 02/17/12 20:29:00, Duration: 30 day, Stop date: 03/18/12 20:28:00 IVP No Longer Active [facility] 02/18/2012 [facility] nitroglycerin 0.4 mg sublingual tablet 0.4 mg, 1 tab, Route: SL, Drug form: TAB, Q5Min, PRN Chest Pain, Start date: 02/17/12 20:29:00, Duration: 30 day, Stop date: 03/18/12 20:28:00 SL No Longer Active Suzy 02/18/2012 [facility] Saline Flush 0.9% 5 ml, Route: IVP, Drug Form: INJ, kg, PRN, PRN Line Flush, Start date: 02/17/12 20:24:00, Duration: 30 day, Stop date: 03/18/12 20:23:00 IVP No Longer Active [facility] 02/18/2012 [facility] ondansetron 4 mg, 1 tab, Route: PO, Drug form: TAB, Q8H, kg, PRN Nausea & Vomiting, Start date: 02/17/12 20:24:00, Duration: 30 day, Stop date: 03/18/12 20:23:00 PO No Longer Active Sharron 02/18/2012 [facility] nitroglycerin SL Tab 0.4 mg, 1 tab, Route: SL, Drug form: TAB, Q5Min, kg, PRN Chest Pain, Start date: 02/17/12 20:24:00, Duration: 3 doses or times, Stop date: Limited # of times SL No Longer Active Sharron 02/18/2012 [facility] morphine Sulfate 2 mg, 0.2 mL, Route: IVP, Drug form: INJ, Q4H, kg, PRN Pain Score 4-6, Start date: 02/17/12 20:24:00, Duration: 30 day, Stop date: 03/18/12 20:23:00 IVP No Longer Active Suzy 02/18/2012 [facility] Phenergan 25 mg oral tablet 0.5-1 tab, PO, Q4H, PRN, 15 tab, Nausea, Substitution Allowed PO Active 02/18/2012 [facility] Bentyl 20 mg oral tablet 20 mg, 1 tab, PO, QID, PRN, 40 tab, stomach pain, Substitution Allowed, TAB PO Active 02/18/2012 [facility] Mobic 7.5 mg oral tablet 7.5 mg, 1 tab, PO, Daily, PRN, 30 tab, pain, Substitution Allowed, TAB PO Active 02/18/2012 [facility] cyanocobalamin 1,000 microgram, IM, Q30D, Substitution Allowed IM Active 02/18/2012 [facility] Vitamin D3 2000 intl units oral capsule 2,000 IntlUnit, 1 cap, PO, Bedtime, Substitution Allowed PO Active 02/18/2012 [facility] Estrace 1 mg oral tablet 1 mg, 1 tab, PO, Bedtime, 30 tab, Substitution Allowed, TAB PO Active 02/18/2012 [facility] Medrol 8 mg oral tablet 8 mg, 1 tab, PO, QNoon, 10 tab, Substitution Allowed, TAB PO Active 02/18/2012 [facility] Synthroid 75 mcg (0.075 mg) oral tablet 75 microgram, 1 tab, PO, Daily, 30 tab, Substitution Allowed, TAB PO Active 02/18/2012 [facility] metoprolol tartrate 25 mg, 1 tab, Route: PO, Drug form: TAB, ONCE, kg, Priority: STAT, Start date: 02/17/12 18:53:00, Stop date: 02/17/12 18:53:00 PO No Longer Active [facility] 02/17/2012 [facility] Saline Flush 0.9% 5 ml, Route: IVP, Drug Form: INJ, kg, PRN, PRN Line Flush, Start date: 02/17/12 16:23:00, Duration: 24 hr, Stop date: 02/18/12 16:22:00 IVP No Longer Active Sharron 02/17/2012 [facility] Baclofen 10 Mg Tablet, Active 10/03/[address] [facility] Estradiol (Gynodiol) 0.5 Mg Tablet, Active 10/03/[address] [facility] Levothyroxine Sodium (Synthroid) 100 Mcg Tablet, Active 10/03/[address] [facility] Meloxicam (Mobic) 15 Mg Tablet, Active 10/03/[address] [facility] Methylprednisolone 4 Mg Tablet, Active 10/03/[address] [facility] Clonidine Hcl 0.1 Mg Tablet Three Times A Day Active [facility] Compazine As Needed Active [facility] Hyoscyamine Sulfate (Levsin) 0.125 Mg Tablet [id number] Active [facility] Levothyroxine Sodium (Synthroid) 75 Mcg Tab Daily Active [facility] Lorazepam (Ativan) 1 Mg Tablet Three Times A Day Active [facility] Methylprednisolone 8 Mg Tablet Daily Active [facility] Prilosec Twice A Day Active [facility] Rivaroxaban (Xarelto) 15 Mg Tablet Daily Active [facility] Tramadol Hcl/Acetaminophen (Ultracet Tablet) 1 Each Tablet Four Times Daily Active [facility] Allergies, Adverse Reactions, Alerts Substance Category Reaction Severity Reaction type Status Date Reported Comments Source Iodinated Contrast- Oral and IV Dye Mild Allergy to Substance Active 06/12/[address] [facility] Hydrocodone Mild Allergy to Substance Active 06/12/[address] [facility] Sulfa (Sulfonamide Antibiotics) Mild Allergy to Substance Active 01/05/[address] [facility] Chlorzoxazone Mild Allergy to Substance Active 01/05/[address] [facility] Phenylephrine Mild Allergy to Substance Active 01/05/[address] [facility] Hydrochlorothiazide Mild Allergy to Substance Active 01/05/[address] [facility] Triamterene Mild Allergy to Substance Active 01/05/[address] [facility] Cephalexin Mild Allergy to Substance Active 01/05/[address] [facility] Azithromycin Mild Allergy to Substance Active 01/05/[address] [facility] Chlorpheniramine Mild Allergy to Substance Active 01/05/[address] [facility] Dexbrompheniramine Mild Allergy to Substance Active 01/05/[address] [facility] Peanuts Mild Allergy to Substance Active 10/04/[address] [facility] amitriptyline HCl Severe Allergy to Substance Active 02/13/[address] [facility] Epinephrine Severe Allergy to Substance Active 02/13/[address] [facility] amoxicillin<sup>1</sup> Assertion Drug allergy Active 12/01/2012 1Data migrated from [employer] on 10/26/14. Originally documented as AMOXICILLIN. [facility] azithromycin<sup>2</sup> Assertion Drug allergy Active 12/01/2012 2Data migrated from [employer] on 10/26/14. Originally documented as ZITHROMAX. [facility] baclofen<sup>3</sup> Assertion Drug allergy Active 12/01/2012 3Data migrated from [employer] on 10/26/14. Originally documented as BACLOFEN. [facility] cephalexin<sup>4</sup> Assertion Drug allergy Active 12/01/2012 4Data migrated from [employer] on 10/26/14. Originally documented as KEFLEX. [facility] chlorzoxazone<sup>5</sup> Assertion Drug allergy Active 12/01/2012 5Data migrated from [employer] on 10/26/14. Originally documented as PARAFON FORTE. [facility] hydrochlorothiazide-triamterene<sup>6</sup> Assertion Drug allergy Active 12/01/2012 6Data migrated from [employer] on 10/26/14. Originally documented as DYAZIDE. [facility] hydroxychloroquine<sup>7</sup> Assertion Drug allergy Active 12/01/2012 7Data migrated from [employer] on 10/26/14. Originally documented as PLAQUENIL. [facility] lamoTRIgine<sup>8</sup> Assertion Drug allergy Active 12/01/2012 8Data migrated from [employer] on 10/26/14. Originally documented as LAMICTAL. [facility] metroNIDAZOLE<sup>9</sup> Assertion Drug allergy Active 12/01/2012 9Data migrated from [employer] on 10/26/14. Originally documented as FLAGYL. [facility] [employer] pregabalin<sup>10</sup> Assertion Drug allergy Active 12/01/2012 10Data migrated from [employer] on 10/26/14. Originally documented as LYRICA. [facility] sulfa drugs<sup>11</sup> Assertion Drug allergy Active 12/01/2012 Data migrated from [employer] on 01/25/15. Originally documented as SULFA. [facility] sulfa drugs<sup>1</sup> Assertion Drug allergy Active 12/01/2012 Data migrated from [employer] on 01/25/15. Originally documented as SULFA. [facility] amoxicillin<sup>2</sup> Assertion Drug allergy Active 12/01/2012 Data migrated from [employer] on 10/26/14. Originally documented as AMOXICILLIN. [place] azithromycin<sup>3</sup> Assertion Drug allergy Active 12/01/2012 Data migrated from [employer] on 10/26/14. Originally documented as ZITHROMAX. [place] baclofen<sup>5</sup> Assertion Drug allergy Active 12/01/2012 Data migrated from [employer] on 10/26/14. Originally documented as BACLOFEN. [facility] chlorzoxazone<sup>8</sup> Assertion Drug allergy Active 12/01/2012 [facility]14. Originally documented as PARAFON FORTE. [facility] pregabalin<sup>9</sup> Assertion Drug allergy Active 12/01/2012 Data migrated from [employer] on 10/26/14. Originally documented as LYRICA. [facility] metroNIDAZOLE<sup>10</sup> Assertion Drug allergy Active 12/01/2012 Data migrated from [facility] on 10/26/14. Originally documented as FLAGYL. [facility] lamoTRIgine<sup>11</sup> Assertion Drug allergy Active 12/01/2012 [facility] 10/[facility]14. Originally documented as LAMICTAL. [facility] Enoxaparin VASCULITIS Mild Allergy to Substance Active 12/11/[address] [facility] Bupropion SEVERE STOMACH PAIN, DIARRHEA Mild Allergy to Substance Active 05/14/[address] [facility] Hydromorphone N/V Mild Allergy to Substance Active 05/14/[address] [facility] Buprenorphine TACHYCARDIA Severe Allergy to Substance Active 05/14/[address] [facility] Metoclopramide N/V Mild Allergy to Substance Active 05/14/[address] [facility] Famotidine Mild Allergy to Substance Active 06/01/[address] [facility] Tramadol TACHYCARDIA Severe Allergy to Substance Active 06/02/[address] [facility] Diphenoxylate HCl Unknown Allergy to Substance Active 11/28/[address] [facility] atropine sulfate Unknown Allergy to Substance Active 11/28/[address] [facility] phenylephrine HCl Unknown Allergy to Substance Active 11/28/[address] [facility] metoprolol tartrate VOMITING FOR HOURS Unknown Propensity to adverse reactions Active 11/28/[address] [facility] hydroxychloroquine sulfate Unknown Allergy to Substance Active 11/28/[address] [facility] Metronidazole HCl Unknown Allergy to Substance Active 11/28/[address] [facility] dexbrompheniramine maleate Unknown Allergy to Substance Active 11/28/[address] [facility] sertraline HCl Unknown Allergy to Substance Active 11/28/[address] [facility] venlafaxine HCl Unknown Allergy to Substance Active 11/28/[address] [facility] Lisinopril Unknown Allergy to Substance Active 11/28/[address] [facility] Nitrous oxide Unknown Allergy to Substance Active 11/28/[address] [facility] Aspirin Unknown Allergy to Substance Active 11/28/[address] [facility] Baclofen Unknown Allergy to Substance Active 11/28/[address] [facility] Amoxicillin Unknown Allergy to Substance Active 11/28/[address] [facility] Lamotrigine Unknown Allergy to Substance Active 11/28/[address] [facility] Procaine Unknown Allergy to Substance Active 11/28/[address] [facility] Minocycline Unknown Allergy to Substance Active 11/28/[address] [facility] Vancomycin Unknown Allergy to Substance Active 11/28/[address] [facility] Gentamicins Unknown Allergy to Substance Active 11/28/[address] [facility] Pregabalin Unknown Allergy to Substance Active 11/28/[address] [facility] Dexlansoprazole Unknown Allergy to Substance Active 11/28/[address] [facility] Morphine NAUSEA/VOMITING Unknown Allergy to Substance Active 12/01/[address] [facility] Meperidine NAUSEA/VOMITNG Unknown Allergy to Substance Active 12/01/[address] [facility] Gabapentin Unknown Allergy to Substance Active 05/20/[address] [facility] Losartan Unknown Allergy to Substance Active 05/20/[address] [facility] Metronidazole Unknown Allergy to Substance Active 08/05/[address] [facility] amoxicillin drug allergy Allergy Active [facility] aspirin Assertion Stomach ulcer, NOS Propensity to adverse reactions to drug [facility] [place] baclofen Assertion Drug allergy Active [facility] ciprofloxacin Assertion Drug allergy Active [facility] colistin/HC/neomycin/thonzonium otic Assertion Drug allergy Active [facility] Dexilant Assertion Palpitations, Headache, NOS Propensity to adverse reactions to drug Active [facility] [place] Dyazide Assertion Drug allergy Active [facility] [place] Elavil Assertion Drug allergy Active [facility] [place] etherified starches Assertion Drug allergy Active [facility] [place] Flagyl Assertion Drug allergy Active [facility] [place] gentamicin Assertion Drug allergy Active [facility] [place] [facility]othane [facility]ion [facility] Histussin- HC Drug allergy Active [facility] [place] Keflex Assertion Drug allergy Active [facility] [place] LaMICtal Assertion Drug allergy Active [facility] [place] Lasix Assertion Drug allergy Active [facility] [place] Lopressor Assertion Nausea and vomiting Propensity to adverse reactions to drug Active [facility] [place] Lyrica Assertion Drug allergy Active [facility] [place] methoxyflurane Assertion Drug allergy Active [facility] [place] morphine Assertion Nausea and vomiting Propensity to adverse reactions to drug [facility] ne[facility] Assertion Drug allergy Active [facility] [place] Parafon Forte DSC Assertion Drug allergy Active [facility] [place] Plaquenil Sulfate Assertion Drug allergy Active [facility] [place] procainamide Assertion Drug allergy Active [facility] [place] Pronestyl Assertion Drug allergy Active [facility] [place] quiNIDine Assertion Propensity to adverse reactions to substance Active [facility] [place] quiNINE Assertion Tonic water (substance), Tonic water (substance), Tonic water (substance) Propensity to adverse reactions to substance Active [facility] streptomycin Assertion Drug allergy Active [facility] [place] sulfonamides Assertion Severe Drug allergy Active [facility] [place] vancomycin Assertion Drug allergy Active [facility] [place] Zithromax Assertion Drug allergy Active [facility] Immunizations Immunization Date Given Site Status Last [...] - This report was dictated by a Wagon Driller/Fellow. I have personally reviewed the images as well as the Resident's interpretation and agree with the findings. Read by: David Castillo MD Resident: David Castillo MD Dictated Date/time: 09/21/17 16:00 Electronically Signed by: Walter Bañuelos MD 09/21/17 16:34 FINAL REPORT [facility] Activated partial thromboplastin time (aPTT) in platelet poor plasma bycoagulation assay Activated partial thromboplastin time (aPTT) in platelet poor plasma bycoagulation assay 33.4 23.8 - 35.5 08/05/[address] [facility] Automated blood basophil count (count/volume) Automated blood basophil count (count/volume) 0.1 0.0 - 0.1 08/05/[address] [facility] Automated blood basophil count as percentage of total leukocytes Automated blood basophil count as percentage of total leukocytes 0.7 0.0 - 1.0 08/05/[address] [facility] Automated blood eosinophil count Automated blood eosinophil count 0.0 0.0 - 0.4 08/05/[address] [facility] Automated blood eosinophil count as percentage of total leukocytes Automated blood eosinophil count as percentage of total leukocytes 0.2 0.0 - 6.0 08/05/[address] [facility] Automated blood hematocrit (volume fraction) Automated blood hematocrit (volume fraction) 49.6 34.2 - 44.1 08/05/[address] [facility] Automated blood lymphocyte count as percentage ot total leukocytes Automated blood lymphocyte count as percentage ot total leukocytes 13.9 18.0 - 39.1 08/05/[address] [facility] Automated blood monocyte count as percentage of total leukocytes Automated blood monocyte count as percentage of total leukocytes 4.6 4.4 - 11.3 08/05/[address] [facility] Automated blood neutrophil count Automated blood neutrophil count 13.0 2.1 - 6.9 08/05/[address] [facility] Automated blood platelet count (count/volume) Automated blood platelet count (count/volume) 273 140 - 360 08/05/[address] [facility] Automated blood segmented neutrophil count as percentage of total leukocytes Automated blood segmented neutrophil count as percentage of total leukocytes 77.2 38.7 - 80.0 08/05/[address] [facility] Automated erythrocyte mean corpuscular hemoglobin (mass per erythrocyte) Automated erythrocyte mean corpuscular hemoglobin (mass per erythrocyte) 31.1 28 - 32 08/05/[address] [facility] Automated erythrocyte mean corpuscular hemoglobin concentration measurement (mass/volume) Automated erythrocyte mean corpuscular hemoglobin concentration measurement (mass/volume) 33.3 31 - 35 08/05/[address] [facility] Automated erythrocyte mean corpuscular volume Automated erythrocyte mean corpuscular volume 93.4 81 - 99 08/05/[address] [facility] Blood anisocytosis detection by light microscopy Blood anisocytosis detection by light microscopy SLIGHT 08/05/[address] [facility] Blood erythrocytes automated count (number/volume) Blood erythrocytes automated count (number/volume) 5.31 3.6 - 5.1 08/05/[address] [facility] Blood hemoglobin measurement (moles/volume) Blood hemoglobin measurement (moles/volume) 16.5 12.0 - 16.0 08/05/[address] [facility] Blood leukocytes automated count (number/volume) Blood leukocytes automated count (number/volume) 16.79 4.8 - 10.8 08/05/[address] [facility] Blood lymphocytes count (number/volume) Blood lymphocytes count (number/volume) 2.3 1.0 - 3.2 08/05/[address] [facility] Blood monocytes automated count (number/volume) Blood monocytes automated count (number/volume) 0.8 0.2 - 0.8 08/05/[address] [facility] Blood platelets count by estimate (number/volume) Blood platelets count by estimate (number/volume) ADEQUATE 08/05/[address] [facility] Blood poikilocytosis detection by light microscopy Blood poikilocytosis detection by light microscopy SLIGHT 08/05/[address] [facility] Estimated glomerular filtration rate (GFR) determination Estimated glomerular filtration rate (GFR) determination null 60 08/05/[address] [facility] Glucose measurement Glucose measurement 113 74 - 118 08/05/[address] [facility] INR in Platelet poor plasma by Coagulation assay INR in Platelet poor plasma by Coagulation assay 1.10 08/05/[address] [facility] Manual blood band neutrophils form/100 leukocytes Manual blood band neutrophils form/100 leukocytes 1 08/05/[address] [facility] Manual blood lymphocytes/100 leukocytes Manual blood lymphocytes/100 leukocytes 11 19 - 48 08/05/[address] [facility] Manual blood metamyelocytes/100 leukocytes Manual blood metamyelocytes/100 leukocytes 1 0 - 0 08/05/[address] [facility] Manual blood monocytes/100 leukocytes Manual blood monocytes/100 leukocytes 4 3.4 - 9.0 08/05/[address] [facility] Manual blood neutrophils/100 leukocytes Manual blood neutrophils/100 leukocytes 83 40 - 74 08/05/[address] [facility] Plasma globulin measurement (mass/volume) Plasma globulin measurement (mass/volume) 3.9 2.3 - 3.5 08/05/[address] [facility] Platelet morphology Platelet morphology NORMAL 08/05/[address] [facility] Prothrombin time (PT) in platelet poor plasma by coagulation assay Prothrombin time (PT) in platelet poor plasma by coagulation assay 14.8 11.9 - 14.5 08/05/[address] [facility] RBC morphology RBC morphology NORMAL 08/05/[address] [facility] Serum or plasma alanine aminotransferase measurement (enzymatic activity/volume) Serum or plasma alanine aminotransferase measurement (enzymatic activity/volume) 38 0 - 55 08/05/[address] [facility] Serum or plasma albumin measurement (mass/volume) Serum or plasma albumin measurement (mass/volume) 3.2 3.5 - 5.0 08/05/[address] [facility] Serum or plasma albumin/globulin mass ratio Serum or plasma albumin/globulin mass ratio 0.8 0.8 - 2.0 08/05/[address] [facility] Serum or plasma alkaline phosphatase measurement (enzymatic activity/volume) Serum or plasma alkaline phosphatase measurement (enzymatic activity/volume) 103 40 - 150 08/05/[address] [facility] Serum or plasma anion gap Serum or plasma anion gap 20.3 8 - 16 08/05/[address] [facility] Serum or plasma calcium measurement (mass/volume) Serum or plasma calcium measurement (mass/volume) 9.0 8.4 - 10.2 08/05/[address] [facility] Serum or plasma carbon dioxide, total measurement (moles/volume) Serum or plasma carbon dioxide, total measurement (moles/volume) 17 22 - 29 08/05/[address] [facility] Serum or plasma chloride measurement (moles/volume) Serum or plasma chloride measurement (moles/volume) 107 98 - 107 08/05/[address] [facility] Serum or plasma creatine kinase MB measurement (mass/volume) Serum or plasma creatine kinase MB measurement (mass/volume) 1.20 0.00 - 5.00 08/05/[address] [facility] Serum or plasma creatine kinase measurement (enzymatic activity/volume) Serum or plasma creatine kinase measurement (enzymatic activity/volume) 21 29 - 168 08/05/[address] [facility] Serum or plasma creatinine measurement (mass/volume) Serum or plasma creatinine measurement (mass/volume) 0.86 0.57 - 1.11 08/05/[address] [facility] Serum or plasma potassium measurement (moles/volume) Serum or plasma potassium measurement (moles/volume) 3.3 3.5 - 5.1 08/05/[address] [facility] Serum or plasma protein measurement (mass/volume) Serum or plasma protein measurement (mass/volume) 7.1 6.5 - 8.1 08/05/[address] [facility] Serum or plasma sodium measurement (moles/volume) Serum or plasma sodium measurement (moles/volume) 141 136 - 145 08/05/[address] [facility] Serum or plasma total bilirubin measurement (mass/volume) Serum or plasma total bilirubin measurement (mass/volume) 0.5 0.2 - 1.2 08/05/[address] [facility] Serum or plasma troponin i.cardiac measurement by detection limit <=0.01 NG/ml (mass/volume) Serum or plasma troponin i.cardiac measurement by detection limit <=0.01 NG/ml (mass/volume) 0.009 0 - 0.300 08/05/[address] [facility] Serum or plasma urea nitrogen measurement (mass/volume) Serum or plasma urea nitrogen measurement (mass/volume) 10 7 - 26 08/05/[address] [facility] Serum or plasma urea nitrogen/creatinine mass ratio Serum or plasma urea nitrogen/creatinine mass ratio 12 6 - 25 08/05/[address] [facility] Red Cell Distribution Width 18.1 11.7 - 14.4 08/05/[address] [facility] IM GRANULOCYTES % 3.4 0.0 - 1.0 08/05/[address] [facility] Absolute Immature Granulocyte (auto 0.57 0 - 0.1 08/05/[address] [facility] Differential Total Cells Counted 100 08/05/[address] [facility] Aspartate Amino Transf (AST/SGOT) 16 5 - 34 08/05/[address] [facility] Stereo Breast BX Uni /Clip Primary [...] 01/23/2014 mammogram - [facility], and 06/15/2013 mammogram - [facility]. A stereotactic guided biopsy was performed for [...] is recommended.(05/25/2018) This exam was interpreted at [id number] for [facility]. Jany yost/:06/23/2017 10:38:15 Manager Telecom(s): Monica Flaherty, [facility] letter sent: Post Bx Results 06/18/2017 - - Read by: Jany Patel MD Dictated Date/time: 06/23/17 10:38 Electronically Signed by: Jany Patel MD 06/23/17 10:38 FINAL REPORT [facility] Breast Mammo Diag UNI incl CAD DE Breast Mammo Diag UNI incl CAD DE CLINICAL: R92.8/Other Abnormal And Inconclusive Findings On Diagnostic Imaging Of Breast. Current study was evaluated with a Computer Aided Detection (CAD) system. COMPARISON:Comparison is made to exams dated: 05/25/2017 mammogram, 09/26/2015 mammogram, 08/14/2014 mammogram, 01/23/2014 mammogram - [facility], 06/15/2013 mammogram - [facility], and 12/08/2012 mammogram - [facility]. TECHNIQUE: Mammographic views were obtained using [...] is recommended. This exam was interpreted at [id number] for MATTHEW Paula. Jonathon Barlow M.D. cm/penrad:06/11/2017 13:22:59 Manager Telecom(s): RT Vega(R)(M), [facility] letter sent: BI-RADS 4/5 Mammogram BI-RADS: 4b Suspicious abnormality - intermediate suspicion of malignancy 06/11/2017 - - Read by: Gustavo Puga MD Dictated Date/time: 06/11/17 13:22 Electronically Signed by: Gustavo Puga MD 06/11/17 13:22 FINAL REPORT MATTHEW Paula Breast Mammo Scrn BARRETT incl CAD JEWEL Breast Mammo Scrn BARRETT incl CAD MA BILATERAL DIGITAL SCREENING MAMMOGRAM WITH CAD: 05/25/2017 CLINICAL: Encounter For Screening Mammogram For Malignant Neoplasm Of Breast/Z12.31. Current study was evaluated with a Computer Aided Detection (CAD) system. COMPARISON:Comparison is made to exams dated: 09/26/2015 mammogram, 08/14/2014 mammogram, 01/23/2014 mammogram - [facility], 06/15/2013 mammogram - [facility], 12/08/2012 mammogram, and 06/03/2012 mammogram - [facility]. TECHNIQUE: Mammographic views were obtained using [...] are recommended. This exam was interpreted at [id number] for DADA Johnson 15. Jonathon Barlow M.D. cm/penrad:05/26/2017 10:51:56 Manager Telecom(s): RT Shanika(R)(M), [facility] letter sent: BI-RADS 0 Mammogram BI-RADS: 0 Indeterminate 05/25/2017 - - Read by: Gustavo Puga MD Dictated Date/time: 05/26/17 10:51 Electronically Signed by: Gustavo Puga MD 05/26/17 10:51 FINAL REPORT MATTHEW Paula Bone Density DXA [employer] MA Bone [...] for fracture. This exam was interpreted at [id number] for DADA Johnson 15. Jonathon Barlow M.D., cm/kaylin:05/26/2017 09:09:15 Manager Telecom(s): Ronna JOHNSON)(Aren), [facility] 05/25/2017 - - Read by: Gustavo Puga MD Dictated Date/time: 05/26/17 09:09 Electronically Signed by: Gustavo Puga MD 05/26/17 09:09 FINAL REPORT JAMILAH Paula Bone scan NM Bone scan NM EXAM: NM Bone Joint Imaging Whole Body DATE: 03/23/2017 10:20 AM CDT INDICATION: Thyroid cancer, restaging. - [id number] cancer COMPARISON: PET/CT performed on 08/21/2016 TECHNIQUE: [...] - This report was dictated by a Wagon Driller/Fellow. I have personally reviewed the images as well as the Resident's interpretation and agree with the findings. Read by: Paty Read MD Resident: Paty Read MD Dictated Date/time: 03/24/17 10:36 Electronically Signed by: Brandy Ngo MD 03/24/17 11:31 FINAL REPORT MATTHEW Greene Bone / joint SPECT NM Bone / joint SPECT NM EXAM: NM Bone Joint Imaging Whole Body DATE: 03/23/2017 10:20 AM CDT INDICATION: Thyroid cancer, restaging. - S38-[id number] cancer COMPARISON: PET/CT performed on 08/21/2016 TECHNIQUE: [...] - This report was dictated by a Wagon Driller/Fellow. I have personally reviewed the images as well as the Resident's interpretation and agree with the findings. Read by: Paty Read MD Resident: Paty Read MD Dictated Date/time: 03/24/17 10:36 Electronically Signed by: Brandy Ngo MD 03/24/17 11:31 FINAL REPORT MATTHEW Greene URINE AND STOOL UA Blood Negative (10/18/16 1:29 PM) Negative 10/18/2016 [facility] URINE AND STOOL UA Urobilinogen 2.0 mg/dL 0.1 - 1.0 10/18/2016 [facility] URINE AND STOOL UA Nitrite Negative (10/18/16 1:29 PM) Negative 10/18/2016 [facility] URINE AND STOOL UA Sq Epi Many /LPF Few /LPF 10/18/2016 [facility] URINE AND STOOL UA Leuk Est Negative (10/18/16 1:29 PM) Negative 10/18/2016 [facility] URINE AND STOOL UA pH 5.0 5.0 - 8.0 10/18/2016 [facility] URINE AND STOOL UA Protein 30 mg/dL Negative mg/dL 10/18/2016 [facility] URINE AND STOOL UA Glucose Negative mg/dL Negative mg/dL 10/18/2016 [facility] URINE AND STOOL UA Ketones Trace mg/dL Negative mg/dL 10/18/2016 [facility] URINE AND STOOL UA Bili Moderate *ABN* (10/18/16 1:29 PM) Negative 10/18/2016 [facility] URINE AND STOOL UA Color Lachelle 10/18/2016 [facility] URINE AND STOOL UA WBC 2 /HPF 0 - 5 10/18/2016 [facility] URINE AND STOOL UA Mucus Many /LPF None Seen /LPF 10/18/2016 [facility] URINE AND STOOL UA CaOx Darby Occasional /HPF None Seen /HPF 10/18/2016 [facility] URINE AND STOOL UA Hyal Cast 3 /LPF 0 - 2 10/18/2016 [facility] URINE AND STOOL UA Spec Grav 1.036 <=1.030 10/18/2016 [facility] URINE AND STOOL UA Turbidity Marked *ABN* (10/18/16 1:29 PM) Clear 10/18/2016 [facility] Spine lumbar wo contrast CT Spine lumbar [...] the L1 and L5 vertebral bodies. SL: [id number] 10/18/2016 - - Read by: Evelio Berumen MD Dictated Date/time: 10/18/16 17:41 Electronically Signed by: Evelio Berumen MD 10/18/16 17:46 FINAL REPORT [facility] cervical wo contrast CT Spine cervical wo [...] pathologic subluxation detected. 2. Postoperative thyroidectomy. SL: [id number] 10/18/2016 - - Read by: Evelio Berumen MD Dictated Date/time: 10/18/16 15:39 Electronically Signed by: Evelio Berumen MD 10/18/16 15:43 FINAL REPORT [facility] thoracic wo contrast CT Spine thoracic wo contrast CT EXAM: Spine thoracic wo contrast CT DATE: 10/18/2016 12:09 PM CDT INDICATION: Here with c/o back pain. Reprots she has multiple compression fx and now she is having tingling in her legs. Also reprots abdominal distention - CT DLP 642.53: mgy/cm pf, COMPARISON: CT thoracic spine of 08/21/2016. PET/CT [...] Evelio Berumen MD 10/18/16 15:53 FINAL REPORT [facility] Hip 2/3 views uni DX Hip 2/3 views uni DX EXAM: Left hip HISTORY: Left hip pain COMPARISON: None TECHNIQUE: 2 views left hip FINDINGS/IMPRESSION: Normal alignment of the left hip without fracture seen. Minimal osteoarthritis of the hip. Generalized osteopenia. SL: [id number] 10/18/2016 - - Read by: Chau Mahmood MD Dictated Date/time: 10/18/16 13:06 Electronically Signed by: Chau Mahmood MD 10/18/16 13:07 FINAL REPORT [facility] Pelvis AP DX Pelvis AP DX EXAM: Pelvis HISTORY: Back and hip pain COMPARISON: 08/21/2016 TECHNIQUE: Frontal view pelvis FINDINGS: No fracture or other acute traumatic injury is seen. Minimal osteoarthritis of the hips. Generalized osteopenia. Stable sclerotic focus L5. SL: [id number] 10/18/2016 - - Read by: Chau Mahmood MD Dictated Date/time: 10/18/16 13:04 Electronically Signed by: Chau Mahmood MD 10/18/16 13:05 FINAL REPORT [facility] PET CT Tumor imaging-whole body PET CT Tumor imaging-whole body PET CT Tumor imaging-whole body TECHNIQUE: 14.3 mCis of FDG were administered intravenously and a series of overlapping images were obtained from the skull base to the proximal thighs utilizing a PET/CT hybrid device. The CT was utilized for attenuation correction and anatomic correlation and not as an independent diagnostic study. AFW=088.65 mGy*cm , CTDIvol=6.10 mGy (WB) 1.95 mGy [...] scan. Correlation with biopsy results is recommended. SL:[id number] 08/21/2016 - - Read by: Sarmad Goddard MD Dictated Date/time: 08/22/16 11:17 Electronically Signed by: Sarmad Goddard MD 08/22/16 11:39 FINAL REPORT [facility] Spine thoracic wo contrast CT Spine thoracic wo contrast CT Patient Name: REBEKAH BLACK : 1960; Age: 55 years y/o Female MR: [id number] Study: Spine thoracic wo contrast CT 08/21/2016 1:21 PM CONTROL INTEGRATION ENGINEER Ordering Physician: Jason Roach MD Clinical Indication: [...] Severo Aguilera MD 08/21/16 19:17 FINAL REPORT [facility] Chest 2 views DX Chest 2 views DX EXAM: XR CHEST 2 VIEWS DATE: 05/27/2016 2:16 PM CONTROL INTEGRATION ENGINEER INDICATION: R06.00 Dyspnea, unspecified COMPARISON: CT chest [...] Gwyn Stearns MD 05/27/16 15:31 FINAL REPORT [facility] Spine lumbar series DX Spine lumbar series [...] - This report was dictated by a Wagon Driller/Fellow. I have personally reviewed the images as well as the Resident's interpretation and agree with the findings. Read by: Feliz Ponce MD Resident: Feliz Ponce MD Dictated Date/time: 05/27/16 15:18 Electronically Signed by: Lisbeth Reyna MD 05/27/16 17:54 FINAL REPORT [facility] Ribs unilateral DX Ribs unilateral DX EXAM: XR RIGHT RIB 4 VIEWS DATE: 05/27/2016 2:16 PM CONTROL INTEGRATION ENGINEER INDICATION: R07.89 Other chest pain COMPARISON: None [...] Doug Cason MD 05/27/16 16:05 FINAL REPORT [facility] Bone Density DXA [employer] MA Bone [...] This exam was dictated and interpreted by [id number] for Nisa. Sara Viera M.D. ms/penrad:01/09/2016 12:55:52 Manager Telecom: Mireya ABDULLAHI(Daylin)(Aren), [facility] 01/07/2016 - - Read by: Sara Viera MD Dictated Date/time: 01/09/16 12:55 Electronically Signed by: Sara Viera MD 01/09/16 12:55 FINAL REPORT MATTHEW Paula Chest wo contrast CT Chest wo contrast [...] Kalyan Mejia MD 01/07/16 11:14 FINAL REPORT MATTHEW Paula Chest 2 views DX Chest 2 views [...] Zuri Collins MD 04/23/15 13:33 FINAL REPORT [facility] Knee 1-2 Views Bilateral DX [...] Wero Gregory MD 04/23/15 14:14 FINAL REPORT [facility] Tibia fibula series Tibia fibula [...] Ruelas MD 02/24/14 15:38 FINAL REPORT JAMILAH Paula Abdomen/Pelvis w IV contrast CT Abdomen/Pelvis w [...] obtained for additional diagnostic information. Total exam CQC=766 mGy-cm. Note that patient refused oral contrast. [...] Enrique Luong MD 02/20/14 15:47 FINAL REPORT [facility] [place] Liver w Liver vessels Doppler US Liver [...] Luong MD 02/20/14 11:48 FINAL REPORT JAMILAH [place] Abdomen AP view Abdomen AP view HISTORY: [...] Felisa Nichols MD 02/13/14 15:59 FINAL REPORT JAMILAH Export Breast US Breast US - DIGITAL MAMMO DX BARRETT MA - BREAST US BILATERAL DIGITAL DIAGNOSTIC MAMMOGRAM WITH CAD AND TARGETED BILATERAL ULTRASOUND: 01/23/2014 CLINICAL: Mammographic Abnormality. Current study was evaluated with a Computer Aided Detection (CAD) system. Comparison is made to exams dated: 06/15/2013 ultrasound, 06/15/2013 mammogram - [facility], 12/08/2012 ultrasound, 12/08/2012 mammogram - [facility], 06/09/2012 ultrasound biopsy and 06/09/2012 ultrasound biopsy - [facility]. The tissue of both [...] Dr. Luis Enrique Luong M.D. sl/:01/23/2014 13:50:03 Manager Telecom: Jaqueline ABDULLAHI(R)(Aren), [facility] This exam was dictated and interpreted by [id number] for Nisa. letter sent: Followup Mammogram BI-RADS: 3 Probably benign Ultrasound BI-RADS: 3 Probably benign 01/23/2014 - - Read by: Luis Enrique Luong MD Dictated Date/time: 01/23/14 13:50 Electronically Signed by: Luis Enrique Luong MD 01/23/14 13:50 FINAL REPORT MATTHEW Paula Digital Mammo DX Barrett MA Digital Mammo DX Barrett MA - DIGITAL MAMMO DX BARRETT MA - BREAST US BILATERAL DIGITAL DIAGNOSTIC MAMMOGRAM WITH CAD AND TARGETED BILATERAL ULTRASOUND: 01/23/2014 CLINICAL: Mammographic Abnormality. Current study was evaluated with a Computer Aided Detection (CAD) system. Comparison is made to exams dated: 06/15/2013 ultrasound, 06/15/2013 mammogram - [facility], 12/08/2012 ultrasound, 12/08/2012 mammogram - [facility], 06/09/2012 ultrasound biopsy and 06/09/2012 ultrasound biopsy - [facility]. The tissue of both [...] Dr. Luis Enrique Luong M.D. sl/:01/23/2014 13:50:03 Manager Telecom: Jaqueline ABDULLAHI(Daylin)(Aren), [facility] This exam was dictated and interpreted by [id number] for MATTHEW Paula. letter sent: Followup Mammogram BI-RADS: 3 Probably benign Ultrasound BI-RADS: 3 Probably benign 01/23/2014 - - Read by: Luis Enrique Luong MD Dictated Date/time: 01/23/14 13:50 Electronically Signed by: Luis Enrique Luong MD 01/23/14 13:50 FINAL REPORT JAMILAH Paula Abdomen complete w Pelvis US Abdomen complete [...] Bharat Wharton MD 01/05/14 15:58 FINAL REPORT JAMILAH [place] Hand AP lateral oblique Hand AP lateral [...] Luong MD 10/12/13 11:23 FINAL REPORT MATTHEW Paula Brain w/wo contrast CT Brain w/wo contrast [...] Wharton MD 08/25/13 14:15 FINAL REPORT MATTHEW Paula Breast US Breast US - BREAST US [...] recommended to demonstrate stability. SL: 15 Karen Leahy M.D. [facility]/:06/15/2013 19:30:39 Manager Telecom: Jeimy Beaulieu, [facility] This exam was dictated and interpreted by [id number] for DADA Johnson 15. letter sent: Followup [...] exams dated: 12/08/2012 mammogram, 06/03/2012 mammogram - [facility], 05/27/2012 mammogram, 05/12/2012 mammogram - [facility] and 04/24/2011 mammogram - [facility]. The tissue of both breasts is heterogeneously [...] lesions. Dictation code: 15. Karen Leahy M.D. [facility]/:06/15/2013 19:06:52 Manager Telecom: Talia Whelan [facility] This exam was dictated and interpreted by [id number] for DADA Johnson. Mammogram BI-RADS: 0 Indeterminate 06/15/2013 - - Read by: Karen Leahy Dictated Date/time: 06/15/13 19:06 Electronically Signed by: Karen Leahy MD 06/15/13 19:06 FINAL REPORT MATTHEW [place] Chest 2 views Chest 2 views CHEST [...] 12:01 Electronically Signed by: Tere Mccollum , 04/04/13 13:23 FINAL REPORT JAMILAH Eduardoa Breast US Breast US - BREAST US/L ULTRASOUND OF THE LEFT BREAST : 12/08/2012 CLINICAL: Abnormal Mammo breast mass follow up. Comparison is made to exams dated: 12/08/2012 mammogram - [facility], 06/09/2012 ultrasound biopsy, 06/09/2012 ultrasound biopsy - [facility], 06/03/2012 ultrasound biopsy, 06/03/2012 mammogram - [facility] and 05/27/2012 ultrasound - [facility]. Color flow and real-time ultrasound were performed [...] results were reviewed with the patient. SL: Judy yost/:12/08/2012 14:18:49 Manager Telecom: Lexi Banda, [facility] letter sent: Followup Ultrasound BI-RADS: 3 Probably benign 12/08/2012 - - Read by: Jany Patel Dictated Date/time: 12/08/12 14:18 Electronically Signed by: Jany Patel MD 12/08/12 14:18 FINAL REPORT [facility] Digital Mammo DX Barrett MA Digital Mammo DX [place] MA - DIGITAL MAMMO DX BARRETT MA BILATERAL DIGITAL DIAGNOSTIC MAMMOGRAM WITH CAD: 12/08/2012 CLINICAL: Mammographic Abnormality benign biopsy follow up. Current study was evaluated with a Computer Aided Detection (CAD) system. Comparison is made to exams dated: 06/03/2012 mammogram - [facility], 05/27/2012 mammogram, 05/12/2012 mammogram - [facility], 04/24/2011 mammogram - [facility], 06/09/2012 ultrasound biopsy and 06/09/2012 ultrasound biopsy - [facility]. The tissue of both [...] be reevaluated. SL: 13. Jany yost/:12/08/2012 14:13:20 Manager Telecom: Danielle Jeffrey [facility] Mammogram BI-RADS: 0 Indeterminate 12/08/2012 - - Read by: Jany Patel Dictated Date/time: 12/08/12 14:13 Electronically Signed by: Jany Patel MD 12/08/12 14:13 FINAL REPORT [facility] Brain w/wo contrast MRI Brain w/wo contrast [...] Portillo MD 12/03/12 12:53 FINAL REPORT JAMILAH Paula Microbiology Culture: Anaerobic 09/30/2012 [facility] Microbiology Culture: Wound/Abscess w/Gram Stain 09/30/2012 [facility] PTT 36.2 s 22.9 - 35.8 09/29/2012 [place] 2Interpretive Data: Heparin Therapeutic Range: 57 - 92 Seconds [facility] HEMATOLOGY PT 19.0 s 12.0 - 14.7 09/29/2012 [facility] INR 1.58 0.85 - 1.17 09/29/2012 [place] 1Interpretive Data: RECOMMENDED RANGES FOR PROTIME INR: 2.0-3.0 for most medical and surgical thromboembolic states. 2.5-3.5 for artificial heart valves and recurrent embolism. INR SHOULD BE USED ONLY FOR PATIENTS ON STABLE ANTICOAGULANT THERAPY. [facility] CHEMISTRY eGFR 75 mL/min/1.73m2 04/22/2012 NA 1Result [...] should be multiplied by the estimated BMI. [facility] CHEMISTRY BUN 9 mg/dL 7 - 22 04/22/2012 Normal [facility] CHEMISTRY Glucose Lvl 89 mg/dL 70 - 99 04/22/2012 Normal 2Interpretive Data: Adult reference range values reflect the clinical guidelines of the [place] [employer]. [facility] CHEMISTRY Sodium Lvl 143 meq/L 135 - 145 04/22/2012 Normal [facility] CHEMISTRY Creatinine Lvl 0.9 mg/dL 0.5 - 1.4 04/22/2012 Normal [facility] CHEMISTRY Potassium Lvl 3.6 meq/L 3.5 - 5.1 04/22/2012 Normal [facility] CHEMISTRY Calcium Lvl 8.9 mg/dL 8.5 - 10.5 04/22/2012 Normal [facility] CHEMISTRY CO2 27 meq/L 24 - 32 04/22/2012 Normal [facility] CHEMISTRY Chloride Lvl 107 meq/L 95 - 109 04/22/2012 Normal [facility] CHEMISTRY AGAP 12.6 meq/L 10.0 - 20.0 04/22/2012 Normal [facility] HEMATOLOGY Eosinophils 0.6 % 0.0 - 4.0 04/22/2012 Normal [facility] HEMATOLOGY Segs-Bands # 7.9 K/CMM 1.5 - 8.1 04/22/2012 Normal [facility] HEMATOLOGY Basophils 0.5 % 0.0 - 1.0 04/22/2012 Normal [facility] HEMATOLOGY Monocytes # 0.7 K/CMM 0.0 - 0.8 04/22/2012 Normal [facility] HEMATOLOGY Monocytes 6.2 % 2.0 - 12.0 04/22/2012 Normal [facility] HEMATOLOGY Eosinophils # 0.1 K/CMM 0.0 - 0.5 04/22/2012 Normal [facility] HEMATOLOGY Lymphocytes # 2.6 K/CMM 1.0 - 5.5 04/22/2012 Normal [facility] HEMATOLOGY Basophils # 0.1 K/CMM 0.0 - 0.2 04/22/2012 Normal [facility] HEMATOLOGY Lymphocytes 23.0 % 20.0 - 40.0 04/22/2012 Normal [facility] HEMATOLOGY Segs 69.7 % 45.0 - 75.0 04/22/2012 Normal [facility] HEMATOLOGY MCH 32.7 pg 27.0 - 31.0 04/22/2012 [facility] HEMATOLOGY WBC 11.3 K/CMM 3.7 - 10.4 04/22/2012 [facility] HEMATOLOGY Hgb 14.0 g/dL 12.0 - 16.0 04/22/2012 Normal [facility] HEMATOLOGY RBC 4.28 M/CMM 4.20 - 5.40 04/22/2012 Normal [facility] HEMATOLOGY RDW 14.6 % 11.5 - 14.5 04/22/2012 HI [facility] HEMATOLOGY MCHC 34.1 g/dL 32.0 - 36.0 04/22/2012 Normal [facility] HEMATOLOGY MCV 95.9 fL 81.0 - 99.0 04/22/2012 Normal [facility] HEMATOLOGY Hct 41.1 % 36.0 - 48.0 04/22/2012 Normal [facility] HEMATOLOGY MPV 8.4 fL 7.4 - 10.4 04/22/2012 Normal [facility] HEMATOLOGY Platelet 236 K/CMM 133 - 450 04/22/2012 Normal [facility] CHEMISTRY Chloride Lvl 105 meq/L 95 - 109 02/26/2012 Normal [facility] CHEMISTRY CO2 30 meq/L 24 - 32 02/26/2012 Normal [facility] CHEMISTRY Potassium Lvl 3.3 meq/L 3.5 - 5.1 02/26/2012 LOW [facility] CHEMISTRY Sodium Lvl 140 meq/L 135 - 145 02/26/2012 Normal [facility] CHEMISTRY Creatinine Lvl 0.8 mg/dL 0.5 - 1.4 02/26/2012 Normal [facility] CHEMISTRY Calcium Lvl 8.7 mg/dL 8.5 - 10.5 02/26/2012 Normal [facility] CHEMISTRY Glucose Lvl 87 mg/dL 70 - 99 02/26/2012 Normal 1Interpretive Data: Adult reference range values reflect the clinical guidelines of the [place] [employer]. [facility] CHEMISTRY BUN 16 mg/dL 7 - 22 02/26/2012 Normal [facility] CHEMISTRY AGAP 8.3 meq/L 10.0 - 20.0 02/26/2012 LOW [facility] HEMATOLOGY INR 0.86 0.85 - 1.17 02/26/2012 Normal 2Interpretive Data: RECOMMENDED RANGES FOR PROTIME INR: 2.0-3.0 for most medical and surgical thromboembolic states. 2.5-3.5 for artificial heart valves and recurrent embolism. INR SHOULD BE USED ONLY FOR PATIENTS ON STABLE ANTICOAGULANT THERAPY. [facility] HEMATOLOGY PT 11.9 s 12.0 - 14.7 02/26/2012 LOW [facility] HEMATOLOGY PTT 25.4 s 22.9 - 35.8 02/26/2012 Normal 3Interpretive Data: Heparin Therapeutic Range: 57 - 92 Seconds [facility] HEMATOLOGY MPV 7.9 fL 7.4 - 10.4 02/26/2012 Normal [facility] HEMATOLOGY RDW 14.6 % 11.5 - 14.5 02/26/2012 [facility] HEMATOLOGY Platelet 219 K/CMM 133 - 450 02/26/2012 Normal [facility] HEMATOLOGY MCHC 33.8 g/dL 32.0 - 36.0 02/26/2012 Normal [facility] HEMATOLOGY RBC 4.36 M/CMM 4.20 - 5.40 02/26/2012 Normal [facility] HEMATOLOGY WBC 12.0 K/CMM 3.7 - 10.4 02/26/2012 [facility] HEMATOLOGY MCH 32.0 pg 27.0 - 31.0 02/26/2012 [facility] HEMATOLOGY MCV 94.8 fL 81.0 - 99.0 02/26/2012 Normal [facility] HEMATOLOGY Hct 41.3 % 36.0 - 48.0 02/26/2012 Normal [facility] HEMATOLOGY Hgb 14.0 g/dL 12.0 - 16.0 02/26/2012 Normal [facility] HEMATOLOGY Basophils # 0.0 K/CMM 0.0 - 0.2 02/26/2012 Normal [facility] HEMATOLOGY Eosinophils # 0.1 K/CMM 0.0 - 0.5 02/26/2012 Normal [facility] HEMATOLOGY Monocytes 6.2 % 2.0 - 12.0 02/26/2012 Normal [facility] HEMATOLOGY Monocytes # 0.7 K/CMM 0.0 - 0.8 02/26/2012 Normal [facility] HEMATOLOGY Segs-Bands # 8.8 K/CMM 1.5 - 8.1 02/26/2012 [facility] HEMATOLOGY Eosinophils 0.5 % 0.0 - 4.0 02/26/2012 Normal [facility] HEMATOLOGY Basophils 0.2 % 0.0 - 1.0 02/26/2012 Normal [facility] HEMATOLOGY Lymphocytes # 2.4 K/CMM 1.0 - 5.5 02/26/2012 Normal [facility] HEMATOLOGY Segs 73.3 % 45.0 - 75.0 02/26/2012 Normal [facility] HEMATOLOGY Lymphocytes 19.8 % 20.0 - 40.0 02/26/2012 LOW [facility] URINALYSIS UA Urobilinogen <=1.0 mg/dL
*NA*
(02/19/2012 18:00:00) <sup> </sup> 0.1 - 1.0 02/19/2012 NA [facility] URINALYSIS UA Protein Negative mg/dL (02/19/2012 18:00:00) Negative 02/19/2012 Normal [facility] URINALYSIS UA Bili Negative *NA* (02/19/2012 18:00:00) Negative 02/19/2012 [facility] URINALYSIS UA Ketones Negative mg/dL *NA* (02/19/2012 18:00:00) Negative 02/19/2012 [facility] URINALYSIS UA pH 5.0 5.0 - 8.0 02/19/2012 Normal [facility] URINALYSIS UA Glucose Negative mg/dL *NA* (02/19/2012 18:00:00) Negative 02/19/2012 [facility] URINALYSIS UA Spec Grav 1.019 <=1.030 02/19/2012 Normal [facility] URINALYSIS UA Turbidity Clear (02/19/2012 18:00:00) Clear 02/19/2012 Normal [facility] URINALYSIS UA Color Yellow *NA* (02/19/2012 18:00:00) Yellow 02/19/2012 [facility] URINALYSIS UA RBC 1 /HPF 0 - 2 02/19/2012 Normal [facility] URINALYSIS UA Hyal Cast 3 /LPF 0 - 2 02/19/2012 [facility] URINALYSIS UA Mucus Few /LPF *NA* (02/19/2012 18:00:00) None Seen 02/19/2012 [facility] URINALYSIS UA Bacteria Occasional /HPF *NA* (02/19/2012 18:00:00) None Seen 02/19/2012 [facility] URINALYSIS UA Sq Epi Few /LPF *NA* (02/19/2012 18:00:00) Few 02/19/2012 [facility] URINALYSIS UA Leuk Est Negative (02/19/2012 18:00:00) Negative 02/19/2012 Normal [facility] URINALYSIS UA WBC 1 /HPF 0 - 5 02/19/2012 Normal [facility] URINALYSIS UA Nitrite Negative (02/19/2012 18:00:00) Negative 02/19/2012 Normal [facility] URINALYSIS UA Blood Negative (02/19/2012 18:00:00) Negative 02/19/2012 Normal [facility] HEMATOLOGY Sed Rate 4 mm/h 0 - 20 02/19/2012 Normal [facility] IMMUNOLOGY FAUSTINO Negative (02/19/2012 14:41:00) Negative 02/19/2012 Normal [facility] IMMUNOLOGY CRP, High Sensitivity 1.0 mg/L 02/19/2012 NA 5Interpretive Data: Low Risk: <1.0 mg/L Average Risk: 1.0 - 3.0 mg/L High Risk: >3.0 mg/L Inflammation: >10.0 mg/L [facility] CHEMISTRY CO2 28 meq/L 24 - 32 02/19/2012 Normal [facility] CHEMISTRY Calcium Lvl 8.4 mg/dL 8.5 - 10.5 02/19/2012 LOW [facility] CHEMISTRY Potassium Lvl 4.1 meq/L 3.5 - 5.1 02/19/2012 Normal [facility] CHEMISTRY Chloride Lvl 103 meq/L 95 - 109 02/19/2012 Normal [facility] CHEMISTRY Sodium Lvl 139 meq/L 135 - 145 02/19/2012 Normal [facility] CHEMISTRY BUN 15 mg/dL 7 - 22 02/19/2012 Normal [facility] CHEMISTRY Glucose Lvl 97 mg/dL 70 - 99 02/19/2012 Normal 1Interpretive Data: Adult reference range values reflect the clinical guidelines of the [place] [employer]. [facility] CHEMISTRY Creatinine Lvl 0.9 mg/dL 0.5 - 1.4 02/19/2012 Normal [facility] CHEMISTRY AGAP 12.1 meq/L 10.0 - 20.0 02/19/2012 Normal [facility] HEMATOLOGY Basophils # 0.0 K/CMM 0.0 - 0.2 02/19/2012 Normal [facility] HEMATOLOGY Eosinophils # 0.0 K/CMM 0.0 - 0.5 02/19/2012 Normal [facility] HEMATOLOGY Monocytes # 0.8 K/CMM 0.0 - 0.8 02/19/2012 Normal [facility] HEMATOLOGY Segs-Bands # 13.0 K/CMM 1.5 - 8.1 02/19/2012 [place] [facility] HEMATOLOGY Lymphocytes # 1.8 K/CMM 1.0 - 5.5 02/19/2012 Normal [facility] HEMATOLOGY Basophils 0.2 % 0.0 - 1.0 02/19/2012 Normal [facility] HEMATOLOGY Eosinophils 0.1 % 0.0 - 4.0 02/19/2012 Normal [facility] HEMATOLOGY Lymphocytes 11.8 % 20.0 - 40.0 02/19/2012 LOW [facility] HEMATOLOGY Monocytes 5.1 % 2.0 - 12.0 02/19/2012 Normal [facility] HEMATOLOGY Segs 82.8 % 45.0 - 75.0 02/19/2012 [facility] HEMATOLOGY Hgb 15.2 g/dL 12.0 - 16.0 02/19/2012 Normal [facility] HEMATOLOGY MPV 7.5 fL 7.4 - 10.4 02/19/2012 Normal [facility] HEMATOLOGY Platelet 210 K/CMM 133 - 450 02/19/2012 Normal [facility] HEMATOLOGY MCHC 33.6 g/dL 32.0 - 36.0 02/19/2012 Normal [facility] HEMATOLOGY RDW 14.0 % 11.5 - 14.5 02/19/2012 Normal [facility] HEMATOLOGY Hct 45.3 % 36.0 - 48.0 02/19/2012 Normal [facility] HEMATOLOGY MCV 94.1 fL 81.0 - 99.0 02/19/2012 Normal [facility] HEMATOLOGY MCH 31.6 pg 27.0 - 31.0 02/19/2012 [facility] HEMATOLOGY WBC 15.7 K/CMM 3.7 - 10.4 02/19/2012 [facility] HEMATOLOGY RBC 4.81 M/CMM 4.20 - 5.40 02/19/2012 Normal [facility] CHEMISTRY TSH 4.050 uIU/mL 0.360 - 3.740 02/18/2012 [facility] HEMATOLOGY Target Cell Slight *ABN* (02/18/2012 14:21:00) None Seen 02/18/2012 [facility] HEMATOLOGY Anisocyte 1+ *ABN* (02/18/2012 14:21:00) None Seen 02/18/2012 ABN [facility] HEMATOLOGY Basophils # 0.1 K/CMM 0.0 - 0.2 02/18/2012 Normal [facility] HEMATOLOGY Eosinophils # 0.1 K/CMM 0.0 - 0.5 02/18/2012 Normal [facility] HEMATOLOGY Monocytes # 0.7 K/CMM 0.0 - 0.8 02/18/2012 Normal [facility] HEMATOLOGY Lymphocytes 13.4 % 20.0 - 40.0 02/18/2012 LOW [facility] HEMATOLOGY Monocytes 4.1 % 2.0 - 12.0 02/18/2012 Normal [facility] HEMATOLOGY Segs-Bands # 13.4 K/CMM 1.5 - 8.1 02/18/2012 [facility] HEMATOLOGY Lymphocytes # 2.2 K/CMM 1.0 - 5.5 02/18/2012 Normal [facility] HEMATOLOGY Eosinophils 0.4 % 0.0 - 4.0 02/18/2012 Normal [facility] HEMATOLOGY Basophils 0.3 % 0.0 - 1.0 02/18/2012 Normal [facility] HEMATOLOGY Plt Morph Normal (02/18/2012 14:21:00) 02/18/2012 Normal [facility] HEMATOLOGY Segs 81.8 % 45.0 - 75.0 02/18/2012 HI [facility] HEMATOLOGY MPV 7.5 fL 7.4 - 10.4 02/18/2012 Normal [facility] HEMATOLOGY Hct 45.4 % 36.0 - 48.0 02/18/2012 Normal [facility] HEMATOLOGY WBC 16.4 K/CMM 3.7 - 10.4 02/18/2012 HI [facility] HEMATOLOGY RBC 4.81 M/CMM 4.20 - 5.40 02/18/2012 Normal [facility] HEMATOLOGY Hgb 15.4 g/dL 12.0 - 16.0 02/18/2012 Normal [facility] HEMATOLOGY MCV 94.4 fL 81.0 - 99.0 02/18/2012 Normal [facility] HEMATOLOGY MCHC 33.9 g/dL 32.0 - 36.0 02/18/2012 Normal [facility] HEMATOLOGY MCH 32.0 pg 27.0 - 31.0 02/18/2012 HI [facility] HEMATOLOGY RDW 14.3 % 11.5 - 14.5 02/18/2012 Normal [facility] HEMATOLOGY Platelet 234 K/CMM 133 - 450 02/18/2012 Normal [facility] CHEMISTRY Troponin-I 0.65 ng/mL 0.00 - 0.40 02/18/2012 CRIT 3Result Comment: Critical Result(s) called to Michelle at 02/18/2012 06:37:06 CDT by sdd. Read back OK. [facility] CHEMISTRY Total CK 57 unit/L 12 - 02/18/2012 Normal [facility] CHEMISTRY Troponin-I 0.88 ng/mL 0.00 - 0.40 02/18/2012 CRIT 4Result Comment: Critical Result(s) called to Kristel at 02/18/2012 00:06:11 CDT by sdd. Read back OK. [facility] CHEMISTRY Total CK 60 unit/L 12 - 191 02/18/2012 Normal [facility] CHEMISTRY CK MB Index null 0.0 - 2.5 02/17/2012 Normal [facility] CHEMISTRY Potassium Lvl 4.2 meq/L 3.5 - 5.1 02/17/2012 Normal [facility] CHEMISTRY Sodium Lvl 140 meq/L 135 - 145 02/17/2012 Normal [facility] CHEMISTRY Chloride Lvl 104 meq/L 95 - 109 02/17/2012 Normal [facility] CHEMISTRY A/G Ratio 0.8 0.7 - 1.6 02/17/2012 Normal [facility] CHEMISTRY B/C Ratio 16 6 - 25 02/17/2012 Normal [facility] CHEMISTRY Globulin 3.9 g/dL 2.0 - 4.0 02/17/2012 Normal [facility] CHEMISTRY Albumin Lvl 3.3 g/dL 3.5 - 5.0 02/17/2012 LOW [facility] CHEMISTRY AST 19 unit/L 0 - 37 02/17/2012 Normal [facility] CHEMISTRY AGAP 9.2 meq/L 10.0 - 20.0 02/17/2012 LOW [facility] CHEMISTRY Bili Total 0.3 mg/dL 0.2 - 1.3 02/17/2012 Normal [facility] CHEMISTRY Creatinine Lvl 0.9 mg/dL 0.5 - 1.4 02/17/2012 Normal [facility] CHEMISTRY Glucose Lvl 98 mg/dL 70 - 99 02/17/2012 Normal 2Interpretive Data: Adult reference range values reflect the clinical guidelines of the [place] [employer]. [facility] CHEMISTRY BUN 14 mg/dL 7 - 22 02/17/2012 Normal [facility] CHEMISTRY CO2 31 meq/L 24 - 32 02/17/2012 Normal [facility] CHEMISTRY Calcium Lvl 8.5 mg/dL 8.5 - 10.5 02/17/2012 Normal [facility] CHEMISTRY Total Protein 7.2 g/dL 6.4 - 8.4 02/17/2012 Normal [facility] CHEMISTRY ALT 46 unit/L 0 - 65 02/17/2012 Normal [facility] CHEMISTRY Alk Phos 58 unit/L 39 - 136 02/17/2012 Normal [facility] CHEMISTRY CK MB null 0.5 - 3.6 02/17/2012 Normal [facility] CHEMISTRY Total CK 59 unit/L 12 - 191 02/17/2012 Normal [facility] CHEMISTRY Troponin-I 0.06 ng/mL 0.00 - 0.40 02/17/2012 Normal [facility] HEMATOLOGY Plt Morph Normal (02/17/2012 16:19:00) 02/17/2012 Normal [facility] HEMATOLOGY Anisocyte 1+ *ABN* (02/17/2012 16:19:00) None Seen 02/17/2012 ABN [facility] HEMATOLOGY Hyperseg Slight *ABN* (02/17/2012 16:19:00) None Seen 02/17/2012 ABN [facility] HEMATOLOGY Segs 88.6 % 45.0 - 75.0 02/17/2012 [facility] HEMATOLOGY Lymphocytes 7.6 % 20.0 - 40.0 02/17/2012 LOW [facility] HEMATOLOGY Basophils 0.2 % 0.0 - 1.0 02/17/2012 Normal [facility] HEMATOLOGY Segs-Bands # 14.2 K/CMM 1.5 - 8.1 02/17/2012 [facility] HEMATOLOGY Eosinophils 0.1 % 0.0 - 4.0 02/17/2012 Normal [facility] HEMATOLOGY Monocytes 3.5 % 2.0 - 12.0 02/17/2012 Normal [facility] HEMATOLOGY Basophils # 0.0 K/CMM 0.0 - 0.2 02/17/2012 Normal [facility] HEMATOLOGY Monocytes # 0.6 K/CMM 0.0 - 0.8 02/17/2012 Normal [facility] HEMATOLOGY Eosinophils # 0.0 K/CMM 0.0 - 0.5 02/17/2012 Normal [facility] HEMATOLOGY Lymphocytes # 1.2 K/CMM 1.0 - 5.5 02/17/2012 Normal [facility] HEMATOLOGY RBC 4.75 M/CMM 4.20 - 5.40 02/17/2012 Normal [facility] HEMATOLOGY MPV 7.9 fL 7.4 - 10.4 02/17/2012 Normal [facility] HEMATOLOGY MCH 31.6 pg 27.0 - 31.0 02/17/2012 [facility] HEMATOLOGY Platelet 229 K/CMM 133 - 450 02/17/2012 Normal [facility] HEMATOLOGY MCHC 33.4 g/dL 32.0 - 36.0 02/17/2012 Normal [facility] HEMATOLOGY RDW 14.1 % 11.5 - 14.5 02/17/2012 Normal [facility] HEMATOLOGY Hct 44.9 % 36.0 - 48.0 02/17/2012 Normal [facility] HEMATOLOGY MCV 94.6 fL 81.0 - 99.0 02/17/2012 Normal [facility] HEMATOLOGY Hgb 15.0 g/dL 12.0 - 16.0 02/17/2012 Normal [facility] HEMATOLOGY WBC 16.3 K/CMM 3.7 - 10.4 02/17/2012 [facility] Vital Signs Vital Sign Value Date Comments Source Respitory Rate 19 10/18/2016 [facility] Heart Rate 81 10/18/2016 [facility] Systolic (mm Hg) 145 10/18/2016 [facility] Diastolic (mm Hg) 79 10/18/2016 [facility] Temperature Oral (F) 98.2 F 10/18/2016 [facility] Height 167.64 cm 10/18/2016 [facility] Weight 60 10/18/2016 [facility] BMI Calculated 21.35 10/18/2016 [facility] Respitory Rate 18 10/18/2016 [facility] Temperature Oral (F) 98.4 F 10/18/2016 [facility] Heart Rate 82 10/18/2016 [facility] Systolic (mm Hg) 151 10/18/2016 [facility] Diastolic (mm Hg) 92 10/18/2016 [facility] Diastolic (mm Hg) 71 09/30/2012 [facility] Systolic (mm Hg) 118 09/30/2012 [facility] Diastolic (mm Hg) 68 09/30/2012 [facility] Systolic (mm Hg) 115 09/30/2012 [facility] Diastolic (mm Hg) 72 09/30/2012 [facility] Systolic (mm Hg) 128 09/30/2012 [facility] Respitory Rate 20 09/30/2012 [facility] Respitory Rate 14 09/30/2012 [facility] Respitory Rate 14 09/30/2012 [facility] Temperature Oral (F) 98.1 F 09/30/2012 [facility] Heart Rate 92 09/29/2012 [facility] Temperature Oral (F) 97.7 F 09/29/2012 [facility] Height 172.72 cm 09/29/2012 [facility] Weight 59.091 09/29/2012 [facility] Respitory Rate 18 04/30/2012 [facility] Diastolic (mm Hg) 77 04/30/2012 [facility] Systolic (mm Hg) 148 04/30/2012 [facility] Systolic (mm Hg) 160 04/30/2012 [facility] Diastolic (mm Hg) 85 04/30/2012 [facility] Respitory Rate 16 04/30/2012 [facility] Systolic (mm Hg) 133 04/30/2012 [facility] Respitory Rate 16 04/30/2012 [facility] Diastolic (mm Hg) 80 04/30/2012 [facility] Heart Rate 92 04/30/2012 [facility] Weight 60.909 04/22/2012 [facility] Height 167.64 cm 04/22/2012 [facility] Heart Rate 88 04/22/2012 [facility] Temperature [...] 18 02/20/2012 [facility] Heart Rate 80 02/20/2012 [facility] Temperature Oral (F) 97.8 F 02/20/2012 [facility] Temperature Oral (F) 98.2 F 02/20/2012 [facility] Heart Rate 83 02/20/2012 [facility] Respitory Rate 18 02/20/2012 [facility] Systolic (mm Hg) 93 02/20/2012 [facility] Diastolic (mm Hg) 61 02/20/2012 [facility] Height 167.64 cm 02/17/2012 [facility] Weight 60.000 02/17/2012 [facility] Encounters Location Location Details Encounter Type Encounter Number Reason For Visit Attending Provider ADM Date DC Date Status Source [facility] Inpatient [id number] CHEST PAIN NICHOLAS SHARRON 02/18/2012 02/20/2012 Active [facility] Emergency [id number] ESTELLE PAINTING 02/26/2012 02/26/2012 Active [facility] DS [id number] KRISH YBARRA 04/30/2012 04/30/2012 Active [facility] Outpatient [id number] BREAST MASS KRISH YBARRA 06/03/2012 Active [facility] DS [id number] KAREN GUEVARA 09/30/2012 09/30/2012 Active [facility] Outpatient [id number] 6 MONTHS FOLLOW UP BILATERAL BREAST MASS SARABJIT AVERY 12/08/2012 Active [facility] - [place] [facility] [id number] Sarabjit Avery 08/25/2013 08/26/2013 HENOKD Nisa [facility] Outpatient Imaging - [place] [facility] [id number] Sarabjit Avery 10/12/2013 10/13/2013 [facility] Outpatient Imaging - [place] [facility] [id number] Nini Gillis 01/05/2014 01/06/2014 [facility] [place] [facility] Outpatient Imaging - [place] [facility] [id number] Sarabjit Avery 01/23/2014 01/24/2014 [facility] Outpatient Imaging - [place] [facility] [id number] Sarabjit Avery 02/13/2014 02/14/2014 [facility] Outpatient Imaging - [place] [facility] [id number] Duane Warner 02/20/2014 02/21/2014 [facility] [place] [facility] Outpatient Imaging - [place] [facility] [id number] Chikis Dominguez 02/24/2014 02/25/2014 [facility] Outpatient Imaging - [place] [facility] [id number] Gwyn Morris 07/24/2014 07/25/2014 [facility] Outpatient Imaging - [place] [facility] [id number] Carolina Mart 11/03/2014 11/04/2014 [facility] Outpatient [id number] Lakeisha Sharma 04/23/2015 04/24/2015 [facility] Outpatient Imaging - [place] [facility] [id number] Sarabjit Avery 09/26/2015 09/27/2015 [facility] Outpatient Imaging - [place] [facility] [id number] Brandon Delgado 01/07/2016 01/08/2016 [facility] Outpatient Imaging - [place] Out[facility] [id number] Sarabjit Avery 05/27/2016 05/28/2016 [facility] Outpatient [id number] Jason Roach 08/21/2016 08/22/2016 [facility] Emergency [id number] Karen Ghotra 10/18/2016 10/19/2016 [facility] Day Care [id number] JELLY MATHIS MD 12/01/2016 [facility] [place] [facility] [id number] Can Urias 03/23/2017 03/24/2017 JAMILAH [facility] Surgical Day Care [id number] JELLY MATHIS MD 05/23/2017 [facility] Outpatient [facility] [place] [facility] [id number] Sarabjit Avery 05/25/2017 05/26/2017 [facility] Outpatient Imaging - [place] [facility] [id number] Sarabjit Avery 06/11/2017 06/12/2017 [facility] Outpatient [id number] AVINASH ROSHNI 06/18/2017 06/19/2017 [facility] Departed Emergency Room [id number] MAGDI CAICEDO MD 08/05/2017 08/05/2017 [facility] Outpatient [facility] - [place] Out[facility] [id number] Sarabjit Avery 09/21/2017 09/22/2017 [facility] Outpatient [id number] BREAST MASS LEFT SIDE 2 AREAS KRISH YBARRA Cancel [facility] Procedures Procedure Code Date Perfomer Comments Source X-ray of chest, two views [id number] 08/05/[address] [facility] COLONOSCOPY W/LESION REMOVAL [id number] 05/23/2017 [facility] COLONOSCOPY W/LESION REMOVAL 81223 05/23/2017 [facility] Ablation of atrioventricular node [id number] [facility] Appendectomy [id number] [facility] Catheterization of both left and right heart [id number] [facility] Hysterectomy [id number] [facility] Inguinal herniorrhaphy [id number] [facility] Laparoscopy 916762460 [facility] Salpingo-oophorectomy [id number] [facility] Total thyroidectomy 03658144 [facility] Ablation of atrioventricular node [id number] [facility] Appendectomy [id number] [facility] Catheterization of both left and right heart [id number] [facility] Hysterectomy [id number] [facility] Inguinal herniorrhaphy [id number] [facility] Laparoscopy [id number] [facility] Salpingo-oophorectomy [id number] [facility] Total thyroidectomy [id number] [facility] Ablation of atrioventricular node [id number] [facility] Appendectomy [id number] [facility] Catheterization of both left and right heart 65759060 [facility] Hysterectomy [id number] [facility] Inguinal herniorrhaphy 72572456 [facility] Laparoscopy 21331281 [facility] [place] Salpingo-oophorectomy 162781613 [facility] Total thyroidectomy 35670163 [facility] [place] Ablation of atrioventricular node 809623349 [facility] Appendectomy 43881473 [facility] Catheterization of both left and right heart 41173224 [facility] Hysterectomy 212913904 [facility] Inguinal herniorrhaphy 48081981 [facility] Laparoscopy 70856003 [facility] Salpingo-oophorectomy 471040743 [facility] Total thyroidectomy 10452207 [facility] Ablation of atrioventricular node [id number] [facility] Appendectomy [id number] [facility] Catheterization of both left and right heart 01329452 [facility] Hysterectomy [id number] [facility] Inguinal herniorrhaphy [id number] [facility] Laparoscopy [id number] [facility] Salpingo-oophorectomy [id number] [facility] Total thyroidectomy [id number] [facility] Ablation of atrioventricular node 374914707 [facility] [place] Appendectomy [id number] [facility] [place] Catheterization of both left and right heart [id number] [facility] [place] Hysterectomy 861885609 [facility] [place] Inguinal herniorrhaphy [id number] [facility] [place] Laparoscopy 39073781 [facility] [place] Salpingo-oophorectomy [id number] [facility] [place] Total thyroidectomy [id number] [facility] [place]
[2018-08-22 15:46] LABS: CLARITY,URINE HAZY (CLEAR); COLOR,URINE YELLOW (YELLOW)
[2018-08-22 15:47] LABS: BACTERIA,URINE FEW /HPF; BILIRUBIN,URINE NEGATIVE (NEGATIVE); EPITHELIAL CELLS,URINE FEW /LPF; KETONES,URINE NEGATIVE (NEGATIVE); LEUKOCYTE ESTERASE ,URINE TRACE (NEGATIVE); NITRITE,URINE NEGATIVE (NEGATIVE); PROTEIN,URINE DIPSTICK NEGATIVE (NEGATIVE); RBC,URINE 21-50 /HPF (0-5); URINE UROBILINOGEN 0.2 mg/dL (0.2 - 1); WBC,URINE (MAN) 0-5 /HPF (0-5)
--- NOTE | 2018-08-22 16:21 | NUR ---
LAB WAS CALLED AT THIS TIME TO COME DRAW BLOOD ON THIS PT.
[2018-08-22 16:37] LABS: PREGNANCY TEST, URINE NEGATIVE (NEGATIVE)
[2018-08-22 16:45] LABS: BASOPHILS # (AUTO) 0.1 (0.0-0.1); BASOPHILS % 0.7 % (0.0-1.0); EOSINOPHILS # (AUTO) 0.2 (0.0-0.4); EOSINOPHILS % 1.6 % (0.0-6.0); HEMOGLOBIN 14.4 g/dL (12.0-16.0); LYMPHOCYTES % 20.1 % (18.0-39.1); MEAN CORPUSCULAR HEMOGLOBIN 30.7 pg (28-32); MEAN CORPUSCULAR HGB CONC 32.7 g/dL (31-35); MEAN CORPUSCULAR VOLUME 93.8 fL (81-99); MONOCYTES # (AUTO) 1.1 (0.2-0.8); NEUTROPHILS # (AUTO) 10.4 (2.1-6.9); NEUTROPHILS % 69.4 % (38.7-80.0); PLATELET COUNT 266 x10e3/uL (140-360); RED BLOOD COUNT 4.69 x10e6/uL (3.6-5.1); RED CELL DISTRIBUTION WIDTH 15.9 % (11.7-14.4)
[2018-08-22 17:02] LABS: ALBUMIN 3.1 g/dL (3.5-5.0); ANION GAP 13.9 mmol/L (8-16); CALCIUM 9.9 mg/dL (8.4-10.2); CREATININE, SERUM 1.06 mg/dL (0.57-1.11); POTASSIUM 3.9 mmol/L (3.5-5.1)
--- NOTE | 2018-08-22 18:39 | Diagnostic Imaging Report ---
EXAMINATION: CT of the abdomen and pelvis without contrast. TECHNIQUE: Helical CT images of the abdomen and pelvis were performed from the lung bases to the lesser trochanters without IV or oral contrast. Coronal and sagittal reformatted images were obtained. Radiation Dose: DLP is 303.1 mGy-cm. Dose modulation, iterative reconstruction, and/or weight based adjustment of the mA/kV was utilized to reduce the radiation dose to as low as reasonably achievable. COMPARISON: CT Abdomen/Pelvis with contrast 03/15/19. CLINICAL HISTORY:Abdominal pain. FINDINGS: LOWER THORAX:Unremarkable. HEPATOBILIARY: Previously noted subcentimeter lesion is not well-visualized on noncontrast CT. Is calcified right hepatic granuloma. No biliary ductal dilatation. Status post cholecystectomy. SPLEEN: No splenomegaly. PANCREAS: No focal masses or ductal dilatation. ADRENALS: No adrenal nodules. KIDNEYS/URETERS: No evidence of renal calculus. No evidence of solid mass or hydronephrosis. PELVIC ORGANS/BLADDER: The bladder is normal. Status post hysterectomy. PERITONEUM/RETROPERITONEUM: No free air or fluid. Unchanged cluster of nodules within the left upper quadrant adjacent spleen, with the largest component measuring up to 3.1 cm. LYMPH NODES: No evidence of lymphadenopathy VESSELS: Mild atherosclerotic changes. GI TRACT: Postsurgical change to the rectosigmoid junction. Appendix absent. No evidence of bowel obstruction. Unchanged mild inflammatory stranding adjacent to the distal descending colon on series 3, image 27. BONES AND SOFT TISSUE: No acute osseous abnormality. Status post vertebral augmentation at L1 and L5. Mild loss of vertebral body height at L2-L4, unchanged. IMPRESSION: No evidence of stone or other acute abdomen abnormality in the abdomen or pelvis. Unchanged multinodular soft tissue density in the left upper quadrant compared to CT on 03/15/2018. Note is made that the mass was biopsied on 03/31/2018, correlation with biopsy results is recommended. Signed by: Dr. Roshan Locke MD on 08/22/2018 6:38 PM
== END 2018-08-22 19:36 | disposition home or self-care (01) ==
LOC: ER 14:44
DX: R10.32 Left lower quadrant pain (principal); R11.0 Nausea; R31.9 Hematuria, unspecified; N23 Unspecified renal colic
CPT/HCPCS: 36415; 74176; 80053; 81001; 81025; 85025; 87086; 99284; J7030; J1885; J2405

== ENCOUNTER 2018-11-22 13:34 | Emergency (ER) | payer BC ==
[~2018-11-22] VITALS: Ht 160 cm; Wt 59.0 kg
--- OUTSIDE RECORDS SUMMARY | 2018-11-22 13:39 | XMS REPORT | Clinical Summary ---
Author Author [employer] Address Unknown Phone Unavailable Care Team Providers Care K 9 Police Officer Name Role Phone Jorge Avery MD PCP [...] to put in as a separate one [place] Rash Low 01/04/2016 Sulfa (Sulfonamide Nausea And [...] Health Maintenance Due Date Last Done Comments BREAST CANCER SCREENING 2012 COLON CANCER SCREENING 2012 SHINGLES VACCINES (#1) 2012 INFLUENZA VACCINE 01/27/2019 Results Not on fileafter 11/21/2017 Insurance Type Payer Benefit Subscriber ID Effective Phone Address Plan / Dates Group Medicare MEDICARE MEDICARE xxxxxxxxxx 2011-P [employer], [place] resent [place] P[place] BCBS BCBS OUT xxxxxxxxxxxx 2009-P STATE resent Advance Directives Patient has advance care planning documents, and code status on file. For more i nformation, please contact: Deonet Schultz [address] [place] [address] Date Inactivated Comments Code Status Date Activated 03/07/2016 6:32 PM Full Code 03/06/2016 10:58 AM Code Status decision reached by: Patient
[2018-11-22] MEDS ORDERED: LABETALOL HCL 5 MG/ML 20ML VIAL IV ONE (14:02)
[2018-11-22] MEDS ORDERED: LORAZEPAM INJ 2 MG/ML VIAL IV ONE (14:15)
[2018-11-22 14:39] LABS: BASOPHILS # (AUTO) 0.1 (0.0-0.1); BASOPHILS % 0.5 % (0.0-1.0); EOSINOPHILS % 0.2 % (0.0-6.0); HEMATOCRIT 52.2 % (34.2-44.1); HEMOGLOBIN 17.6 g/dL (12.0-16.0); LYMPHOCYTES # (AUTO) 2.5 (1.0-3.2); MEAN CORPUSCULAR HEMOGLOBIN 30.6 pg (28-32); MEAN CORPUSCULAR HGB CONC 33.7 g/dL (31-35); MEAN CORPUSCULAR VOLUME 90.6 fL (81-99); MONOCYTES # (AUTO) 0.8 (0.2-0.8); MONOCYTES % 4.7 % (4.4-11.3); NEUTROPHILS # (AUTO) 13.7 (2.1-6.9); NEUTROPHILS % 77.8 % (38.7-80.0); PLATELET COUNT 215 x10e3/uL (140-360); RED BLOOD COUNT 5.76 x10e6/uL (3.6-5.1); RED CELL DISTRIBUTION WIDTH 16.6 % (11.7-14.4)
[2018-11-22 14:43] LABS: INR 0.84
[2018-11-22 14:44] LABS: PARTIAL THROMBOPLASTIN TIME 25.8 seconds (23.8-35.5)
[2018-11-22 14:51] LABS: ALBUMIN 3.3 g/dL (3.5-5.0); ALBUMIN/GLOBULIN RATIO 0.8 (0.8-2.0); CALCIUM 9.4 mg/dL (8.4-10.2); CREATININE, SERUM 0.97 mg/dL (0.57-1.11)
[2018-11-22 14:59] LABS: CREATINE KINASE MB 0.9 ng/mL (0-5.0)
--- NOTE | 2018-11-22 15:12 | Diagnostic Imaging Report ---
Exam: Head CT without contrast History: Blurry vision, dizziness, lupus, thyroid cancer diagnosed 2008. Comparison studies: No prior exams are available on the PACS for comparison. Technique: Axial images were obtained from the skull base to the vertex. Coronal and sagittal images reconstructed from the axial data. Dose modulation, iterative reconstruction, and/or weight based adjustment of the mA/kV was utilized to reduce the radiation dose to as low as reasonably achievable. Radiation dose: Total DLP: 921 mGy*cm. Estimated effective dose: DLP x 0.015 Intravenous contrast: None Findings: Scalp: Diffusely demineralized and heterogeneous bones with multiple lytic foci. No fracture. Bones: No fractures, blastic or lytic lesions. Brain sulci: Mildly prominent. Ventricles: Mild compensatory dilatation.. No hydrocephalus. Extra-axial spaces: No masses, no fluid collection. Parenchyma: No mass, acute hemorrhage or acute cortical infarcts. Small age-indeterminate left tempo-insular subcortical infarct. There are small chronic bilateral subinsular lacunar infarcts. A few scattered hypodensities in the supratentorial white matter are nonspecific most compatible with chronic microvascular ischemic changes. Sellar/suprasellar region: No abnormalities. Craniocervical junction: Patent foramen magnum. No Chiari one malformation. Incidental findings: Lens replacements for previous cataract surgery. Atherosclerotic calcifications in the carotid siphons.. IMPRESSION: No mass, acute hemorrhage or acute cortical infarct. Small age-indeterminate left posterior temporal insular insult. Chronic findings: 1. Mild generalized brain volume loss. 2. Mild microvascular ischemic changes. 3. Small bilateral subinsular lacunar infarcts. 4. Demineralized heterogeneous bones with multiple lytic foci which may reflect metabolic bone disease. Moreover, diffuse osseous metastatic disease cannot be excluded in this setting. Signed by: Dr. Anoop Dumont M.D. on 11/22/2018 3:09 PM
[2018-11-22 16:21] LABS: BAND NEUTROPHILS % (MANUAL) 2 %; EOSINOPHILS % (MANUAL) 1 % (0-7); LYMPHOCYTES % (MANUAL) 19 % (19-48); METAMYELOCYTES % (MANUAL) 1 % (0-0); MONOCYTES % (MANUAL) 1 % (3.4-9.0); NEUTROPHILS % (MANUAL) 76 % (40-74)
[2018-11-22 16:22] LABS: PLATELET ESTIMATE ADEQUATE; PLATELET MORPHOLOGY COMMENT NORMAL; RBC MORPHOLOGY COMMENT NORMAL
== END 2018-11-22 16:26 | disposition home or self-care (01) ==
LOC: ER 13:34
DX: G62.9 Polyneuropathy, unspecified (principal); H53.2 Diplopia; A18.4 Tuberculosis of skin and subcutaneous tissue; M06.9 Rheumatoid arthritis, unspecified; I10 Essential (primary) hypertension; R53.1 Weakness; G70.00 Myasthenia gravis without (acute) exacerbation; Z95.0 Presence of cardiac pacemaker
CPT/HCPCS: 36415; 70450; 80053; 82550; 82553; 84484; 85025; 85610; 85730; 93005; 99284; J2060

== ENCOUNTER 2019-01-08 23:04 | Emergency (ER) | payer BC ==
[~2019-01-08] VITALS: Ht 160 cm; Wt 59.0 kg
--- OUTSIDE RECORDS SUMMARY | 2019-01-08 23:12 | XMS REPORT | Clinical Summary ---
Author Author [employer] Organization [employer] Address Unknown Phone Unavailable Care Team Providers Care Help Desk Supervisor Name Role Phone Jorge Avery MD PCP [...] to put in as a separate one [place] Rash Low 01/04/2016 Sulfa (Sulfonamide Nausea And [...] Signs Not on file Plan of Treatment Care Team Description Date Type Specialty Peter Cruz MD [address] [place] [address] 01/24/2019 Office Visit Neurology Health Maintenance Due Date Last Done Comments BREAST CANCER SCREENING 2012 COLONOSCOPY SCREENING 2012 SHINGLES VACCINES (#1) 2012 INFLUENZA VACCINE 01/27/2019 Results Not on fileafter 01/07/2018 Insurance Type Payer Benefit Subscriber ID Effective Phone Address Plan / Dates Group Medicare MEDICARE MEDICARE xxxxxxxxxx 2011-P [employer] resent [place] P[place] BCBS BCBS OUT xxxxxxxxxxxx 2009-P OF STATE resent Advance Directives Patient has advance care planning documents, and code status on file. For more i nformation, please contact: Deonte Schultz [address] [place] [address] Date Inactivated Comments Code Status Date Activated 03/07/2016 6:32 PM Full Code 03/06/2016 10:58 AM Code Status decision reached by: Patient
[2019-01-08 23:50] LABS: BASOPHILS # (AUTO) 0.1 (0.0-0.1); BASOPHILS % 0.6 % (0.0-1.0); EOSINOPHILS # (AUTO) 0.1 (0.0-0.4); EOSINOPHILS % 0.3 % (0.0-6.0); HEMATOCRIT 49.8 % (34.2-44.1); HEMOGLOBIN 16.6 g/dL (12.0-16.0); LYMPHOCYTES # (AUTO) 3.4 (1.0-3.2); LYMPHOCYTES % 17.5 % (18.0-39.1); MEAN CORPUSCULAR HEMOGLOBIN 30.5 pg (28-32); MEAN CORPUSCULAR HGB CONC 33.3 g/dL (31-35); MEAN CORPUSCULAR VOLUME 91.4 fL (81-99); MONOCYTES # (AUTO) 1.1 (0.2-0.8); MONOCYTES % 5.6 % (4.4-11.3); NEUTROPHILS # (AUTO) 14.1 (2.1-6.9); NEUTROPHILS % 73.1 % (38.7-80.0); PLATELET COUNT 269 x10e3/uL (140-360); RED BLOOD COUNT 5.45 x10e6/uL (3.6-5.1); RED CELL DISTRIBUTION WIDTH 17.4 % (11.7-14.4)
[2019-01-08] MEDS ORDERED: methylprednisolone PO (23:56)
[2019-01-08] MEDS ORDERED: LORAZEPAM1 MG PO (23:56)
[2019-01-08] MEDS ORDERED: XARELTO10 MG PO (23:56)
[2019-01-08] MEDS ORDERED: CLONIDINE HCL0.2 MG PO (23:56)
[2019-01-08] MEDS ORDERED: SYNTHROID100 MCG PO (23:56)
[2019-01-08] MEDS ORDERED: TRAMADL/APAP PO (23:57)
[2019-01-08] MEDS ORDERED: SPIRIVA INH (23:59)
[2019-01-08] MEDS ORDERED: LABETALOL HCL100 MG PO (23:59)
[2019-01-09 00:05] LABS: ALANINE AMINOTRANSFERASE 22 IU/L (0-55); ALBUMIN 3.2 g/dL (3.5-5.0); ALBUMIN/GLOBULIN RATIO 0.8 (0.8-2.0); ALKALINE PHOSPHATASE 93 IU/L (40-150); ANION GAP 20.2 mmol/L (8-16); BLOOD UREA NITROGEN 17 mg/dL (7-26); BUN/CREATININE RATIO 18 (6-25); CALCIUM 9.3 mg/dL (8.4-10.2); CARBON DIOXIDE 19 mmol/L (22-29); CHLORIDE 104 mmol/L (98-107); CREATINE KINASE 27 IU/L (29-168); CREATININE, SERUM 0.97 mg/dL (0.57-1.11); EST GLOMERULAR FILTRATION RATE 59 ML/MIN (60-); GLUCOSE 149 mg/dL (74-118); MAGNESIUM 2.5 MG/DL (1.3-2.1); POTASSIUM 4.2 mmol/L (3.5-5.1); SODIUM 139 mmol/L (136-145)
[2019-01-09] MEDS ORDERED: SODIUM CHLORIDE 0.9% 1000ML 1,000 ML IV SCH (00:15)
--- NOTE | 2019-01-09 00:17 | Diagnostic Imaging Report ---
EXAMINATION: CHEST SINGLE (PORTABLE) INDICATION: Short of breath COMPARISON: None FINDINGS: AP view TUBES and LINES: None. LUNGS: Lungs are well inflated. Lungs are clear. Mild central pulmonary vascular prominence. PLEURA: No pleural effusion or pneumothorax. HEART AND MEDIASTINUM: The cardiomediastinal silhouette is unremarkable. BONES AND SOFT TISSUES: No acute osseous lesion. Single-lead left chest cardiac device with lead projecting in the right atrium. Enthesopathic changes at the greater tuberosities. UPPER ABDOMEN: No free air under the diaphragm. IMPRESSION: Mild central pulmonary vascular congestion. Signed by: Tyree Camp DO on 01/09/2019 12:13 AM
[2019-01-09 05:04] LABS: BASOPHILS # (AUTO) 0.1 (0.0-0.1); BASOPHILS % 0.6 % (0.0-1.0); EOSINOPHILS # (AUTO) 0.1 (0.0-0.4); EOSINOPHILS % 0.4 % (0.0-6.0); HEMATOCRIT 41.9 % (34.2-44.1); HEMOGLOBIN 13.9 g/dL (12.0-16.0); LYMPHOCYTES # (AUTO) 1.5 (1.0-3.2); LYMPHOCYTES % 10.7 % (18.0-39.1); MEAN CORPUSCULAR HEMOGLOBIN 30.8 pg (28-32); MEAN CORPUSCULAR HGB CONC 33.2 g/dL (31-35); MEAN CORPUSCULAR VOLUME 92.9 fL (81-99); MONOCYTES # (AUTO) 0.8 (0.2-0.8); MONOCYTES % 5.5 % (4.4-11.3); NEUTROPHILS # (AUTO) 11.1 (2.1-6.9); NEUTROPHILS % 80.4 % (38.7-80.0); PLATELET COUNT 208 x10e3/uL (140-360); RED BLOOD COUNT 4.51 x10e6/uL (3.6-5.1); RED CELL DISTRIBUTION WIDTH 16.9 % (11.7-14.4)
[2019-01-09 05:31] LABS: CREATINE KINASE MB 1.4 ng/mL (0-5.0)
[2019-01-09 05:59] VITALS: BP 151/78
== END 2019-01-09 06:16 | disposition home or self-care (01) ==
LOC: ER 23:04
DX: R00.2 Palpitations (principal); R07.89 Other chest pain; I48.1 Persistent atrial fibrillation; I10 Essential (primary) hypertension
CPT/HCPCS: 36415; 71045; 80053; 82550; 82553; 83735; 84484; 85025; 85730; 93005; 99284; J7030